=== PATIENT | male | born 1930 | race Caucasian/White ===

== ENCOUNTER → 2018-05-27 | Outpatient (CLI) | payer OTHER ==
[~2018-05-27] MED LIST: ALLOPURINOL100 MG PO; ASPIRIN81 MG; ATORVASTATIN CA20 MG PO; LABETALOL HCL200 MG PO; LISINOPRIL-HCT1 EAC1
--- NOTE | 2018-05-27 12:31 | Diagnostic Imaging Report ---
PROCEDURE: CT ABDOMEN AND PELVIS WITHOUT CONTRAST COMPARISON:None. INDICATIONS:HEMATURIA TECHNIQUE: Axial CT images through the abdomen and pelvis were obtained without IV contrast utilizing a renal stone protocol. Coronal and sagittal reformations were created. DLP: 358.96 mGY-cm FINDINGS: Lung bases: Mild bibasilar hyperinflation with several scattered air cysts in each lower lobe. There is mild bronchial wall thickening. Moderate size hiatal hernia is present. Liver: Normal attenuation. No mass Spleen: Normal size. No mass. Biliary: Gallbladder and biliary tree are normal. Pancreas: Mild fatty atrophy without mass or ductal dilatation. Punctate calcification is in the pancreas head. Adrenal Glands: Mild thickening of the adrenal glands. No mass Kidneys: Right kidney: High attenuating lesion in the upper pole measures 9 mm. Low attenuating lesion in the lower pole measures 3.1 x 2.8 cm. No intrarenal calculi or hydronephrosis. Left kidney: No renal calculus or cortical mass. No hydronephrosis. Vasculature: The aorta is normal in diameter and diffusely calcified. They're calcifications are upper visceral arteries. GI: The stomach is normal. Small bowel and large bowel are normal in diameter with normal wall thickness. There are diverticula in the large bowel object in the sigmoid colon with mural thickening of the sigmoid colon suggestive of previous bouts of diverticulitis. The appendix is normal. Peritoneum/Retroperitoneum: No mass or free fluid. Bladder: Soft tissue mass in the posterior wall measures 4.6 cm in maximum thickness and involves both the right and left bladder mejia. There are 2 masses in the anterior bladder dome, the larger measuring 1.4 cm. Ureters: Mildly distended but not dilated. No periureteric inflammation. Reproductive organs: The prostate gland measures 4.3 x 5.0 cm. The seminal vesicles are normal in morphology. Musculoskeletal: Mild endplate degenerative changes of the lower lumbar spine most severe at L2-3 and L5-S1. No compression deformities. No lytic or blastic lesions. There are trace degenerative changes of the hips. CONCLUSION: 1. Large bladder mass consistent with carcinoma until proven otherwise. Recommend correlation with cystoscopy. No obstructive uropathy. 2. Subcentimeter high attenuating lesion in the upper pole of the right kidney may represent a proteinaceous/hemorrhagic cyst. Cystic nature can be confirmed with renal ultrasound. Cyst in the lower pole of the right kidney as described above. 3. Moderate-sized hiatal hernia. 4. Diverticulosis coli. No bowel obstruction or inflammation. Dictated by: Sandie Espinoza M.D. on 05/27/2018 at 12:35 Electronically approved by: Sandie Espinoza M.D. on 05/27/2018 at 12:35
--- NOTE | 2018-05-27 13:27 | Diagnostic Imaging Report ---
PROCEDURE:US RETROPERITONEAL ( KIDNEY ). COMPARISON:CT Abdomen/Pelvis 05/27/18. INDICATIONS:Gross Hematuria FINDINGS: Right kidney: Measures up to 10.3 cm in length and 1.7 cm in cortical thickness. No evidence of hydronephrosis. There is a simple appearing 2.9 cm middle/inferior pole cyst. An 8 mm echogenic focus in the right mid pole renal pelvis without doppler flow and no evidence of stone on same day CT, may represent focal fat. Left kidney: Measures up to 10.3 cm in length and 1.6 cm in cortical thickness. No evidence of hydronephrosis, stone, or solid mass lesion. Bladder: Heterogeneous solid exophytic mass in the bladder is partially visualized on ultrasound and noted on same day CT. There is associated Doppler vascular flow. Prostate: Enlarged prostate measuring up to 4.9 cm. CONCLUSION: Exophytic bladder mass, partially visualized on ultrasound and noted on same day CT, concerning for malignancy. Recommend cystoscopy for additional evaluation. High attenuation subcentimeter lesion noted in the right upper pole CT not visualized on ultrasound. Simple 2.9 cm right inferior pole renal cyst. Dictated by: AIRAM WILSON M.D. on 05/27/2018 at 13:32 Electronically approved by: AIRAM WILSON M.D. on 05/27/2018 at 13:32
--- NOTE | 2018-05-29 23:00 | History and Physical ---
CHIEF COMPLAINT: Status post TURP secondary to gross hematuria. Status post cystoscopy. HISTORY: This is an 88-year-old male with a long history of hematuria, treated as infection and subsequently recurrent hematuria for quite some time, came in now with status post cystoscopy. Patient has a Lang catheter in place. He does have blood in the urine. Otherwise, the patient is stable. No chest pain, no shortness of breath. PAST MEDICAL HISTORY: Recurrent gross hematuria. PAST SURGICAL HISTORY: SOCIAL HISTORY: Patient does not smoke or use alcohol. No recreational drugs. ALLERGIES: TO NO KNOWN ALLERGIES. HOME MEDICATIONS: Allopurinol, aspirin, Lipitor, labetalol, lisinopril, hydrochlorothiazide. PHYSICAL EXAMINATION VITAL SIGNS: Temperature is 98. Blood pressure 128/59. Pulse rate is 72. Respirations 18. GENERAL: The patient is not in acute distress. He is status post TURP and cystoscopy. HEENT: Normocephalic, atraumatic. Anicteric. NECK: Supple grossly. PULMONARY: Diminished breath sounds. CARDIOVASCULAR: Regular rate/rhythm. ABDOMEN: Soft, status post TURP, generalized discomfort. No rebound or guarding. Lang catheter in place. EXTREMITIES: No cyanosis or edema. NEUROLOGIC: No gross focal deficit. LABORATORY: WBC is 11.7, hemoglobin 7.7, hematocrit 23.9, platelets 174,000. Chemistry, sodium is 136, potassium 4.3, chloride 103, bicarb 25, BUN 37, creatinine 2.2, glucose is 118. IMPRESSIONS 1. Status post transurethral resection of prostate and cystoscopy. 2. Finding of urinary bladder multiple lesions. 3. Gross hematuria. PLAN: Continue with postoperative care. Continue with irrigation of the urinary bladder to prevent clotting and obstruction. Will monitor the patient closely. Check pathology. Job#: [id number] CQ
== END ==
LOC: US 10:54
PROVIDERS: ATTEND Urology
DX: R31.0 Gross hematuria (principal); N40.1 Benign prostatic hyperplasia with lower urinary tract symptoms
CPT/HCPCS: 74176; 76770

== ENCOUNTER → 2018-08-06 | Day surgery (SDC) | payer MEDICARE, OTHER ==
[2018-08-04 12:12] LABS: BASOPHILS % 0.4 % (0.0-1.0); EOSINOPHILS # (AUTO) 0.1 (0.0-0.4); HEMATOCRIT 30.2 % (38.2-49.6); HEMOGLOBIN 9.4 g/dL (14.0-18.0); MEAN CORPUSCULAR HEMOGLOBIN 28.2 pg (28-32); MEAN CORPUSCULAR HGB CONC 31.1 g/dL (31-35); MEAN CORPUSCULAR VOLUME 90.7 fL (81-99); MONOCYTES # (AUTO) 0.7 (0.2-0.8); NEUTROPHILS # (AUTO) 4.2 (2.1-6.9); NEUTROPHILS % 46.4 % (38.7-80.0); PLATELET COUNT 194 x10e3/uL (140-360); RED BLOOD COUNT 3.33 x10e6/uL (4.3-5.7); RED CELL DISTRIBUTION WIDTH 16.2 % (11.7-14.4)
[2018-08-04 12:29] LABS: ALBUMIN 3.7 g/dL (3.5-5.0); ALBUMIN/GLOBULIN RATIO 1.1 (0.8-2.0); ANION GAP 14.5 mmol/L (8-16); CALCIUM 9.3 mg/dL (8.4-10.2); CREATININE, SERUM 1.57 mg/dL (0.72-1.25); POTASSIUM 4.5 mmol/L (3.5-5.1)
--- NOTE | 2018-08-04 12:33 | Diagnostic Imaging Report ---
EXAM: ABDOMEN-1VIEW (KUB) DATE: 08/04/2018 11:56 AM INDICATION: Preop bladder cancer COMPARISON: None FINDINGS: Bilateral ureteral stents present. Bowel gas pattern is nonobstructive. Pelvic phleboliths noted. Degenerative changes in the spine. IMPRESSION: Bilateral ureteral stents. Signed by: Dr. Jose Parkinson MD on 08/04/2018 12:30 PM
[~2018-08-06] MED LIST changes: +ACETAMINOPHEN 1000 MG/100 ML 100 ML IV ONE; +BACTRIM DS TAB1 EACH PO; +CEFTRIAXONE SOD 1 GM VIAL ONE; +DEXAMETHASONE SOD PHOS INJ 4 MG/ML VIAL ONE; +FENTANYL CITRATE/PF 100MCG/2 ML INJ ONE; +GENTAMICIN 80MG/NS 100 ML 100 ML IV ONE; +IOPAMIDOL 610MG/1ML 300 MG/ML VIAL IV ONE; +LIDOCAINE HCL 2% LOCAL INJ 5 ML SDV VIAL INJ ONE; +MEPERIDINE HCL INJ 50 MG/ML INJ ONE; +ONDANSETRON HCL INJ 2 MG/ML VIAL ONE; +PROPOFOL IV EMULSION 10 MG/ML 20 ML VIAL ONE; +PYRIDIUM100 MG PO; +SEVOFLURANE INHAL SOLN 250 ML PEN BTL ONE; +TAMSULOSIN HCL0.4 MG PO; +TYLENOL WITH C1 EACH PO; +VALACYCLOVIR500 MG PO
[2018-08-06 14:30] VITALS: BP 142/70
--- NOTE | 2018-09-15 01:48 | Operative Report ---
DATE OF PROCEDURE: August 06, 2018 PREOPERATIVE DIAGNOSIS: Bladder cancer. POSTOPERATIVE DIAGNOSIS: Bladder cancer. PROCEDURE PERFORMED: Cystourethroscopy with transurethral resection of larger than 5 cm in diameter of residual bladder cancer. ANESTHESIA: General. COMPLICATIONS: None. CLINICAL SUMMARY: Piotr Castro is an 88-year-old man with bilateral indwelling ureteral stents and having had twice performed transurethral resection of the bladder tumors. This revealed no invasive disease and only superficial disease. The patient has residual disease and is brought for additional TURBT. He is aware of the risks of bleeding, infection, injury to adjacent structures and need for additional procedures and elected to proceed. OPERATIVE PROCEDURE IN DETAIL: Informed consent was verified. Piotr Castro was properly identified and taken to the operating room, placed on the cystoscopy table in supine position. Anesthesia was uneventfully begun. Patient was then carefully and gently repositioned in dorsal lithotomy position with all pressure points well padded. His genitalia were prepared and draped in usual sterile fashion. A 22.5-Bruneian cystoscope sheath with a visual obturator in place was atraumatically inserted in the patient's urethra. It was guided down the unremarkable distal urethra through the sphincteric region through the prostate bed, which was significant for BPH and into the patient's bladder where panendoscopy revealed stents emerging from both ureteral orifices. It also revealed significant amount of residual bladder cancer, most notably along the posterior bladder wall and the lateral mejia. The resectoscope was atraumatically inserted and the patient's tumor was resected. We basically worked for an hour and then we stopped. Prior to stopping, electrocautery was utilized to achieve hemostasis and all bladder tumor specimens were removed from the bladder. Panendoscopy revealed excellent hemostasis. No evidence of any residual bladder tumor. A Lang catheter was placed. It was irrigated to and fro to ensure it worked properly and the patient was uneventfully reversed from anesthesia and taken to the recovery room in stable condition. There were no complications during the procedure. The patient tolerated the procedure well. Plans will be to return the patient to the operating room the following month for an additional TURBT with possible stent change. Job#: [id number]
== END | disposition home or self-care (01) ==
LOC: OR 08:39
PROVIDERS: ATTEND Urology
DX: C67.8 Malignant neoplasm of overlapping sites of bladder (principal); Z96.0 Presence of urogenital implants; N40.0 Benign prostatic hyperplasia without lower urinary tract symptoms; I10 Essential (primary) hypertension; E78.5 Hyperlipidemia, unspecified; K21.9 Gastro-esophageal reflux disease without esophagitis; Z01.812 Encounter for preprocedural laboratory examination
CPT/HCPCS: 36415; 52240; 74018; 80053; 85025; 86850; 86900; 88307; J0696; J1100; J1580; J2001; J2175; J2405; 88305

== ENCOUNTER 2018-11-05 07:37 | Inpatient (IN) | payer MEDICARE ==
[2018-11-03 13:24] LABS: BASOPHILS % 0.4 % (0.0-1.0); EOSINOPHILS # (AUTO) 0.1 (0.0-0.4); EOSINOPHILS % 0.9 % (0.0-6.0); HEMATOCRIT 39.8 % (38.2-49.6); HEMOGLOBIN 12.9 g/dL (14.0-18.0); LYMPHOCYTES # (AUTO) 3.1 (1.0-3.2); LYMPHOCYTES % 28.1 % (18.0-39.1); MEAN CORPUSCULAR HEMOGLOBIN 29.7 pg (28-32); MEAN CORPUSCULAR HGB CONC 32.4 g/dL (31-35); MEAN CORPUSCULAR VOLUME 91.7 fL (81-99); MONOCYTES # (AUTO) 0.9 (0.2-0.8); MONOCYTES % 8.4 % (4.4-11.3); NEUTROPHILS # (AUTO) 6.7 (2.1-6.9); NEUTROPHILS % 61.7 % (38.7-80.0); PLATELET COUNT 295 x10e3/uL (140-360); RED BLOOD COUNT 4.34 x10e6/uL (4.3-5.7); RED CELL DISTRIBUTION WIDTH 21.8 % (11.7-14.4)
[2018-11-03 13:44] LABS: ALBUMIN 3.8 g/dL (3.5-5.0); ANION GAP 17.3 mmol/L (8-16); CALCIUM 9.8 mg/dL (8.4-10.2); POTASSIUM 5.3 mmol/L (3.5-5.1)
[~2018-11-05] VITALS: Ht 165.1 cm; Wt 65.3 kg
[~2018-11-05 07:37] MED LIST changes: -ACETAMINOPHEN 1000 MG/100 ML 100 ML IV ONE; -CEFTRIAXONE SOD 1 GM VIAL ONE; -DEXAMETHASONE SOD PHOS INJ 4 MG/ML VIAL ONE; -FENTANYL CITRATE/PF 100MCG/2 ML INJ ONE; -GENTAMICIN 80MG/NS 100 ML 100 ML IV ONE; -IOPAMIDOL 610MG/1ML 300 MG/ML VIAL IV ONE; -LIDOCAINE HCL 2% LOCAL INJ 5 ML SDV VIAL INJ ONE; -LISINOPRIL-HCT1 EAC1; +LISINOPRIL-HCT1 EAC1 PO; -MEPERIDINE HCL INJ 50 MG/ML INJ ONE; -ONDANSETRON HCL INJ 2 MG/ML VIAL ONE; -PROPOFOL IV EMULSION 10 MG/ML 20 ML VIAL ONE; -SEVOFLURANE INHAL SOLN 250 ML PEN BTL ONE
--- OUTSIDE RECORDS SUMMARY | 2018-11-05 07:44 | XMS REPORT | Clinical Summary ---
Author Author [employer] Organization [employer] Address Unknown Phone Unavailable Care Team Providers Care Table Filler Name Role Phone PCP Unavailable Allergies Not on File Medications Not on file Active Problems Not on file Encounters Care Team Description Date Type Specialty Juvencio Mccullough MD 09/02/2018 Lab Lab after 11/04/2017 Social History Date Tobacco Use Types Packs/Day Years Used Never Assessed Sex Assigned at Date Recorded Not on file Industry Job Start Date Occupation Not on file Not on file Not on file Travel End Travel History Travel Start No recent travel history available. Last Filed Vital Signs Not on file Plan of Treatment Health Maintenance Due Date Last Done Comments SHINGLES VACCINES (1 of 1980 2) PNEUMOCOCCAL Completed 01/02/2009 POLYSACCHARIDE VACCINE AGE 65 AND OVER PNEUMOCOCCAL-13 Completed 03/25/2018 INFLUENZA VACCINE Completed 07/07/2018, 07/02/2017 Procedures Comments Procedure Name Priority Date/Time Associated Diagnosis MARJORIE FRANK VIRUS (EBV) Routine 09/03/2018 BY PCR 12:30 PM SHOE DRESSER OPHTHALMOLOGY PATHOGEN Routine 09/03/2018 MULTIPLEX PANEL 12:30 PM SHOE DRESSER after 11/04/2017 Results * Ophthalmology pathogen multiplex panel (09/03/2018 12:30 PM SHOE DRESSER) Cytomegalovirus by PCR, Not-Detected Not-Detected [facility] DEPARTMENT OF eye PATHOLOGY AND GENOMIC MEDICINE Herpes simplex virus 1 by Not-Detected Not-Detected [facility] DEPARTMENT OF PCR, eye PATHOLOGY AND GENOMIC MEDICINE Herpes simplex virus 2 by Not-Detected Not-Detected [facility] DEPARTMENT OF PCR, eye PATHOLOGY AND GENOMIC MEDICINE Toxoplasma gondii by PCR, Not-Detected Not-Detected [facility] DEPARTMENT OF eye PATHOLOGY AND GENOMIC MEDICINE Varicella zoster virus by Detected (A) Not-Detected [facility] DEPARTMENT OF PCR, eye PATHOLOGY AND GENOMIC MEDICINE Ophthalmology pathogen See link below for PDF Lab [facility] DEPARTMENT OF multiplex panel ReportComment: Case Number: PATHOLOGY AND [id number] GENOMIC MEDICINE Narrative Performed At [facility] right eye [facility] DEPARTMENT OF PATHOLOGY AND GENOMIC MEDICINE Performing Organization Address City/State/Zipcode Phone Number [facility] DEPARTMENT OF [address] [place] [address] PATHOLOGY AND GENOMIC MEDICINE * Marjorie Frank Virus (EBV) by PCR (09/03/2018 12:30 PM SHOE DRESSER) Marjorie Frank virus, PCR Not-Detected Not-Detected copies/mL [facility] Marjorie Frank virus, PCR See link below for PDF Lab [facility] ReportComment: Case Number: [facility] [id number] Narrative Performed At aqueous right eye [facility] The specimen type Vitreous, Other has not been validated for this assay. [facility] Therefore, the sensitivity and specificity of this assay for this specimen type is unknown. A negative result does not completely rule out the presence of EBV. Correlation with other clinical information is recommended. Performing Organization Address City/State/Zipcode Phone Number [facility] DEPARTMENT OF [address] [place] [address] PATHOLOGY AND GENOMIC MEDICINE [address] [address] [facility] after 11/04/2017 Insurance Payer Benefit Subscriber ID Type Phone Address Plan / Group HUMANA MEDICARE HUMANA xxxxxxxxx PPO MEDICARE PPO/PFFS/E RS [facility] MEDICARE MEDICARE xxxxxxxxxxx Medicare [place], [place] PART A AND B Advance Directives Patient has advance care planning documents on file. For more information, brian freeman contact: [address] [address]
[2018-11-05] MEDS ORDERED: CEFTRIAXONE SOD 1 GM/NS 50 ML 50 ML IV ONE (07:54)
[2018-11-05] MEDS ORDERED: GENTAMICIN 80MG/NS 100 ML 100 ML IV ONE (07:54)
[2018-11-05 08:28] LABS: ANION GAP 16.8 mmol/L (8-16); CALCIUM 9.6 mg/dL (8.4-10.2); CREATININE, SERUM 2.41 mg/dL (0.72-1.25); POTASSIUM 4.8 mmol/L (3.5-5.1)
[2018-11-05] MEDS ORDERED: BELLADONNA/OPIUM 30 MG SUPP RC ONE (09:03)
[2018-11-05] MEDS ORDERED: IOPAMIDOL 610MG/1ML 300 MG/ML VIAL IV ONE (09:03)
[2018-11-05] MEDS ORDERED: FENTANYL CITRATE/PF 100MCG/2 ML INJ ONE ×2 (11:49→15:12)
[2018-11-05] MEDS ORDERED: DIPHENHYDRAMINE HCL 25 MG CAP PO PRN (12:15)
[2018-11-05] MEDS ORDERED: BELLADONNA/OPIUM 30 MG SUPP RC PRN (12:15)
[2018-11-05] MEDS ORDERED: ONDANSETRON HCL INJ 2MG/ML 2ML 2 MG/ML VIAL IV PRN (12:15)
--- OUTSIDE RECORDS SUMMARY | 2018-11-05 12:20 | XMS REPORT | Clinical Summary ---
Author Author [employer] [facility] [employer] Address Unknown Phone Unavailable Care Team Providers Care Advertising Sales Executive Name Role Phone PCP Unavailable Allergies Not [...] (EBV) Routine 09/03/2018 BY PCR 12:30 PM GROUP HOME COUNSELOR OPHTHALMOLOGY PATHOGEN Routine 09/03/2018 MULTIPLEX PANEL 12:30 PM GROUP HOME COUNSELOR after 11/04/2017 Results * Ophthalmology pathogen multiplex panel (09/03/2018 12:30 PM GROUP HOME COUNSELOR) Cytomegalovirus by PCR, Not-Detected Not-Detected [facility] DEPARTMENT OF eye PATHOLOGY AND GENOMIC MEDICINE Herpes simplex virus 1 by Not-Detected Not-Detected [facility] DEPARTMENT OF PCR, eye PATHOLOGY AND GENOMIC MEDICINE Herpes simplex virus 2 by Not-Detected Not-Detected [facility] DEPARTMENT OF PCR, eye PATHOLOGY AND GENOMIC MEDICINE Toxoplasma gondii by PCR, Not-Detected Not-Detected [facility] DEPARTMENT OF eye PATHOLOGY AND GENOMIC MEDICINE Varicella zoster virus by Detected (A) Not-Detected [facility] DEPARTMENT OF PCR, eye PATHOLOGY AND GENOMIC MEDICINE Ophthalmology pathogen See link below for PDF Lab [facility] DEPARTMENT OF multiplex panel ReportComment: Case Number: PATHOLOGY AND [id number] GENOMIC MEDICINE Narrative Performed At [facility] right eye [facility] DEPARTMENT OF PATHOLOGY AND GENOMIC MEDICINE Performing Organization Address City/State/Zipcode Phone Number [facility] DEPARTMENT OF [address] [place] [address] PATHOLOGY AND GENOMIC MEDICINE * Marjorie Frank Virus (EBV) by PCR (09/03/2018 12:30 PM GROUP HOME COUNSELOR) Marjorie Frank virus, PCR Not-Detected Not-Detected copies/mL [facility] Marjorie Frank virus, PCR See link below for PDF Lab [facility] ReportComment: Case Number: [facility] [id number] Narrative Performed At aqueous right eye [facility] The specimen type Vitreous, Other has not been validated for this assay. [facility] Therefore, the sensitivity and specificity of this assay for this specimen type is unknown. A negative result does not completely rule out the presence of EBV. Correlation with other clinical information is recommended. Performing Organization Address City/State/Zipcode Phone Number [facility] DEPARTMENT OF [address] [place] [phone] PATHOLOGY AND GENOMIC MEDICINE [address] [address] [facility] after 11/04/2017 Insurance Payer Benefit Subscriber ID Type Phone Address Plan / Group HUMANA MEDICARE HUMANA xxxxxxxxx PPO MEDICARE PPO/PFFS/E RS [facility] MEDICARE MEDICARE xxxxxxxxxxx Medicare [place], [place] PART A AND B Advance Directives Patient has advance care planning documents on file. For more information, brian freeman contact: [address] [phone]
[2018-11-05 12:30] VITALS: BP 150/67
--- NOTE | 2018-11-05 12:30 | NUR ---
PT RECEIVED FROM PACU TO ROOM 104, AA/O X3, NO C/O AT PRESENT. ADM ASSESSMENT COMPLETE, VSS. CONTINUOUS BLADDER IRRIG IN PLACE, URINE STRAW COLOR, NO BLEEDING. ORIENTED TO ROOM AND CALL SYSTEM.
[2018-11-05 13:00] VITALS: BP 150/67
[2018-11-05] MEDS ORDERED: LIDOCAINE HCL 2% LOCAL INJ 5 ML SDV VIAL INJ ONE (13:23)
[2018-11-05] MEDS ORDERED: DESFLURANE 240 ML BTL INH ONE (13:23)
[2018-11-05] MEDS ORDERED: PROPOFOL IV EMULSION 10 MG/ML 20 ML VIAL ONE (13:23)
[2018-11-05] MEDS ORDERED: FUROSEMIDE INJ 10 MG/ML 4 ML VIAL ONE (13:23)
[2018-11-05] MEDS ORDERED: DEXAMETHASONE SOD PHOS INJ 4 MG/ML VIAL ONE (13:23)
[2018-11-05] MEDS ORDERED: ONDANSETRON HCL INJ 2MG/ML 2ML 2 MG/ML VIAL ONE (13:23)
[2018-11-05] MEDS: SODIUM CHLORIDE 0.9% 1000ML 1,000 ML IV SCH (14:00)
[2018-11-05] MEDS: PHENAZOPYRIDINE HCL 100 MG TAB PO SCH ×2 (14:00→18:07)
[2018-11-05] MEDS: PIPERACILLIN/TAZO 2.25 GM 50 ML IV SCH ×2 (14:00→21:44)
[2018-11-05] MEDS ORDERED: MIDAZOLAM HCL 2 MG/2 ML VIAL ONE (15:12)
[2018-11-05 16:24] VITALS: BP 128/61
[2018-11-05] MEDS: DOCUSATE SODIUM 100 MG CAP PO SCH (18:06)
--- NOTE | 2018-11-05 19:05 | NUR ---
REPORT TAKEN FROM AM RN.LYEING QUIETLY IN THE BED.PT IS ON CONTD.BLADDER IRRIGATION.PINK COLORED URINE DRAINING.
[2018-11-05 20:00] VITALS: BP 111/56
[2018-11-05 21:00] VITALS: BP 120/56
--- NOTE | 2018-11-05 21:00 | NUR ---
ASSESSMENT DONE.NO RESP.DISTRESS.NO PAIN VOICED.LOUIS CARE GIVEN.IV IS IN RFA.BED LOCKED AND IN LOWEST POSITION.PHONE AND CALL LIGHT WITHIN REACH.INSTRUCTED TO CALL FOR ASSISTANCE NEEDED.
[2018-11-06] VITALS (8 sets, daily range): BP systolic 131–160; BP diastolic 60–72
--- NOTE | 2018-11-06 00:30 | NUR ---
PT REFUSED TO PUT JEWEL AND SCD.PT STATED THAT "JOANNA COMFORTABLE RIGHT NOW .NO NEED SCD AND STOCKINGS."
[2018-11-06] MEDS: SODIUM CHLORIDE 0.9% 1000ML 1,000 ML IV SCH ×2 (01:40→16:11)
[2018-11-06] MEDS: ACETAMINOPHEN/CODEINE 300MG - 30MG TAB PO PRN ×3 (03:27→21:11)
[2018-11-06] MEDS: PIPERACILLIN/TAZO 2.25 GM 50 ML IV SCH ×3 (05:45→21:48)
[2018-11-06 05:59] LABS: BASOPHILS % 0.3 % (0.0-1.0); EOSINOPHILS # (AUTO) 0.1 (0.0-0.4); EOSINOPHILS % 0.8 % (0.0-6.0); HEMATOCRIT 31.3 % (38.2-49.6); HEMOGLOBIN 10.3 g/dL (14.0-18.0); LYMPHOCYTES # (AUTO) 2.7 (1.0-3.2); MEAN CORPUSCULAR HEMOGLOBIN 30.3 pg (28-32); MEAN CORPUSCULAR HGB CONC 32.9 g/dL (31-35); MEAN CORPUSCULAR VOLUME 92.1 fL (81-99); MONOCYTES # (AUTO) 0.7 (0.2-0.8); MONOCYTES % 6.6 % (4.4-11.3); NEUTROPHILS # (AUTO) 7.3 (2.1-6.9); PLATELET COUNT 212 x10e3/uL (140-360); RED CELL DISTRIBUTION WIDTH 21.6 % (11.7-14.4)
[2018-11-06 06:11] LABS: ANION GAP 11.9 mmol/L (8-16); CALCIUM 9.1 mg/dL (8.4-10.2); CREATININE, SERUM 2.06 mg/dL (0.72-1.25); POTASSIUM 4.9 mmol/L (3.5-5.1)
--- NOTE | 2018-11-06 07:00 | NUR ---
Report given to the oncoming rn.walking rounds done.stable condition.
[2018-11-06] MEDS: DOCUSATE SODIUM 100 MG CAP PO SCH ×2 (09:00→17:40)
[2018-11-06] MEDS: PHENAZOPYRIDINE HCL 100 MG TAB PO SCH ×3 (09:00→17:40)
--- NOTE | 2018-11-06 09:25 | NUR ---
Rounds by attending and orders in place for labs, CBI continuous and Lang with pink urine, will monitor.
--- NOTE | 2018-11-06 11:45 | NUR ---
Call to Dr. Velasquez and left message regarding elevated BP and questioning if could resume home meds, waiting for call back
--- NOTE | 2018-11-06 15:04 | NUR ---
Nutrition Screen Note RD Recommendation for Physician: Continue diet as ordered Plan of Care: RD following, monitoring for adequacy and tolerance Nutrition reason for involvement: Nutrition Risk Trigger- MST Primary Diagnose(s): Bladder Cancer Ht:65 in Wt:149lbs BMI:24.8 kg/m2 IBW:136lbs RD Assessment:(11/06/2018) Initial encounter with patient. Pt is eating well and denies N,V,D, nor has any difficulty chewing or swallowing Current Diet: Regular diet Malnutrition Evaluation (11/06/2018) The patient does not meet criteria for a specified degree of malnutrition at this time. Will re-evaluate at follow-up as appropriate. Diet Education Needs Assessment: Diet education not indicated. Diet Adequacy: Meeting calorie needs, Meeting protein needs, Meeting fluid needs Tolerance: Tolerating PO Nutrition Care Level: anton Black RD, LD, [facility]
--- NOTE | 2018-11-06 19:10 | NUR ---
REPORT TAKEN FROM AM RN.WALKING ROUNDS DONE.NO PAIN VOICED.CBI .PINK COLORED URINE DRAINING.
--- NOTE | 2018-11-06 22:18 | NUR ---
LOUIS CARE GIVEN.ASSESSMENT DONE.NO RESP.DISTRESS.AMBULATES. PHONE AND CALL LIGHT WITHIN REACH.INSTRUCTED TO CALL FOR ASSISTANCE NEEDED .FREQUENT ROUNDING.
[2018-11-07] VITALS: BP 119/58
[2018-11-07] MEDS: SODIUM CHLORIDE 0.9% 1000ML 1,000 ML IV SCH (04:28)
[2018-11-07] MEDS: PIPERACILLIN/TAZO 2.25 GM 50 ML IV SCH ×3 (05:46→21:16)
[2018-11-07] MEDS: ACETAMINOPHEN/CODEINE 300MG - 30MG TAB PO PRN ×2 (05:48→17:27)
[2018-11-07 06:21] LABS: BASOPHILS % 0.3 % (0.0-1.0); EOSINOPHILS # (AUTO) 0.1 (0.0-0.4); EOSINOPHILS % 1.5 % (0.0-6.0); HEMATOCRIT 33.8 % (38.2-49.6); HEMOGLOBIN 10.9 g/dL (14.0-18.0); LYMPHOCYTES # (AUTO) 2.7 (1.0-3.2); LYMPHOCYTES % 29.1 % (18.0-39.1); MEAN CORPUSCULAR HEMOGLOBIN 29.9 pg (28-32); MEAN CORPUSCULAR HGB CONC 32.2 g/dL (31-35); MEAN CORPUSCULAR VOLUME 92.9 fL (81-99); MONOCYTES # (AUTO) 0.8 (0.2-0.8); MONOCYTES % 8.1 % (4.4-11.3); NEUTROPHILS # (AUTO) 5.6 (2.1-6.9); NEUTROPHILS % 60.7 % (38.7-80.0); PLATELET COUNT 213 x10e3/uL (140-360); RED BLOOD COUNT 3.64 x10e6/uL (4.3-5.7); RED CELL DISTRIBUTION WIDTH 21.7 % (11.7-14.4)
--- NOTE | 2018-11-07 06:50 | NUR ---
REPORT GIVEN TO THE ONCOMING RN.WALKING ROUNDS DONE.STABLE CONDITION.
[2018-11-07 06:52] LABS: ANION GAP 12.1 mmol/L (8-16); CALCIUM 9.4 mg/dL (8.4-10.2); CREATININE, SERUM 1.57 mg/dL (0.72-1.25); POTASSIUM 5.1 mmol/L (3.5-5.1)
[2018-11-07 08:12] VITALS: BP 122/57
[2018-11-07 09:00] VITALS: BP 122/57
[2018-11-07] MEDS ORDERED: LABETALOL HCL 200 MG TAB PO SCH (09:00)
[2018-11-07] MEDS: PHENAZOPYRIDINE HCL 100 MG TAB PO SCH ×3 (09:00→17:26)
[2018-11-07] MEDS: DOCUSATE SODIUM 100 MG CAP PO SCH ×2 (09:00→17:26)
[2018-11-07] MEDS: SODIUM BICARBONATE 650 MG TAB PO SCH ×3 (09:00→17:26)
--- NOTE | 2018-11-07 09:00 | NUR ---
PT RECEIVED SITTING UP IN BED, AA/O X3, NO C/O AT PRESENT. ASSESSMENT COMPLETE, VSS. CONTINUOUS BLADDER IRRIG IN PLACE, URINE PINK, NO BLEEDING. DISCUSSED PLAN FOR THE DAY
[2018-11-07] MEDS: ALLOPURINOL 100 MG TAB PO SCH (10:30)
[2018-11-07] MEDS: TAMSULOSIN HCL 0.4 MG CAP PO SCH (10:30)
[2018-11-07] MEDS: VALACYCLOVIR HCL 500 MG TAB PO SCH (10:30)
[2018-11-07] MEDS: LABETALOL HCL 100 MG TAB PO SCH ×2 (10:30→17:00)
[2018-11-07 11:56] VITALS: BP 125/61
[2018-11-07 16:11] VITALS: BP 126/60
--- NOTE | 2018-11-07 19:30 | NUR ---
ASSESSMENT DONE.NO PAIN VOICED.NO RESP.DISTRESS.LOUIS IS IN PLACE.BED LOCKED AND IN LOWEST POSITION.PHONE AND CALL LIGHT WITHIN REACH.INSTRUCTED TO CALL FOR ASSISTANCE NEEDED.
[2018-11-07 20:00] VITALS: BP 133/58
[2018-11-07] MEDS ORDERED: ATORVASTATIN 20 MG TAB PO SCH (21:00)
--- NOTE | 2018-11-07 22:00 | NUR ---
Pt refused 2 hourly rounding.
[2018-11-08 04:00] VITALS: BP 150/72
--- NOTE | 2018-11-08 04:00 | NUR ---
ASSISTED THE PT TO USE TOILETTE.HAS SMALL BOWEL MOVEMENT.
[2018-11-08] MEDS: ACETAMINOPHEN/CODEINE 300MG - 30MG TAB PO PRN (05:04)
[2018-11-08] MEDS: PIPERACILLIN/TAZO 2.25 GM 50 ML IV SCH (05:50)
[2018-11-08 05:57] LABS: BASOPHILS % 0.4 % (0.0-1.0); EOSINOPHILS # (AUTO) 0.2 (0.0-0.4); EOSINOPHILS % 1.8 % (0.0-6.0); HEMATOCRIT 32.6 % (38.2-49.6); HEMOGLOBIN 10.5 g/dL (14.0-18.0); LYMPHOCYTES # (AUTO) 2.3 (1.0-3.2); LYMPHOCYTES % 23.4 % (18.0-39.1); MEAN CORPUSCULAR HEMOGLOBIN 29.5 pg (28-32); MEAN CORPUSCULAR HGB CONC 32.2 g/dL (31-35); MEAN CORPUSCULAR VOLUME 91.6 fL (81-99); MONOCYTES # (AUTO) 0.8 (0.2-0.8); MONOCYTES % 8.5 % (4.4-11.3); NEUTROPHILS # (AUTO) 6.4 (2.1-6.9); NEUTROPHILS % 65.5 % (38.7-80.0); PLATELET COUNT 205 x10e3/uL (140-360); RED BLOOD COUNT 3.56 x10e6/uL (4.3-5.7); RED CELL DISTRIBUTION WIDTH 21.5 % (11.7-14.4)
[2018-11-08 06:22] LABS: ANION GAP 12.4 mmol/L (8-16); CALCIUM 9.1 mg/dL (8.4-10.2); CREATININE, SERUM 1.44 mg/dL (0.72-1.25); POTASSIUM 4.4 mmol/L (3.5-5.1)
[2018-11-08 08:20] VITALS: BP 166/78
[2018-11-08 08:29] VITALS: BP 166/78
[2018-11-08] MEDS: DOCUSATE SODIUM 100 MG CAP PO SCH (08:29)
[2018-11-08] MEDS: PHENAZOPYRIDINE HCL 100 MG TAB PO SCH (08:29)
[2018-11-08] MEDS: VALACYCLOVIR HCL 500 MG TAB PO SCH (08:29)
[2018-11-08] MEDS: SODIUM BICARBONATE 650 MG TAB PO SCH (08:29)
[2018-11-08] MEDS: TAMSULOSIN HCL 0.4 MG CAP PO SCH (08:29)
[2018-11-08] MEDS: LABETALOL HCL 100 MG TAB PO SCH (08:29)
[2018-11-08] MEDS: ALLOPURINOL 100 MG TAB PO SCH (08:29)
--- NOTE | 2018-11-08 08:29 | NUR ---
assessment complete, no distress noted, denies pain at this time, petersen to bsd with dark oleary red urine noted md aware, r fa 20g no ss of infiltration noted, no other co voiced call light in reach will continue to monitor
[2018-11-08] MEDS ORDERED: TYLENOL WITH C1 EACH PO (10:05)
[2018-11-08] MEDS ORDERED: CEFUROXIME250 MG PO (10:07)
--- NOTE | 2018-11-08 10:20 | NUR ---
IMM GIVEN WITH EXPLANATION. PATIENT SIGNED COPY PLACED IN CHART. COPY OF SIGNED DOCUMENT GIVEN TO PATIENT AND PLACED IN CARE TRANSITION FOLDER. CM CONTACT INFORMATION GIVEN TO PATIENT.
--- NOTE | 2018-11-08 10:20 | NUR ---
CM SPOKE TO PATIENT REGARDING HOME HEALTH RESUMPTION ORDER. PATIENT STATES HE WOULD LIKE TO CONTINUE SERVICES WITH [facility]. PATIENT SIGNED CHOICE LETTER. CHOICE LETTER PLACED IN CHART. CLINICAL SENT TO [facility] [phone]. JANETTE SPOKE TO YURI AT [facility]. SHE VERIFIED THAT THE CLINICAL WAS RECEIVED AND SERVICES WOULD START TOMORROW. PATIENT DISCHARGING HOME WITH HOME HEALTH SERVICES: [facility]: (P) [phone] (F) [phone] PATIENT AWARE TO CALL IF SERVICES ARE NOT RESUMED WITHIN 24-48 HOURS. PATIENT STATES HE HAS HIS NURSE THAO'S NUMBER AND WILL GIVE HER CALL TODAY THAT HE IS DISCHARGED. Addendum: 11/08/18 at 1307 by Radha Chen CM [facility] (P) [phone] (K) [phone]
--- NOTE | 2018-12-20 09:47 | Operative Report ---
DATE OF PROCEDURE: 11/05/2018 SURGEON: Nawaf Hussein MD PREOPERATIVE DIAGNOSES: 1. Superficial bladder cancer, very large, much larger than 5 cm in diameter. 2. Bilateral indwelling ureteral stents. 3. Bilateral hydronephrosis. POSTOPERATIVE DIAGNOSES: 1. Superficial bladder cancer, very large, much larger than 5 cm in diameter. 2. Bilateral indwelling ureteral stents. 3. Bilateral hydronephrosis. OPERATIONS PERFORMED: 1. Cystourethroscopy with complicated removal of bilateral indwelling ureteral stents (surgery performed for the diagnosis of stents). 2. Cystourethroscopy with placement of bilateral indwelling ureteral stents (surgery performed to relieve the bilateral hydronephrosis). 3. Interpretation of retrograde ureteropyelography. 4. Supervision of fluoroscopy, no radiologist present. 5. Cystourethroscopy with transurethral resection and vaporization of larger than 5 cm surface diameter bladder cancer. ANESTHESIA: General. COMPLICATIONS: None. CLINICAL SUMMARY: Piotr Castro is an 88-year-old man, who presented with severe gross hematuria. He was evaluated and found to have severe amount of bladder cancer covering a large portion of his bladder. He has undergone a number of transurethral resection of the prostate procedures, he has bilateral indwelling ureteral stents. The patient was brought in a staged manner to the operating room to perform the above procedure. He is aware of the risks of bleeding, infection, injury to adjacent structures, and need for additional procedures, and he elected to proceed. We planned on resecting for an hour and then stopping, and then whatever bladder cancer remains, we will plan to eradicate at a later time. PROCEDURE IN DETAIL: Informed consent was verified. Piotr Castro was properly identified, taken to the operating room, and placed on the cystoscopy table in supine position. Anesthesia was uneventfully begun. The patient was then carefully and gently repositioned in the dorsal lithotomy position with all pressure points well padded. His genitalia were prepared and draped in the usual sterile fashion. A 22.5-Arabic cystoscope sheath with the visual obturator in place, was atraumatically inserted into the patient's urethra. It was guided unremarkably into the distal urethra through the normal sphincteric region and through the prostate bed that was significant for BPH, and into the patient's bladder. Panendoscopy of the bladder revealed severe bladder cancer, definitely larger than 5 cm in diameter. This was present around the trigone and cephalad. The previous cancer that was present in the region of the bladder neck was no longer present following the prior resections. Most of bladder cancer that was between the interureteric ridge and the bladder neck, was also no longer present and has not recurred. Both stents were identified. A guidewire was then placed into the right ureter and guided through the level of the patient's kidney. The stent was then grasped, completely removed and discarded. An open-ended catheter was then placed into the right collecting system and it was opacified with contrast. With cystoscopic and fluoroscopic guidance, the right-sided indwelling ureteral stent was then placed, coiled the patient's kidney as well as the patient's bladder. The retaining suture was removed. An identical procedure and maneuvers were performed on the left-hand side to replace the left-sided stent. Interpretation of Retrograde Ureteropyelography: Contrast was instilled in a retrograde fashion bilaterally. There was bilateral hydronephrosis present. There were no suspicious mucosal lesions nor filling defect of the upper tracts. There was chronic-appearing dilation of both ureters as well as the upper collecting systems. The new stents were in good position, coiled the patient's kidneys as well as the patient's bladder. The resectoscope was then inserted atraumatically and we utilized the resection loop and we proceeded with resecting for exactly one hour by the clock. We resected as much tumor as we were able to resect. We also vaporized and fulgurated additional tumor burden. Additional tumor burden remains and will need to be addressed at a future surgery. Excellent hemostasis was obtained. The resectoscope was withdrawn following evacuation of all tumor debris that was loose. We then placed the Lang catheter in place and placed the Belladonna and Opium suppository, and the patient was uneventfully reversed from anesthesia and taken to recovery room in stable condition. There were no complications during the procedure. The patient tolerated the procedure well. Plans will be to return the patient to the operating room for another TURBT in the next several weeks. Nawaf Hussein MD [place]/MODMariel /[id number]
== END 2018-11-08 11:23 | disposition home health service (06) | DRG 657 ==
LOC: OR 07:37 → PACU V 12:06 → MED/SURG 12:26
PROVIDERS: ADMIT Internal Medicine; ATTEND Internal Medicine
PROC: 0T5B8ZZ Destruction of Bladder, Via Natural or Artificial Opening Endoscopic (ICD-10-PCS; 2018-11-05)
PROC: BT141ZZ Fluoroscopy of Kidneys, Ureters and Bladder using Low Osmolar Contrast (ICD-10-PCS; 2018-11-05)
PROC: 0TP98DZ Removal of Intraluminal Device from Ureter, Via Natural or Artificial Opening Endoscopic (ICD-10-PCS; principal; 2018-11-05 09:30)
PROC: 0T788DZ Dilation of Bilateral Ureters with Intraluminal Device, Via Natural or Artificial Opening Endoscopic (ICD-10-PCS; 2018-11-05 09:30)
DX: C67.9 Malignant neoplasm of bladder, unspecified (principal); N13.30 Unspecified hydronephrosis; N17.9 Acute kidney failure, unspecified; N39.0 Urinary tract infection, site not specified; E87.1 Hypo-osmolality and hyponatremia; I10 Essential (primary) hypertension; Z96.0 Presence of urogenital implants; E78.5 Hyperlipidemia, unspecified; D64.9 Anemia, unspecified; N40.0 Benign prostatic hyperplasia without lower urinary tract symptoms; T46.4X5A Adverse effect of angiotensin-converting-enzyme inhibitors, initial encounter
CPT/HCPCS: 36415; 74420; 80048; 80053; 83735; 85025; 88307; 93005; C2617; J0696; J1100; J1580; J1940; J2001; J2250; J2405; J2543; J7030

== ENCOUNTER 2018-12-17 16:06 | Inpatient (IN) | payer MEDICARE ==
[~2018-12-17] VITALS: Ht 165.1 cm; Wt 63.1 kg
[~2018-12-17 16:06] MED LIST changes: +CEFUROXIME250 MG PO
--- OUTSIDE RECORDS SUMMARY | 2018-12-17 16:49 | XMS REPORT | Clinical Summary ---
Author Author [employer] Organization [employer] Address Unknown Phone Unavailable Care Team Providers Care Data Librarian Name Role Phone PCP Unavailable Allergies Not on File Medications Not on file Active Problems Not on file Encounters Care Team Description Date Type Specialty Juvencio Mccullough MD 09/02/2018 Lab Lab after 12/16/2017 Social History Date Tobacco Use Types Packs/Day Years Used Never Assessed Sex Assigned at Date Recorded Not on file Industry Job Start Date Occupation Not on file Not on file Not on file Travel End Travel History Travel Start No recent travel history available. Last Filed Vital Signs Not on file Plan of Treatment Health Maintenance Due Date Last Done Comments SHINGLES VACCINES (#1) 1980 PNEUMOCOCCAL Completed 01/02/2009 POLYSACCHARIDE VACCINE AGE 65 AND OVER 65+ PNEUMOCOCCAL VACCINE Completed 03/25/2018, 01/02/2009 INFLUENZA VACCINE Completed 07/07/2018, 07/02/2017 Procedures Comments Procedure Name Priority Date/Time Associated Diagnosis MARJORIE FRANK VIRUS (EBV) Routine 09/03/2018 BY PCR 12:30 PM FIELD AIDE OPHTHALMOLOGY PATHOGEN Routine 09/03/2018 MULTIPLEX PANEL 12:30 PM FIELD AIDE after 12/16/2017 Results * Ophthalmology pathogen multiplex panel (09/03/2018 12:30 PM FIELD AIDE) Cytomegalovirus by PCR, Not-Detected Not-Detected [facility] DEPARTMENT OF eye PATHOLOGY AND GENOMIC MEDICINE Herpes simplex virus 1 by Not-Detected Not-Detected [facility] DEPARTMENT OF PCR, eye PATHOLOGY AND GENOMIC MEDICINE Herpes simplex virus 2 by Not-Detected Not-Detected [facility] DEPARTMENT OF PCR, eye PATHOLOGY AND GENOMIC MEDICINE Toxoplasma gondii by PCR, Not-Detected Not-Detected [facility] DEPARTMENT OF eye PATHOLOGY AND GENOMIC MEDICINE Varicella zoster virus by Detected (A) Not-Detected [facility] DEPARTMENT OF PCR, eye PATHOLOGY AND GENOMIC MEDICINE Ophthalmology pathogen See link below for PDF Lab [facility] DEPARTMENT OF multiplex panel ReportComment: Case Number: PATHOLOGY AND [id number] GENOMIC MEDICINE Narrative Performed At [facility] right eye [facility] DEPARTMENT OF PATHOLOGY AND GENOMIC MEDICINE Performing Organization Address City/State/Zipcode Phone Number [facility] DEPARTMENT OF [address] [place] [phone] PATHOLOGY AND GENOMIC MEDICINE * Marjorie Frank Virus (EBV) by PCR (09/03/2018 12:30 PM FIELD AIDE) Marjorie Frank virus, PCR Not-Detected Not-Detected copies/mL [facility] Marjorie Frank virus, PCR See link below for PDF Lab [facility] ReportComment: Case Number: [facility] [id number] Narrative Performed At aqueous right eye [facility] The specimen type Vitreous, Other has not been validated for this assay. [facility] Therefore, the sensitivity and specificity of this assay for this specimen type is unknown. A negative result does not completely rule out the presence of EBV. Correlation with other clinical information is recommended. Performing Organization Address City/State/[facility] Phone Number [facility] DEPARTMENT OF [address] [place] [address] PATHOLOGY AND GENOMIC MEDICINE [id number] [place] [address] after 12/16/2017 Insurance Payer Benefit Subscriber ID Type Phone Address Plan / Group HUMANA MEDICARE HUMANA xxxxxxxxx PPO MEDICARE PPO/PFFS/E RS [facility] MEDICARE MEDICARE xxxxxxxxxxx Medicare [place], [place] PART A AND B Advance Directives Patient has advance care planning documents on file. For more information, brian freeman contact: [address] [address]
--- OUTSIDE RECORDS SUMMARY | 2018-12-17 16:49 | XMS REPORT | Encounter Summary ---
Author Organization Unknown Address [address] [place] [address] Phone [phone] Care Team Providers Care Biometrics Instructor Name Role Phone Dr. Jimbo Roman 3 [phone] Jimbo Roman MD 3 [phone] Nawaf Hussein MD 115 [phone] Luis Smith 118 [phone] Reason for Visit Quality BMI DEPRESSION FALL; hyperlipidemia; AWV Annual Wellness Visit Male (VFP); hypertension; Quality 65+ Instructions 1. Adult health examination 2. Body mass index 25-29 - overweight learning about healthy weight 3. Advance directive discussed with patient advance care planning: care instructions 4. Depression screening 5. At risk for falls preventing falls: care instructions 6. Benign hypertensive renal disease CMP, serum or plasma CBC w/ auto diff TSH, serum or plasma labetalol 100 mg tablet 7. Chronic kidney disease stage 3 lisinopril 20 mg-hydrochlorothiazide 25 mg tablet 8. Hyperlipidemia atorvastatin 20 mg tablet lipid panel, serum 9. Gout allopurinol 100 mg tablet uric acid, serum or plasma 10. Impaired fasting glycaemia HbA1c (hemoglobin A1c), blood Discussion Note D/w pt since he told me about bp going low after [facility] visit is over - & i had already sent in [facility] labarelol 200mg bid . he neefds to get to pharmacy & make sure he not picker and packer the 200mg but take only the 100mg po bid , Pt agreed . f/u in 3 mth s Got him to sign a releaseof record to obtain infor as to what is going on in his bladder. Plan of Care Patient Instructions It was good to see you in the office today for your Medicare Annual Wellness Visit. You have been provided some information on healthy nutrition, including a diet rich in fruits and vegetables, minimizing simple carbohydrates, salt, and saturated fats. I want to encourage regular cardiovascular exercise such as walking at least 30 minutes daily, 5 times per week. Please remember to schedule any preventive health measures that we talked about today. You have also been provided education on fall prevention and community- based lifestyle interventions to help reduce health risks and promote healthy living in your Annual Wellness folder. Screening Recommendations 1. Vaccines Pneumococcal: discussed today and information sent with patient in their Annual Wellness health folder Influenza: discussed today and information sent with patient in their Annual Wellness health folder Shingles: discussed today and information sent with patient in their Annual Wellness health folder Tetanus: discussed today and information sent with patient in their Annual Wellness health folder 2. Prostate Screening: discussed today and information sent with patient in their Annual Wellness health folder 3. Colorectal cancer Screening Colonoscopy: discussed today and information sent with patient in their Annual Wellness health folder Fecal Occult Blood: discussed today and information sent with patient in their Annual Wellness health folder 4. Bone Mass Measurement: discussed today 5. Eye Exam Screening: discussed today 6. Cholesterol Screening: discussed today 7. Diabetes Screening: discussed today Reminders Provider Appointments None recorded. Lab CMP, Serum or Plasma 12/14/2018 [facility] Lipid Panel, Serum 12/14/2018 [facility] Uric Acid, Serum or Plasma 12/14/2018 [facility] HbA1C (Hemoglobin a1C), Blood 12/14/2018 [facility] CBC W/ Auto Diff 12/14/2018 [facility] TSH, Serum or Plasma 12/14/2018 [facility] Referral None recorded. Procedures None recorded. Surgeries None recorded. Imaging None recorded. Medications Name Start Date allopurinol 100 mg tablet Take 2 tablets every day by oral route. aspirin 81 mg tablet,delayed release atorvastatin 20 mg tablet Take 1 tablet every day by oral route. cyclopentolate 2 % eye drops Durezol 0.05 % eye drops labetalol 100 mg tablet TAKE 1 TABLETS BY MOUTH TWICE DAILY labetalol 200 mg tablet Take 1 tablet twice a day by oral route. lisinopril 20 mg-hydrochlorothiazide 25 mg tablet Take 1 tablet every day by oral route. phenazopyridine 200 mg tablet tamsulosin 0.4 mg capsule Take 1 capsule every day by oral route for 30 days. valacyclovir 500 mg tablet Take 1 tablet twice a day by oral route. Medications Administered None recorded. Vitals Height Weight BMI Blood Pressure 5 ft 4 in 146 lbs 25.1 kg/m2 150/58 mm[Hg] Lab Results None recorded. 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 Procedures Date Name Performed by 10/26/2017 Cancer Surgery Information not available Vaccine List Vaccine Type influenza, high dose seasonal 07/07/20180.5 mL influenza, unspecified formulation 07/02/2017 pneumococcal conjugate PCV 13 03/25/20180.5 mL 0.5 mL pneumococcal polysaccharide PPV23 01/02/2009 Td (adult), adsorbed 03/25/20180.5 mL Social History Smoking Status Never Smoker Past Encounters 12/14/2018 Adult Health Examination; Body Mass Index 25-29 - Overweight; Advance Directive Discussed with Patient; Depression Screening; At Risk for Falls; Benign Hypertensive Renal Disease; Chronic Kidney Disease Stage 3; Hyperlipidemia; Gout; Impaired Fasting Glycaemia Jimbo Roman MD: [address] [facility], [address], [place] [address], Ph. History of Present Illness Hypertension Reported By: Patient Notes: No chest pain , no shortness of breath, no palpitations ,no dizziness , no diaphoresis , no weakness or numbness in arms or legs , no visual loss . Mini Cog Reported By: Patient Functional Ability: Personal/Social/ Draw a clock and write in the numbers in the correct place, and set the time to 10 minutes after 11 o'clock was completed correctly? Yes, 3 word recall: Your nurse or doctor will ask you to remember 3 words. In 5 minutes, they will ask you to repeat them. Patient recalled 3 words Hyperlipidemia Reported By: Patient Notes: No chest pain , no shortness of breath, no palpitations ,no dizziness , no diaphoresis , no weakness or numbness in arms or legs , no visual loss . no muscle aches , no muscle weakness Note:Here for AWV , also needs med refills . No chest pain , no shortness of breath, no palpitations ,no dizziness , no diaphoresis , no weakness or numbness in arms or legs , no visual loss . f/u with urology for león last 6 mths Review of Systems:ROS as noted in the HPI Review of Systems Comprehensive General Adult ROS Reported By: Patient Physical Exam General Adult Exam (male), General Adult Exam (Female) Reported By: Patient Constitutional: General Appearance: well-developed; BMI - 25.1 ( 8 lb wt loss in 3 mths). Level of Distress: NAD. Ambulation: ambulating normally Psychiatric: Insight: good judgement. Mental Status: active and alert, normal mood, normal affect. Orientation: to time, to place, to person Head: Head: normocephalic, atraumatic Eyes: Lids and Conjunctivae: non-injected, no discharge, no pallor. Pupils: PERRLA. Corneas: grossly intact. EOM: EOMI. Lens: clear. Sclerae: non-icteric ENMT: Ears: no lesions on external ear, EACs clear, TMs clear. Hearing: no hearing loss. Nose: no lesions on external nose, nares patent, no septal deviation, no sinus tenderness, no nasal discharge, nasal passages clear. Lips, Teeth, and Gums: no mouth or lip ulcers, no bleeding gums, normal dentition. Oropharynx: moist mucous membranes, no erythema, no exudates, tonsils not enlarged Neck: Neck: supple, trachea midline, no masses, FROM. Lymph Nodes: no cervical LAD, no supraclavicular LAD, no axillary LAD. Thyroid: no enlargement, non- tender, no nodules Lungs: Respiratory effort: no dyspnea. Auscultation: breath sounds normal, good air movement, CTA except as noted, no wheezing, no rales/crackles, no rhonchi Cardiovascular: Heart Auscultation: RRR, normal S1, normal S2, no murmurs, no rubs, no gallops Abdomen: Bowel Sounds: normal. Inspection and Palpation: soft, non-distended, no tenderness, no guarding, no rebound tenderness, no masses, no CVA tenderness. Liver: non-tender, no hepatomegaly Musculoskeletal:: Motor Strength and Tone: normal tone, normal motor strength. Joints, Bones, and Muscles: normal movement of all extremities, no contractures, no malalignment, no tenderness, no bony abnormalities. Extremities: no cyanosis, no edema, no varicosities Neurologic: Gait and Station: normal gait, normal station. Cranial Nerves: grossly intact. Sensation: grossly intact Skin: Inspection and palpation: no lesions, good turgor, no jaundice, no rash, no abnormal nevi. Nails: normal Back: Thoracolumbar Appearance: normal curvature Notes: Alert, oriented x 3 , Cranial nerves 2-12 intact , Strength 5/5 in all 4 extremities , Gait - Normal , Speech - normal, Visual la - Intact , Sensations - intact in all 4 extremities, DTR's - 2 + in all 4 extremities , No tremors, cerebellar signs intact , straight line walking test & finger nose test - normal, Rhomberg- Negative
[2018-12-17 17:11] LABS: BASOPHILS % 0.4 % (0.0-1.0); EOSINOPHILS # (AUTO) 0.2 (0.0-0.4); EOSINOPHILS % 2.9 % (0.0-6.0); HEMATOCRIT 24.5 % (38.2-49.6); HEMOGLOBIN 7.9 g/dL (14.0-18.0); LYMPHOCYTES # (AUTO) 1.9 (1.0-3.2); LYMPHOCYTES % 23.7 % (18.0-39.1); MEAN CORPUSCULAR HGB CONC 32.2 g/dL (31-35); MEAN CORPUSCULAR VOLUME 96.1 fL (81-99); MONOCYTES # (AUTO) 0.6 (0.2-0.8); MONOCYTES % 7.1 % (4.4-11.3); NEUTROPHILS # (AUTO) 5.1 (2.1-6.9); NEUTROPHILS % 65.5 % (38.7-80.0); PLATELET COUNT 183 x10e3/uL (140-360); RED BLOOD COUNT 2.55 x10e6/uL (4.3-5.7); RED CELL DISTRIBUTION WIDTH 18.3 % (11.7-14.4)
[2018-12-17 17:20] LABS: INR 0.9
[2018-12-17 17:21] LABS: PARTIAL THROMBOPLASTIN TIME 27.5 seconds (23.8-35.5)
[2018-12-17 17:27] LABS: BILIRUBIN,URINE NEGATIVE (NEGATIVE); CLARITY,URINE TURBID (CLEAR); COLOR,URINE RED (YELLOW); KETONES,URINE NEGATIVE (NEGATIVE); LEUKOCYTE ESTERASE ,URINE TRACE (NEGATIVE); NITRITE,URINE NEGATIVE (NEGATIVE); PROTEIN,URINE DIPSTICK 2+ (NEGATIVE); URINE UROBILINOGEN 0.2 mg/dL (0.2 - 1)
[2018-12-17 17:28] LABS: RBC,URINE >50 /HPF (0-5); WBC,URINE (MAN) 0-5 /HPF (0-5)
[2018-12-17 17:30] LABS: ALBUMIN 3.3 g/dL (3.5-5.0); ANION GAP 12.9 mmol/L (8-16); CALCIUM 9.2 mg/dL (8.4-10.2); CREATININE, SERUM 1.4 mg/dL (0.72-1.25); MAGNESIUM 1.5 MG/DL (1.3-2.1); POTASSIUM 3.9 mmol/L (3.5-5.1)
--- NOTE | 2018-12-17 17:32 | Diagnostic Imaging Report ---
EXAMINATION: CHEST SINGLE (PORTABLE) INDICATION: ^ANEMIA COMPARISON: CT abdomen and pelvis 05/29/2018. Chest x-ray 05/27/2018. FINDINGS: AP view TUBES and LINES: None. LUNGS: Lungs are well inflated. There are bibasilar atelectasis. There is mild prominence of the central pulmonary vasculature, consistent with pulmonary venous congestion. PLEURA: No pleural effusion or pneumothorax. HEART AND MEDIASTINUM: The cardiomediastinal silhouette is unremarkable. There are atherosclerotic calcifications within the aorta. BONES AND SOFT TISSUES: No acute osseous lesion. Soft tissues are unremarkable. UPPER ABDOMEN: No free air under the diaphragm. Large sliding hiatal hernia. IMPRESSION: 1. Mild nonspecific central pulmonary venous congestion. 2. Large sliding hiatal hernia. Signed by: Dr. Aryan Hart M.D. on 12/17/2018 5:28 PM
[2018-12-17 17:37] LABS: CREATINE KINASE MB 4.4 ng/mL (0-5.0)
[2018-12-17] MEDS ORDERED: SODIUM CHLORIDE 0.9% 250ML 250 ML IV ONE (18:00)
[2018-12-17] MEDS ORDERED: MORPHINE SULFATE 2 MG/ML SYR 1ML IV PRN (18:15)
[2018-12-17] MEDS ORDERED: ONDANSETRON HCL INJ 2MG/ML 2ML 2 MG/ML VIAL IV PRN (18:15)
--- NOTE | 2018-12-17 18:15 | Diagnostic Imaging Report ---
EXAM: Abdomen 1 Views INDICATION: ^BILATERAL URETERAL STENTS COMPARISON: Abdomen 08/04/2018 FINDINGS: Bilateral double-J ureteral stents are in place. No evidence of encrustation or ureteral stones. Mild amount of stool in the colon. No dilated loops of small bowel. No renal calculi. No abnormal soft tissue masses. Moderate degenerative changes in the lumbar spine and pelvis. IMPRESSION: Stable bilateral double-J ureteral stents. Signed by: Dr. Aryan Hart M.D. on 12/17/2018 6:12 PM
--- OUTSIDE RECORDS SUMMARY | 2018-12-17 18:19 | XMS REPORT | Clinical Summary ---
Author Author [facility]ell[facility] Organization [facility] Address Unknown Phone Unavailable Care Team Providers Care Range Aide Name Role Phone PCP Unavailable Allergies Not [...] (EBV) Routine 09/03/2018 BY PCR 12:30 PM [facility] OPHTHALMOLOGY PATHOGEN Routine 09/03/2018 MULTIPLEX PANEL 12:30 PM [facility] after 12/16/2017 Results * Ophthalmology pathogen multiplex panel (09/03/2018 12:30 PM [facility]) Cytomegalovirus by PCR, Not-Detected Not-Detected [facility] DEPART[facility] OF eye PATHOLOGY AND GENOMIC MEDICINE Herpes simplex virus 1 by Not-Detected Not-Detected [facility] DE[facility] OF PCR, eye PATHOLOGY AND GENOMIC MEDICINE Herpes simplex virus 2 by Not-Detected Not-Detected [facility] DEPART[facility] OF PCR, eye PATHOLOGY AND GENOMIC MEDICINE Toxoplasma gondii by PCR, Not-Detected Not-Detected [facility] DEPARTMENT OF eye PATHOLOGY AND GENOMIC MEDICINE Varicella zoster virus by Detected (A) Not-Detected [facility] DEPARTMENT OF PCR, eye PATHOLOGY AND GENOMIC MEDICINE Ophthalmology pathogen See link below for PDF Lab [facility] DEPARTMENT OF multiplex panel ReportComment: Case Number: PATHOLOGY AND [id number] GENOMIC MEDICINE Narrative Performed At [facility] right eye [facility] DEPARTMENT OF PATHOLOGY AND GENOMIC MEDICINE Performing Organization Address City/State/Zipcode Phone Number [facility] DEPARTMENT OF [address] [place] [id number] PATHOLOGY AND GENOMIC MEDICINE * Marjorie Frank Virus (EBV) by PCR (09/03/2018 12:30 PM [facility]) Marjorie Frank virus, PCR Not-Detected Not-Detected copies/mL [facility] Marjorie Frank virus, PCR See link below for PDF Lab [facility] ReportComment: Case Number: [facility] [id number] Narrative Performed At aqueous right eye [facility] The specimen type Vitreous, Other has not been validated for this assay. [facility] Therefore, the sensitivity and specificity of this assay for this specimen type is unknown. A negative result does not completely rule out the presence of EBV. Correlation with other clinical information is recommended. Performing Organization Address City/State/[facility] Phone Number [facility] DEPARTMENT OF [address] [place] [phone] PATHOLOGY AND GENOMIC MEDICINE [id number] [place] [address] after 12/16/2017 Insurance Payer Benefit Subscriber ID Type Phone Address Plan / Group HU[employer]NA MEDICARE HUMANA xxxxxxxxx PPO MEDICARE PPO/PFFS/E RS [facility] MEDICARE MEDICARE xxxxxxxxxxx Medicare [place], [place] PART A AND B Advance Directives Patient has advance care planning documents on file. For more information, brian freeman contact: [address] [address]
--- NOTE | 2018-12-17 18:28 | NUR ---
CONSENT FOR BLOOD TANSFUSION SIGNED AND PLACED INTO CHART. CONSENT FOR PROCEDURE FILLED OUT, PATIENT HAD QUESTIONS SO CONSENT LEFT UNSIGNED IN CHART. ADVISED PATIENT THAT AFTER HE HAS A CHANCE TO ASK HIS QUESTION TO DR. LYONS THE CONSENT WOULD BE SIGNED.
[2018-12-17] MEDS ORDERED: MORPHINE SULFATE INJ 4 MG/ML INJ 1ML IV PRN (18:30)
[2018-12-17] MEDS ORDERED: DUREZOL5 ML OD (19:34)
[2018-12-17] MEDS ORDERED: LABETALOL HCL100 MG PO (19:34)
[2018-12-17] MEDS: CEFTRIAXONE SOD 1 GM/NS 50 ML 50 ML IV SCH (19:50)
[2018-12-17 20:17] VITALS: BP 169/76
--- NOTE | 2018-12-17 21:00 | NUR ---
RECEIVED PATIENT FROM ER VIA STRETCHER. AAOX3 AND OBEYS COMMANDS. NO S/S OF RESP DISTRESS. DENIES PAIN AT THIS TIME . NO N/V/D. OREIENTED TO ROOM. CALL LIGHT WITHIN REACH AND BED LOCKED IN LOWEST POSITION. REFUSED BED ALARM.
[2018-12-17 21:02] VITALS: BP 169/76
--- NOTE | 2018-12-17 21:45 | NUR ---
STARTED 1ST UNIT OF PRBC. JOHANN. PATIENT LYING IN BED COMFORTABLY WATCHING TV.
--- NOTE | 2018-12-17 22:00 | NUR ---
CONSENT FORM OBTAIN FOR SURGERY ON THURSDAY
[2018-12-18] VITALS (8 sets, daily range): BP systolic 132–168; BP diastolic 63–70
--- NOTE | 2018-12-18 01:45 | NUR ---
COMPLETED 1ST UNIT PRBC. JOHANN. PATIENT TOLERATED WELL.
[2018-12-18] MEDS: FUROSEMIDE INJ 10 MG/ML 2 ML VIAL IV PRN ×2 (01:47→06:32)
--- NOTE | 2018-12-18 03:15 | NUR ---
STARTED 2ND UNIT OF PRBC. JOHANN. PATIENT LYING IN BED COMFORTABLY WITH EYES CLOSED.
[2018-12-18] MEDS ORDERED: SODIUM CHLORIDE 0.9% 250ML 250 ML ONE ×2 (03:20→16:29)
--- NOTE | 2018-12-18 06:15 | NUR ---
COMPLETED 2ND UNIT PRBC. JOHANN. PATIENT TOLERATED WELL.
--- NOTE | 2018-12-18 07:00 | NUR ---
RCD PT AT BED PT IS ALERT AND ORIENTED ASSESSMENT DONE PT RESTING ON BED NO SIGNS OF ANY DISTRESS NOTED PT NPO FOR PROCEDURE IV PATENT BED LOW AND LOCKED CALL LIGHT IN REACH
--- NOTE | 2018-12-18 08:00 | NUR ---
ORDER VERIFIED PT GOING FOR SURGERY ONLY ON THURSDAY EXPLAINED TO THE PT HE UNDERSTOOD AND CHANGED NPO STATUS
[2018-12-18 09:25] LABS: BASOPHILS % 0.5 % (0.0-1.0); EOSINOPHILS # (AUTO) 0.2 (0.0-0.4); EOSINOPHILS % 2.3 % (0.0-6.0); HEMATOCRIT 31.5 % (38.2-49.6); HEMOGLOBIN 10.3 g/dL (14.0-18.0); LYMPHOCYTES # (AUTO) 1.9 (1.0-3.2); LYMPHOCYTES % 25.4 % (18.0-39.1); MEAN CORPUSCULAR HEMOGLOBIN 29.9 pg (28-32); MEAN CORPUSCULAR HGB CONC 32.7 g/dL (31-35); MEAN CORPUSCULAR VOLUME 91.3 fL (81-99); MONOCYTES # (AUTO) 0.5 (0.2-0.8); MONOCYTES % 7.3 % (4.4-11.3); NEUTROPHILS # (AUTO) 4.7 (2.1-6.9); NEUTROPHILS % 64.2 % (38.7-80.0); PLATELET COUNT 180 x10e3/uL (140-360); RED BLOOD COUNT 3.45 x10e6/uL (4.3-5.7); RED CELL DISTRIBUTION WIDTH 19.3 % (11.7-14.4)
[2018-12-18 09:48] LABS: ALBUMIN 3.1 g/dL (3.5-5.0); ANION GAP 11.8 mmol/L (8-16); CALCIUM 9.3 mg/dL (8.4-10.2); CREATININE, SERUM 1.3 mg/dL (0.72-1.25); POTASSIUM 3.8 mmol/L (3.5-5.1)
--- NOTE | 2018-12-18 12:38 | NUR ---
SOCIAL WORK INITIAL ASSESSMENT [employer] Supervisor to bedside to discuss plan of care with patient/family. CM/SW role and care transitions discussed. Anticipated discharge plan discussed along with duration of care. CM/SW discussed patients right to make decisions in care. CM/SW work hours given. Patient lives: IN HOUSE BY SELF Admit/Transfer: VIA PHYSICIAN REFERRAL POA/Emergency contact: FRIEND MONO GOLD OR JOSEHP ALDRIDGE Current/Previous Home Health: [facility] 23 TIMES A WEEK PCP/Follow-up Care: JOSELIN Current/Previous DME: NONE Other Services: NONE Employment Status: SEMIRETIRED Areas of Concerns: NONE Referral Needs: NONE Education Needs: NONE IMM/MORENO given and signed (if applicable): IMM Goal for discharge: RETURN HOME CM/SW left business card at the bedside with contact information. Name and number was also written on the patients whiteboard. Patient verbalized understanding of discussion. CM will follow-up with ongoing discharge and transition of care needs.
--- NOTE | 2018-12-18 13:25 | NUR ---
Nutrition Screen Note RD Recommendation for Physician: Continue diet as ordered Plan of Care: RD following, monitoring for adequacy and tolerance Nutrition reason for involvement: Nutrition Risk Trigger - MST Primary Diagnose(s):Bladder cancer Ht:65 in Wt:144lbs BMI:24 kg/m2 IBW:136lbs RD Assessment:(12/18/2018) Initial encounter with patient. Pt denies any nausea, vomiting or diarrhea, nor has any difficulty chewing or swallowing. Pt is eating well and can feed himself. Current Diet: Cardiac diet Malnutrition Evaluation (12/18/2018) The patient does not meet criteria for a specified degree of malnutrition at this time. Will re-evaluate at follow-up as appropriate. Diet Adequacy: Meeting calorie needs, Meeting protein needs, Meeting fluid needs Tolerance: Tolerating PO Nutrition Care Level:Sarath Black RD, LD, [facility]
[2018-12-18] MEDS ORDERED: HYDROCODONE/APAP 7.5MG-325MG 1 EA TAB PO PRN (14:00)
[2018-12-18] MEDS: FAMOTIDINE 20 MG TAB PO SCH (16:30)
[2018-12-18] MEDS: SENNOSIDES 8.6 MG TAB PO SCH (16:55)
[2018-12-18] MEDS: CEFTRIAXONE SOD 1 GM/NS 50 ML 50 ML IV SCH (17:52)
--- NOTE | 2018-12-18 18:43 | NUR ---
PT RESTING ON BED BED SIDE REPORT GIVEN TO ONCOMING NURSE
--- NOTE | 2018-12-18 19:00 | NUR ---
PATIENT SITTING UP IN BED. NO S/S OF RESP DISTRESS. DENIES PAIN AT THIS TIME. CALL LIGHT WITHIN REACH AND INSTRUCTED TO CALL FOR ASSISTANCE. PATIENT VERBALIZED UNDERSTANDING.
[2018-12-19] VITALS (7 sets, daily range): BP systolic 123–145; BP diastolic 61–63
--- NOTE | 2018-12-19 07:10 | NUR ---
RCD PT AT BED PT IS ALERT AND ORIENTED RESTING ON BED IV PATENT BED LOW AND LOCKED CALL LIGHT IN REACH
[2018-12-19] MEDS: FAMOTIDINE 20 MG TAB PO SCH ×2 (07:30→16:30)
[2018-12-19] MEDS: SENNOSIDES 8.6 MG TAB PO SCH ×2 (09:00→16:54)
[2018-12-19] MEDS: MAGNESIUM HYDROXIDE 30 ML UDC PO PRN (16:54)
--- NOTE | 2018-12-19 17:43 | NUR ---
PT GOING FOR SURGERY ON TOMORROW NPO AFTER MIDNIGHT
[2018-12-19] MEDS: CEFTRIAXONE SOD 1 GM/NS 50 ML 50 ML IV SCH (18:00)
--- NOTE | 2018-12-19 18:41 | NUR ---
PT RESTING ON BED BED SIDE REPORT GIVEN TO ONCOMING NURSE
--- NOTE | 2018-12-19 19:00 | NUR ---
PATIENT IN BED WATCHING TV. NO S/S OF RESP DISTRESS. DENIES PAIN AT THIS TIME. CALL LIGHT WITHIN REACH AND INSTRUCTED TO CALL FOR ASSISTANCE. PATIENT VERBALIZED UNDERSTANDING.
[2018-12-20 00:08] VITALS: BP 138/58
[2018-12-20] MEDS ORDERED: BELLADONNA/OPIUM 30 MG SUPP RC ONE (07:17)
[2018-12-20] MEDS ORDERED: IOPAMIDOL 610MG/1ML 300 MG/ML VIAL IV ONE (07:17)
--- NOTE | 2018-12-20 07:21 | NUR ---
The pt. is out of the room to OR via stretcher an is in stable condition.
[2018-12-20] MEDS: FAMOTIDINE 20 MG TAB PO SCH ×2 (07:30→17:34)
[2018-12-20] MEDS: SENNOSIDES 8.6 MG TAB PO SCH ×2 (09:00→17:34)
[2018-12-20] MEDS ORDERED: PHENAZOPYRIDINE HCL 100 MG TAB PO SCH (09:00)
[2018-12-20] MEDS ORDERED: FENTANYL CITRATE/PF 100MCG/2 ML INJ ONE ×2 (09:23→18:35)
[2018-12-20] MEDS ORDERED: SODIUM CHLORIDE 0.9% 1000ML 1,000 ML ONE (09:35)
--- NOTE | 2018-12-20 10:15 | NUR ---
The pt. returned to the room from surgery s/p Turbt with continuous irrigation intact and urine is currently pink. The pt is awake alert and oriented time s 4.
--- NOTE | 2018-12-20 10:27 | NUR ---
IMM letter delivered and explained to pt. Signed copy placed in chart. Copy to pt.
[2018-12-20 10:32] VITALS: BP 165/71
[2018-12-20 12:00] VITALS: BP 137/64
[2018-12-20] MEDS ORDERED: PHENAZOPYRIDINE HCL 100 MG TAB PO PRN (12:45)
[2018-12-20 16:00] VITALS: BP 126/60
[2018-12-20] MEDS: CEFTRIAXONE SOD 1 GM/NS 50 ML 50 ML IV SCH (17:34)
--- NOTE | 2018-12-20 17:55 | NUR ---
The continuous irrigation is running with pink return. No issues or concerns verbalized.
[2018-12-20] MEDS ORDERED: ONDANSETRON HCL INJ 2MG/ML 2ML 2 MG/ML VIAL ONE (19:11)
[2018-12-20] MEDS ORDERED: LIDOCAINE HCL 2% LOCAL INJ 5 ML SDV VIAL INJ ONE (19:11)
[2018-12-20] MEDS ORDERED: PROPOFOL IV EMULSION 10 MG/ML 20 ML VIAL ONE (19:11)
[2018-12-20] MEDS ORDERED: FUROSEMIDE INJ 10 MG/ML 4 ML VIAL ONE (19:11)
[2018-12-20] MEDS ORDERED: DEXAMETHASONE SOD PHOS INJ 4 MG/ML VIAL ONE (19:11)
[2018-12-20] MEDS ORDERED: SEVOFLURANE INHAL SOLN 250 ML PEN BTL ONE (19:11)
--- NOTE | 2018-12-20 19:15 | NUR ---
PATIENT RECEIVED. PATIENT IS RESTING IN BED, AAOX3. RESP EVEN AND UNLABORED. NO ACUTE DISTRESS NOTED. LOUIS IN PLACE WITH CONTINUE BLADDER IRRIGATION. PINKISH URINE NOTED. PATIENT DENIES OF ANY PAIN OR DISCOMFORT AT THIS TIME. CALL LIGHT WITHIN REACH. INSTRUCT TO CALL FOR ASSISTANCE. BED LOW/LOCKED. CONTINUE TO MONITOR CLOSELY
[2018-12-20 21:02] VITALS: BP 153/65
[2018-12-20] MEDS: MAGNESIUM HYDROXIDE 30 ML UDC PO PRN (22:29)
[2018-12-21] VITALS (7 sets, daily range): BP systolic 131–176; BP diastolic 65–76
[2018-12-21 05:22] LABS: BASOPHILS % 0.3 % (0.0-1.0); EOSINOPHILS # (AUTO) 0.2 (0.0-0.4); EOSINOPHILS % 1.4 % (0.0-6.0); HEMATOCRIT 33.1 % (38.2-49.6); HEMOGLOBIN 10.7 g/dL (14.0-18.0); LYMPHOCYTES # (AUTO) 2.7 (1.0-3.2); LYMPHOCYTES % 20.2 % (18.0-39.1); MEAN CORPUSCULAR HEMOGLOBIN 30.1 pg (28-32); MEAN CORPUSCULAR HGB CONC 32.3 g/dL (31-35); MONOCYTES % 7.3 % (4.4-11.3); NEUTROPHILS # (AUTO) 9.2 (2.1-6.9); NEUTROPHILS % 70.3 % (38.7-80.0); PLATELET COUNT 195 x10e3/uL (140-360); RED BLOOD COUNT 3.56 x10e6/uL (4.3-5.7); RED CELL DISTRIBUTION WIDTH 17.8 % (11.7-14.4)
[2018-12-21 05:46] LABS: ANION GAP 9.9 mmol/L (8-16); CALCIUM 8.8 mg/dL (8.4-10.2); CREATININE, SERUM 1.53 mg/dL (0.72-1.25); POTASSIUM 3.9 mmol/L (3.5-5.1)
--- NOTE | 2018-12-21 07:10 | NUR ---
pt alert resp even, pt resting comfortably.
[2018-12-21] MEDS: FAMOTIDINE 20 MG TAB PO SCH ×2 (07:30→17:03)
[2018-12-21] MEDS: SENNOSIDES 8.6 MG TAB PO SCH ×2 (09:00→17:03)
[2018-12-21] MEDS: MAGNESIUM HYDROXIDE 30 ML UDC PO PRN (14:20)
--- NOTE | 2018-12-21 15:54 | NUR ---
Received order for home health. CM spoke to pt at bedside. He stated that he is currently on service with [facility] and is happy with their service. He would like to resume service with them. Choice letter signed for [facility] and placed in chart. Copy to pt. JANETTE called and spoke with Fatemeh at [facility]. Informed her that anticipated discharge is tomorrow. Resumption order and clinicals faxed to [phone] / P [phone].
[2018-12-21] MEDS ORDERED: BISACODYL 5 MG TAB EC PO PRN (16:15)
[2018-12-21] MEDS: CEFTRIAXONE SOD 1 GM/NS 50 ML 50 ML IV SCH (17:03)
--- NOTE | 2018-12-21 19:15 | NUR ---
PATIENT RECEIVED. PATIENT IS RESTING IN BED, AAOX3. RESP EVEN AND UNLABORED. NO ACUTE DISTRESS NOTED. LOUIS IN PLACE, PINKISH URINE NOTED. PATIENT DENIES OF ANY PAIN OR DISCOMFORT AT THIS TIME. CALL LIGHT WITHIN REACH. INSTRUCT TO CALL FOR ASSISTANCE. BED LOW/LOCKED. CONTINUE TO MONITOR CLOSELY
--- NOTE | 2018-12-21 19:21 | NUR ---
report given to oncoming nurse.
--- NOTE | 2018-12-21 20:30 | NUR ---
IRRIGATE LOUIS PER MD ORDER. PATIENT DENIES OF ANY BURNING AT THIS TIME. CONTINUE TO MONITOR CLOSELY
[2018-12-22] VITALS: BP 120/56
[2018-12-22 04:00] VITALS: BP 138/65
[2018-12-22 06:59] LABS: BASOPHILS % 0.4 % (0.0-1.0); EOSINOPHILS # (AUTO) 0.4 (0.0-0.4); EOSINOPHILS % 4.5 % (0.0-6.0); HEMATOCRIT 35.6 % (38.2-49.6); HEMOGLOBIN 10.9 g/dL (14.0-18.0); LYMPHOCYTES # (AUTO) 2.2 (1.0-3.2); LYMPHOCYTES % 23.8 % (18.0-39.1); MEAN CORPUSCULAR HEMOGLOBIN 30.5 pg (28-32); MEAN CORPUSCULAR HGB CONC 30.6 g/dL (31-35); MEAN CORPUSCULAR VOLUME 99.7 fL (81-99); MONOCYTES # (AUTO) 0.8 (0.2-0.8); MONOCYTES % 8.8 % (4.4-11.3); NEUTROPHILS # (AUTO) 5.7 (2.1-6.9); NEUTROPHILS % 62.3 % (38.7-80.0); PLATELET COUNT 187 x10e3/uL (140-360); RED BLOOD COUNT 3.57 x10e6/uL (4.3-5.7); RED CELL DISTRIBUTION WIDTH 17.6 % (11.7-14.4)
--- NOTE | 2018-12-22 07:00 | NUR ---
RCD PT BED PT IS ALERT AND ORIENTED PT RESTING ON BED NO SIGNS OF ANY DISTRESS NOTED FAMILY AT BED SIDE BED LOW AND LOCKED CALL LIGHT IN REACH
[2018-12-22 07:20] LABS: ANION GAP 13.1 mmol/L (8-16); CALCIUM 9.1 mg/dL (8.4-10.2); CREATININE, SERUM 1.29 mg/dL (0.72-1.25); POTASSIUM 4.1 mmol/L (3.5-5.1)
[2018-12-22] MEDS: FAMOTIDINE 20 MG TAB PO SCH (07:30)
[2018-12-22 07:53] VITALS: BP 116/56
[2018-12-22 08:00] VITALS: BP 116/56
[2018-12-22] MEDS: SENNOSIDES 8.6 MG TAB PO SCH (09:00)
--- NOTE | 2018-12-22 09:02 | NUR ---
IMM letter delivered and explained to pt. He verbalized understanding, pt is ready to discharge home. Signed copy placed in chart. Copy to pt.
[2018-12-22 11:47] VITALS: BP 130/61
--- NOTE | 2018-12-22 13:47 | NUR ---
Spoke with Robby at [facility]. Informed him that pt is discharging today. He is putting pt down to be seen tomorrow.
[2018-12-22] MEDS ORDERED: CEFUROXIME250 MG PO (13:54)
[2018-12-22] MEDS ORDERED: TYLENOL WITH C1 EACH PO (13:54)
--- NOTE | 2018-12-22 14:30 | NUR ---
LEG BAG APPLIED AND TEACH HIM HOW TO DO THE LEG BAG HE SAID HE UNDERSTOOD THAT AND ALSO INSTRUCTED THE PT ANY PAIN FEVER OR BLEEDING CALL THE DOCTOR IMMEDIATELY
--- NOTE | 2018-12-22 14:48 | NUR ---
PT WENT HOME IN SAFE CONDITION WITH HIS FRIEND
--- NOTE | 2018-12-24 04:51 | Discharge Summary ---
COMMUNITY EDUCATION COORDINATOR: Nawaf Hussein MD FINAL DIAGNOSES: 1. Urinary bladder cancer, needing surgical intervention. 2. Recurrent urinary tract infection associated with hematuria. 3. Chronic kidney disease, stage 2. SUMMARY: The patient is an 88-year-old male with longstanding urinary bladder transitional cell carcinoma. He also had bilateral ureteral stent placement. He had debulking surgical intervention previously, but because of his schedule and traveling, the patient did not follow up with Dr. Nawaf Hussein as planned. He came in at this time with increasing hematuria, urinary tract infection, and growing of the urinary bladder tumor. The patient underwent surgical intervention, removal of the urinary bladder tumor through cystoscopy. Lang catheter in place. The patient is stable. He does have hematuria, but improving with the urinary bladder irrigation. The patient is stable. He will be discharged home with Lang catheter. Continue with the Lang care and follow up with Dr. Nawaf Hussein for further intervention. Medication was given to the patient prior to discharge. The patient is stable, discharged home. Followup with Dr. Nawaf Hussein per his instruction. Advised the patient to follow up with the schedule and continue with the surgical intervention on his urinary bladder cancer. MD ABHIJEET Best/ALPHONSE /[id number]
--- NOTE | 2018-12-27 10:47 | Operative Report ---
DATE OF PROCEDURE: 12/20/2018 SURGEON: Nawaf Hussein MD PREOPERATIVE DIAGNOSIS: Extensive superficial bladder cancer. POSTOPERATIVE DIAGNOSIS: Extensive superficial bladder cancer. OPERATION PERFORMED: Cystourethroscopy with transurethral resection of bladder tumor well over 5 cm in diameter. ANESTHESIA: General. COMPLICATIONS: None. CLINICAL SUMMARY: Piotr Castro is an 88-year-old man with extensive superficial bladder cancer. He has undergone multiple procedures and is brought for yet another procedure. He is aware of the risks of bleeding, infection, injury to adjacent structures, and need for additional procedures and elected to proceed. OPERATIVE PROCEDURE IN DETAIL: Informed consent was verified. Piotr Castro was properly identified, taken to the operating room, and placed on the cystoscopy table in supine position. Anesthesia was uneventfully begun. The patient was then carefully and gently repositioned in dorsal lithotomy position with all pressure points well padded. His genitalia were prepared and draped in the usual sterile fashion. The resectoscope sheath with a visual obturator in place was atraumatically inserted into the patient's urethra. It was guided down the relatively unremarkable urethra, passed normal sphincteric region through the prostate bed, which was significant for bilobar prostatic hypertrophy with visual obstruction. We entered the patient's bladder and panendoscopy revealed extensive bladder cancer throughout the bladder. The bladder cancer has recurred along the trigone, but it did appear superficial. There was also bladder cancer on both lateral mejia, also along the posterior bladder wall bladder cancer was identified. We utilized the monopolar loop to do better coagulation. We proceeded with resecting bladder tumor at the level of the trigone. We resected to completely eliminate all tumors in the vicinity of the trigone and vicinity of both ureteral stents. We resected and coagulated for exactly 1 hour and then we discontinued the procedure to avoid the risk of hyponatremia. Hemostasis was excellent. Bladder tumor specimens were evacuated. The resectoscope was withdrawn, a Lang catheter was placed, and the patient was uneventfully reversed from anesthesia and taken to recovery room in stable condition. There were no complications to the procedure. He tolerated the procedure well. We will proceed with routine postoperative care and plan on returning the patient back to the operating room in approximately 1 month to perform the next TURBT procedure. At that point in time, an extra long resectoscope may be needed. Nawaf MD CHELO Hussein /[id number]
== END 2018-12-22 14:48 | disposition home or self-care (01) | DRG 669 ==
LOC: ER 16:06 → ERHOLD 18:13 → MED/SURG2 19:29
PROVIDERS: ADMIT Internal Medicine; ATTEND Internal Medicine
PROC: 30233N1 Transfusion of Nonautologous Red Blood Cells into Peripheral Vein, Percutaneous Approach (ICD-10-PCS; 2018-12-17)
PROC: 0TBB8ZZ Excision of Bladder, Via Natural or Artificial Opening Endoscopic (ICD-10-PCS; principal; 2018-12-20 07:00)
DX: C67.9 Malignant neoplasm of bladder, unspecified (principal); N39.0 Urinary tract infection, site not specified; N13.30 Unspecified hydronephrosis; E87.1 Hypo-osmolality and hyponatremia; N18.2 Chronic kidney disease, stage 2 (mild); R31.9 Hematuria, unspecified; D64.9 Anemia, unspecified
CPT/HCPCS: 36415; 71045; 74018; 80048; 80053; 81001; 82550; 82553; 83735; 83880; 84484; 85025; 85610; 85730; 86850; 86900; 86920; 87086; 88305; 93005; 99284; J0696; J1100; J1940; J2001; J2405; J7030; J7050; P9016

== ENCOUNTER 2018-12-27 19:33 | Emergency (ER) | payer MEDICARE ==
[~2018-12-27] VITALS: Ht 165.1 cm; Wt 63.0 kg
[~2018-12-27 19:33] MED LIST changes: +DUREZOL5 ML OD; +LABETALOL HCL100 MG PO
--- OUTSIDE RECORDS SUMMARY | 2018-12-27 19:37 | XMS REPORT | Clinical Summary ---
Author Author [facility] Organization [facility] [place] [facility] Address Unknown Phone Unavailable Care Team Providers Care Milieu Technician Name Role Phone PCP Unavailable Allergies Not on File Medications Not on file Active Problems Not on file Encounters Care Team Description Date Type Specialty Juvenico Mccullough MD 09/02/2018 Lab Lab after 12/26/2017 Social History Date Tobacco Use Types Packs/Day [...] (EBV) Routine 09/03/2018 BY PCR 12:30 PM SERVICE STATION MANAGER OPHTHALMOLOGY PATHOGEN Routine 09/03/2018 MULTIPLEX PANEL 12:30 PM SERVICE STATION MANAGER after 12/26/2017 Results * Ophthalmology pathogen multiplex panel (09/03/2018 12:30 PM SERVICE STATION MANAGER) Cytomegalovirus by PCR, Not-Detected Not-Detected [facility] DEPARTMENT OF eye PATHOLOGY AND GENOMIC MEDICINE Herpes simplex virus 1 by Not-Detected Not-Detected [facility] DEPARTMENT OF PCR, eye PATHOLOGY AND GENOMIC MEDICINE Herpes simplex virus 2 by Not-Detected Not-Detected [facility] DEPARTMENT OF PCR, eye PATHOLOGY AND GENOMIC MEDICINE Toxoplasma gondii by PCR, Not-Detected Not-Detected [facility] DEPARTMENT OF eye PATHOLOGY AND GENOMIC MEDICINE Varicella zoster virus by Detected (A) Not-Detected [facility] DEPARTMENT OF PCR, eye PATHOLOGY AND GENOMIC MEDICINE Ophthalmology pathogen See link below for PDF Lab [facility] DEPARTMENT OF multiplex panel ReportComment: Case Number: PATHOLOGY AND [id number] GENOMIC MEDICINE Narrative Performed At [facility] right eye [facility] DEPARTMENT OF PATHOLOGY AND GENOMIC MEDICINE Performing Organization Address City/State/Zipcode Phone Number [facility] DEPARTMENT OF [address] [place] [phone] PATHOLOGY AND GENOMIC MEDICINE * Marjorie Frank Virus (EBV) by PCR (09/03/2018 12:30 PM SERVICE STATION MANAGER) Marjorie Frank virus, PCR Not-Detected Not-Detected copies/mL [facility] Marjorie Frank virus, PCR See link below for PDF Lab [facility] ReportComment: Case Number: [facility] [id number] Narrative Performed At aqueous right eye [facility] The specimen type Vitreous, Other has not been validated for this assay. [facility] Therefore, the sensitivity and specificity of this assay for this specimen type is unknown. A negative result does not completely rule out the presence of EBV. Correlation with other clinical information is recommended. Performing Organization Address City/State/[facility] Phone Number [facility] DEPARTMENT OF [address] [place] [phone] PATHOLOGY AND GENOMIC MEDICINE [id number] [place] [address] after 12/26/2017 Insurance Payer Benefit Subscriber ID Type Phone Address Plan / Group HUMANA MEDICARE HUMANA xxxxxxxxx PPO MEDICARE PPO/PFFS/E RS [facility] MEDICARE MEDICARE xxxxxxxxxxx Medicare [place], [place] PART A AND B Advance Directives Patient has advance care planning documents on file. For more information, brian freeman contact: [address] [address]
--- NOTE | 2018-12-27 20:31 | NUR ---
SMALL LEAK NOTED AT 10 CC MAX BALLOON PORT SIDE, APPROX 19 CC SALINE REMOVED; ER MD NOTIFIED; REFILLED WITH 10 CC ONLY
== END 2018-12-27 21:44 | disposition home or self-care (01) ==
LOC: ER 19:33
DX: T83.091A Other mechanical complication of indwelling urethral catheter, initial encounter (principal); I10 Essential (primary) hypertension; I50.9 Heart failure, unspecified; K21.9 Gastro-esophageal reflux disease without esophagitis; E78.00 Pure hypercholesterolemia, unspecified; Z85.51 Personal history of malignant neoplasm of bladder
CPT/HCPCS: 99282

== ENCOUNTER 2019-01-27 06:39 | Inpatient (IN) | payer MEDICARE ==
[~2019-01-27] VITALS: Ht 165.1 cm; Wt 59.4 kg
--- NOTE | 2019-01-27 08:45 | NUR ---
This 88 y/o male adm for Dr. Hussein with hematuria and UTI form another ER. He arrives with 18g iv saline loc intact and functional to the left forearm. The pt. also arrives with a petersen cath draining cloudy pinkish schaffer urine. The adm process was completed and Dr. Velasquez is here form evaluation and medical management. The pt's skin is intact and no wounds noted. S CD and t ed hose are intact.
--- OUTSIDE RECORDS SUMMARY | 2019-01-27 08:48 | XMS REPORT | Clinical Summary ---
Author Author DORE[facility] Organization [facility] [place] [facility] Address Unknown Phone Unavailable Care Team Providers Care Patient Accounts Clerk Name Role Phone Jimbo Roman MD PCP Allergies No Known Allergies Medications Not on file Active Problems Not on file Encounters Care Team Description Date Type Specialty Robert Montanez MD Urinary tract infection without hematuria, site unspecified (Primary Dx); RON (acute kidney injury) (HCC); Malignant neoplasm of urinary bladder, unspecified site (HCC) 01/27/2019 Emergency Emergency Medicine 01/27/2019 Travel after 01/26/2018 Social History Date Tobacco Use Types Packs/Day Years Used Never Assessed Sex Assigned at Date Recorded Not on file Industry Job Start Date Occupation Not on file Not on file Not on file Travel End Travel History Travel Start No recent travel history available. Last Filed Vital Signs Time Taken Vital Sign Reading 01/27/2019 7:30 AM CDT Blood Pressure 162/83 01/27/2019 7:53 AM CDT Pulse 94 01/27/2019 7:53 AM CDT Temperature 37.7 C (99.9 F) 01/27/2019 7:53 AM CDT Respiratory Rate 18 01/27/2019 7:30 AM CDT Oxygen Saturation 95% - Inhaled Oxygen - Concentration 01/27/2019 1:52 AM CDT Weight 67.1 kg (148 lb) 01/27/2019 1:52 AM CDT Height 165.1 cm (5' 5") 01/27/2019 1:52 AM CDT Body Mass Index 24.63 Plan of Treatment Not on file Procedures Comments Procedure Name Priority Date/Time Associated Diagnosis URINALYSIS W/ REFLEX STAT 01/27/2019 URINE CULTURE 5:09 AM CDT CBC W/PLT COUNT & AUTO STAT 01/27/2019 DIFFERENTIAL 3:33 AM CDT CBC W/PLT COUNT & AUTO STAT 01/27/2019 DIFFERENTIAL 3:33 AM CDT BASIC METABOLIC PANEL (7) STAT 01/27/2019 3:33 AM CDT after 01/26/2018 Results * Urinalysis w/Microscopic + Reflex to Culture (01/27/2019 5:09 AM CDT) Color, UA Yellow [facility] Clarity, UA Cloudy [facility] Specific [place], UA 1.012 1.001 - 1.035 [facility] pH, UA 6.0 5.0 - 8.0 [facility] Protein, UA 100 mg/dL (A) Negative [facility] Glucose, UA Negative Negative [facility] Ketones, UA Negative Negative [facility] Bilirubin, UA Negative Negative [facility] Blood, UA Moderate (A) Negative [facility] Nitrite, UA Negative Negative [facility] Leukocytes, UA Large (A) Negative [facility] Urobilinogen, UA 0.2 0.2 - 1.0 mg/dL [facility] RBC, UA 187 /HPF [facility] WBC, UA 1,233Comment: Wbc clumps seen /HPF [facility] Bacteria, UA Many [facility] Amorphous Crystals Moderate [facility] Specimen Source [facility] Specimen Urine - Urine, Lang Performing Organization Address City/State/Zipcode Phone Number [facility] [address] [place] [address] MEDICAL CENTER * CBC with platelet count + automated diff (01/27/2019 3:33 AM CDT) WBC 25.9 (H) 3.5 - 10.5 K/L [facility] RBC 2.98 (L) 4.63 - 6.08 M/L [facility] Hemoglobin 8.4 (L) 13.7 - 17.5 GM/DL [facility] Hematocrit 26.7 (L) 40.1 - 51.0 % [facility] MCV 89.6 79.0 - 92.2 fL [facility] MCH 28.2 25.7 - 32.2 pg [facility] MCHC 31.5 (L) 32.3 - 36.5 GM/DL [facility] RDW 15.7 (H) 11.6 - 14.4 % [facility] Platelets 337 150 - 450 K/CU MM [facility] MPV 11.0 9.4 - 12.4 fL [facility] nRBC 0 0 - 0 /100 WBC [facility] % Neutros 85 % [facility] % Lymphs 6 % [facility] % Monos 6 % [facility] % Eos 0 % [facility] % Baso 0 % [facility] # Neutros 22.09 (H) 1.78 - 5.38 K/L [facility] # Lymphs 1.58 1.32 - 3.57 K/L [facility] # Monos 1.56 (H) 0.30 - 0.82 K/L [facility] # Eos 0.00 (L) 0.04 - 0.54 K/L [facility] # Baso 0.06 0.01 - 0.08 K/L [facility] Immature 2 (H) 0 - 1 % [facility] Granulocytes-Relative [facility] Specimen Blood Performing Organization Address City/State/Zipcode Phone Number [facility] [address] [place] [address] [phone] * Basic metabolic panel (Na, K+, Cl, CO2, Glu, Ca, BUN, Cr) (01/27/2019 3:33 AM CDT) Sodium 138 136 - 145 meq/L [facility] Potassium 4.3Comment: Specimen slightly 3.5 - 5.1 meq/L [facility] hemolyzed [facility] Chloride 105 98 - 107 meq/L [facility] CO2 22 22 - 29 meq/L [facility] BUN 60 (H) 7 - 21 mg/dL [facility] Creatinine 2.93 (H)Comment: Specimen 0.57 - 1.25 mg/dL [facility] slightly hemolyzed [facility] Glucose 139 (H) 70 - 105 mg/dL [facility] Calcium 9.6 8.4 - 10.2 mg/dL [facility] EGFR Comment: INSUFFICIENT CLINICAL mL/min/1.73 sq m [facility] DATA TO CALCULATE ESTIMATED [facility] GFR. Specimen Blood Performing Organization Address City/[facility]/Zipcode Phone Number [facility] [address] [place] [phone] after 01/26/2018 Insurance Payer Benefit Subscriber ID Type Phone Address Plan / Group HUMANA - MEDICARE MGD HUMANA xxxxxxxxx [facility] MEDICARE Contracted ADV
--- OUTSIDE RECORDS SUMMARY | 2019-01-27 08:48 | XMS REPORT | Clinical Summary ---
Author Author [facility] Organization [facility] Address Unknown Phone Unavailable Care Team Providers Care Lead Mobile Developer Name Role Phone PCP Unavailable Allergies Not on File Medications Not on file Active Problems Not on file Encounters Care Team Description Date Type Specialty Juvencio Mccullough MD 09/02/2018 Lab Lab after 01/26/2018 Social History Date Tobacco Use [...] Last Done Comments SHINGLES VACCINES (#1) 1980 INFLUENZA VACCINE 05/26/2019 07/07/2018, 07/02/2017 PNEUMOCOCCAL Completed 01/02/2009 POLYSACCHARIDE VACCINE AGE 65 AND OVER 65+ PNEUMOCOCCAL VACCINE Completed 03/25/2018, 01/02/2009 Procedures Comments Procedure Name Priority Date/Time Associated Diagnosis MARJORIE FRANK VIRUS (EBV) Routine 09/03/2018 BY PCR 12:30 PM UNDERWATER HUNTER OPHTHALMOLOGY PATHOGEN Routine 09/03/2018 MULTIPLEX PANEL 12:30 PM UNDERWATER [facility]UNTER after 01/26/2018 Results * Ophthalmology pathogen multiplex panel (09/03/2018 12:30 PM UNDERWATER HUNTER) Cytomegalovirus by PCR, Not-Detected Not-Detected [facility] DEPARTMENT OF eye PATHOLOGY AND GENOMIC MEDICINE Herpes simplex virus 1 by Not-Detected Not-Detected [facility] DEPARTMENT OF PCR, eye PATHOLOGY AND GENOMIC MEDICINE Herpes simplex virus 2 by Not-Detected Not-Detected [facility] DEPARTMENT OF PCR, eye PATHOLOGY AND GENOMIC MEDICINE Toxoplasma gondii by PCR, Not-Detected Not-Detected [facility] DEPARTMENT OF eye PATHOLOGY AND GENOMIC MEDICINE Varicella zoster virus by Detected (A) Not-Detected [facility] DEPARTMENT OF PCR, eye PATHOLOGY AND GENOMIC MEDICINE Ophthalmology pathogen See link below for PDF Lab [facility] DEPARTMENT OF multiplex panel ReportComment: Case Number: PATHOLOGY AND [id number] GENOMIC MEDICINE Narrative Performed At [facility] right eye [facility] DEPARTMENT OF PATHOLOGY AND GENOMIC MEDICINE Performing Organization Address City/State/Zipcode Phone Number [facility] DEPARTMENT OF [address] [place] [address] PATHOLOGY AND GENOMIC MEDICINE * Marjorie Frank Virus (EBV) by PCR (09/03/2018 12:30 PM UNDERWATER HUNTER) Marjorie Frank virus, PCR Not-Detected Not-Detected copies/mL [facility] Marjorie Frank virus, PCR See link below for PDF Lab [facility] ReportComment: Case Number: [facility] [id number] Narrative Performed At aqueous right eye [facility] The specimen type Vitreous, Other has not been validated for this assay. [facility] Therefore, the sensitivity and specificity of this assay for this specimen type is unknown. A negative result does not completely rule out the presence of EBV. Correlation with other clinical information is recommended. Performing Organization Address City/[facility]/Zipcode Phone Number [facility] DEPARTMENT OF [address] [place] [address] PATHOLOGY AND GENOMIC MEDICINE [phone] [place] [address] after 01/26/2018 Insurance Payer Benefit Subscriber ID Type Phone Address Plan / Group HUMANA MEDICARE HUMANA xxxxxxxxx PPO MEDICARE PPO/PFFS/E RS [facility] MEDICARE MEDICARE xxxxxxxxxxx Medicare [place], [place] PART A AND B Advance Directives Patient has advance care planning documents on file. For more information, brian freeman contact: [address] [address]
[2019-01-27] MEDS ORDERED: DIPHENHYDRAMINE HCL 25 MG CAP PO PRN (09:00)
[2019-01-27] MEDS ORDERED: DIPHENHYDRAMINE HCL INJ 50 MG/ML VIAL IM PRN (09:00)
[2019-01-27] MEDS ORDERED: ONDANSETRON HCL INJ 2MG/ML 2ML 2 MG/ML VIAL IV PRN (09:00)
[2019-01-27 09:31] LABS: BASOPHILS % 0.1 % (0.0-1.0); EOSINOPHILS # (AUTO) 0.1 (0.0-0.4); EOSINOPHILS % 0.3 % (0.0-6.0); HEMATOCRIT 24.8 % (38.2-49.6); LYMPHOCYTES # (AUTO) 1.2 (1.0-3.2); LYMPHOCYTES % 4.8 % (18.0-39.1); MEAN CORPUSCULAR HEMOGLOBIN 28.2 pg (28-32); MEAN CORPUSCULAR HGB CONC 32.3 g/dL (31-35); MEAN CORPUSCULAR VOLUME 87.3 fL (81-99); MONOCYTES # (AUTO) 1.1 (0.2-0.8); MONOCYTES % 4.5 % (4.4-11.3); NEUTROPHILS # (AUTO) 22.1 (2.1-6.9); NEUTROPHILS % 88.9 % (38.7-80.0); PLATELET COUNT 322 x10e3/uL (140-360); RED BLOOD COUNT 2.84 x10e6/uL (4.3-5.7); RED CELL DISTRIBUTION WIDTH 15.5 % (11.7-14.4)
[2019-01-27 09:41] VITALS: BP 115/56
[2019-01-27 09:45] LABS: ALBUMIN 2.1 g/dL (3.5-5.0); ALBUMIN/GLOBULIN RATIO 0.4 (0.8-2.0); ANION GAP 14.3 mmol/L (8-16); CALCIUM 8.8 mg/dL (8.4-10.2); CREATININE, SERUM 2.59 mg/dL (0.72-1.25); POTASSIUM 4.3 mmol/L (3.5-5.1)
[2019-01-27] MEDS: DOCUSATE SODIUM 100 MG CAP PO SCH ×2 (10:30→16:48)
[2019-01-27] MEDS: D5.45%NS/KCL 20MEQ 1,000 ML IV SCH ×2 (10:30→18:36)
[2019-01-27] MEDS: PIPERACILLIN/TAZO 2.25 GM 50 ML IV SCH ×2 (10:31→18:39)
--- NOTE | 2019-01-27 11:02 | Diagnostic Imaging Report ---
EXAMINATION: CT of the abdomen and pelvis without contrast. TECHNIQUE: Spiral CT images of the abdomen and pelvis were performed from the lung bases to the lesser trochanters. No intravenous contrast was given due to low GFR. Coronal and sagittal reformatted images were obtained. COMPARISON: CT abdomen and pelvis without contrast 05/29/2018 CLINICAL HISTORY:Acute on chronic UTI, bladder cancer DISCUSSION: ABSENCE OF INTRAVENOUS CONTRAST DECREASES SENSITIVITY FOR DETECTION OF FOCAL LESIONS AND VASCULAR PATHOLOGY. ABDOMEN/PELVIS: LOWER THORAX: Visualized bases are grossly clear. Stable scattered cysts. Stable moderate to large hiatal hernia containing the greater portion of the stomach fundus. HEPATOBILIARY: No focal hepatic lesions. No intra or extrahepatic biliary ductal dilation. GALLBLADDER: No radio-opaque stones or sludge. No wall thickening. SPLEEN: Spleen is in the upper limit of normal, measuring 12.4 cm. PANCREAS: No focal masses or ductal dilatation. ADRENALS: No adrenal nodules. KIDNEYS/URETERS: Bilateral internal ureteral stents in place, with upper pigtail at the renal pelves and lower pigtails in the posterior bladder. No hydronephrosis or evidence of obstruction. No renal or ureteral calculi. Stable 3.1 x 3.1 cm fluid density simple cyst in the right inferior pole (series 3, image 78). PELVIC ORGANS/BLADDER: Irregular circumferential thickening of the bladder wall. Lang catheter in place. PERITONEUM/RETROPERITONEUM: No free air or fluid. LYMPH NODES: No intra-abdominal,retroperitoneal, pelvic or inguinal lymphadenopathy. VESSELS: Atherosclerotic calcification of the abdominal aorta, iliac vessels and aortic branches. GI TRACT: No bowel dilation or evidence of obstruction. Distal descending and sigmoid colon diverticulosis, without diverticulitis. Appendix is identified and normal in caliber. BONES AND SOFT TISSUES: No aggressive lytic lesions. Multilevel degenerative disc changes in the lower thoracic and lumbosacral spine with mild grade 1 anterolisthesis of L4 on L5 and mild rightward curvature. Degenerative changes are also noted in bilateral sacroiliac joints. Facet hypertrophy L4-L5 and L3-L4.. IMPRESSION: 1. Irregular circumferential thickening of the bladder wall, likely representing the known bladder neoplasm. 2. Bilateral internal ureteral stents in place. No hydronephrosis or obstruction. No renal or ureteral calculi. 3. Stable 3.1 cm simple cyst in the right inferior pole. 4. Distal descending and sigmoid diverticulosis, without diverticulitis. 5. Stable moderate to large hiatal hernia Signed by: Dr. Murray Hernandez M.D. on 01/27/2019 10:58 AM
[2019-01-27 13:10] VITALS: BP 122/65
--- NOTE | 2019-01-27 14:29 | NUR ---
Nutrition Screen Note RD Recommendation for Physician: -Continue regular diet as ordered Plan of Care: RD following, monitoring for tolerance and adequacy Nutrition reason for involvement: Nutrition Risk Trigger MST Primary Diagnose(s): hx of bladder cancer, UTI/ acute on chronic kidney injury PMH: bladder cancer Ht: 65in Wt: 158lb BMI: 26.3kg/m2 IBW: 136lb RD Assessment: (01/27) Chart reviewed. Labs and meds reviewed. 88yo M, who was admitted for bladder infection. Visited pt in the room. Pt reported fair appetite prior and during hospital stay. Pt liked the foods in the hospital. Discussed different menu options with pt. Pt denied any nausea or vomiting. No chewing or swallowing difficulty noted. No recent weight loss noted with reported UBW of 146lbs. Will continue to monitor and follow. Current Diet: regular diet Malnutrition Evaluation (01/27) The patient does not meet criteria for a specified degree of malnutrition at this time. Will re-evaluate at follow-up as appropriate. Diet Education Needs Assessment: Diet education not indicated. Nutrition Care Level: low Signed: Debora Trent, MS, RD, LD
[2019-01-27] MEDS: VALACYCLOVIR HCL 500 MG TAB PO SCH (16:49)
[2019-01-27] MEDS: LABETALOL HCL 100 MG TAB PO SCH (16:49)
[2019-01-27 17:14] VITALS: BP 110/53
[2019-01-27 20:00] VITALS: BP 127/58
[2019-01-27] MEDS ORDERED: ACETAMINOPHEN 1000 MG/100 ML IV PRN (20:00)
--- NOTE | 2019-01-27 20:03 | NUR ---
PATIENT C/O BACK PAIN. SPOKE WITH DR. ONEILL. NEW ORDERS RECEIVED.
[2019-01-27] MEDS: HYDROMORPHONE 2MG/ML 2 MG/ML ML IV PRN (20:13)
[2019-01-27 21:45] VITALS: BP 127/58
[2019-01-28] VITALS (7 sets, daily range): BP systolic 114–142; BP diastolic 49–59
[2019-01-28] MEDS: D5.45%NS/KCL 20MEQ 1,000 ML IV SCH (00:51)
[2019-01-28] MEDS: HYDROMORPHONE 2MG/ML 2 MG/ML ML IV PRN (01:42)
[2019-01-28] MEDS: PIPERACILLIN/TAZO 2.25 GM 50 ML IV SCH (01:49)
--- NOTE | 2019-01-28 04:20 | NUR ---
HIBICLENS BATH DONE.
[2019-01-28 06:41] LABS: BASOPHILS % 0.1 % (0.0-1.0); EOSINOPHILS % 0.2 % (0.0-6.0); HEMATOCRIT 24.2 % (38.2-49.6); HEMOGLOBIN 7.7 g/dL (14.0-18.0); LYMPHOCYTES # (AUTO) 1.4 (1.0-3.2); LYMPHOCYTES % 5.7 % (18.0-39.1); MEAN CORPUSCULAR HEMOGLOBIN 28.2 pg (28-32); MEAN CORPUSCULAR HGB CONC 31.8 g/dL (31-35); MEAN CORPUSCULAR VOLUME 88.6 fL (81-99); MONOCYTES # (AUTO) 1.2 (0.2-0.8); MONOCYTES % 5.1 % (4.4-11.3); NEUTROPHILS # (AUTO) 21.1 (2.1-6.9); NEUTROPHILS % 87.7 % (38.7-80.0); PLATELET COUNT 301 x10e3/uL (140-360); RED BLOOD COUNT 2.73 x10e6/uL (4.3-5.7); RED CELL DISTRIBUTION WIDTH 15.8 % (11.7-14.4)
[2019-01-28 07:07] LABS: ANION GAP 12.2 mmol/L (8-16); CALCIUM 8.5 mg/dL (8.4-10.2); CREATININE, SERUM 2.41 mg/dL (0.72-1.25); POTASSIUM 4.2 mmol/L (3.5-5.1)
--- NOTE | 2019-01-28 08:54 | NUR ---
Patient alert and responsive, in bed and Lang in place draining blood tinged urine, denies any pains, seen by urology this morning and to resume regular diet, VSS and will monitor.
[2019-01-28] MEDS ORDERED: DIFLUPREDNATE OD SCH (09:00)
[2019-01-28] MEDS: DIFLUPREDNATE OD SCH (09:00)
[2019-01-28] MEDS ORDERED: ACETAMINOPHEN 1000 MG/100 ML IV PRN (09:30)
[2019-01-28] MEDS ORDERED: MEROPENEM 500MG 500 MG in SODIUM CHLORIDE 0.9% 50ML 50 ML IV SCH ×2 (09:30→14:45)
[2019-01-28] MEDS: TAMSULOSIN HCL 0.4 MG CAP PO SCH (09:48)
[2019-01-28] MEDS: VALACYCLOVIR HCL 500 MG TAB PO SCH (09:48)
[2019-01-28] MEDS: LABETALOL HCL 100 MG TAB PO SCH ×2 (09:48→18:41)
[2019-01-28] MEDS: DOCUSATE SODIUM 100 MG CAP PO SCH ×2 (09:48→18:40)
[2019-01-28] MEDS: ALLOPURINOL 100 MG TAB PO SCH (09:48)
[2019-01-28] MEDS: KCL 20MEQ/.9 SOD CHL 1,000 ML IV SCH ×2 (09:52→20:14)
[2019-01-28] MEDS ORDERED: MEROPENEM 500MG/ NS 50ML 50 ML IV SCH ×2 (10:00→15:00)
[2019-01-28] MEDS: HYDROCODONE/APAP 5MG-325MG TAB PO PRN ×2 (10:32→20:13)
[2019-01-28 16:02] LABS: BASOPHILS % 0.2 % (0.0-1.0); EOSINOPHILS # (AUTO) 0.1 (0.0-0.4); EOSINOPHILS % 0.5 % (0.0-6.0); HEMATOCRIT 23.2 % (38.2-49.6); HEMOGLOBIN 7.3 g/dL (14.0-18.0); LYMPHOCYTES # (AUTO) 1.5 (1.0-3.2); LYMPHOCYTES % 7.6 % (18.0-39.1); MEAN CORPUSCULAR HEMOGLOBIN 28.4 pg (28-32); MEAN CORPUSCULAR HGB CONC 31.5 g/dL (31-35); MEAN CORPUSCULAR VOLUME 90.3 fL (81-99); MONOCYTES # (AUTO) 1.2 (0.2-0.8); NEUTROPHILS # (AUTO) 16.7 (2.1-6.9); NEUTROPHILS % 84.5 % (38.7-80.0); PLATELET COUNT 297 x10e3/uL (140-360); RED BLOOD COUNT 2.57 x10e6/uL (4.3-5.7); RED CELL DISTRIBUTION WIDTH 15.8 % (11.7-14.4)
--- NOTE | 2019-01-28 20:53 | History and Physical ---
REASON FOR CONSULTATION: Leukocytosis. HISTORY OF PRESENT ILLNESS: This patient is an 88-year-old white male, who comes in with pain in his legs. He has history of bladder cancer, had multiple procedures on his bladder. He does have a Lang catheter, but he comes in with a feeling of pain in his legs, not feeling well, fevers. When he first came here, his white count was 24.09, his hemoglobin 7.7, and platelets of 302. The patient was admitted, I was asked to see him. The patient is currently lying in bed comfortably. He has no fever, no chills, but he is just not feeling well. REVIEW OF SYSTEMS: GENERAL: He is just not feeling well, but no specific fever or chills. HEENT: There are no headaches, visual changes, or hearing changes. GI: There is no nausea, vomiting, or diarrhea. CARDIAC: There is no arrhythmia. NEURO: No seizure activity. SKIN: There is no rash. JOINTS: There is no erythema or edema. : He does have a Lang catheter. LABORATORY DATA: Sodium 135, potassium 4.2, and creatinine of 2.41. His white count 24.9 and hemoglobin 7.7. MEDICATION LIST: He is on meropenem, hydrocodone, valacyclovir, and allopurinol. PHYSICAL EXAMINATION: GENERAL: He is currently alert, oriented, does not seem to be in acute distress. VITAL SIGNS: Currently afebrile. HEENT: Not icteric. Normocephalic. NECK: Supple. No JVD. No lymphadenopathy. No thyromegaly. CHEST: Clear bilaterally. HEART: S1, S2. No S3, S4, or murmur. ABDOMEN: Soft. Bowel sounds present. No tenderness. EXTREMITIES: No edema. IMPRESSION: 1. Leukocytosis. The patient has history of bladder cancer, multiple procedures, multiple hospitalization, was recently in the hospital. Urine culture has been ordered. I would recommend to obtain blood cultures, recheck CBC and Chem panel. 2. Chronic kidney disease. 3. History of bladder cancer. From Infectious Disease point of view, I will recommend to obtain blood cultures. Recheck CBC. Recheck Chem panel. Recheck amylase and lipase. His main complaint was pain in both feet, which is resolved, but I am concerned about this leukocytosis, it could be reflective of UTI. The patient had bladder cancer and multiple procedures. We will put him on meropenem 500 daily. Discontinue Valtrex. We will discontinue meropenem at a higher dose. Recheck CBC. Recheck chemistry panel. We will follow with you. MD LINDA Medrano/ALPHONSE /[id number]
[2019-01-28] MEDS: MEROPENEM 500MG/ NS 50ML 50 ML IV SCH (23:40)
[2019-01-29] VITALS (11 sets, daily range): BP systolic 113–188; BP diastolic 56–73
[2019-01-29] MEDS: KCL 20MEQ/.9 SOD CHL 1,000 ML IV SCH ×2 (04:47→06:30)
[2019-01-29] MEDS: HYDROCODONE/APAP 5MG-325MG TAB PO PRN ×2 (06:33→20:25)
[2019-01-29 06:36] LABS: BASOPHILS % 0.2 % (0.0-1.0); EOSINOPHILS # (AUTO) 0.2 (0.0-0.4); HEMATOCRIT 25.4 % (38.2-49.6); HEMOGLOBIN 7.9 g/dL (14.0-18.0); LYMPHOCYTES # (AUTO) 1.9 (1.0-3.2); LYMPHOCYTES % 11.3 % (18.0-39.1); MEAN CORPUSCULAR HGB CONC 31.1 g/dL (31-35); MEAN CORPUSCULAR VOLUME 90.1 fL (81-99); MONOCYTES % 6.1 % (4.4-11.3); NEUTROPHILS # (AUTO) 13.3 (2.1-6.9); NEUTROPHILS % 80.7 % (38.7-80.0); PLATELET COUNT 285 x10e3/uL (140-360); RED BLOOD COUNT 2.82 x10e6/uL (4.3-5.7); RED CELL DISTRIBUTION WIDTH 15.7 % (11.7-14.4)
--- NOTE | 2019-01-29 06:45 | NUR ---
handoff report received. patient aware of change and in no distress. call york within reach and bed in lowest position.
[2019-01-29 06:46] LABS: ANION GAP 10.4 mmol/L (8-16); CALCIUM 8.5 mg/dL (8.4-10.2); CREATININE, SERUM 2.02 mg/dL (0.72-1.25); POTASSIUM 4.4 mmol/L (3.5-5.1)
[2019-01-29] MEDS: DIFLUPREDNATE OD SCH (09:00)
[2019-01-29] MEDS: LABETALOL HCL 100 MG TAB PO SCH ×2 (09:18→17:35)
[2019-01-29] MEDS: TAMSULOSIN HCL 0.4 MG CAP PO SCH (09:18)
[2019-01-29] MEDS: DOCUSATE SODIUM 100 MG CAP PO SCH ×2 (09:18→17:35)
[2019-01-29] MEDS: ALLOPURINOL 100 MG TAB PO SCH (09:18)
[2019-01-29] MEDS: MEROPENEM 500MG/ NS 50ML 50 ML IV SCH ×2 (09:18→21:00)
[2019-01-29] MEDS ORDERED: SODIUM CHLORIDE 0.9% 250ML 250 ML IV ONE (16:15)
--- NOTE | 2019-01-29 18:55 | NUR ---
rounded with operation shift supervisor nurse, patient aware of change. call oyrk within reach and bed in lowest position
[2019-01-29] MEDS ORDERED: SODIUM CHLORIDE 0.9% 250ML 250 ML ONE (23:13)
--- NOTE | 2019-01-29 23:25 | NUR ---
ORDER FOR BLOOD TRANSFUSION AND CONSENT FORM VERIFIED.BED SIDE VERIFICATION DONE WITH Gabriel VANN RN.FIRST UNIT OF BLOOD STARTED.STAYED WITH THE PT FOR FIRST 15 MINUTES.NO S/S OF ADVERSE REACTION NOTED/REPORTED.WILL CONTINUE TO MONITOR CLOSELY.
[2019-01-30] VITALS (18 sets, daily range): BP systolic 130–174; BP diastolic 60–76
[2019-01-30] MEDS: KCL 20MEQ/.9 SOD CHL 1,000 ML IV SCH (01:30)
[2019-01-30] MEDS: HYDROCODONE/APAP 5MG-325MG TAB PO PRN ×2 (04:15→14:13)
--- NOTE | 2019-01-30 07:17 | NUR ---
REPORT GIVEN TO ONCOMING NURSE.WALKING ROUNDS MADE.PT RESTING IN BED WITH NO S/S OF DISTRESS.
--- NOTE | 2019-01-30 07:19 | NUR ---
Received patient in report this morning. Patient is resting in bed. No S&S post blood transfusion. No S&S of distress noted.
[2019-01-30] MEDS: DOCUSATE SODIUM 100 MG CAP PO SCH ×2 (08:24→18:06)
[2019-01-30] MEDS: LABETALOL HCL 100 MG TAB PO SCH (08:24)
[2019-01-30] MEDS: TAMSULOSIN HCL 0.4 MG CAP PO SCH (08:24)
[2019-01-30] MEDS ORDERED: MAGNESIUM HYDROXIDE 30 ML UDC PO PRN (09:00)
[2019-01-30] MEDS ORDERED: NIFEDIPINE CR 30 MG TAB PO NR (09:00)
[2019-01-30] MEDS: DIFLUPREDNATE OD SCH (09:00)
[2019-01-30] MEDS ORDERED: ONDANSETRON HCL INJ 2MG/ML 2ML 2 MG/ML VIAL IV PRN (09:15)
[2019-01-30] MEDS ORDERED: HYDRALAZINE HCL 25 MG TAB PO PRN (09:15)
[2019-01-30 09:25] LABS: BASOPHILS # (AUTO) 0.1 (0.0-0.1); BASOPHILS % 0.4 % (0.0-1.0); EOSINOPHILS # (AUTO) 0.3 (0.0-0.4); EOSINOPHILS % 2.1 % (0.0-6.0); HEMATOCRIT 34.8 % (38.2-49.6); HEMOGLOBIN 11.2 g/dL (14.0-18.0); LYMPHOCYTES % 14.4 % (18.0-39.1); MEAN CORPUSCULAR HEMOGLOBIN 28.9 pg (28-32); MEAN CORPUSCULAR HGB CONC 32.2 g/dL (31-35); MEAN CORPUSCULAR VOLUME 89.7 fL (81-99); MONOCYTES # (AUTO) 0.6 (0.2-0.8); MONOCYTES % 4.3 % (4.4-11.3); NEUTROPHILS # (AUTO) 10.7 (2.1-6.9); NEUTROPHILS % 78.1 % (38.7-80.0); PLATELET COUNT 355 x10e3/uL (140-360); RED BLOOD COUNT 3.88 x10e6/uL (4.3-5.7); RED CELL DISTRIBUTION WIDTH 15.4 % (11.7-14.4)
--- NOTE | 2019-01-30 09:30 | NUR ---
Patient is resting in bed, A&Ox3. Lung sounds clear. Bowel sounds active. Skin intact. R FA 18g IV in place, asymptomatic, intact, and patent. Patient has SCDs and JEWEL hose. No swelling noted. Patient reports pain in back 4/10 and pain in left shoulder when moving, does not request pain meds. Lang in place, draining cloudy yellow urine. No S&S of distress noted. Patient walked down hallway multiple times. Steady gait noted.
[2019-01-30] MEDS: ALLOPURINOL 100 MG TAB PO SCH (09:31)
[2019-01-30 09:42] LABS: ANION GAP 11.1 mmol/L (8-16); CREATININE, SERUM 1.67 mg/dL (0.72-1.25); POTASSIUM 4.1 mmol/L (3.5-5.1)
[2019-01-30] MEDS: MEROPENEM 500MG/ NS 50ML 50 ML IV SCH ×2 (11:52→22:00)
--- NOTE | 2019-01-30 11:53 | NUR ---
L FA 20g IV noted to be leaking with saline flush. Discontinued and removed. Catheter tip intact. Pressure dressing applied. R FA 20g IV inserted. Asymptomatic, intact, patent.
--- NOTE | 2019-01-30 15:15 | NUR ---
Visit made by the Spiritual Care Department Pastoral Visitor, Lucas Darden. PV provided pastoral presence, prayer, hospitality, communion, and supportive listening. Pastoral Visitor informed pt/family of the scope of Adult Literacy Instructor Services and availability. TRU WARD Film Cutter Spiritual Care Department O: [phone] Pager: [phone] ([phone] number calling from)
[2019-01-31] VITALS (7 sets, daily range): BP systolic 119–145; BP diastolic 63–88
--- NOTE | 2019-01-31 06:14 | Consultation ---
DATE OF CONSULTATION: REASON FOR CONSULTATION: Fever and leukocytosis. Thank you so much for asking me to see this patient. HISTORY OF PRESENT ILLNESS: This patient is an 88-year-old white male, who was diagnosed with bladder cancer. The patient is followed by Dr. Hussein. The patient had TURP back in May for hematuria, had a cystoscopy and was found to have bladder cancer. The patient has been seeing Dr. Hussein for cystoscopy and treatment. The patient has history of resection of prostate with cystoscopy, multiple lesions in the bladder which turned out to be malignant. The patient has been admitted for multiple cystoscopy procedures, the last one was on December 20, 2018. He is coming this time with fever, chills, pain in his ankles. He does have Lang catheter. He was also noted to have leukocytosis. The patient is currently lying in bed comfortably. Generally he said he is just not feeling well. He is having pain in the legs and have Lang catheter and feeling feverishness, so the patient is being admitted. When he first came, had a temperature of 100.7, he had a heart rate of 101 and blood pressure of 116/58 with O2 sats of 95%. His cultures have been pending. REVIEW OF SYSTEMS: HEENT: DICTATION ENDS HERE MD LINDA Medrano/ALPHONSE /[id number]
--- NOTE | 2019-01-31 07:15 | NUR ---
Report received. Patient being taken for procedure. AAOX3 to time, person, place. Respirations even and unlabored.
--- NOTE | 2019-01-31 07:20 | NUR ---
REPORT GIVEN TO ONCOMING NURSE.WALKING ROUNDS MADE.PT RESTING IN BED WITH NO S/S OF DISTRESS.
[2019-01-31] MEDS ORDERED: BELLADONNA/OPIUM 60 MG SUPP PR ONE (07:33)
[2019-01-31] MEDS ORDERED: IOPAMIDOL 300MG/ML 50ML INFUS..BTL IV ONE (07:34)
[2019-01-31] MEDS: DIFLUPREDNATE OD SCH (09:00)
--- NOTE | 2019-01-31 09:20 | NUR ---
Received patient from procedure. AAOX3 to time, person, place. Respirations even and unlabored. 24F petersen draining pink tinged urine. Instructed patient to use call light for assistance. Voiced understanding.
[2019-01-31] MEDS: DOCUSATE SODIUM 100 MG CAP PO SCH ×2 (10:18→17:00)
[2019-01-31] MEDS: ALLOPURINOL 100 MG TAB PO SCH (10:18)
[2019-01-31] MEDS: MEROPENEM 500MG/ NS 50ML 50 ML IV SCH ×2 (10:18→22:28)
[2019-01-31] MEDS: NIFEDIPINE CR 30 MG TAB PO SCH (10:18)
[2019-01-31] MEDS: TAMSULOSIN HCL 0.4 MG CAP PO SCH (10:18)
[2019-01-31] MEDS: HYDROCODONE/APAP 5MG-325MG TAB PO PRN (10:19)
[2019-01-31 12:15] LABS: BASOPHILS % 0.3 % (0.0-1.0); EOSINOPHILS % 0.4 % (0.0-6.0); HEMATOCRIT 35.3 % (38.2-49.6); HEMOGLOBIN 11.4 g/dL (14.0-18.0); LYMPHOCYTES # (AUTO) 0.8 (1.0-3.2); LYMPHOCYTES % 10.2 % (18.0-39.1); MEAN CORPUSCULAR HEMOGLOBIN 28.8 pg (28-32); MEAN CORPUSCULAR HGB CONC 32.3 g/dL (31-35); MEAN CORPUSCULAR VOLUME 89.1 fL (81-99); MONOCYTES # (AUTO) 0.2 (0.2-0.8); MONOCYTES % 2.1 % (4.4-11.3); NEUTROPHILS # (AUTO) 6.6 (2.1-6.9); NEUTROPHILS % 86.6 % (38.7-80.0); PLATELET COUNT 330 x10e3/uL (140-360); RED BLOOD COUNT 3.96 x10e6/uL (4.3-5.7); RED CELL DISTRIBUTION WIDTH 15.5 % (11.7-14.4)
[2019-01-31 12:38] LABS: CALCIUM 8.9 mg/dL (8.4-10.2); CREATININE, SERUM 1.47 mg/dL (0.72-1.25)
[2019-01-31 12:56] LABS: POTASSIUM 4.5 mmol/L (3.5-5.1)
[2019-01-31 13:06] LABS: ANION GAP 10.5 mmol/L (8-16)
[2019-01-31] MEDS ORDERED: LIDOCAINE HCL 2% LOCAL INJ 5 ML SDV VIAL INJ ONE (17:54)
[2019-01-31] MEDS ORDERED: ONDANSETRON HCL INJ 2MG/ML 2ML 2 MG/ML VIAL ONE (17:54)
[2019-01-31] MEDS ORDERED: SEVOFLURANE INHAL SOLN 250 ML PEN BTL ONE (17:54)
[2019-01-31] MEDS ORDERED: PROPOFOL IV EMULSION 10 MG/ML 20 ML VIAL ONE (17:54)
[2019-01-31] MEDS ORDERED: DEXAMETHASONE SOD PHOS INJ 4 MG/ML VIAL ONE (17:54)
[2019-01-31] MEDS ORDERED: FENTANYL CITRATE/PF 100MCG/2 ML INJ ONE (18:58)
--- NOTE | 2019-01-31 21:15 | NUR ---
URINE COLOR REMAINS CLEAR YELLOW WITHOUT BLEEDING, NO ACUTE DISTRESS OBSERVED AND PATIENT DENIES PAIN. CALL LIGHT WITHIN EASY REACH, HE'S INSTRUCTED TO CALL FOR ASSISTANCE NEEDED.
[2019-02-01] VITALS (7 sets, daily range): BP systolic 125–150; BP diastolic 58–68
--- NOTE | 2019-02-01 03:34 | NUR ---
WALKING ROUNDS MADE, PATIENT URINE REMAINS CLEAR YELLOW. HE DENIES PAIN, HE WAS ENCOURAGED TO REPOSITION IN BED FOR PRESSURE ULCER PREVENTION. CALL LIGHT WITHIN EASY REACH, INSTRUCTED TO CALL FOR ASSISTANCE NEEDED.
[2019-02-01 06:20] LABS: BASOPHILS % 0.3 % (0.0-1.0); EOSINOPHILS # (AUTO) 0.2 (0.0-0.4); EOSINOPHILS % 1.4 % (0.0-6.0); HEMATOCRIT 33.7 % (38.2-49.6); HEMOGLOBIN 10.8 g/dL (14.0-18.0); LYMPHOCYTES # (AUTO) 2.5 (1.0-3.2); LYMPHOCYTES % 22.7 % (18.0-39.1); MEAN CORPUSCULAR HEMOGLOBIN 28.5 pg (28-32); MEAN CORPUSCULAR VOLUME 88.9 fL (81-99); MONOCYTES # (AUTO) 0.7 (0.2-0.8); MONOCYTES % 6.4 % (4.4-11.3); NEUTROPHILS # (AUTO) 7.5 (2.1-6.9); NEUTROPHILS % 68.6 % (38.7-80.0); PLATELET COUNT 360 x10e3/uL (140-360); RED BLOOD COUNT 3.79 x10e6/uL (4.3-5.7); RED CELL DISTRIBUTION WIDTH 15.5 % (11.7-14.4)
[2019-02-01] MEDS ORDERED: ONDANSETRON HCL 4 MG ORAL DISINTEGRATING TAB PO PRN (06:45)
[2019-02-01 06:50] LABS: ANION GAP 8.4 mmol/L (8-16); CALCIUM 9.1 mg/dL (8.4-10.2); CREATININE, SERUM 1.38 mg/dL (0.72-1.25); POTASSIUM 4.4 mmol/L (3.5-5.1)
[2019-02-01] MEDS: DOCUSATE SODIUM 100 MG CAP PO SCH ×2 (08:50→16:55)
[2019-02-01] MEDS: ALLOPURINOL 100 MG TAB PO SCH (08:50)
[2019-02-01] MEDS: TAMSULOSIN HCL 0.4 MG CAP PO SCH (08:50)
[2019-02-01] MEDS: HYDROCODONE/APAP 5MG-325MG TAB PO PRN ×2 (08:50→16:55)
[2019-02-01] MEDS: NIFEDIPINE CR 30 MG TAB PO SCH (08:50)
[2019-02-01] MEDS: DIFLUPREDNATE OD SCH (09:00)
[2019-02-01] MEDS: MEROPENEM 500MG/ NS 50ML 50 ML IV SCH ×2 (09:11→22:42)
[2019-02-01] MEDS ORDERED: AMOXICILLIN250 MG PO (11:12)
--- NOTE | 2019-02-01 14:01 | NUR ---
CASE MANAGEMENT ASSESSMENT Intelligence Engineer to bedside to discuss plan of care with patient/family. CM/SW role and care transitions discussed. Anticipated discharge plan discussed along with duration of care. CM/SW discussed patients right to make decisions in care. CM/SW work hours given. Patient lives: alone Admit/Transfer: thru ED Hospital/ER visits since last admit: 1 POA/Emergency contact: Friend Silvino Graves [phone] Current/Previous Home Health: currently with [facility] and would like to resume services with them on discharge. Choice letter signed and placed in chart. Copy to pt. PCP/Follow-up Care: pt states he will follow up with Dr. Hussein on discharge. CM advised pt to follow up within 5-7 days. He acknowledged Current/Previous DME: has a walker that he uses occasionally Medications (referring to index hospitalization or the first time you were in the hospital) a. Were changes made in your medications when you were in the hospital on [date of index hospitalization]? n/a b. Did you understand the changes? n/a c. Were you able to obtain your new medications right away? n/a d. Were you able to take your medications like the doctor wanted you to? n/a e. Did the hospital give you an accurate, easy to understand list of medications when you left? n/a Scale of 1-10 how comfortable does patient feel with disease management in outpatient settin Other Services: none Employment Status: retired Areas of Concerns: UTI, bladder cancer Referral Needs: home health Education Needs: UTI, medical management IMM/MORENO given and signed (if applicable): none at this time Goal for discharge: home with home health CM/SW left business card at the bedside with contact information. Name and number was also written on the patients whiteboard. Patient verbalized understanding of discussion. CM will follow-up with ongoing discharge and transition of care needs.
--- NOTE | 2019-02-01 16:48 | NUR ---
aware patient not discharging until tomorrow
--- NOTE | 2019-02-01 18:11 | NUR ---
Resumption order and clinicals were faxed to [facility]
--- NOTE | 2019-02-01 19:25 | NUR ---
Report given to oncoming nurse of patient's status. No s/s of acute distress noted.
--- NOTE | 2019-02-01 20:05 | NUR ---
ASSISTED PATIENT WITH ADLS, NO ACUTE DISTRESS OBSERVED AND HE DENIES PAIN. URINE NOTED CLEAR YELLOW WITHOUT CLOTS. CALL LIGHT WITHIN EASY REACH, PATIENT INSTRUCTED TO CALL FOR ASSISTANCE NEEDED.
--- NOTE | 2019-02-01 23:17 | NUR ---
PATIENT IS ASLEEP, HE'S EASY TO AROUSE. NO RESPIRATORY DISTRESS OBSERVED, HE DENIES PAIN. CALL LIGHT WITHIN EASY REACH, INSTRUCTED TO CALL FOR ASSISTANCE NEEDED.
[2019-02-02] VITALS: BP 170/76
--- NOTE | 2019-02-02 03:20 | NUR ---
PATIENT IS ASLEEP, HE'S EASY TO AROUSE. NO RESPIRATORY DISTRESS OBSERVED, HE DENIES PAIN. URINE COLOR CLEAR YELLOW WITHOUT BLEEDING OR CLOTS. CALL LIGHT WITHIN EASY REACH, INSTRUCTED TO CALL FOR ASSISTANCE NEEDED.
[2019-02-02 04:00] VITALS: BP 146/67
[2019-02-02 07:50] VITALS: BP 121/58
[2019-02-02 08:40] VITALS: BP 141/68
[2019-02-02] MEDS: TAMSULOSIN HCL 0.4 MG CAP PO SCH (08:43)
[2019-02-02] MEDS: DIFLUPREDNATE OD SCH (08:43)
[2019-02-02] MEDS: NIFEDIPINE CR 30 MG TAB PO SCH (08:43)
[2019-02-02] MEDS: DOCUSATE SODIUM 100 MG CAP PO SCH (08:43)
[2019-02-02] MEDS: ALLOPURINOL 100 MG TAB PO SCH (08:43)
--- NOTE | 2019-02-02 08:49 | NUR ---
Spoke with Fatemeh at [facility]. She verified that they received resumption order and will see pt on discharge. CM informed her that pt will be discharging today.
--- NOTE | 2019-02-02 09:20 | NUR ---
dc instructions and prescriptions given. pt verbalized understanding, iv dc pressure dressing applied and taped. irrigation dc from petersen port, button port placed. pt has received teaching of petersen leg bag pt is now waiting for ride to home at this time
--- NOTE | 2019-02-02 10:30 | NUR ---
PT OFF UNIT AT THIS TIME TO HOME VIA WHEEL CHAIR
--- NOTE | 2019-02-03 03:53 | Discharge Summary ---
VP OF MARKETING: Dr. Nawaf Hussein. FINAL DIAGNOSES: 1. Sepsis without shock. 2. Complicated urinary tract infection associated with indwelling Lang catheter. 3. Bacteremia. 4. Fever secondary to above. 5. Baseline urinary bladder with cancer, stage IV with metastasis. SUMMARY: The patient is an 88-year-old male with large urinary bladder mass. The patient also has urinary bladder cancer that traveling up to the bilateral urethra. The patient had stent placement for hydronephrosis. The patient is stable. When he presented to the hospital at [facility] for his confusion and dehydration associated with urinary tract infection. He had a Lang catheter placement. His outpatient urine show VRE sensitive to ampicillin. While the patient is here, the patient is getting treatment. He was on multiple medications and antibiotics per Dr. Gaytan. The patient did well. He underwent urological procedures with Dr. Hussein. Please review the operative note. The patient is stable. Lang catheter in place. He is rehydrated. Sepsis resolved. The patient will go home to resume his home medication. He will continue with ampicillin orally at home. Prescriptions given by Dr. Gaytan. The patient is stable and discharged home. Follow up as an outpatient with Dr. Hussein for further management. The patient is stable, discharged home on February 01, 2019. MD ABHIJEET Best/MAURIL /[id number]
--- NOTE | 2019-02-23 06:58 | Operative Report ---
DATE OF PROCEDURE: 01/31/2019 SURGEON: Nawaf Hussein MD PREOPERATIVE DIAGNOSIS: Bladder cancer. POSTOPERATIVE DIAGNOSIS: Bladder cancer. OPERATION PERFORMED: Cystourethroscopy with transurethral resection of large (larger than 5 cm) patch of posterior wall bladder cancer. ANESTHESIA: General. COMPLICATIONS: None. CLINICAL SUMMARY: Piotr Castro is a complicated 88-year-old man with a large surface area of bladder cancer. The patient has undergone numerous TURBT. He has residual cancer remaining. The challenging part about this patient is the fact that he is a rather older gentleman in excellent health, but all of his pathology has been and noninvasive. The patient desires to avoid a radical cystectomy if possible. He is aware of the risks of bleeding, infection, injury to adjacent structures, need for further procedures and elected to proceed. OPERATIVE PROCEDURE IN DETAIL: Informed consent was verified. Piotr Castro was properly identified, taken to the operating room, placed on the cystoscopy table in supine position. Anesthesia was uneventfully begun. The patient was then carefully gently repositioned in the dorsal lithotomy position. All pressure points were well padded. His genitalia were prepared and draped in usual sterile fashion. The resectoscope was atraumatically inserted in the patient's urethra under direct vision with visual obturator. We went into the patient's prostate bed and the bladder, we noted a bladder cancer. The cancer that was previously involving the trigone was not involving the trigone any longer and was not encroaching upon the stents as our last resection. There was a significant amount of posterior wall bladder cancer and this was resected with the bipolar loop electrode utilizing the extra long resectoscope. We worked for exactly 1 hour and this included time for obtaining hemostasis. We did not want to resect longer than an hour in order to minimize the risks of hyponatremia in this fragile elderly man. The hemostasis was excellent. The resectoscope was withdrawn. Following evacuation of all chips, a Lang catheter was placed and the patient was uneventfully reversed from anesthesia and taken to the recovery room in stable condition. There were no complications to the procedure. The patient tolerated the procedure well. Estimated blood loss was minimal. Explicit postop instructions were left on the chart. We will continue to monitor the patient as an inpatient and following his discharge, we will plan on returning the patient to the operating room for another TUR bladder tumor. MD AUGUSTO Mena/ALPHONSE /[id number]
== END 2019-02-02 10:27 | disposition home health service (06) | DRG 668 ==
LOC: MED/SURG 08:45
PROVIDERS: ADMIT Internal Medicine; ATTEND Internal Medicine
PROC: 30233N1 Transfusion of Nonautologous Red Blood Cells into Peripheral Vein, Percutaneous Approach (ICD-10-PCS; 2019-01-29)
PROC: 0TBB8ZZ Excision of Bladder, Via Natural or Artificial Opening Endoscopic (ICD-10-PCS; principal; 2019-01-31 07:43)
DX: T83.511A Infection and inflammatory reaction due to indwelling urethral catheter, initial encounter (principal); A41.9 Sepsis, unspecified organism; R65.20 Severe sepsis without septic shock; N17.9 Acute kidney failure, unspecified; C79.19 Secondary malignant neoplasm of other urinary organs; E87.1 Hypo-osmolality and hyponatremia; C67.4 Malignant neoplasm of posterior wall of bladder; Z96.0 Presence of urogenital implants; I12.9 Hypertensive chronic kidney disease with stage 1 through stage 4 chronic kidney disease, or unspecified chronic kidney disease; N18.9 Chronic kidney disease, unspecified; D64.9 Anemia, unspecified; R31.9 Hematuria, unspecified; R53.81 Other malaise; B95.2 Enterococcus as the cause of diseases classified elsewhere; N39.41 Urge incontinence
CPT/HCPCS: 36415; 51700; 74176; 80048; 80053; 83735; 85025; 86850; 86900; 86920; 87040; 87086; 87186; 88305; 93005; 96367; J1100; J2001; J2185; J2405; J2543; J7050; P9016

== ENCOUNTER 2019-04-08 08:04 | Inpatient (IN) | payer MEDICARE ==
[2019-04-07 11:48] LABS: BASOPHILS % 0.4 % (0.0-1.0); EOSINOPHILS # (AUTO) 0.2 (0.0-0.4); EOSINOPHILS % 2.5 % (0.0-6.0); HEMATOCRIT 25.7 % (38.2-49.6); LYMPHOCYTES % 29.9 % (18.0-39.1); MEAN CORPUSCULAR HEMOGLOBIN 27.3 pg (28-32); MEAN CORPUSCULAR HGB CONC 31.1 g/dL (31-35); MEAN CORPUSCULAR VOLUME 87.7 fL (81-99); MONOCYTES # (AUTO) 0.5 (0.2-0.8); NEUTROPHILS % 58.9 % (38.7-80.0); PLATELET COUNT 218 x10e3/uL (140-360); RED BLOOD COUNT 2.93 x10e6/uL (4.3-5.7); RED CELL DISTRIBUTION WIDTH 20.4 % (11.7-14.4)
[2019-04-07 12:04] LABS: ALBUMIN 2.6 g/dL (3.5-5.0); ALBUMIN/GLOBULIN RATIO 0.6 (0.8-2.0); ANION GAP 9.5 mmol/L (8-16); CALCIUM 8.7 mg/dL (8.4-10.2); CREATININE, SERUM 2.01 mg/dL (0.72-1.25); POTASSIUM 4.5 mmol/L (3.5-5.1)
[~2019-04-08] VITALS: Ht 167.6 cm; Wt 58.5 kg
[~2019-04-08 08:04] MED LIST changes: +AMOXICILLIN250 MG PO; +ASPIR 8181 MG PO; +CEPHALEXIN500 MG PO
--- OUTSIDE RECORDS SUMMARY | 2019-04-08 08:08 | XMS REPORT | Clinical Summary ---
Author Author [facility] Organization [facility] Address Unknown Phone Unavailable Care Team Providers Care Supervisor Photostat Name Role Phone PCP Unavailable Allergies Not on File Medications Not on file Active Problems Not on file Encounters Care Team Description Date Type Specialty Juvencio Mccullough MD 09/02/2018 Lab Lab after 04/07/2018 Social History Date Tobacco Use Types Packs/Day [...] (#1) 1980 INFLUENZA VACCINE 05/26/2019 07/07/2018, 07/02/2017 65+ PNEUMOCOCCAL VACCINE Completed 03/25/2018, 01/02/2009 Procedures Comments Procedure Name Priority Date/Time Associated Diagnosis MARJORIE FRANK VIRUS (EBV) Routine 09/03/2018 BY PCR 12:30 PM PAINTINGS CONSERVATOR OPHTHALMOLOGY PATHOGEN Routine 09/03/2018 MULTIPLEX PANEL 12:30 PM PAINTINGS CONSERVATOR after 04/07/2018 Results * Ophthalmology pathogen multiplex panel (09/03/2018 12:30 PM PAINTINGS CONSERVATOR) Cytomegalovirus Not-Detected Not-Detected [facility] by PCR, eye OF PATHOLOGY AND GENOMIC MEDICINE Herpes simplex Not-Detected Not-Detected [facility] virus 1 by PCR, OF PATHOLOGY eye AND GENOMIC MEDICINE Herpes simplex Not-Detected Not-Detected [facility] virus 2 by PCR, OF PATHOLOGY eye AND GENOMIC MEDICINE Toxoplasma Not-Detected Not-Detected [facility] gondii by PCR, OF PATHOLOGY eye AND GENOMIC MEDICINE Varicella Detected (A) Not-Detected [facility] zoster virus by OF PATHOLOGY PCR, eye AND GENOMIC MEDICINE Ophthalmology See link below for PDF Lab [facility] pathogen ReportComment: Case Number: OF PATHOLOGY multiplex panel [id number] AND GENOMIC MEDICINE Specimen Narrative Performed At [facility] right eye [facility] OF PATHOLOGY AND GENOMIC MEDICINE Performing Organization Address City/State/Zipcode Phone Number [facility] [address] [place] [address] PATHOLOGY AND GENOMIC MEDICINE * Marjorie Frank Virus (EBV) by PCR (09/03/2018 12:30 PM PAINTINGS CONSERVATOR) Marjorie Frank Not-Detected Not-Detected [place] virus, PCR copies/mL [facility] Marjorie Frank See link below for PDF Lab [place] virus, PCR ReportComment: Case Number: [facility] [id number] [facility] Specimen Narrative Performed At aqueous right eye [facility] The specimen type Vitreous, Other has not been validated for this assay. HOSPITAL Therefore, the sensitivity and specificity of this assay for this specimen type is unknown. A negative result does not completely rule out the presence of EBV. Correlation with other clinical information is recommended. Performing Organization Address [facility]/State/Zipcode Phone Number [facility] [address] [place] [id number] PATHOLOGY AND GENOMIC MEDICINE [address] [address] [facility] after 04/07/2018 Insurance Type Payer Benefit Subscriber ID Effective Phone Address Plan / Dates Group PPO HUMANA MEDICARE HUMANA xxxxxxxxx 2017-P MEDICARE resent PPO/PFFS/E RS MCR Medicare MEDICARE MEDICARE xxxxxxxxxxx 2018- TIMI, PART A AND Present [place] Advance Directives Patient has advance care planning documents on file. For more information, brian freeman contact: Timi Vera[address] [address]
--- OUTSIDE RECORDS SUMMARY | 2019-04-08 08:08 | XMS REPORT | Clinical Summary ---
Author Author DOREEN Register My InfoNorth Canyon Medical CenterLengow [facility] Organization [facility] Address Unknown Phone Unavailable Care Team Providers Care Re Dye Hand Name Role Phone Jimbo Roman MD PCP Allergies No Known Allergies Medications Not on file Active Problems Not on file Encounters Care Team Description Date Type Specialty Robert Montanez MD Urinary tract infection without hematuria, site unspecified (Primary Dx); RON (acute kidney injury) (HCC); Malignant neoplasm of urinary bladder, unspecified site (HCC) 01/27/2019 Emergency Emergency Medicine 01/27/2019 Travel after 04/07/2018 Social History Date Tobacco Use [...] STAT 01/27/2019 URINE CULTURE 5:09 AM CDT BLOOD CULTURE Routine 01/27/2019 IDENTIFICATION PANEL 5:09 AM CDT URINE CULTURE STAT 01/27/2019 5:09 AM CDT BLOOD CULTURE STAT 01/27/2019 5:09 AM CDT BLOOD CULTURE STAT 01/27/2019 5:09 AM CDT CBC W/PLT COUNT & AUTO STAT 01/27/2019 DIFFERENTIAL 3:33 AM CDT CBC W/PLT COUNT & AUTO STAT 01/27/2019 DIFFERENTIAL 3:33 AM CDT BASIC METABOLIC PANEL (7) STAT 01/27/2019 3:33 AM CDT after 04/07/2018 Results * Blood Culture Panel(BioFire) (01/27/2019 5:09 AM CDT) [place] MONOCYTOGENES Not detected Not detected [facility] STAPHYLOCOCCUS Not detected Not detected [facility] STAPHYLOCOCCUS AUREUS Not detected Not detected [facility] Streptococcus Not detected Not detected [facility] STREPTOCOCCUS AGALACTIAE Not detected Not detected [facility] ([facility]) [facility] STREPTOCOCCUS PNEUMONIAE Not detected Not detected [facility] Streptococcus pyogenes Not detected Not detected [facility] ([facility]) [facility] ACINETOBACTER BAUMANNII Not detected Not detected [facility] HAEMOPHILUS INFLUENZAE Not detected Not detected [facility] NEISSERIA MENINGITIDIS Not detected Not detected [facility] ENTEROBACTERIACEAE Not detected Not detected [facility] ENTEROBACTER CLOACOE Not detected Not detected [facility] KLEBSIELLA OXYTOCA Not detected Not detected [facility] KLEBSIELLA PNEUMONIAE Not detected Not detected [facility] PROTEUS Not detected Not detected [facility] SERRATIA MARCESCENS Not detected Not detected [facility] WILLIAN ALBICANS Not detected Not detected [facility] WILLIAN GLABRATA Not detected Not detected [facility] WILLIAN KRUSEI Not detected Not detected [facility] WILLIAN PARAPSILOSIS Not detected Not detected [facility] WILLIAN TROPICALIS Not detected Not detected [facility] ESCHERICHIA COLI Not detected Not detected [facility] METHICILLIN-RESISTANCE Not detected [facility] VANCOMYCIN-RESISTANCE Not detected Not detected [facility] CARBAPENEM-RESISTANCE Not detected Not detected [facility] ENTEROCOCCUS Detected (A) Not detected [facility] Comment: [facility] First line therapy: Vancomycin or Ampicillin (Ampicillin only if confirmed susceptible) (Alicia/vanB not detected) Reference Range: Not Detected PSEUDOMONAS AERUGINOSA Not detected Not detected [facility] Specimen Blood Narrative Performed At Other bacteria and resistance markers not targeted by this PCR panel cannot be [facility] excluded; therefore clinical correlation and follow up of serology, culture [facility] results, and other molecular studies is required. The results are not intended to be used as the sole means for clinical diagnosis or patient management decisions. This sample was tested at the [facility] Molecular Diagnostics Laboratory using the [employer] FilmArray Blood Culture ID Panel. It is FDA cleared and has been verified and approved by the [facility] Molecular Diagnostics Laboratory for clinical use. This laboratory is CLIA-certified and [employer] (CAP)-accredited to perform high complexity testing. Performing Organization Address City/State/Zipcode Phone Number [facility] [address] [place] [address] [facility] * Urinalysis w/Microscopic + Reflex to Culture (01/27/2019 5:09 AM CDT) Color, UA Yellow [facility] Clarity, UA Cloudy [facility] Specific [place], UA 1.012 1.001 - 1.035 [facility] pH, UA 6.0 5.0 - 8.0 [facility] Protein, UA 100 mg/dL (A) Negative [facility] Glucose, UA Negative Negative [facility] Ketones, UA Negative Negative [facility] Bilirubin, UA Negative Negative [facility] Blood, UA Moderate (A) Negative [facility] Nitrite, UA Negative Negative [facility] Leukocytes, UA Large (A) Negative [facility] Urobilinogen, UA 0.2 0.2 - 1.0 mg/dL [facility] RBC, UA 187 /HPF [facility] WBC, UA 1,233Comment: Wbc clumps seen /HPF [facility] Bacteria, UA Many [facility] Amorphous Crystals Moderate [facility] Specimen Source [facility] Specimen Urine Performing Organization Address City/[facility] Phone Number [address] [address] [phone] [place] [address] * Blood Culture - Routine (Left Venipuncture) (01/27/2019 5:09 AM CDT) Only the most recent of 2 results within the time period is included. Result From Anaerobic Bottle Only [facility] Same organism has been [facility] isolated from cultures(s) of the same body site and collection date. Repeat identification and susceptibility testing performed only after consultation with the clinical microbiology laboratory. (A) Comment: Refer to previous culture of Enterococcus faecalis Gram Stain Result From anaerobic bottle only: [facility] gram positive cocci in chains [facility] Specimen Blood Performing Organization Address City/[facility] Phone Number [facility] [address] [place] [address] [facility] * Urine culture (01/27/2019 5:09 AM CDT) Result >100,000 col/mL Enterococcus [facility] species (A) [facility] Specimen Urine Antibiotic Method Susceptibility Organism Ampicillin <=2: Susceptible Enterococcus species Linezolid 1: Susceptible Enterococcus species Nitrofurantoin <=16: Susceptible Enterococcus species Tetracycline <=1: Susceptible Enterococcus species Vancomycin 1: Susceptible Enterococcus species Performing Organization Address City/State/Zipcode Phone Number [facility] [address] [place] [address] [facility] * CBC with platelet count + automated diff (01/27/2019 3:33 AM CDT) WBC 25.9 (H) 3.5 - 10.5 K/L [facility] RBC 2.98 (L) 4.63 - 6.08 M/L [facility] Hemoglobin 8.4 (L) 13.7 - 17.5 GM/DL [facility] Hematocrit 26.7 (L) 40.1 - 51.0 % [facility] MCV 89.6 79.0 - 92.2 fL [facility] MCH 28.2 25.7 - 32.2 pg [facility] MCHC 31.5 (L) 32.3 - 36.5 GM/DL [facility] RDW 15.7 (H) 11.6 - 14.4 % [facility] Platelets 337 150 - 450 K/CU MM [facility] MPV 11.0 9.4 - 12.4 fL [facility] nRBC 0 0 - 0 /100 WBC [facility] % Neutros 85 % [facility] % Lymphs 6 % [facility] % Monos 6 % [facility] % Eos 0 % [facility] % Baso 0 % [facility] # Neutros 22.09 (H) 1.78 - 5.38 K/L [facility] # Lymphs 1.58 1.32 - 3.57 K/L [facility] # Monos 1.56 (H) 0.30 - 0.82 K/L [facility] # Eos 0.00 (L) 0.04 - 0.54 K/L [facility] # Baso 0.06 0.01 - 0.08 K/L [facility] Immature 2 (H) 0 - 1 % [facility] Granulocytes-Relative [facility] Specimen Blood Performing Organization Address City/State/Zipcode Phone Number [facility] [address] [place] [address] [facility] * Basic metabolic panel (Na, K+, Cl, CO2, Glu, Ca, BUN, Cr) (01/27/2019 3:33 AM CDT) Sodium 138 136 - 145 meq/L [facility] Potassium 4.3Comment: Specimen slightly 3.5 - 5.1 meq/L [facility] hemolyzed [facility] Chloride 105 98 - 107 meq/L [facility] CO2 22 22 - 29 meq/L [facility] BUN 60 (H) 7 - 21 mg/dL [facility] Creatinine 2.93 (H)Comment: Specimen 0.57 - 1.25 mg/dL [facility] slightly hemolyzed [facility] Glucose 139 (H) 70 - 105 mg/dL [facility] Calcium 9.6 8.4 - 10.2 mg/dL [facility] EGFR Comment: INSUFFICIENT CLINICAL mL/min/1.73 sq m [facility] DATA TO CALCULATE ESTIMATED [facility] GFR. Specimen Blood Performing Organization Address City/[facility]/Zipcode Phone Number [facility] [address] [place] [address] [facility] after 04/07/2018 Insurance Payer Benefit Subscriber ID Type Phone Address Plan / Group HUMANA - MEDICARE MGD HUMANA xxxxxxxxx [facility] MEDICARE Contracted ADV
[2019-04-08] MEDS ORDERED: GENTAMICIN 80MG/NS 100 ML 100 ML IV ONE (09:00)
[2019-04-08] MEDS ORDERED: AMPICILLIN SOD 2 GM/NS 100ML 100 ML IV ONE (09:00)
[2019-04-08] MEDS ORDERED: B&O 60MG R/S 60 MG SUPP PR ONE (10:38)
[2019-04-08] MEDS ORDERED: IOPAMIDOL 610MG/1ML 300 MG/ML VIAL IV ONE (10:38)
[2019-04-08] MEDS ORDERED: FENTANYL CITRATE/PF 100MCG/2 ML INJ ONE (14:16)
[2019-04-08] MEDS ORDERED: DIPHENHYDRAMINE HCL 25 MG CAP PO PRN (15:00)
[2019-04-08] MEDS ORDERED: ONDANSETRON HCL INJ 2MG/ML 2ML 2 MG/ML VIAL IV PRN (15:00)
[2019-04-08] MEDS ORDERED: BELLADONNA/OPIUM 30 MG SUPP RC PRN (15:00)
[2019-04-08] MEDS ORDERED: DIPHENHYDRAMINE HCL INJ 50 MG/ML VIAL IM PRN (15:00)
[2019-04-08] MEDS ORDERED: ACETAMINOPHEN/CODEINE 300MG - 30MG TAB PO PRN (15:00)
--- OUTSIDE RECORDS SUMMARY | 2019-04-08 15:21 | XMS REPORT | Clinical Summary ---
Author Author [employer] Organization [facility] Address Unknown Phone Unavailable Care Team Providers Care Director Of Curriculum And Instruction Name Role Phone PCP Unavailable Allergies Not [...] (EBV) Routine 09/03/2018 BY PCR 12:30 PM RN PEDIATRIC OPHTHALMOLOGY PATHOGEN Routine 09/03/2018 MULTIPLEX PANEL 12:30 PM RN PEDIATRIC after 04/07/2018 Results * Ophthalmology pathogen multiplex panel (09/03/2018 12:30 PM RN PEDIATRIC) Cytomegalovirus Not-Detected Not-Detected [facility] DEPARTMENT by PCR, eye OF PATHOLOGY AND GENOMIC MEDICINE Herpes simplex Not-Detected Not-Detected [facility] DEPARTMENT virus 1 by PCR, OF PATHOLOGY eye AND GENOMIC MEDICINE Herpes simplex Not-Detected Not-Detected [facility] DEPARTMENT virus 2 by PCR, OF PATHOLOGY eye AND GENOMIC MEDICINE Toxoplasma Not-Detected Not-Detected [facility] DEPARTMENT gondii by PCR, OF PATHOLOGY eye AND GENOMIC MEDICINE Varicella Detected (A) Not-Detected [facility] DEPARTMENT zoster virus by OF PATHOLOGY PCR, eye AND GENOMIC MEDICINE Ophthalmology See link below for PDF Lab [facility] DEPARTMENT pathogen ReportComment: Case Number: OF PATHOLOGY multiplex panel [id number] AND GENOMIC MEDICINE Specimen Narrative Performed At [facility] right eye [facility] DEPARTMENT OF PATHOLOGY AND GENOMIC MEDICINE Performing Organization Address City/State/Zipcode Phone Number [facility] DEPARTMENT OF [address] [place] [address] PATHOLOGY AND GENOMIC MEDICINE * Marjorie Frank Virus (EBV) by PCR (09/03/2018 12:30 PM RN PEDIATRIC) Marjorie Frank Not-Detected Not-Detected [place] virus, PCR copies/mL [facility] Marjorie Frank See link below for PDF Lab [place] virus, PCR ReportComment: Case Number: [facility] [id number] [facility] Specimen Narrative Performed At aqueous right eye [facility] The specimen type Vitreous, Other has not been validated for this assay. HOSPITAL Therefore, the sensitivity and specificity of this assay for this specimen type is unknown. A negative result does not completely rule out the presence of EBV. Correlation with other clinical information is recommended. Performing Organization Address [facility]/State/Zipcode Phone Number [facility] DEPARTMENT OF [address] [place] [id number] PATHOLOGY AND GENOMIC MEDICINE [address] [address] [facility] after 04/07/2018 Insurance Type Payer Benefit Subscriber ID Effective Phone Address Plan / Dates Group PPO HUMANA MEDICARE HUMANA xxxxxxxxx 2017-P MEDICARE resent PPO/PFFS/E RS MCR Medicare MEDICARE MEDICARE xxxxxxxxxxx 2018- TIMI, PART A AND Present [place] Advance Directives Patient has advance care planning documents on file. For more information, brian freeman contact: Timi Vera[address] [address]
--- OUTSIDE RECORDS SUMMARY | 2019-04-08 15:21 | XMS REPORT | Clinical Summary ---
Author Author DOREEN Wi[facility]usSt. 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 ([facility] STREPTOCOCCUS PNEUMONIAE Not detected Not detected [facility] Streptococcus pyogenes Not detected Not detected [facility] (Group A) [facility] ACINETOBACTER BAUMANNII Not detected Not detected [facility] HAEMOPHILUS INFLUENZAE Not detected Not detected [facility] NEISSERIA MENINGITIDIS Not detected Not detected [facility] ENTEROBACTERIACEAE Not detected Not detected [facility] ENTEROBACTER CLOACOE Not detected Not detected [facility] KLEBSIELLA OXYTOCA Not detected Not detected [facility] KLEBSIELLA PNEUMONIAE Not detected Not detected [facility] PROTEUS Not detected Not detected [facility] SERRATIA MARCESCENS Not detected Not detected [facility] WILLIAN ALBICANS Not detected Not detected [facility] WILLIAN GLABRATA Not detected Not detected [facility] WILLIAN KRUSEI Not detected Not detected [facility] WILLIAN PARAPSILOSIS Not detected Not detected [facility] WILLIAN TROPICALIS Not detected Not detected [facility] ESCHERICHIA COLI Not detected Not detected [facility] METHICILLIN-RESISTANCE Not detected [facility] VANCOMYCIN-RESISTANCE Not detected Not detected [facility] CARBAPENEM-RESISTANCE Not detected Not detected [facility] ENTEROCOCCUS Detected (A) Not detected [facility] Comment: [facility] First line therapy: Vancomycin or Ampicillin (Ampicillin only if confirmed susceptible) (Alicia/vanB not detected) Reference Range: Not Detected PSEUDOMONAS AERUGINOSA Not detected Not detected [facility] Specimen Blood Narrative Performed At Other bacteria and resistance markers not targeted by this PCR panel cannot be [facility] excluded; therefore clinical correlation and follow up of serology, culture [facility] results, and other molecular studies is required. The results are not intended to be used as the sole means for clinical diagnosis or patient management decisions. This sample was tested at the [facility] Molecular Diagnostics Laboratory using the [employer] Film[employer] Blood Culture ID Panel. It is FDA cleared and has been verified and approved by the [facility] Molecular Diagnostics Laboratory for clinical use. This laboratory is CLIA-certified and [employer] (CAP)-accredited to perform high complexity testing. Performing Organization Address City/State/Zipcode Phone Number [facility] [address] [place] [address] [facility] * Urinalysis w/Microscopic + Reflex to Culture (01/27/2019 5:09 AM CDT) Color, UA Yellow [facility] Clarity, UA Cloudy [facility] Specific [place], UA 1.012 1.001 - 1.035 [facility] pH, UA 6.0 5.0 - 8.0 [facility] Protein, UA 100 mg/dL (A) Negative [facility] Glucose, UA Negative Negative [facility] Ketones, UA Negative Negative [facility] Bilirubin, UA Negative Negative [facility] Blood, UA Moderate (A) Negative [facility] Nitrite, UA Negative Negative [facility] Leukocytes, UA Large (A) Negative [facility] Urobilinogen, UA 0.2 0.2 - 1.0 mg/dL [facility] RBC, UA 187 /HPF [facility] WBC, UA 1,233Comment: Wbc clumps seen /HPF [facility] Bacteria, UA Many [facility] Amorphous Crystals Moderate [facility] Specimen Source [facility] Specimen Urine Performing Organization Address City/[facility] Cent[facility] Phone Number [address] [address] [phone] [place] [address] * Blood Culture - Routine (Left Venipuncture) (01/27/2019 5:09 AM CDT) Only the most recent of 2 results within the time period is included. Result From Anaerobic Bottle Only [facility] Same organism has been [facility] isolated from cultures(s) of the same body site and collection date. Repeat identification and susceptibility testing performed only after consultation with the clinical microbiology laboratory. (A) Comment: Refer to previous culture of Enterococcus faecalis Gram Stain Result From anaerobic bottle only: [facility] gram positive cocci in chains [facility] Specimen Blood Performing Organization Address City/[facility] Phone Number [facility] [address] [place] [address] [facility] * Urine culture (01/27/2019 5:09 AM CDT) Result >100,000 col/mL Enterococcus [facility] species (A) [facility] Specimen Urine Antibiotic Method Susceptibility Organism Ampicillin <=2: Susceptible Enterococcus species Linezolid 1: Susceptible Enterococcus species Nitrofurantoin <=16: Susceptible Enterococcus species Tetracycline <=1: Susceptible Enterococcus species Vancomycin 1: Susceptible Enterococcus species Performing Organization Address City/State/Zipcode Phone Number [facility] [address] [place] [address] MEDICAL CENTER * CBC with platelet count + automated diff (01/27/2019 3:33 AM CDT) WBC 25.9 (H) 3.5 - 10.5 K/L [facility] RBC 2.98 (L) 4.63 - 6.08 M/L [facility] Hemoglobin 8.4 (L) 13.7 - 17.5 GM/DL [facility] Hematocrit 26.7 (L) 40.1 - 51.0 % [facility] MCV 89.6 79.0 - 92.2 fL [facility] MCH 28.2 25.7 - 32.2 pg [facility] MCHC 31.5 (L) 32.3 - 36.5 GM/DL [facility] RDW 15.7 (H) 11.6 - 14.4 % [facility] Platelets 337 150 - 450 K/CU MM [facility] MPV 11.0 9.4 - 12.4 fL [facility] nRBC 0 0 - 0 /100 WBC [facility] % Neutros 85 % [facility] % Lymphs 6 % [facility] % Monos 6 % [facility] % Eos 0 % [facility] % Baso 0 % [facility] # Neutros 22.09 (H) 1.78 - 5.38 K/L [facility] # Lymphs 1.58 1.32 - 3.57 K/L [facility] # Monos 1.56 (H) 0.30 - 0.82 K/L [facility] # Eos 0.00 (L) 0.04 - 0.54 K/L [facility] # Baso 0.06 0.01 - 0.08 K/L [facility] Immature 2 (H) 0 - 1 % [facility] Granulocytes-Relative [facility] Specimen Blood Performing Organization Address City/State/Zipcode Phone Number [facility] [address] [place] [address] [facility] * Basic metabolic panel (Na, K+, Cl, CO2, Glu, Ca, BUN, Cr) (01/27/2019 3:33 AM CDT) Sodium 138 136 - 145 meq/L [facility] Potassium 4.3Comment: Specimen slightly 3.5 - 5.1 meq/L [facility] hemolyzed [facility] Chloride 105 98 - 107 meq/L [facility] CO2 22 22 - 29 meq/L [facility] BUN 60 (H) 7 - 21 mg/dL [facility] Creatinine 2.93 (H)Comment: Specimen 0.57 - 1.25 mg/dL [facility] slightly hemolyzed [facility] Glucose 139 (H) 70 - 105 mg/dL [facility] Calcium 9.6 8.4 - 10.2 mg/dL [facility] EGFR Comment: INSUFFICIENT CLINICAL mL/min/1.[address] [facility] DATA TO CALCULATE ESTIMATED [facility] GFR. Specimen Blood Performing Organization Address City/[facility]/Zipcode Phone Number [facility] [address] [place] [address] [facility] after 04/07/2018 Insurance Payer Benefit Subscriber ID Type Phone Address Plan / Group HU[employer]NA - MEDICARE MGD HU[employer]NA xxxxxxxxx [facility] MEDICARE Contracted ADV
--- NOTE | 2019-04-08 15:23 | NUR ---
report received from PACU, patient to arrive to unit via stretcher, alert and oriented.
[2019-04-08 15:40] VITALS: BP 146/61
--- NOTE | 2019-04-08 15:40 | NUR ---
patient arrived to unit alert and oriented. patient resting in bed, call [place] within reach and bed in lowest position
[2019-04-08 15:42] LABS: BASOPHILS % 0.3 % (0.0-1.0); EOSINOPHILS % 0.6 % (0.0-6.0); HEMATOCRIT 34.8 % (38.2-49.6); HEMOGLOBIN 10.7 g/dL (14.0-18.0); LYMPHOCYTES # (AUTO) 1.3 (1.0-3.2); LYMPHOCYTES % 20.5 % (18.0-39.1); MEAN CORPUSCULAR HEMOGLOBIN 26.9 pg (28-32); MEAN CORPUSCULAR HGB CONC 30.7 g/dL (31-35); MEAN CORPUSCULAR VOLUME 87.4 fL (81-99); MONOCYTES # (AUTO) 0.2 (0.2-0.8); MONOCYTES % 2.7 % (4.4-11.3); NEUTROPHILS # (AUTO) 4.7 (2.1-6.9); NEUTROPHILS % 75.3 % (38.7-80.0); PLATELET COUNT 185 x10e3/uL (140-360); RED BLOOD COUNT 3.98 x10e6/uL (4.3-5.7); RED CELL DISTRIBUTION WIDTH 18.8 % (11.7-14.4)
[2019-04-08 15:55] VITALS: BP 146/61
[2019-04-08 16:03] LABS: ANION GAP 12.6 mmol/L (8-16); CALCIUM 9.3 mg/dL (8.4-10.2); CREATININE, SERUM 1.88 mg/dL (0.72-1.25); POTASSIUM 4.6 mmol/L (3.5-5.1)
[2019-04-08 16:34] VITALS: BP 146/61
[2019-04-08] MEDS ORDERED: PROPOFOL IV EMULSION 10 MG/ML 20 ML VIAL ONE (16:43)
[2019-04-08] MEDS ORDERED: ONDANSETRON HCL INJ 2MG/ML 2ML 2 MG/ML VIAL ONE (16:43)
[2019-04-08] MEDS ORDERED: SEVOFLURANE INHAL SOLN 250 ML PEN BTL ONE (16:43)
[2019-04-08] MEDS ORDERED: DEXAMETHASONE SOD PHOS INJ 4 MG/ML VIAL ONE (16:43)
[2019-04-08] MEDS ORDERED: ACETAMINOPHEN 1000 MG/100 ML IV ONE (16:43)
[2019-04-08] MEDS ORDERED: LIDOCAINE HCL 2% LOCAL INJ 5 ML SDV VIAL INJ ONE (16:43)
[2019-04-08] MEDS: AMPICILLIN SOD 1 GM/NS 50ML 50 ML IV SCH (17:00)
[2019-04-08] MEDS: PHENAZOPYRIDINE HCL 100 MG TAB PO SCH (17:30)
[2019-04-08] MEDS: DOCUSATE SODIUM 100 MG CAP PO SCH (17:30)
--- NOTE | 2019-04-08 18:52 | NUR ---
rounded with retail shift leader nurse, patient aware of change and in no distress. call [place] within reach and bed in lowest position.
[2019-04-08 19:00] VITALS: BP 146/61
[2019-04-08 19:32] VITALS: BP 146/75
[2019-04-08] MEDS: SODIUM CHLORIDE 0.9% 1000ML 1,000 ML IV SCH (20:46)
[2019-04-09] VITALS (8 sets, daily range): BP systolic 127–154; BP diastolic 57–69
[2019-04-09] MEDS: AMPICILLIN SOD 1 GM/NS 50ML 50 ML IV SCH ×3 (00:09→17:30)
[2019-04-09 06:06] LABS: BASOPHILS % 0.4 % (0.0-1.0); EOSINOPHILS % 0.3 % (0.0-6.0); HEMATOCRIT 32.1 % (38.2-49.6); HEMOGLOBIN 9.7 g/dL (14.0-18.0); LYMPHOCYTES # (AUTO) 1.8 (1.0-3.2); LYMPHOCYTES % 25.2 % (18.0-39.1); MEAN CORPUSCULAR HEMOGLOBIN 26.9 pg (28-32); MEAN CORPUSCULAR HGB CONC 30.2 g/dL (31-35); MEAN CORPUSCULAR VOLUME 89.2 fL (81-99); MONOCYTES # (AUTO) 0.6 (0.2-0.8); NEUTROPHILS # (AUTO) 4.7 (2.1-6.9); NEUTROPHILS % 65.8 % (38.7-80.0); PLATELET COUNT 179 x10e3/uL (140-360)
[2019-04-09 06:20] LABS: CALCIUM 8.6 mg/dL (8.4-10.2); CREATININE, SERUM 1.99 mg/dL (0.72-1.25)
[2019-04-09] MEDS: PHENAZOPYRIDINE HCL 100 MG TAB PO SCH ×3 (09:30→17:30)
[2019-04-09] MEDS: DOCUSATE SODIUM 100 MG CAP PO SCH ×2 (09:30→17:30)
[2019-04-09] MEDS: SODIUM CHLORIDE 0.9% 1000ML 1,000 ML IV SCH (10:56)
[2019-04-09] MEDS ORDERED: B&O 60MG R/S 60 MG SUPP PR PRN (18:30)
--- NOTE | 2019-04-09 18:38 | Consultation ---
DATE OF CONSULTATION: 04/09/2019 REASON FOR CONSULTATION: CKD stage 3. HISTORY OF PRESENT ILLNESS: The patient is a very pleasant 89-year-old male with past medical history of hypertension, bladder cancer, history of bilateral hydronephrosis status post bilateral ureteral stents, and gout, who was admitted after bilateral ureteral stents were being exchanged. The patient had cystoscopy and currently on bladder irrigation. Dr. Hussein follows the patient. In January 2019, creatinine was 1.38 and on admission creatinine was 2.01 and this morning it is 1.99. Nephrology was consulted for chronic kidney disease. The patient denies having any complaint. He has not been eating or drinking well for last 3 to 4 weeks. Currently, on normal saline at 100 mL an hour. PAST MEDICAL HISTORY: As above. PAST SURGICAL HISTORY: Multiple TURBTs, bilateral ureteral stent placement. FAMILY HISTORY: No history of any kidney disease. FAMILY HISTORY: No history of tobacco, alcohol, or intravenous drug use, very active. MEDICATIONS: Currently, the patient is on, 1. Ampicillin. 2. Pyridium. 3. Normal saline. 4. Tylenol p.r.n. REVIEW OF SYSTEMS: GENERAL: No fatigue, no fever, no chills. HEENT: No headache or blurry vision. NECK: No dysphagia. CARDIOVASCULAR: No chest pain. No PND. No orthopnea. RESPIRATORY: No shortness of breath. No cough. No hemoptysis. GI: No nausea, vomiting, diarrhea, or constipation. No hematemesis. No melena. GENITOURINARY: Currently he has a Lang catheter with hematuria. MUSCULOSKELETAL: No ankle swelling. NEUROLOGIC: No numbness, weakness, or tingling. SKIN: No new rash. PHYSICAL EXAMINATION: VITAL SIGNS: Blood pressure 137/65, pulse of 51, respirations 18, and 99% on room air. GENERAL: Awake, alert, and oriented x3, very pleasant, not in apparent distress. HEENT: PERRLA. Extraocular movements intact. NECK: No JVD. No mass. Supple. HEART: S1 and S2. Regular rate and rhythm. No murmur, gallop, or rub. LUNGS: Clear to auscultation bilaterally. No added sounds. ABDOMEN: Soft. Nontender. Nondistended. Bowel sounds positive. No organomegaly. EXTREMITIES: No cyanosis, clubbing, or edema. GENITOURINARY: Positive Lang. Positive hematuria, on irrigation. NEUROLOGIC: No focal deficits. Awake and alert. Cranial nerves intact. LABORATORY DATA: Sodium 138, potassium 5, chloride 106, CO2 of 24, BUN 36, creatinine 1.99, and glucose 102. White count 7.15, hemoglobin 9.7, and platelet count 179. ASSESSMENT AND PLAN: 1. Chronic kidney disease stage 3. Serum creatinine is pretty much stable. Continue with IV fluids. Repeat the labs in the morning. Avoid all nephrotoxic medications. 2. Bladder cancer, status post multiple surgeries and bilateral ureteral stent placement with recent change. Dr. Hussein is following, continue with bladder irrigation per him. 3. Hypertension, controlled. I want to thank, Dr. Velasquez, for the consult. I will follow the patient with you. MD LAMAR Villa/ALPHONSE /[id number] MTDD
--- NOTE | 2019-04-09 19:16 | NUR ---
walking rounds completed with evening or night nurse supervisor nurse, patient aware of change and in no distress. call york within reach and bed in lowest position.
--- NOTE | 2019-04-09 19:18 | NUR ---
PT'S IV TO RIGHT HAND NOTED LEAKING,IV CATH NOTED OUT,TIP INTACT.PRESSURE DRESSING APPLIED TO IV SITE.PT HAS ANOTHER IV TO RIGHT WRIST AREA 20G,FLUSHED IV,INTACT AND PATENT.PT ON CONTINUOUS BLADDER IRRIGATION,PT'S LOUIS CATH NOTED LEAKING,AM NURSE NOTIFIED DR ORTIZ.INSTRUCTED PT TO CALL FOR ASSISTANCE NEEDED,PT VERBALIZED UNDERSTANDING.CALL LIGHT WITHIN EASY REACH.WILL CONTINUE TO MONITOR.
--- NOTE | 2019-04-09 19:20 | NUR ---
DR ORTIZ IN UNIT ROUNDING ON PT AT THIS TIME,NOTIFIED ABOUT THE LOUIS LEAKING,DR ORTIZ INSTRUCTED TO MANUALLY IRRIGATE THE CATHETER.
--- NOTE | 2019-04-09 19:35 | NUR ---
MANUALLY IRRIGATED THE CATHETER,SEVERAL SMALL CLOTS REMOVED.PT STATES OF PRESSURE RELIEF.WILL CONTINUE TO MONITOR.CALL LIGHT WITHIN EASY REACH.
[2019-04-10] VITALS (9 sets, daily range): BP systolic 139–182; BP diastolic 65–82
[2019-04-10] MEDS: AMPICILLIN SOD 1 GM/NS 50ML 50 ML IV SCH ×3 (00:39→17:05)
[2019-04-10] MEDS: SODIUM CHLORIDE 0.9% 1000ML 1,000 ML IV SCH ×2 (05:56→06:56)
--- NOTE | 2019-04-10 07:14 | NUR ---
REPORT GIVEN TO ONCOMING NURSE,WALKING ROUNDS DONE.PT RESTING IN BED WITH NO S/S OF DISTRESS.
[2019-04-10] MEDS: PHENAZOPYRIDINE HCL 100 MG TAB PO SCH ×3 (09:00→17:05)
[2019-04-10] MEDS: DOCUSATE SODIUM 100 MG CAP PO SCH ×2 (09:00→17:05)
[2019-04-10 09:02] LABS: BASOPHILS % 0.5 % (0.0-1.0); EOSINOPHILS # (AUTO) 0.2 (0.0-0.4); EOSINOPHILS % 3.8 % (0.0-6.0); HEMATOCRIT 33.7 % (38.2-49.6); HEMOGLOBIN 10.1 g/dL (14.0-18.0); LYMPHOCYTES % 36.5 % (18.0-39.1); MEAN CORPUSCULAR HEMOGLOBIN 26.2 pg (28-32); MEAN CORPUSCULAR VOLUME 87.5 fL (81-99); MONOCYTES # (AUTO) 0.4 (0.2-0.8); MONOCYTES % 6.7 % (4.4-11.3); NEUTROPHILS # (AUTO) 2.9 (2.1-6.9); NEUTROPHILS % 52.1 % (38.7-80.0); PLATELET COUNT 180 x10e3/uL (140-360); RED BLOOD COUNT 3.85 x10e6/uL (4.3-5.7)
[2019-04-10 09:24] LABS: ANION GAP 12.8 mmol/L (8-16); CALCIUM 8.6 mg/dL (8.4-10.2); CREATININE, SERUM 1.77 mg/dL (0.72-1.25); POTASSIUM 3.8 mmol/L (3.5-5.1)
--- NOTE | 2019-04-10 18:50 | NUR ---
rounded with film processing shift supervisor nurse, patient aware of change and in no distress. call york within reach and bed in lowest position.
[2019-04-10] MEDS ORDERED: AMLODIPINE BESYLATE 10 MG TAB PO ONE (20:30)
--- NOTE | 2019-04-10 21:15 | NUR ---
Bp noted 182/77.notified to .ordered norvasc 10mg one time order.carried out the order.petersen care given.draining yellow colored urine.keep monitor the pt.
--- NOTE | 2019-04-10 22:07 | NUR ---
Assessment done.no resp.distress.no pain voiced .iv right hand is patent.bed locked and in lowest position.phone and call light within reach.instructed to to call for assistance as needed.
[2019-04-11] MEDS: AMPICILLIN SOD 1 GM/NS 50ML 50 ML IV SCH ×2 (01:16→08:26)
[2019-04-11 05:47] LABS: BASOPHILS % 0.4 % (0.0-1.0); EOSINOPHILS # (AUTO) 0.4 (0.0-0.4); EOSINOPHILS % 4.1 % (0.0-6.0); HEMATOCRIT 44.6 % (38.2-49.6); HEMOGLOBIN 15.3 g/dL (14.0-18.0); LYMPHOCYTES # (AUTO) 1.8 (1.0-3.2); LYMPHOCYTES % 19.5 % (18.0-39.1); MEAN CORPUSCULAR HEMOGLOBIN 30.7 pg (28-32); MEAN CORPUSCULAR HGB CONC 34.3 g/dL (31-35); MEAN CORPUSCULAR VOLUME 89.6 fL (81-99); MONOCYTES # (AUTO) 0.8 (0.2-0.8); MONOCYTES % 8.9 % (4.4-11.3); NEUTROPHILS % 66.8 % (38.7-80.0); PLATELET COUNT 194 x10e3/uL (140-360); RED BLOOD COUNT 4.98 x10e6/uL (4.3-5.7)
[2019-04-11 06:02] LABS: ANION GAP 11.9 mmol/L (8-16); BLOOD UREA NITROGEN 8 mg/dL (7-26); BUN/CREATININE RATIO 8 (6-25); CARBON DIOXIDE 25 mmol/L (22-29); CHLORIDE 107 mmol/L (98-107); CREATININE, SERUM 1.01 mg/dL (0.72-1.25); EST GLOMERULAR FILTRATION RATE > 60 ML/MIN (60-); GLUCOSE 94 mg/dL (74-118); POTASSIUM 3.9 mmol/L (3.5-5.1); SODIUM 140 mmol/L (136-145)
[2019-04-11] MEDS ORDERED: LABETALOL HCL 100 MG TAB PO SCH (06:30)
--- NOTE | 2019-04-11 06:36 | NUR ---
Hb 15.3.Put H&H order.Bp is noted 180/82.notified to .received order to continue home medication Labetalol 100mg bid.morning dose given.
[2019-04-11 06:43] LABS: HEMATOCRIT 36.8 % (38.2-49.6); HEMOGLOBIN 11.3 g/dL (14.0-18.0)
--- NOTE | 2019-04-11 07:00 | NUR ---
Bed side shift report given to the oncoming RN.stable condition.
--- NOTE | 2019-04-11 07:00 | NUR ---
received am report from rn. pt is awake lying in bed, no s/s of distress. bladder irrigation is running, output is clear and yellow.
[2019-04-11 08:00] VITALS: BP 168/79
[2019-04-11 08:25] VITALS: BP 159/96
[2019-04-11] MEDS: DOCUSATE SODIUM 100 MG CAP PO SCH (08:26)
[2019-04-11] MEDS: PHENAZOPYRIDINE HCL 100 MG TAB PO SCH (08:26)
[2019-04-11] MEDS ORDERED: AMLODIPINE BESYLATE 5 MG TAB PO PRN (08:30)
[2019-04-11] MEDS ORDERED: TAMSULOSIN HCL 0.4 MG CAP PO SCH (09:00)
[2019-04-11] MEDS ORDERED: ALLOPURINOL 100 MG TAB PO SCH (09:00)
--- NOTE | 2019-04-11 10:49 | NUR ---
IMM EXPLAINED TO PT, SIGNED BY PT AND PLACED ON CHART COPY TO PT IN CARE TRANSITIONS FOLDER
--- NOTE | 2019-04-11 15:16 | Discharge Summary ---
PRIMARY CARE PHYSICIAN: . CONSULTANTS: 1. Dr. Nawaf Hussein. 2. Dr. Dalton Nam. FINAL DIAGNOSES: 1. Metastatic stage IV urinary bladder cancer status post cystoscopy with debulking and also with bilateral ureteral stent exchange. 2. Status post acute kidney injury secondary to obstruction, infection resolved. 3. Status post 2 units of packed red blood cells secondary to chronic anemia. SUMMARY: The patient is an 89 years old male, very active gentleman with stage IV urinary bladder cancer with metastasis. The patient has recurrent debulking and also stent exchange, now status post cystoscopy to change the bilateral ureteral stents, he also had TURP and large BT procedures. The patient also had 2 units of blood transfusion. He is stable. Blood pressure stabilized, but increased when the patient is more anxious. The patient is otherwise stable. Hemoglobin and hematocrit are 13.3 and 36.8, BUN and creatinine are 8 and 1.0, the patient has improvement from his admission. The patient is otherwise stable. The patient is comfortable. He will go home today, resume home medication. He will go home with a catheter. The patient will care for his Lang catheter, he has very well knowledge and has done this previously. The patient is stable. Resume home medication. Discharge home today. The patient will take Tylenol No. 3 for pain and penicillin VK to complete a course of his antibiotics. The patient will get a 21 day of penicillin VK 500 mg twice a day. The patient is stable, discharged home today. MD ABHIJEET Best/ALPHONSE /[id number]
[2019-04-11] MEDS ORDERED: ATORVASTATIN 20 MG TAB PO SCH (21:00)
--- NOTE | 2019-05-06 03:45 | Operative Report ---
DATE OF PROCEDURE: 04/08/2019 SURGEON: Nawaf Hussein MD PREOPERATIVE DIAGNOSES: 1. Lesser amount of superficial bladder cancer. 2. Bilateral hydronephrosis. 3. Bilateral indwelling ureteral stents. POSTOPERATIVE DIAGNOSES: 1. Lesser amount of superficial bladder cancer. 2. Bilateral hydronephrosis. 3. Bilateral indwelling ureteral stents. OPERATION PERFORMED: 1. Cystourethroscopy with removal of bilateral indwelling ureteral stents (separate procedure performed for diagnosis of stent). 2. Cystourethroscopy with placement of bilateral indwelling ureteral stents (separate procedure performed to relieve the bilateral hydronephrosis). 3. Radiological services for supervision and interpretation of ureteroscopy. 4. Interpretation of retrograde ureteropyelography. 5. Cystourethroscopy with transurethral resection of very large bladder tumor with diameter resected over 5 cm (separate procedure performed for this massive amount of superficial bladder). ANESTHESIA: General. COMPLICATIONS: None. CLINICAL SUMMARY: Piotr Castro is a very complicated 89-year-old man with persistent high-volume high-surface area of bladder cancer that was proven to be superficial. No prior pathology reports. He is brought for the above procedures. He is aware of the risks of infection, injury to adjacent structures, need for additional procedures, and elected to proceed. OPERATIVE PROCEDURE IN DETAIL: Informed consent was verified. Piotr Castro was properly identified, taken to the operating room, placed on the cystoscopy table in supine position. Anesthesia was uneventfully begun. The patient was then carefully and gently repositioned in the dorsal lithotomy position with all pressure points well padded. His genitalia were prepared and draped in usual sterile fashion. Thus, a cystoscope sheath with the visual obturator in place was atraumatically inserted into the patient's urethra. It was guided down catheter was then placed into the ureter. Contrast was injected. The wire was replaced under cystoscopic guidance bilateral. Interpretation of retrograde ureteropyelography: Contrast was instilled in retrograde fashion bilaterally. There was bilateral hydroureteronephrosis. Bilateral ureteral tortuosity was present. The stents were in good position, coiled the patient's kidney as well as the patient's bladder at the end of the case. The resectoscope was atraumatically placed without utilizing the obturator. We performed transurethral resection of bladder. The bladder cancer did not refer at the level of the trigone itself. We performed resection cephalad to the trigone along the posterior bladder wall. An area of approximately 7 to 8 cm x 4 cm was resected. Bovie cautery was utilized to achieve hemostasis. Time of resection was exactly 1 hour by the clock. This was done to avoid hyponatremia, also in order to avoid volume overloading this fragile elderly man. All the resected tissue was evacuated. The resectoscope was withdrawn and Lang catheter was placed. It was irrigated to and fro to ensure it worked properly. Nawaf MD AUGUSTO Hussein/ALPHONSE /[id number]
[2019-06-14] MEDS ORDERED: ALEVE220 MG PO (12:09)
[2019-06-14] MEDS ORDERED: DULCOLAX STOOL100 MG PO (12:09)
[2019-06-14] MEDS ORDERED: VALACYCLOVIR500 MG PO (12:09)
[2019-06-14] MEDS ORDERED: AMLODIPINE BESY10 MG PO (12:09)
== END 2019-04-11 11:33 | disposition home health service (06) | DRG 657 ==
LOC: OR 08:04 → PACU V 14:59 → MED/SURG 15:42
PROVIDERS: ADMIT Internal Medicine; ATTEND Internal Medicine
PROC: 30233N1 Transfusion of Nonautologous Red Blood Cells into Peripheral Vein, Percutaneous Approach (ICD-10-PCS; 2019-04-08)
PROC: 0T788DZ Dilation of Bilateral Ureters with Intraluminal Device, Via Natural or Artificial Opening Endoscopic (ICD-10-PCS; 2019-04-08)
PROC: 0TP98DZ Removal of Intraluminal Device from Ureter, Via Natural or Artificial Opening Endoscopic (ICD-10-PCS; 2019-04-08)
PROC: 0TBB8ZZ Excision of Bladder, Via Natural or Artificial Opening Endoscopic (ICD-10-PCS; principal; 2019-04-08 10:26)
DX: C67.9 Malignant neoplasm of bladder, unspecified (principal); N17.9 Acute kidney failure, unspecified; N13.30 Unspecified hydronephrosis; C79.9 Secondary malignant neoplasm of unspecified site; I12.9 Hypertensive chronic kidney disease with stage 1 through stage 4 chronic kidney disease, or unspecified chronic kidney disease; N18.3 Chronic kidney disease, stage 3 (moderate); M10.9 Gout, unspecified; D64.9 Anemia, unspecified; Z96.0 Presence of urogenital implants
CPT/HCPCS: 36415; 74420; 80048; 80053; 83735; 85014; 85018; 85025; 86850; 86900; 86920; 88304; 88305; C1758; C2617; J0290; J1100; J1580; J2001; J2405; J3010; J7030; P9016

== ENCOUNTER 2019-04-20 07:04 | Inpatient (IN) | payer MEDICARE ==
[~2019-04-20] VITALS: Ht 165.1 cm; Wt 72.3 kg
--- OUTSIDE RECORDS SUMMARY | 2019-04-20 08:27 | XMS REPORT | Clinical Summary ---
Author Author DORE[facility]Lost [facility] CenterReadzSwed[facility] Organization [facility] Address Unknown Phone Unavailable Care Team Providers Care Geophysical Drafter Name Role Phone Jimbo Roman MD PCP Allergies No Known Allergies Medications Not on file Active Problems Not on file Encounters Care Team Description Date Type Specialty Robert Montanez MD Urinary tract infection without hematuria, site unspecified (Primary Dx); Generalized weakness 04/20/2019 Emergency Emergency Medicine 04/20/2019 Travel Robert Montanez MD Urinary tract infection without hematuria, site unspecified (Primary Dx); RON (acute kidney injury) (HCC); Malignant neoplasm of urinary bladder, unspecified site (HCC) 01/27/2019 Emergency Emergency Medicine 01/27/2019 Travel after 04/19/2018 Social History Date Tobacco Use Types Packs/Day Years Used Never Smoker Smokeless Tobacco: Never Used Alcohol Use Drinks/Week oz/Week Comments No Alcohol Habits Answer Date Recorded How often do you have a drink containing alcohol? Never 04/20/2019 How many drinks containing alcohol do you have on Not asked a typical day when you are drinking? How often do you have six or more drinks on one Not asked occasion? Sex Assigned at Date Recorded Not on file Industry Job Start Date Occupation Not on file Not on file Not on file Travel End Travel History Travel Start No recent travel history available. Last Filed Vital Signs Time Taken Vital Sign Reading 04/20/2019 7:00 AM CDT Blood Pressure 145/67 04/20/2019 7:00 AM CDT Pulse 110 04/20/2019 6:43 AM CDT Temperature 38.7 C (101.6 F) 04/20/2019 7:00 AM CDT Respiratory Rate 18 04/20/2019 7:00 AM CDT Oxygen Saturation 97% - Inhaled Oxygen - Concentration 04/20/2019 1:50 AM CDT Weight 58.5 kg (129 lb) 04/20/2019 1:50 AM CDT Height 165.1 cm (5' 5") 04/20/2019 1:50 AM CDT Body Mass Index 21.47 Plan of Treatment Not on file Procedures Comments Procedure Name Priority Date/Time Associated Diagnosis POCT-LACTIC ACID, VENOUS Routine 04/20/2019 6:58 AM CDT URINALYSIS W/ REFLEX STAT 04/20/2019 URINE CULTURE 3:13 AM CDT CBC W/PLT COUNT & AUTO STAT 04/20/2019 DIFFERENTIAL 2:30 AM CDT CBC W/PLT COUNT & AUTO STAT 04/20/2019 DIFFERENTIAL 2:30 AM CDT BASIC METABOLIC PANEL (7) STAT 04/20/2019 2:30 AM CDT URINALYSIS W/ REFLEX STAT 01/27/2019 URINE CULTURE [...] (7) STAT 01/27/2019 3:33 AM CDT after 04/19/2018 Results * POC-Lactic Acid, Venous (04/20/2019 6:58 AM CDT) POC-Lactic Acid, Venous 1.8 (H)Comment: TESTED AT 0.9 - 1.7 mmol/L [facility] [address] [facility] [id number] Specimen Blood Performing Organization Address City/[facility]/Zipcode Phone Number [facility] [address] [place] [address] [phone] [address] * Urinalysis w/Microscopic + Reflex to Culture (04/20/2019 3:13 AM CDT) Only the most recent of 2 results within the time period is included. Color, UA [place] [facility] Clarity, UA Cloudy [facility] Specific [place], UA 1.012 1.001 - 1.035 [facility] pH, UA 6.5 5.0 - 8.0 [facility] Protein, UA 100 mg/dL (A) Negative [facility] Glucose, UA Negative Negative [facility] Ketones, UA Negative Negative [facility] Bilirubin, UA Negative Negative [facility] Blood, UA Large (A) Negative [facility] Nitrite, UA Negative Negative [facility] Leukocytes, UA Large (A) Negative [facility] Urobilinogen, UA 0.2 0.2 - 1.0 mg/dL [facility] RBC, UA 2,012 /HPF [facility] WBC, UA 937 /HPF [facility] Bacteria, UA Many [facility] Specimen Source [facility] Specimen Urine Performing Organization Address City/[facility]/Zipcode Phone Number [facility] [address] [place] [address] [facility] * CBC with platelet count + automated diff (04/20/2019 2:30 AM CDT) Only the most recent of 2 results within the time period is included. WBC 31.7 (H) 3.5 - 10.5 K/L [facility] RBC 3.86 (L) 4.63 - 6.08 M/L [facility] Hemoglobin 10.6 (L) 13.7 - 17.5 GM/DL [facility] Hematocrit 33.0 (L) 40.1 - 51.0 % [facility] MCV 85.5 79.0 - 92.2 fL [facility] MCH 27.5 25.7 - 32.2 pg [facility] MCHC 32.1 (L) 32.3 - 36.5 GM/DL [facility] RDW 18.5 (H) 11.6 - 14.4 % [facility] Platelets 184 150 - 450 K/CU MM [facility] MPV 11.0 9.4 - 12.4 fL [facility] nRBC 0 0 - 0 /100 WBC [facility] % Neutros 87 % [facility] % Lymphs 5 % [facility] % Monos 6 % [facility] % Eos 0 % [facility] % Baso 0 % [facility] # Neutros 27.43 (H) 1.78 - 5.38 K/L [facility] # Lymphs 1.65 1.32 - 3.57 K/L [facility] # Monos 1.85 (H) 0.30 - 0.82 K/L [facility] # Eos 0.01 (L) 0.04 - 0.54 K/L [facility] # Baso 0.06 0.01 - 0.08 K/L [facility] Immature 2 (H) 0 - 1 % [facility] Granulocytes-Relative [facility] Specimen Blood Performing Organization Address City/State/Zipcode Phone Number [facility] [address] [place] [address] [facility] * Basic metabolic panel (Na, K+, Cl, CO2, Glu, Ca, BUN, Cr) (04/20/2019 2:30 AM CDT) Only the most recent of 2 results within the time period is included. Sodium 139 136 - 145 meq/L [facility] Potassium 4.4 3.5 - 5.1 meq/L [facility] Chloride 107 98 - 107 meq/L [facility] CO2 23 22 - 29 meq/L [facility] BUN 41 (H) 7 - 21 mg/dL [facility] Creatinine 2.36 (H) 0.57 - 1.25 mg/dL [facility] Glucose 107 (H) 70 - 105 mg/dL [facility] Calcium 9.3 8.4 - 10.2 mg/dL [facility] EGFR 26Comment: ESTIMATED GFR IS mL/min/1.73 sq m [facility] NOT ACCURATE CREATININE [facility] CLEARANCE IN PREDICTING GLOMERULAR FILTRATION RATE. ESTIMATED GFR IS NOT APPLICABLE FOR DIALYSIS PATIENTS. Specimen Blood Performing Organization Address City/[facility]/Zipcode Phone Number [facility] [address] [place] [address] [facility] * Blood Culture Panel(BioFire) (01/27/2019 5:09 AM CDT) LISTERIA MONOCYTOGENES Not detected Not detected [facility] STAPHYLOCOCCUS Not detected Not detected [facility] STAPHYLOCOCCUS AUREUS Not detected Not detected [facility] Streptococcus Not detected Not detected [facility] STREPTOCOCCUS AGALACTIAE Not detected Not detected [facility] (GROUP B) [facility] STREPTOCOCCUS PNEUMONIAE Not detected Not detected [facility] Streptococcus pyogenes Not detected Not detected [facility] (Group A) [facility] ACINETOBACTER BAUMANNII Not detected Not detected [facility] HAEMOPHILUS INFLUENZAE Not detected Not detected [facility] NEISSERIA MENINGITIDIS Not detected Not detected [facility] ENTEROBACTERIACEAE Not detected Not detected [facility] ENTEROBACTER CLOACOE Not detected Not detected [facility] KLEBSIELLA OXYTOCA Not detected Not detected [facility] KLEBSIELLA PNEUMONIAE Not detected Not detected [facility] PROTEUS Not detected Not detected [facility] SERRATIA MARCESCENS Not detected Not detected [facility] WILLIAN ALBICANS Not detected Not detected [facility] WILLIAN GLABRATA Not detected Not detected [facility] WILLIAN KRUSEI Not detected Not detected [facility] WILLIAN PARAPSILOSIS Not detected Not detected [facility] WILLIAN TROPICALIS Not detected Not detected [facility] ESCHERICHIA COLI Not detected Not detected [facility] METHICILLIN-RESISTANCE Not detected [facility] VANCOMYCIN-RESISTANCE Not detected Not detected [facility] CARBAPENEM-RESISTANCE Not detected Not detected [facility] ENTEROCOCCUS Detected (A) Not detected [facility] Comment: [facility] First line therapy: Vancomycin or Ampicillin (Ampicillin only if confirmed susceptible) (Alicia/vanB not detected) Reference Range: Not Detected PSEUDOMONAS AERUGINOSA Not detected Not detected [facility] Specimen Blood Narrative Performed At Other bacteria and resistance markers not targeted by this PCR panel cannot be [facility] excluded; therefore clinical correlation and follow up of serology, culture [facility] results, and other molecular studies is required. The results are not intended to be used as the sole means for clinical diagnosis or patient management decisions. This sample was tested at the [facility] Molecular Diagnostics Laboratory using the [employer] Blood Culture ID Panel. It is FDA cleared and has been verified and approved by the [facility] Molecular Diagnostics Laboratory for clinical use. This laboratory is CLIA-certified and [employer] (CAP)-accredited to perform high complexity testing. Performing Organization Address City/[facility] Centercode Phone Number [facility] [address] [place], [place] [phone] [facility] * Blood Culture - Routine (Left Venipuncture) (01/27/2019 5:09 AM CDT) Only the most recent of 2 results within the time period is included. Result From Anaerobic Bottle Only [facility] Same organism has been [facility] isolated from cultures(s) of the same body site and collection date. Repeat identification and susceptibility testing performed only after consultation with the clinical microbiology laboratory. (A) Comment: Refer to previous culture of Enterococcus faecalis Gram Stain Result From anaerobic bottle only: [facility] gram positive cocci in chains [facility] Specimen Blood Performing Organization Address [facility] Centercoar Phone Number [facility] [address] [place], [place] [phone] [facility] * Urine culture (01/27/2019 5:09 AM CDT) Result >100,000 col/mL Enterococcus [facility] species (A) [facility] Specimen Urine Antibiotic Method Susceptibility Organism Ampicillin <=2: Susceptible Enterococcus species Linezolid 1: Susceptible Enterococcus species Nitrofurantoin <=16: Susceptible Enterococcus species Tetracycline <=1: Susceptible Enterococcus species Vancomycin 1: Susceptible Enterococcus species Performing Organization Address [facility] Center[facility] Phone Number [place] [phone] [place], [place] [phone] [facility] after 04/19/2018 Insurance Payer Benefit Subscriber ID Type Phone Address Plan / Group HUMANA - MEDICARE MGD HUMANA xxxxxxxxx [facility] MEDICARE Contracted ADV
--- OUTSIDE RECORDS SUMMARY | 2019-04-20 08:27 | XMS REPORT | Clinical Summary ---
Author Author [facility] Organization [facility] Address Unknown Phone Unavailable Care Team Providers Care Retail Shift Supervisor Name Role Phone PCP Unavailable Allergies Not on File Medications Not on file Active Problems Not on file Encounters Care Team Description Date Type Specialty Juvencio Mccullough MD 09/02/2018 Lab Lab after 04/19/2018 Social History Date Tobacco Use [...] (EBV) Routine 09/03/2018 BY PCR 12:30 PM [employer] OPHTHALMOLOGY PATHOGEN Routine 09/03/2018 MULTIPLEX PANEL 12:30 PM [employer] after 04/19/2018 Results * Ophthalmology pathogen multiplex panel (09/03/2018 12:30 PM TURBINE [employer]CH[employer]IC) Cytomegalovirus Not-Detected Not-Detected [facility] DEPART[facility] by PCR, eye OF PATHOLOGY AND GENOMIC MEDICINE Herpes simplex Not-Detected Not-Detected [facility] virus 1 by PCR, OF PATHOLOGY eye AND GENOMIC MEDICINE Herpes simplex Not-Detected Not-Detected [facility] virus 2 by PCR, OF PATHOLOGY eye AND GENOMIC MEDICINE Toxoplasma Not-Detected Not-Detected [facility] gondii by PCR, OF PATHOLOGY eye AND GENOMIC MEDICINE Varicella Detected (A) Not-Detected [facility] zoster virus by OF PATHOLOGY PCR, eye AND GENOMIC MEDICINE Ophthalmology See link below for PDF Lab [facility] DE[facility] pathogen ReportComment: Case Number: OF PATHOLOGY multiplex panel [id number] AND GENOMIC MEDICINE Specimen Narrative Performed At [facility] right eye [facility] DEPART[facility] OF PATHOLOGY AND GENOMIC MEDICINE Performing Organization Address City/State/Zipcode Phone Number [facility] DEPARTMENT OF [address] [place] [address] PATHOLOGY AND GENOMIC MEDICINE * Marjorie Frank Virus (EBV) by PCR (09/03/2018 12:30 PM TURB[employer]CH[employer]) Marjorie Frank Not-Detected Not-Detected [place] virus, PCR copies/mL [facility] Marjorie Frank See link below for PDF Lab [place] virus, PCR ReportComment: Case Number: [facility] [id number] [facility] Specimen Narrative Performed At aqueous right eye [facility] The specimen type Vitreous, Other has not been validated for this assay. HOSPITAL Therefore, the sensitivity and specificity of this assay for this specimen type is unknown. A negative result does not completely rule out the presence of EBV. Correlation with other clinical information is recommended. Performing Organization Address City/State/Zipcode Phone Number [facility] DEPARTMENT OF [address] [place] [id number] PATHOLOGY AND GENOMIC MEDICINE [address] [address] [facility] after 04/19/2018 Insurance Type Payer Benefit Subscriber ID Effective Phone Address Plan / Dates Group PPO HUMANA MEDICARE HUMANA xxxxxxxxx 2017-P MEDICARE resent PPO/PFFS/E RS MCR Medicare MEDICARE MEDICARE xxxxxxxxxxx 2018- JOSE ALBERTO, PART A AND Present [place] Advance Directives Patient has advance care planning documents on file. For more information, brian freeman contact: [facility] [address]
--- OUTSIDE RECORDS SUMMARY | 2019-04-20 08:27 | XMS REPORT ---
[facility] Address Unknown Phone Unavailable Care Team Providers Care Menu Planner Name Role Phone JOY URIBE Unavailable Unavailable HAMPEL, RAFFY Unavailable Unavailable SWEET, A LAIRD Unavailable Unavailable ONEILL, BETH Unavailable Unavailable Problems This patient has no known problems. Allergies, Adverse Reactions, Alerts This patient has no known allergies or adverse reactions. Medications This patient has no known medications. Encounters Start Date/Time End Date/Time Encounter Type Admission Type Attending [facility] Facility Care Department Encounter ID 2018-09-12 03:55:00 Inpatient E [facility] [id number] 2019-03-17 05:15:00 2019-03-17 01:50:00 Inpatient E [facility] 7501 Results Test Description Test Time Test Comments Text Results Atomic Results Result Comments POCT-LACTIC ACID, VENOUS 2019-04-20 07:04:00 POC-LACTIC ACID, VENOUS (BEAKER) (test hwob=2765) 1.8 mmol/L 0.9-1.7 TESTED AT [facility] [address] [place] [address] URINALYSIS W/ REFLEX URINE [id number] 03:36:00* Test Item Value Reference Range Comments COLOR (BEAKER) (test rqcp=868) [place] CLARITY (BEAKER) (test yjdp=999) Cloudy SPECIFIC GRAVITY UA (BEAKER) (test mswz=033) 1.012 1.001-1.035 PH UA (BEAKER) (test hnlk=071) 6.5 5.0-8.0 PROTEIN UA (BEAKER) (test nvon=062) 100 mg/dL Negative GLUCOSE UA (BEAKER) (test kjzu=620) Negative Negative KETONES UA (BEAKER) (test dwmm=276) Negative Negative BILIRUBIN UA (BEAKER) (test vkpu=504) Negative Negative BLOOD UA (BEAKER) (test hwhq=963) Large Negative NITRITE UA (BEAKER) (test iftr=398) Negative Negative LEUKOCYTE ESTERASE UA (BEAKER) (test uhcu=575) Large Negative UROBILINOGEN UA (BEAKER) (test vyjc=086) 0.2 mg/dL 0.2-1.0 RBC UA (BEAKER) (test sopm=964) 2012 /HPF WBC UA (BEAKER) (test xpcf=569) 937 /HPF BACTERIA (BEAKER) (test yguw=120) Many SOURCE(BEAKER) (test hsyr=5413) BASIC METABOLIC [id number] 02:54:00* Test Item Value Reference Range Comments SODIUM (BEAKER) (test ptlb=075) 139 meq/L 136-145 POTASSIUM (BEAKER) (test kxap=486) 4.4 meq/L 3.5-5.1 CHLORIDE (BEAKER) (test osdj=103) 107 meq/L 98-107 CO2 (BEAKER) (test npkk=797) 23 meq/L 22-29 BLOOD UREA NITROGEN (BEAKER) (test mhvt=751) 41 mg/dL 7-21 CREATININE (BEAKER) (test tqcc=924) 2.36 mg/dL 0.57-1.25 GLUCOSE RANDOM (BEAKER) (test xuvt=536) 107 mg/dL 70-105 CALCIUM (BEAKER) (test seyv=331) 9.3 mg/dL 8.4-10.2 EGFR (BEAKER) (test mfzp=9187) 26 mL/min/1.73 sq m ESTIMATED GFR IS NOT ACCURATE CREATININE CLEARANCE IN PREDICTING GLOMERULAR FILTRATION RATE. ESTIMATED GFR IS NOT APPLICABLE FOR DIALYSIS PATIENTS. CBC W/PLT COUNT & AUTO [id number] 02:42:00* Test Item Value Reference Range Comments WHITE BLOOD CELL COUNT (BEAKER) (test uofo=224) 31.7 K/ L 3.5-10.5 RED BLOOD CELL COUNT (BEAKER) (test tjhj=017) 3.86 M/ L 4.63-6.08 HEMOGLOBIN (BEAKER) (test bddh=367) 10.6 GM/DL 13.7-17.5 HEMATOCRIT (BEAKER) (test cniu=069) 33.0 % 40.1-51.0 MEAN CORPUSCULAR VOLUME (BEAKER) (test iphi=799) 85.5 fL 79.0-92.2 MEAN CORPUSCULAR HEMOGLOBIN (BEAKER) (test jifs=361) 27.5 pg 25.7-32.2 MEAN CORPUSCULAR HEMOGLOBIN CONC (BEAKER) (test piiq=823) 32.1 GM/DL 32.3-36.5 RED CELL DISTRIBUTION WIDTH (BEAKER) (test rhha=282) 18.5 % 11.6-14.4 PLATELET COUNT (BEAKER) (test ivtj=135) 184 K/CU MM 150-450 MEAN PLATELET VOLUME (BEAKER) (test aohr=552) 11.0 fL 9.4-12.4 NUCLEATED RED BLOOD CELLS (BEAKER) (test qhkl=752) 0 /100 WBC 0-0 NEUTROPHILS RELATIVE PERCENT (BEAKER) (test urjg=714) 87 % LYMPHOCYTES RELATIVE PERCENT (BEAKER) (test iwtw=512) 5 % MONOCYTES RELATIVE PERCENT (BEAKER) (test gqla=400) 6 % EOSINOPHILS RELATIVE PERCENT (BEAKER) (test vpwt=340) 0 % BASOPHILS RELATIVE PERCENT (BEAKER) (test hlhb=923) 0 % NEUTROPHILS ABSOLUTE COUNT (BEAKER) (test tbyi=845) 27.43 K/ L 1.78-5.38 LYMPHOCYTES ABSOLUTE COUNT (BEAKER) (test zxbm=256) 1.65 K/ L 1.32-3.57 MONOCYTES ABSOLUTE COUNT (BEAKER) (test kxoh=495) 1.85 K/ L 0.30-0.82 EOSINOPHILS ABSOLUTE COUNT (BEAKER) (test wxgl=908) 0.01 K/ L 0.04-0.54 BASOPHILS ABSOLUTE COUNT (BEAKER) (test tohs=375) 0.06 K/ L 0.01-0.08 IMMATURE GRANULOCYTES-RELATIVE PERCENT (BEAKER) (test pxzh=0980) 2 % 0-1 BLOOD [id number] 15:19:00* Test Item Value Reference Range Comments CULTURE (BEAKER) (test abnc=3340) From Anaerobic Bottle Only Same organism has been isolated from cultures(s) of the same body site and collection date. Repeat identification and susceptibility testing performed only after consultati on with the clinical microbiology laboratory.Refer to previous culture ofEnterococcus faecalis GRAM STAIN RESULT (BEAKER) (test ywdu=2086) From anaerobic bottle only: gram positive cocci in chains BLOOD [id number] 10:04:00* Test Item Value Reference Range Comments CULTURE (BEAKER) (test etss=7145) ENTEROCOCCUS FAECALIS From Aerobic And Anaerobic Bottles Enterococcus faecalis Ampicillin (test code=26) Linezolid (test code=40) Vancomycin (test code=13) Daptomycin (test code=59) Susceptible 0-4 , No Interpretations Established <0 or >4 Penicillin G (test code=3) Susceptible 0-8 , Resistant <0 or >8 GRAM STAIN RESULT (BEAKER) (test bvnf=2917) From aerobic and anaerobic bottles: gram positive cocci in chains BLOOD CULTURE IDENTIFICATION [id number] 10:04:00* Test Item Value Reference Range Comments LISTERIA MONOCYTOGENES (test wmug=8174927) Not detected Not detected STAPHYLOCOCCUS (test zpss=9815538) Not detected Not detected STAPHYLOCOCCUS AUREUS (test ffnn=1239170) Not detected Not detected STREPTOCOCCUS (test tnuv=8673204) Not detected Not detected STREPTOCOCCUS AGALACTIAE (GROUP B) (test conu=9928685) Not detected Not detected STREPTOCOCCUS PNEUMONIAE (test pgtp=8083008) Not detected Not detected STREPTOCOCCUS PYOGENES (GROUP A) (test mpwa=6566373) Not detected Not detected ACINETOBACTER BAUMANNII (test sqyd=7906909) Not detected Not detected HAEMOPHILUS INFLUENZAE (test bgcx=5246517) Not detected Not detected NEISSERIA MENINGITIDIS (test sttb=9685316) Not detected Not detected ENTEROBACTERIACEAE (test cfrn=6902817) Not detected Not detected ENTEROBACTER CLOACOE COMPLEX (test zhyq=1702554) Not detected Not detected KLEBSIELLA OXYTOCA (test jqeo=5680967) Not detected Not detected KLEBSIELLA PNEUMONIAE (test wcpm=5229) Not detected Not detected PROTEUS (test wntl=4276518) Not detected Not detected SERRATIA MARCESCENS (test nccx=5122231) Not detected Not detected WILLIAN ALBICANS (test ftsj=9897118) Not detected Not detected WILLIAN GLABRATA (test kxeq=8663809) Not detected Not detected WILLIAN KRUSEI (test dawg=3591351) Not detected Not detected WILLIAN PARAPSILOSIS (test rjok=0094174) Not detected Not detected WILLIAN TROPICALIS (test pcij=4812473) Not detected Not detected ESCHERICHIA COLI (test nidv=7265334) Not detected Not detected METHICILLIN-RESISTANCE GENE (test fiso=6231826) Not detected VANCOMYCIN-RESISTANCE GENE (test onjv=9928404) Not detected Not detected CARBAPENEM-RESISTANCE GENE (test sbho=2363567) Not detected Not detected ENTEROCOCCUS-BEAKER (test xqsf=4558552) Detected Not detected First line therapy: Vancomycin or Ampicillin (Ampicillin only if confirmed susceptible) (Alicia/vanB not detected) Reference Range: Not Detected PSEUDOMONAS AERUGINOSA-JULIANN (test llpi=7935581) Not detected Not detected Other bacteria and resistance markers not targeted by this PCR panel cannot be e xcluded; therefore clinical correlation and follow up of serology, culture resul ts, and other molecular studies is required. The results are not intended to be used as the sole means for clinical diagnosis or patient management decisions. T his sample was tested at the [facility] Molecular Diagnostics Laboratory using the [employer] Blood Culture ID Panel. It is FDA cleared and has been verified and approved by the [facility] Molecular [facility]ostics [facility] for clinical use. Thi s laboratory is CLIA-certified and [employer] ([employer])-accred ited to perform high complexity testing.CT ABDOMEN/PELVIS [id number] 10:49:00 [place] [address] Patient Name: DEMETRIO STALLWORTH MR #: [id number] : [birth year] Age/Sex: 88/M Req #: [id number] Adm Physician: RAFFY ORTIZ MD Ordered by: RAFFY ORTIZ MD Report #: [id number] Location: MED/SURG Room/Bed: [facility] Procedure: [id number] CT/CT ABDOMEN/PELVIS WO Exam Date: 01/27/19 Exam Time: 09 50 REPORT STATUS: Signed EXAMINA TION: CT of the abdomen and pelvis without contrast. TECHNIQUE: Spiral CT images of the abdomen and pelvis were performed from the lung bases to the les ser trochanters. No intravenous contrast was given due to low GFR. Coronal a nd sagittal reformatted images were obtained. COMPARISON: CT abdomen and pe lvis without contrast 05/29/2018 CLINICAL HISTORY:Acute on chronic UTI, bladd er cancer DISCUSSION: ABSENCE OF INTRAVENOUS CONTRAST DECREASES SENSIT IVITY FOR DETECTION OF FOCAL LESIONS AND VASCULAR PATHOLOGY. ABDOMEN/PELV IS: LOWER THORAX: Visualized bases are grossly clear. Stable scattered cyst s. Stable moderate to large hiatal hernia containing the greater portion of th e stomach fundus. HEPATOBILIARY: No focal hepatic lesions. No intra or extrahepatic biliary ductal dilation. GALLBLADDER: No radio-opaque stones or sludge. No wall thickening. SPLEEN: Spleen is in the upper limit of no rmal, measuring 12.4 cm. PANCREAS: No focal masses or ductal dilatation. ADRENALS: No adrenal nodules. KIDNEYS/URETERS: Bilateral internal ureter al stents in place, with upper pigtail at the renal pelves and lower pigtails in the posterior bladder. No hydronephrosis or evidence of obstruction. No r enal or ureteral calculi. Stable 3.1 x 3.1 cm fluid density simple cyst in the right inferior pole (series 3, image 78). PELVIC ORGANS/BLADDER: Irregul ar circumferential thickening of the bladder wall. Lang catheter in place. PERITONEUM/RETROPERITONEUM: No free air or fluid. LYMPH NODES: No intra- abdominal,retroperitoneal, pelvic or inguinal lymphadenopathy. VESSELS: A therosclerotic calcification of the abdominal aorta, iliac vessels and aortic branches. GI TRACT: No bowel dilation or evidence of obstruction. Distal de scending and sigmoid colon diverticulosis, without diverticulitis. Appendix is identified and normal in caliber. BONES AND SOFT TISSUES: No aggressive lytic lesions. Multilevel degenerative disc changes in the lower thoracic and lumbosacral spine with mild grade 1 anterolisthesis of L4 on L5 and mild right cruz curvature. Degenerative changes are also noted in bilateral sacroiliac vasyl ints. Facet hypertrophy L4-L5 and L3-L4.. IMPRESSION: 1. Irregular cir cumferential thickening of the bladder wall, likely representing the known taye dder neoplasm. 2. Bilateral internal ureteral stents in place. No hydroneph rosis or obstruction. No renal or ureteral calculi. 3. Stable 3.1 cm simp le cyst in the right inferior pole. 4. Distal descending and sigmoid divert iculosis, without diverticulitis. 5. Stable moderate to large hiatal hernia Signed by: Dr. Murray Ashraf M.D. on 01/27/2019 10:58 AM Dictated By: MURRAY ASHRAF MD 57 Transcribed By: SHERYL on 01/27/191057 COPY TO: RAFFY ORTIZ MD URINALYSIS W/ REFLEX URINE [id number] 05:25:00* Test Item Value Reference Range Comments COLOR (BEAKER) (test zfxt=690) Yellow CLARITY (BEAKER) (test fxzz=507) Cloudy SPECIFIC GRAVITY UA (BEAKER) (test sjfu=437) 1.012 1.001-1.035 PH UA (BEAKER) (test ilyr=236) 6.0 5.0-8.0 PROTEIN UA (BEAKER) (test msxp=187) 100 mg/dL Negative GLUCOSE UA (BEAKER) (test wwfx=914) Negative Negative KETONES UA (BEAKER) (test gjsk=436) Negative Negative BILIRUBIN UA (BEAKER) (test vbwn=952) Negative Negative BLOOD UA (BEAKER) (test pgls=813) Moderate Negative NITRITE UA (BEAKER) (test mfxu=657) Negative Negative LEUKOCYTE ESTERASE UA (BEAKER) (test urde=717) Large Negative UROBILINOGEN UA (BEAKER) (test mnvo=946) 0.2 mg/dL 0.2-1.0 RBC UA (BEAKER) (test dyqa=443) 187 /HPF WBC UA (BEAKER) (test pzvc=641) 1233 /HPF Wbc clumps seen BACTERIA (BEAKER) (test fkhi=617) Many AMORPHOUS CRYSTALS (BEAKER) (test usqw=1146) Moderate SOURCE(BEAKER) (test gjrd=4578) BASIC METABOLIC [id number] 04:23:00* Test Item Value Reference Range Comments SODIUM (BEAKER) (test ekep=493) 138 meq/L 136-145 POTASSIUM (BEAKER) (test abzi=667) 4.3 meq/L 3.5-5.1 Specimen slightly hemolyzed CHLORIDE (BEAKER) (test kijs=960) 105 meq/L 98-107 CO2 (BEAKER) (test iekh=499) 22 meq/L 22-29 BLOOD UREA NITROGEN (BEAKER) (test cifb=744) 60 mg/dL 7-21 CREATININE (BEAKER) (test qpye=584) 2.93 mg/dL 0.57-1.25 Specimen slightly hemolyzed GLUCOSE RANDOM (BEAKER) (test twpq=974) 139 mg/dL 70-105 CALCIUM (BEAKER) (test ysse=532) 9.6 mg/dL 8.4-10.2 EGFR (BEAKER) (test timd=7206) mL/min/1.73 sq m INSUFFICIENT CLINICAL DATA TO CALCULATE ESTIMATED GFR. CBC W/PLT COUNT & AUTO [id number] 04:00:00* Test Item Value Reference Range Comments WHITE BLOOD CELL COUNT (BEAKER) (test ovmr=072) 25.9 K/ L 3.5-10.5 RED BLOOD CELL COUNT (BEAKER) (test cikz=269) 2.98 M/ L 4.63-6.08 HEMOGLOBIN (BEAKER) (test zqfi=423) 8.4 GM/DL 13.7-17.5 HEMATOCRIT (BEAKER) (test pcgg=439) 26.7 % 40.1-51.0 MEAN CORPUSCULAR VOLUME (BEAKER) (test jbmk=043) 89.6 fL 79.0-92.2 MEAN CORPUSCULAR HEMOGLOBIN (BEAKER) (test iwdm=691) 28.2 pg 25.7-32.2 MEAN CORPUSCULAR HEMOGLOBIN CONC (BEAKER) (test cjvt=931) 31.5 GM/DL 32.3-36.5 RED CELL DISTRIBUTION WIDTH (BEAKER) (test gzkb=088) 15.7 % 11.6-14.4 PLATELET COUNT (BEAKER) (test gzsi=497) 337 K/CU MM 150-450 MEAN PLATELET VOLUME (BEAKER) (test foju=140) 11.0 fL 9.4-12.4 NUCLEATED RED BLOOD CELLS (BEAKER) (test vpwo=754) 0 /100 WBC 0-0 NEUTROPHILS RELATIVE PERCENT (BEAKER) (test jaxk=934) 85 % LYMPHOCYTES RELATIVE PERCENT (BEAKER) (test epoc=504) 6 % MONOCYTES RELATIVE PERCENT (BEAKER) (test azpn=404) 6 % EOSINOPHILS RELATIVE PERCENT (BEAKER) (test qdqx=759) 0 % BASOPHILS RELATIVE PERCENT (BEAKER) (test rkln=025) 0 % NEUTROPHILS ABSOLUTE COUNT (BEAKER) (test fwki=657) 22.09 K/ L 1.78-5.38 LYMPHOCYTES ABSOLUTE COUNT (BEAKER) (test vsvz=403) 1.58 K/ L 1.32-3.57 MONOCYTES ABSOLUTE COUNT (BEAKER) (test oqrz=319) 1.56 K/ L 0.30-0.82 EOSINOPHILS ABSOLUTE COUNT (BEAKER) (test yfoj=247) 0.00 K/ L 0.04-0.54 BASOPHILS ABSOLUTE COUNT (BEAKER) (test oezq=849) 0.06 K/ L 0.01-0.08 IMMATURE GRANULOCYTES-RELATIVE PERCENT (BEAKER) (test fdrt=5780) 2 % 0-1 ABDOMEN-1VIEW (KUB)2018-12-17 17:58:00 [facility] [address] [place] [address] Patient Name: DEMETRIO STALLWORTH MR #: [id number] : 1930 Age/Sex: 88/M Req #: [id number] Adm Physician: Ordered by: BOBBI DAVILA MD Report #: [id number] Location: ER Room/Bed: Procedure: [id number] DX /ABDOMEN-1VIEW (KUB) Exam Date: 12/17/18 Exam Time: 1735 REPORT STATUS: Signed EXAM: Abdomen 1 Views INDICATION: BILATERAL URETERAL STENTS COMPARISON: Abd omen 08/04/2018 FINDINGS: Bilateral double-J ureteral stents are in place . No evidence of encrustation or ureteral stones. Mild amount of stool in the colon. No dilated loops of small bowel. No renal calculi. No ab normal soft tissue masses. Moderate degenerative changes in the lumbar spin e and pelvis. IMPRESSION: Stable bilateral double-J ureteral stents. Signed by: Dr. Aryan Parks M.D. on 12/17/2018 6:12 PM Dictated By: ARYAN PARKS MD 1812 Transcribed By: SHERYL on 12/17/181811 COPY TO: BOBBI DAVILA MD CHEST SINGLE (PORTABLE)2018-12-17 17:27:00 [place] [address] Patient Name: DEMETRIO STALLWORTH MR #: [id number] : 1930 Age/Sex: 88/M Req #: [id number] Adm Physician: Ordered by: BOBBI DAVILA MD Report #: [id number] Location: ER Room/Bed: Procedure: [id number] DX /CHEST SINGLE (PORTABLE) Exam Date: 12/17/18 Exam Ti me: 1700 REPORT STATUS: Signed E XAMINATION: CHEST SINGLE (PORTABLE) INDICATION: ANEMIA COMP ARISON: CT abdomen and pelvis 05/29/2018. Chest x-ray 05/27/2018. FINDING S: AP view TUBES and LINES: None. LUNGS: Lungs are well inflated . There are bibasilar atelectasis. There is mild prominence of the central pu lmonary vasculature, consistent with pulmonary venous congestion. PLEURA: No pleural effusion or pneumothorax. HEART AND MEDIASTINUM: The cardiome diastinal silhouette is unremarkable. There are atherosclerotic calcifications within the aorta. BONES AND SOFT TISSUES: No acute osseous lesion. Soft tissues are unremarkable. UPPER ABDOMEN: No free air under the diaphragm. Large sliding hiatal hernia. IMPRESSION: 1. Mild nonspecific central p ulmonary venous congestion. 2. Large sliding hiatal hernia. Signed by: Parker Parks M.D. on 12/17/2018 5:28 PM Dictated By: ARYAN PARKS MD Electronic ally Signed By: ARYAN PARKS MD on 12/17/181727 Transcribed By: SHERYL on 12/17/18 1728 COPY TO: BOBBI DAVILA MD ABDOMEN-1VIEW (KUB)2018-08-04 12:29:00 [place] [address] Patient Name: DEMETRIO STALLWORTH MR #: [id number] : 1930 Age/Sex: 88/M Req #: [id number] Adm Physician: Ordered by: RAFFY ORTIZ MD Report #: [id number] Location: OR Room/Bed: Procedure: [id number] DX/ABDOMEN-1VIEW (KUB) Exam Alexis e: 08/04/18 Exam Time: 1215 REPORT STATUS: Sign ed EXAM: ABDOMEN-1VIEW (KUB) DATE: 08/04/2018 11:56 AM INDICATION: Preop bladder cancer COMPARISON: None FINDINGS: Bilateral ure teral stents present. Bowel gas pattern is nonobstructive. Pelvic phleboliths noted. Degenerative changes in the spine. IMPRESSION: Bilateral ureteral stents. Signed by: Dr. Nakita Parkinson MD on 08/04/2018 12:30 PM Dict ated By: NAKITA PARKINSON MD 1230 COPY TO: RAFFY ORTIZ SPECIAL PROCEDURE IN CATH [id number] 14:38:00 [place] [address] Patient Name: DEMETRIO STALLWORTH MR #: [id number] : 1930 Age/Sex: 88/M Req #: [id number] [facility] Physician: BETH ONEILL MD Ordered by: RAFFY ORTIZ MD Report #: [id number] Location: MED/SURG Room/Bed: [facility] Procedure: [id number] IR/SPECIAL PROCEDURE IN FLEET DRIVER Exam Date: Exam Time: REPORT STATUS: Signed Date and Time: 06/01/2018 Procedure: Right antegrade nephrostogram and percutaneous nephrostomy removal 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 Blood pressure was monitored at 5 torrey te intervals. Additional Medications: None Fluoroscopy time: 0.5 minut es Dose-area Product: 146.1 cGycm2. Contrast used: 20 cc Isovue-300 E stimated blood loss: None Specimens: Nephrostomy catheter, discarded Implant s: None DISCUSSION: The patient was placed in the prone position on th e angiographic table. The right flank and existing percutaneous nephrostomy we re prepped and draped in standard sterile fashion. The retention suture o f the catheter was cut. Injection of dilute contrast material showed no eviden ce of hydronephrosis and brisk passage of contrast through the ureteral stent and into the urinary bladder. The catheter was then flushed with sterile salin e. The catheter was cut and removed. A final fluoroscopic image was obtaine d. FINDINGS: Appropriately positioned right internal ureteral stent w ithout evidence of hydronephrosis. IMPRESSION: Successful right ante grade nephrostogram followed by nephrostomy tube removal under fluoroscopic gu idance. Signed by: Dr. Alisia Delcid M.D. 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 Blood pressure was monitored at 5 minute intervals. Additional Medications: None Fluoroscopy time: 0.5 minutes Dose-area P roduct: 146.1 cGycm2. Contrast used: 20 cc Isovue-300 Estimated blood l oss: None Specimens: Nephrostomy catheter, discarded Implants: None DISCUSSION: The patient was placed in the prone position on the angiographic t able. The right flank and existing percutaneous nephrostomy were prepped and d raped in standard sterile fashion. The retention suture of the catheter w as cut. Injection of dilute contrast material showed no evidence of hydronephr osis and brisk passage of contrast through the ureteral stent and into the uri nary bladder. The catheter was then flushed with sterile saline. The cath eter was cut and removed. A final fluoroscopic image was obtained. FINDI NGS: Appropriately positioned right internal ureteral stent without evidence of hydronephrosis. IMPRESSION: Successful right antegrade nephrostog rachell followed by nephrostomy tube removal under fluoroscopic guidance. Signed by: Dr. Alisia Delcid M.D. on 06/02/2018 2:40 PM Dictated By: ALISIA DELCID MD 1320 Trans cribed By: SHERYL on 06/14/18 1320 COPY TO: ALISIA DELCID MD US GUIDANCE FOR [id number] 14:36:00 [place] [address] Patient Name: DEMETRIO STALLWORTH MR #: [id number] : 1930 Age/Sex: 88/M Req #: [id number] Adm Physician: RAFFY ORTIZ MD Ordered by: RAFFY ORTIZ MD Report #: [id number] Location: MED/SURG Room/Bed: [facility] Procedure: US/US HANNAH BUSTILLOS FOR PROCEDURE Exam Date: Exam Time: REP ORT STATUS: Signed PROCEDURE: ULTRASOUND GUIDANCE FOR PROCEDURE - RIGHT PER CUTANEOUS NEPHROSTOMY/ URETERAL STENT PLACEMENT COMPARISON: None. INDICATIONS: NEPH TUBE PLACEMENT IN FLEET DRIVER FINDINGS/CONCLUSION: P lease refer to the procedural dictation for the right internal ureteral stent placement and safety percutaneous nephrostomy placement with fluoroscopic and ultrasound guidance for further details. Dictated by: AIRAM WILSON M.D. on 05/31/2018 at 14:36 Electronically approved by: AIRAM WILSON M.D. on 05/31/2018 at 14:36 Dictated By: AIRAM WILSON MD Electronically Si gned By: AIRAM WILSON MD on 05/31/181435 Transcribed By: ROSRAIO on 05/31/18 1436 COPY TO: RAFFY ORTIZ MD SPECIAL PROCEDURE IN CATH [id number] 14:20:00 [place] [address] Patient Name: DEMETRIO STALLWORTH MR #: [id number] : 1930 Age/Sex: 88/M Req #: [id number] [facility] Physician: BETH ONEILL MD Ordered by: RAFFY ORTIZ MD Report #: [id number] Location: MED/SURG Room/Bed: [facility] Procedure: [id number] IR/SPECIAL PROCEDURE IN FLEET DRIVER Exam Date: Exam Time: REPORT STATUS: Signed Procedure: Right internal ureteral stent placement and percutaneous nephrostomy placement with ultrasound and fluoroscopic guidance 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 Airam Wilson Pre-operative diagnosis: Right hydron ephrosis, Post-operative diagnosis: Right hydronephrosis status post right ur eteral stent placement and safety PCN placement Conscious Sedation: Pleas e see nursing administration records for details of Fentanyl and Versed consci ous sedation administered. The patient's heart rate and pulse oximetry were c ontinuously monitored by the interventional radiology nurse. Blood pressure w as monitored at 5 minute intervals. Additional Medications: Lidocaine 1% for local anesthesia; IV Levofloxacin Fluoroscopy time: 5.6 minutes Dose-ar ea Product: 1267.8 cGycm2. Estimated blood loss: Minimal Specimens: None. Implants: 8 Fr Adkins Deng nephrostomy catheter; 8.5 Fr x 24 cm Amplatz i nternal ureteral stent TECHNIQUE/FINDINGS: Informed consent for the proce keshav was obtained from the patient and documented in the medical record after discussion of risks and benefits. The patient was placed in the prone posit ion on the angiographic table. The right flank was prepped and draped in the s tandard sterile fashion. Preliminary sonographic evaluation confirmed a dimas itable percutaneous approach to the moderately dilated right renal collecting system. 1% lidocaine was infiltrated into the skin and subcutaneous tissues fo r local anesthesia. Then with fluoroscopic guidance, an 18-gauge, 15 cm Chi ba needle was used to access a dilated posterior lower pole calyx. A small tanisha unt of dilute contrast material was injected through the needle after return o f dark cloudy urine, documenting appropriate position within the collecting sy stem. An .035 inch Amplatz wire was placed to secure access. The tract was ser ially dilated. Subsequently a 7 Fr x 25 cm vascular sheath was placed to secur e access. An additional shorter .035 inch Amplatz wire was placed into the sylwia al pelvic as a safety wire. Contrast injection through the sheath demonstrated moderate hydroureteronephrosis with some tortuosity and narrowing of the dist al ureter. Subsequently, a Kumpe catheter was advanced over the longer .03 5'' Amplatz wire. The Ampaltz wire was exchanged for an .035'' straight glidew megan which was then advanced along with the Kumpe catheter into the distal uret er and subsequently the bladder. The glidewire was exchanged for an Ampl asuncion wire. Subsequently, the sheath was removed. Over the longer Amplatz wire, we advanced a 8.5 Fr x 24 cm Amplatz ureteral stent with the proximal and dist al markers positioned appropriately, the inner catheter was removed and subseq uently the wire was removed. The distal pigtail formed in the bladder. The pro ximal pigtail did not form however the proximal aspect of the catheter was manas ropriately positioned in the renal pelvis/lower calyx. The string attach ed to the ureteral catheter was removed. Subsequently, over the safety Amplatz wire, we advanced an 8 Fr DM nephrostomy catheter. The pigtail was formed. Co ntrast injection with fluoroscopy confirmed positioning. The catheter was flushed with sterile saline and connected to gravity drainage. The catheter wa s secured to the skin with monofilament nylon suture and a sterile dressing wa s applied. The patient tolerated the procedure well without immediate complica tion. IMPRESSION: Primary right internal ureteral stent placement via ant egrade percutaneous approach and fluoroscopic and ultrasound guidance. Safety right percutaneous nephrostomy tube placement. PLAN: Will plan to flus h the safety PCN and clamp trial overnight. If doing well, IR may remove the s afety PCN tomorrow. Further stent exchanges/plan per Urology team. S igned by: Dr. Airam Wilson MD on 05/31/2018 3:24 PM Dictated By: AIRAM WILSON MD 131 Transcribed By: BERNARDO BURNS on 06/14/181318 COPY TO: RAFFY ORTIZ MD IR CONSULT 2018-05-31 14:20:00 [place] [address] Patient Name: DEMETRIO STALLWORTH MR #: [id number] : 1930 Age/Sex: 88/M Req #: [id number] Adm Physician: BETH ONEILL MD Ordered by: RAFFY ORTIZ MD Report #: [id number] Location: MED/SURG Room/Bed: [facility] Procedure: DX/IR CONS ULT Exam Date: Exam Time: REPORT STATUS: Sig jaimie Procedure: Right internal ureteral stent placement and percutaneous nephr ostomy placement with ultrasound and fluoroscopic guidance Primary operat or: Dr. Airam Wilson Pre-operative diagnosis: Right hydronephrosis, Post-o perative diagnosis: Right hydronephrosis status post right ureteral stent plac ement and safety PCN placement Conscious Sedation: Please see inpatient nursing aide istration records for details of Fentanyl and Versed conscious sedation admini stered. The patient's heart rate and pulse oximetry were continuously monitor ed by the interventional radiology nurse. Blood pressure was monitored at 5 m inute intervals. Additional Medications: Lidocaine 1% for local anesthesi a; IV Levofloxacin Fluoroscopy time: 5.6 minutes Dose-area Product: 1267.8 cGycm2. Estimated blood loss: Minimal Specimens: None. Implants: 8 Fr Da wson Deng nephrostomy catheter; 8.5 Fr x 24 cm Amplatz internal ureteral st ent TECHNIQUE/FINDINGS: Informed consent for the procedure was obtained f rom the patient and documented in the medical record after discussion of risks and benefits. The patient was placed in the prone position on the angiogra [facility] table. The right flank was prepped and draped in the standard sterile fas hion. Preliminary sonographic evaluation confirmed a suitable percutaneous approach to the moderately dilated right renal collecting system. 1% lidocaine was infiltrated into the skin and subcutaneous tissues for local anesthesia. Then with fluoroscopic guidance, an 18-gauge, 15 cm Chiba needle was used to access a dilated posterior lower pole calyx. A small amount of dilute contrast material was injected through the needle after return of dark cloudy urine, documenting appropriate position within the collecting system. An .035 inch Amplatz wire was placed to secure access. The tract was serially dilated. Dimas bsequently a 7 Fr x 25 cm vascular sheath was placed to secure access. An sumi tional shorter .035 inch Amplatz wire was placed into the renal pelvic as a sa fety wire. Contrast injection through the sheath demonstrated moderate hydrour eteronephrosis with some tortuosity and narrowing of the distal ureter. Dimas bsequently, a Kumpe catheter was advanced over the longer .035'' Amplatz wire. The Ampaltz wire was exchanged for an .035'' straight glidewire which was then advanced along with the Kumpe catheter into the distal ureter and subsequently the bladder. The glidewire was exchanged for an Amplatz wire. Subsequen tly, the sheath was removed. Over the longer Amplatz wire, we advanced a 8.5 F r x 24 cm Amplatz ureteral stent with the proximal and distal markers position ed appropriately, the inner catheter was removed and subsequently the wire was removed. The distal pigtail formed in the bladder. The proximal pigtail did n ot form however the proximal aspect of the catheter was appropriately position ed in the renal pelvis/lower calyx. The string attached to the ureteral catheter was removed. Subsequently, over the safety Amplatz wire, we advanced an 8 Fr DM nephrostomy catheter. The pigtail was formed. Contrast injection wi th fluoroscopy confirmed positioning. The catheter was flushed with steril e saline and connected to gravity drainage. The catheter was secured to the sk in with monofilament nylon suture and a sterile dressing was applied. The rubens ent tolerated the procedure well without immediate complication. IMPRESSI ON: Primary right internal ureteral stent placement via antegrade percutaneous approach and fluoroscopic and ultrasound guidance. Safety right percutaneous nephrostomy tube placement. PLAN: Will plan to flush the safety PCN and clamp trial overnight. If doing well, IR may remove the safety PCN tomorrow. Further stent exchanges/plan per Urology team. Signed by: Dr. Airam Wilson MD on 05/31/2018 3:24 PM Dictated By: AIRAM WILSON MD 1319 Transcribed By: SHERYL on 06/14/18 1 319 COPY TO: RAFFY ORTIZ MD CT ABDOMEN/PELVIS [id number] 14:11:00 [place] [address] Patient Name: DEMETRIO STALLWORTH MR #: [id number] : 1930 Age/Sex: 88/M Req #: [id number] Adm Physician: RAFFY ORTIZ MD Ordered by: RAFFY ORTIZ MD Report #: [id number] Location: MED/SURG Room/Bed: [facility] Procedure: CT/CT ABDO MEN/PELVIS WO Exam Date: 05/29/18 Exam Time: 1300 REPORT STATUS: Signed CT Abdomen and Pelvis without contrast INDICAT ION: Hematuria, stone, extensive bladder cancer TECHNIQUE: Thin collimatio n axial images obtained from the diaphragm to the level of the pubic symphysis without nonionic intravenous contrast. RADIATION DOSE: Total DLP: 327.69 mGy*cm Estimated effective dose: (DLP x 0.015 x size factor) mSv CTDIvol has been reviewed. It is below the limits set by the Radiation P rotocol Committee (RPC). COMPARISON: Retrograde urogram 05/28/2018, CT abdome n/pelvis 05/27/2018. ABDOMEN FINDINGS: Lung Bases: Mild bibasilar atele ctasis.. Moderate sized hiatal hernia is stable. Liver: Normal in attenua tion without mass. Gallbladder: Present and appears normal. No ductal dila tation. Pancreas: Normal attenuation without mass. Spleen: Normal size without mass. Adrenal Glands: No evidence for mass. Kidneys: Right: New right hydronephrosis and hydroureter. There is diffuse perinephric infla mmation. No intrarenal calculus. A lower pole cyst is stable. An upper pole dimas bcentimeter high attenuating lesion is stable. No intrarenal calculi. Lef t: No renal calculus. No cortical mass or hydronephrosis Lymph Nodes: Mil dly prominent periportal lymph node is stable. A subcentimeter aortocaval lymp h node is stable.. Aorta: Normal in diameter. Diffuse calcifications are p resent PELVIS FINDINGS: Bowel: Stomach: Collapsed and grossly nor mal.. Small Bowel: Normal in caliber with normal wall thickness. Large Bowel : Diverticulosis coli. No dilatation or associated mural thickening. Appendix: Normal. Bladder: Collapsed around a Lang catheter. The bladder mejia are diffusely thickened, particularly posterior. A discrete mass is not visible. Perivesicular inflammation has developed. The prostate gland is mildly enlarg ed. Ureters: The right ureter is distended throughout its course. No eviden ce of intraluminal calculus. The left ureter is collapsed. No intraluminal humera ling defects. Small amount of pelvic ascites. No loculated fluid collecti on. Bones: Grade 1 anterolisthesis of L4 on L5 is stable. No focal osseous lesions.. IMPRESSION: 1. New right hydroureteronephrosis. This may be secondary to tumor or blood clot obstructing the UVJ or the presence of the Lang catheter. 2. Persistent mural thickening of the bladder consistent with tumor. 3. Diverticulosis coli. No evidence for bowel obstruction or in flammation. Normal appendix. Moderate sized hiatal hernia. 4. Stable madeline l cortical lesions as described above. Signed by: Dr. Donna Jhaveri MD on 05/29/2018 2:19 PM Dictated By: DONNA JHAVERI MD Electronically Si gned By: DONNA JHAVERI MD on 05/29/181418 Transcribed By: SHERYL on 05/29 COPY TO: RAFFY ORTIZ MD CHEST 2 [id number] 15:01:00 [place] [address] Patient Name: DEMETRIO STALLWORTH MR #: [id number] : 0 1930 Age/Sex: 88/M Req #: [id number] Adm Physician: Ordered by: JENN BRAVO MD Report #: [id number] Location: OR Room/Bed: Procedure: [id number] DX/CHEST 2 VIEWS Exam Date: 12/13 Exam Time: 1440 REPORT STATUS: Signed PROCEDURE: X-RAY CHEST, TWO VIEWS COMPARISON: [facility], CT, CT ABDOMEN/PELVIS , 05/27/2018, 11:56. INDICATIONS: PRE OPERATIVE CHEST X-RAY FOR CYSTOSCOPY FINDINGS: LUNGS: No consolidations or edema. No m ass. Vascular markings are normal. PLEURA: No effusions or pneumothorax . HEART T MEDIASTINUM: Moderate sized hiatal hernia. The heart is no rmal in size with calcifications of the aortic arch. BONES T SOFT T ISSUES: Mild degenerative changes of the spine. No focal osseous lesions. CONCLUSION: No acute thoracic abnormality. Dictated b y: Donna Jhaveri M.D. on 05/27/2018 at 15:01 Electronically approved b y: Donna Jhaveri M.D. on 05/27/2018 at 15:01 Dictated By: Parker JHAVERI MD 1501 Transcribed By: ROSARIO on 05/27/18 1501 COPY TO: JENN BRAVO MD US RENAL RETROPERITONEAL [id number] 13:33:00 [place] [address] Patient Name: DEMETRIO STALLWORTH MR #: [id number] : 1930 Age/Sex: 88/M Req #: [id number] Adm Physician: Ordered by: RAFFY ORTIZ MD Report #: [id number] Location: Room/Bed: Procedure: [id number] US/US RENAL RETROPERITONEAL COMP Exam Date: Exam Time: REPORT STATUS: Signed PROCEDURE: US RETROPERITONEAL ( KIDNEY ). COMPARISON: CT Abdomen/Pel vis 05/27/18. INDICATIONS: Gross Hematuria FINDINGS: Right kidn ey: Measures up to 10.3 cm in length and 1.7 cm in cortical thickness. No e vidence of hydronephrosis. There is a simple appearing 2.9 cm middle/inferior pole cyst. An 8 mm echogenic focus in the right mid pole renal pelvis without doppler flow and no evidence of stone on same day CT, may represent focal f at. Left kidney: Measures up to 10.3 cm in length and 1.6 cm in cortical thickness. No evidence of hydronephrosis, stone, or solid mass lesion. Bladder: Heterogeneous solid exophytic mass in the bladder is partially visualized on ultrasound and noted on same day CT. There is associated Dopple r vascular flow. Prostate: Enlarged prostate measuring up to 4.9 cm. CONCLUSION: Exophytic bladder mass, partially visualized on ultras ound and noted on same day CT, concerning for malignancy. Recommend cystoscop y for additional evaluation. High attenuation subcentimeter lesion not ed in the right upper pole CT not visualized on ultrasound. Simple 2.9 cm ri ght inferior pole renal cyst. Dictated by: AIRAM WILSON M.D. on 05/27/20 at 13:32 Electronically approved by: AIRAM WILSON M.D. on 05/27/2018 at 13:32 Dictated By: AIRAM WILSON MD 1333 Transcribed By: ROSARIO on 05/27/18 1333 COPY TO : RAFFY ORTIZ MD CT ABDOMEN/PELVIS [id number] 12:35:00 [place] [address] Patient Name: DEMETRIO STALLWORTH MR #: [id number] : 1930 Age/Sex: 88/M Req #: [id number] Adm Physician: Ordered by: RAFFY ORTIZ MD Report #: [id number] Location: Room/Bed: Procedure: CT/CT ABDOMEN/PELVIS WO Exam Date : 05/27/18 Exam Time: 1140 REPORT STATUS: Cailin d PROCEDURE: CT ABDOMEN AND PELVIS WITHOUT CONTRAST COMPARISON: None. I NDICATIONS: HEMATURIA TECHNIQUE: Axial CT images through the abdomen and pel vis were obtained without IV contrast utilizing a renal stone protocol. Coron al and sagittal reformations were created. DLP: 358.96 mGY-cm FIN DINGS: Lung bases: Mild bibasilar hyperinflation with several scattered air cysts in each lower lobe. There is mild bronchial wall thickening. Moderate size hiatal hernia is present. Liver: Normal attenuation. No mass Spleen: No rmal size. No mass. Biliary: Gallbladder and biliary tree are normal. Pancre as: Mild fatty atrophy without mass or ductal dilatation. Punctate calcificat ion is in the pancreas head. Adrenal Glands: Mild thickening of the adrenal gl ands. No mass Kidneys: Right kidney: High attenuating lesion in the upper pole measures 9 mm. Low attenuating lesion in the lower pole measures 3.1 x 2.8 cm. No intrarenal calculi or hydronephrosis. Left kidney: No renal calcu miles or cortical mass. No hydronephrosis. Vasculature: The aorta is normal in diameter and diffusely calcified. They're calcifications are upper viscera l arteries. GI: The stomach is normal. Small bowel and large bowel are nor mal in diameter with normal wall thickness. There are diverticula in the larg e bowel object in the sigmoid colon with mural thickening of the sigmoid c olon suggestive of previous bouts of diverticulitis. The appendix is normal. Peritoneum/Retroperitoneum: No mass or free fluid. Bladder: Soft tis mike mass in the posterior wall measures 4.6 cm in maximum thickness and invol ves both the right and left bladder mejia. There are 2 masses in the anterior bladder dome, the larger measuring 1.4 cm. Ureters: Mildly distended b ut not dilated. No periureteric inflammation. Reproductive organs: The prostate gland measures 4.3 x 5.0 cm. The seminal vesicles are normal in morp hology. Musculoskeletal: Mild endplate degenerative changes of the lower l umbar spine most severe at L2-3 and L5-S1. No compression deformities. No lytic or blastic lesions. There are trace degenerative changes of the hips. CONCLUSION: 1. Large bladder mass consistent with carcinoma until proven otherwise. Recommend correlation with cystoscopy. No obstructive ur opathy. 2. Subcentimeter high attenuating lesion in the upper pole of the right kidney may represent a proteinaceous/hemorrhagic cyst. Cystic nature can be confirmed with renal ultrasound. Cyst in the lower pole of the right kidney as described above. 3. Moderate-sized hiatal hernia. 4. Dive rticulosis coli. No bowel obstruction or inflammation. Dictated by: Guillermina Jhaveri M.D. on 05/27/2018 at 12:35 Electronically approved by: Guillermina Jhaveri M.D. on 05/27/2018 at 12:35 Dictated By: DONNA JHAVERI MD 1233 Tr anscribed By: ROSARIO on 05/27/18 1239 COPY TO: RAFFY ORTIZ MD
--- NOTE | 2019-04-20 08:45 | NUR ---
REC'D PATIENT A TRANSFER FROM [facility]. PATIENT IS AAOX3, ON ROOM AIR, NO S/S OF DISTRESS, GENERALIZED WEAKNESS TO BILATERAL LOWER EXTREMITIES. RIGHT FA 18 GAUGE GAUGE IS CLEAN AND INTACT. PROVIDED URINAL AT THE BEDSIDE. BED IN LOWEST POSITION, SIDE RAILS UP X2, AND CALL CLAIRE WITHIN REACH. CONSULTED DR. RAFFY ORTIZ.
[2019-04-20 08:56] VITALS: BP 119/57
[2019-04-20 09:13] VITALS: BP 119/57
--- NOTE | 2019-04-20 10:19 | NUR ---
PAGED DR. ONEILL ABOUT PATIENT'S ARRIVAL FROM [facility]. LEFT A MESSAGE REGARDING PATIENT NOT HAVING ANY LABS OR DIET ORDER. HOME MEDS HAVE BEEN RECONCILED AND REVIEWED.
--- NOTE | 2019-04-20 10:23 | NUR ---
DR. ONEILL CALLED BACK WITH ORDERS. ORDERS CARRIED OUT.
[2019-04-20 10:52] LABS: BASOPHILS # (AUTO) 0.1 (0.0-0.1); BASOPHILS % 0.2 % (0.0-1.0); HEMATOCRIT 27.3 % (38.2-49.6); LYMPHOCYTES # (AUTO) 1.7 (1.0-3.2); LYMPHOCYTES % 5.9 % (18.0-39.1); MEAN CORPUSCULAR HEMOGLOBIN 27.9 pg (28-32); MEAN CORPUSCULAR VOLUME 84.5 fL (81-99); MONOCYTES # (AUTO) 1.7 (0.2-0.8); NEUTROPHILS # (AUTO) 24.7 (2.1-6.9); NEUTROPHILS % 85.4 % (38.7-80.0); PLATELET COUNT 139 x10e3/uL (140-360); RED BLOOD COUNT 3.23 x10e6/uL (4.3-5.7); RED CELL DISTRIBUTION WIDTH 18.6 % (11.7-14.4)
[2019-04-20 11:11] LABS: CALCIUM 8.6 mg/dL (8.4-10.2); CREATININE, SERUM 2.24 mg/dL (0.72-1.25)
[2019-04-20 11:20] VITALS: BP 120/58
--- NOTE | 2019-04-20 11:40 | NUR ---
PHYSICAL THERAPY WORKING WITH PATIENT.
[2019-04-20 11:48] LABS: LYMPHOCYTES % (MANUAL) 8 % (19-48); METAMYELOCYTES % (MANUAL) 1 % (0-0); MONOCYTES % (MANUAL) 6 % (3.4-9.0); MYELOCYTES % (MANUAL) 1 % (0-0); NEUTROPHILS % (MANUAL) 84 % (40-74); PLATELET ESTIMATE SLIGHTLY DECREASED; RBC MORPHOLOGY COMMENT NORMAL
[2019-04-20 11:50] LABS: PLATELET MORPHOLOGY COMMENT NORMAL
--- NOTE | 2019-04-20 11:50 | NUR ---
PER PHYSICAL THERAPY, PATIENT WALKED MORE THAN 500 FT AND HE CAN BE D/C FROM PHYSICAL THERAPY.
--- NOTE | 2019-04-20 13:00 | NUR ---
PATIENT HAS BEEN TAKEN DOWN FOR DIAGNOSTIC EXAMS.
--- NOTE | 2019-04-20 14:09 | Diagnostic Imaging Report ---
EXAMINATION: PA and lateral views of the chest. COMPARISON: 12/17/2018 CLINICAL HISTORY: Fever, leukocytosis DISCUSSION: The lungs are well-inflated and without focal airspace consolidation, pleural effusion, or pneumothorax. Cardiomediastinal contour is notable for a large sliding hiatal hernia. Normal heart size without overt pulmonary edema. Atherosclerotic calcification of the thoracic aorta. Symmetric nodular opacities project over the lower lobes compatible with nipple shadows. No acute osseous abnormality. IMPRESSION: No acute cardiopulmonary abnormalities. Signed by: Dr. Morgan Delcid M.D. on 04/20/2019 2:06 PM
--- NOTE | 2019-04-20 14:12 | Diagnostic Imaging Report ---
Exam: Abdominal film Clinical History: Check stent position Comparison: Images from retrograde urogram 04/08/2019, CT abdomen and pelvis 01/27/2019 DISCUSSION: Bilateral ureteral stents are noted. The proximal locking loops project over the renal pelves. The distal locking loops project over the urinary bladder. Stent position bilaterally is grossly unchanged when comparing to intraoperative fluoroscopic images 04/08/2019. No calculi are identified projecting along side the stents. Bowel gas pattern is nonobstructive. Regional skeletal structures are intact with multilevel degenerative disc changes and associated dextroscoliotic curvature of the lumbar spine. IMPRESSION: Bilateral internal ureteral stents, unchanged in position compared to intraoperative fluoroscopic images 04/08/2019. Signed by: Dr. Morgan Delcid M.D. on 04/20/2019 2:09 PM
[2019-04-20 16:06] VITALS: BP 132/60
[2019-04-20] MEDS ORDERED: MEROPENEM 500MG 500 MG in SODIUM CHLORIDE 0.9% 50ML 50 ML IV SCH (16:15)
[2019-04-20] MEDS ORDERED: SODIUM CHLORIDE 0.9% 250ML 250 ML ONE (16:31)
[2019-04-20] MEDS: MEROPENEM 500MG/ NS 50ML BAG IV SCH (16:46)
[2019-04-20] MEDS: LABETALOL HCL 100 MG TAB PO SCH (17:00)
--- NOTE | 2019-04-20 18:25 | NUR ---
PATIENT IS LAYING DOWN IN BED WITH NO S/S OF DISTRESS. NON-SKID SOCKS ON. BED IN LOWEST POSITION, SIDE RAILS UPX2, AND BED IN LOWEST POSITION.
[2019-04-20 20:00] VITALS: BP 149/66
[2019-04-20 21:30] VITALS: BP 149/66
[2019-04-20] MEDS: ATORVASTATIN 20 MG TAB PO SCH (21:30)
--- NOTE | 2019-04-20 21:30 | NUR ---
PATIENT IS AOX4, NO SIGNS OF RESPIRATORY DISTRESS NOTED. PATIENT BED IN LOWEST POSITION AND LOCKED, SIDE RAILS ARE UP, CALL LIGHT WITHIN EASY REACH, WILL CONTINUE TO MONITOR.
[2019-04-20] MEDS ORDERED: MAGNESIUM HYDROXIDE 30 ML UDC PO PRN (23:15)
--- NOTE | 2019-04-20 23:19 | Consultation ---
DATE OF CONSULTATION: 04/20/2019 REASON FOR CONSULTATION: UTI. HISTORY OF PRESENT ILLNESS: This patient, who is here recently with UTI. The patient is a very pleasant 89-year-old gentleman, who has history of recurrent UTI, bladder cancer, multiple procedures, chronic kidney disease. He was here recently and apparently, he was treated with ampicillin for UTI with Enterococcus. He is coming back with fever and chills, not feeling well. His white count was 28.88. He has hemoglobin of 9. The patient came to the emergency room where he was evaluated. Dr. Hussein saw the patient yesterday for Infectious Disease opinion. The patient is currently alert, oriented, lying in bed comfortably. LABORATORY DATA: White count 26760, hemoglobin 9, hematocrit 27. Sodium 137, potassium 4, creatinine 2.24. MEDICATIONS: He is currently on Lipitor. REVIEW OF SYSTEMS: HEENT: Negative. PULMONARY: Negative. CARDIAC: Negative. : He said he is having some urgency and frequency, but he is currently doing better. GI: Negative. SKIN: There is no Warm and dry. No rash. JOINTS: There is no erythema or edema. PAST MEDICAL HISTORY: As above. PAST SURGICAL HISTORY: As above. ALLERGIES: NKA. SOCIAL HISTORY: No smoking, drug abuse, or alcohol abuse recently. PHYSICAL EXAMINATION: GENERAL: He is currently alert, oriented. Does not seem to be in acute distress. VITAL SIGNS: Stable, currently afebrile. HEENT: Normocephalic. He does not appear icteric. NECK: Supple. CHEST: Clear bilateral. HEART: S1, S2. No S3, S4, or murmur. ABDOMEN: Soft. Bowel sounds present. No tenderness. EXTREMITIES: No edema. SKIN: There is no rash. IMPRESSION: Urinary tract infection in a patient with bladder cancer, multiple admissions. We will get urine cultures and blood cultures. Will get meropenem disease. We will adjust the dose. We will follow with you. Further recommendations to follow. MD LINDA Medrano/ALPHONSE /[id number]
--- NOTE | 2019-04-20 23:30 | NUR ---
PATIENT VOICED THAT HE HAS NOT HAD A BOWEL MOVEMENT IN THREE DAYS AND WOULD WISH TO HAVE SOMETHING ORDERED TO RELIEVE HIS CONSTIPATION. CALLED TO VOICE THE PATIENTS CONCERNS AND HE ORDERED MILK OF MAGNESIUM FOR THE PATIENT. MEDICATION WAS GIVEN, WILL CONTINUE TO MONITOR.
[2019-04-21] VITALS (8 sets, daily range): BP systolic 129–159; BP diastolic 59–67
[2019-04-21] MEDS: MEROPENEM 500MG/ NS 50ML BAG IV SCH ×2 (04:17→16:59)
--- NOTE | 2019-04-21 07:30 | NUR ---
The pt. is in bed asleep and no evidence of distress noted at bedside rounds.
[2019-04-21 07:35] LABS: BASOPHILS % 0.2 % (0.0-1.0); EOSINOPHILS # (AUTO) 0.1 (0.0-0.4); EOSINOPHILS % 0.5 % (0.0-6.0); HEMOGLOBIN 8.8 g/dL (14.0-18.0); LYMPHOCYTES # (AUTO) 1.6 (1.0-3.2); MEAN CORPUSCULAR HEMOGLOBIN 27.2 pg (28-32); MEAN CORPUSCULAR HGB CONC 31.4 g/dL (31-35); MEAN CORPUSCULAR VOLUME 86.7 fL (81-99); MONOCYTES # (AUTO) 1.1 (0.2-0.8); MONOCYTES % 5.9 % (4.4-11.3); NEUTROPHILS # (AUTO) 16.2 (2.1-6.9); NEUTROPHILS % 84.4 % (38.7-80.0); PLATELET COUNT 145 x10e3/uL (140-360); RED BLOOD COUNT 3.23 x10e6/uL (4.3-5.7); RED CELL DISTRIBUTION WIDTH 18.6 % (11.7-14.4)
[2019-04-21 07:52] LABS: CALCIUM 8.7 mg/dL (8.4-10.2); CREATININE, SERUM 2.3 mg/dL (0.72-1.25)
[2019-04-21] MEDS: LABETALOL HCL 100 MG TAB PO SCH ×2 (08:41→17:01)
[2019-04-21] MEDS: ALLOPURINOL 100 MG TAB PO SCH (08:41)
[2019-04-21] MEDS: TAMSULOSIN HCL 0.4 MG CAP PO SCH (08:41)
--- NOTE | 2019-04-21 12:12 | NUR ---
I spoke with a lab telesales representative to get cultures reported.
--- NOTE | 2019-04-21 19:15 | NUR ---
Beside report walking rounds complete. Pt resting in bed and in no apparent distress. Pt room air and no tele. All safety measures ensured, bed alarm on, and pt call [place].
[2019-04-21] MEDS: ATORVASTATIN 20 MG TAB PO SCH (21:54)
[2019-04-22] VITALS (8 sets, daily range): BP systolic 141–155; BP diastolic 65–70
[2019-04-22] MEDS: MEROPENEM 500MG/ NS 50ML BAG IV SCH ×2 (04:16→15:59)
[2019-04-22 06:00] LABS: BASOPHILS % 0.3 % (0.0-1.0); EOSINOPHILS # (AUTO) 0.3 (0.0-0.4); EOSINOPHILS % 2.6 % (0.0-6.0); HEMATOCRIT 27.9 % (38.2-49.6); HEMOGLOBIN 8.9 g/dL (14.0-18.0); LYMPHOCYTES % 17.2 % (18.0-39.1); MEAN CORPUSCULAR HEMOGLOBIN 27.1 pg (28-32); MEAN CORPUSCULAR HGB CONC 31.9 g/dL (31-35); MEAN CORPUSCULAR VOLUME 85.1 fL (81-99); MONOCYTES # (AUTO) 0.8 (0.2-0.8); MONOCYTES % 6.8 % (4.4-11.3); NEUTROPHILS # (AUTO) 8.6 (2.1-6.9); NEUTROPHILS % 72.6 % (38.7-80.0); PLATELET COUNT 156 x10e3/uL (140-360); RED BLOOD COUNT 3.28 x10e6/uL (4.3-5.7); RED CELL DISTRIBUTION WIDTH 18.4 % (11.7-14.4)
--- NOTE | 2019-04-22 06:05 | NUR ---
[place] location for pt labs called, no answer. Will attempt again.
--- NOTE | 2019-04-22 07:59 | NUR ---
Called for pt labs results. Spoke with Hansa who gave fax # [phone] to fax request for labs.
[2019-04-22] MEDS: TAMSULOSIN HCL 0.4 MG CAP PO SCH (08:30)
[2019-04-22] MEDS: ALLOPURINOL 100 MG TAB PO SCH (08:31)
[2019-04-22] MEDS: LABETALOL HCL 100 MG TAB PO SCH ×2 (08:31→15:59)
--- NOTE | 2019-04-22 11:24 | NUR ---
RECEIVED CALL FROM [facility] IN THE [facility] FROM THE PHARMACIST- PHARMACIST INFORMED RN THAT THE PATIENT HAS A POSITIVE URINE CULTURE OF KLEBSIELLA PNE. RN INFORMED Rubén NEVILLE AND DR. ONEILL- NO NEW ORDERS GIVEN.
--- NOTE | 2019-04-22 19:16 | NUR ---
PATIENT IS OUT OF THE ROOM AND IS IN THE [place]. BEDSIDE REPORT COMPLETED WITH ONCOMING NURSE.
[2019-04-22] MEDS: ATORVASTATIN 20 MG TAB PO SCH (21:29)
[2019-04-23] VITALS (9 sets, daily range): BP systolic 128–172; BP diastolic 60–78
[2019-04-23] MEDS: MEROPENEM 500MG/ NS 50ML BAG IV SCH ×2 (04:32→16:07)
[2019-04-23 05:49] LABS: BASOPHILS % 0.5 % (0.0-1.0); EOSINOPHILS # (AUTO) 0.3 (0.0-0.4); EOSINOPHILS % 3.9 % (0.0-6.0); HEMATOCRIT 29.1 % (38.2-49.6); HEMOGLOBIN 9.1 g/dL (14.0-18.0); LYMPHOCYTES # (AUTO) 2.1 (1.0-3.2); LYMPHOCYTES % 25.5 % (18.0-39.1); MEAN CORPUSCULAR HEMOGLOBIN 26.8 pg (28-32); MEAN CORPUSCULAR HGB CONC 31.3 g/dL (31-35); MEAN CORPUSCULAR VOLUME 85.8 fL (81-99); MONOCYTES # (AUTO) 0.6 (0.2-0.8); MONOCYTES % 7.3 % (4.4-11.3); NEUTROPHILS # (AUTO) 5.2 (2.1-6.9); NEUTROPHILS % 62.3 % (38.7-80.0); PLATELET COUNT 168 x10e3/uL (140-360); RED BLOOD COUNT 3.39 x10e6/uL (4.3-5.7); RED CELL DISTRIBUTION WIDTH 18.4 % (11.7-14.4)
[2019-04-23 06:01] LABS: CREATININE, SERUM 1.99 mg/dL (0.72-1.25)
--- NOTE | 2019-04-23 06:55 | NUR ---
PATIENT IS IN STABLE CONDITION WITH NO S/S RESPIRATORY DISTRESS- PATIENT DENIES PAIN. CALL LIGHT IS WITHIN REACH, PATIENT INSTRUCTED TO CALL FOR ASSISTANCE NEEDED.
[2019-04-23] MEDS: TAMSULOSIN HCL 0.4 MG CAP PO SCH (08:08)
[2019-04-23] MEDS: LABETALOL HCL 100 MG TAB PO SCH ×2 (08:08→16:07)
[2019-04-23] MEDS: ALLOPURINOL 100 MG TAB PO SCH (08:08)
--- NOTE | 2019-04-23 13:07 | NUR ---
PATIENT AMBULATING IN THE HALLWAY- IN STABLE CONDITION WITH NO S/S OF RESPIRATORY DISTRESS.
--- NOTE | 2019-04-23 13:52 | NUR ---
DR. ONEILL ON THE UNIT- SPOKE TO DR. ONEILL REGARDING DISCHARGE PLANNING AND PO ANTIBIOTIC IN CHART. DR. ONEILL STATED NO DISCHARGE FOR TODAY AND IV ANTIBIOTICS WILL BE NEEDED FOR THE PATIENT- NO NEW ORDERS RECEIVED. DR. ONEILL WILL SPEAK WITH DR. LEGGETT REGARDING IV ANTIBIOTIC PLAN.
--- NOTE | 2019-04-23 19:02 | NUR ---
PATIENT REMAINS ALERT AND IN STABLE CONDITION WITH NO S/S RESPIRATORY DISTRESS. NO PAIN VOICED. CALL LIGHT IS WITHIN REACH-PATIENT INSTRUCTED TO CALL FOR ASSISTANCE NEEDED. BEDSIDE REPORT COMPLETED WITH ONCOMING NURSE.
[2019-04-23] MEDS: ATORVASTATIN 20 MG TAB PO SCH (20:41)
[2019-04-24 00:10] VITALS: BP 193/77
[2019-04-24 04:52] VITALS: BP 146/69
[2019-04-24] MEDS: MEROPENEM 500MG/ NS 50ML BAG IV SCH (05:26)
--- NOTE | 2019-04-24 07:30 | NUR ---
PATIENT IS AWAKE, ALERT, AND IN STABLE CONDITION WITH NO S/S RESPIRATORY DISTRESS. PATIENT DENIES PAIN AT THIS TIME. CALL LIGHT IS WITHIN REACH, PATIENT INSTRUCTED TO CALL FOR ASSISTANCE NEEDED.
[2019-04-24 08:23] VITALS: BP 158/78
[2019-04-24] MEDS: ALLOPURINOL 100 MG TAB PO SCH (08:29)
[2019-04-24] MEDS: LABETALOL HCL 100 MG TAB PO SCH (08:29)
[2019-04-24] MEDS: TAMSULOSIN HCL 0.4 MG CAP PO SCH (08:29)
[2019-04-24 09:53] VITALS: BP 158/78
--- NOTE | 2019-04-24 11:00 | NUR ---
DR. VELASQUEZ INFORMED OF HGB 6.1 AND HCT 21.5 WELL POTASSIUM OF 3.3- AWAITING CALLBACK/ORDERS.
[2019-04-24] MEDS ORDERED: CIPRO500 MG PO (11:01)
--- NOTE | 2019-04-24 12:29 | NUR ---
PATIENT DISCHARGE HOME- PATIENT OFF THE UNIT AT 1130 PER WHEELCHAIR ACCOMPANIED BY STAFF MEMBER TO THE FRONT LOBBY. PATIENT IN STABLE CONDITION WITH NO S/S OF RESPIRATORY DISTRESS. NO PAIN VOICED. IV REMOVED WITH TIP INTACT. DISCHARGE TEACHING, INSTRUCTIONS, AND MEDICATIONS GIVEN TO THE PATIENT. ALL PERSONAL ITEMS TAKEN WITH THE PATIENT.
--- NOTE | 2019-04-25 07:16 | Discharge Summary ---
CONSULTANTS: 1. . 2. Dr. Nawaf Hussein. FINAL DIAGNOSES: 1. Sepsis on admission. There is no shock. 2. Klebsiella pneumoniae complicated urinary tract infection associated with urinary bladder cancer. SUMMARY: An 89-year-old male came to the hospital, but at first he was at [facility], transferred here to [facility] after a high-grade fever associated with leukocytosis. The patient did have a very high white cell count of 28,800. He had a left shift. He had a fever. Basically, the patient has urinary tract infection associated with sepsis without shock. The patient was treated. He was placed on meropenem. Culture from the [facility] with Klebsiella susceptible to multiple antibiotics including Cipro, Levaquin, and meropenem as well. The patient did receive multiple doses of meropenem. He does have chronic kidney disease. The patient will be going home with Cipro 250 mg twice a day for two weeks. Total of 14 days. The patient is otherwise stable. Discussed with the patient at length. In the urine culture here, there was no grow. Probably aseptic urine due to antibiotic treatment. The patient is stable, discharged home with the Cipro and otherwise he will continue his other home medication. The patient is stable, discharged home today. MD ABHIJEET Best/ALPHONSE /[id number]
[2019-06-14] MEDS ORDERED: ALEVE220 MG PO (12:09)
[2019-06-14] MEDS ORDERED: AMLODIPINE BESY10 MG PO (12:09)
[2019-06-14] MEDS ORDERED: VALACYCLOVIR500 MG PO (12:09)
[2019-06-14] MEDS ORDERED: DULCOLAX STOOL100 MG PO (12:09)
== END 2019-04-24 11:48 | disposition home or self-care (01) | DRG 872 ==
LOC: MED/SURG3 08:25
PROVIDERS: ADMIT Internal Medicine; ATTEND Internal Medicine
DX: A41.9 Sepsis, unspecified organism (principal); N13.6 Pyonephrosis; N17.9 Acute kidney failure, unspecified; B96.1 Klebsiella pneumoniae [K. pneumoniae] as the cause of diseases classified elsewhere; C67.9 Malignant neoplasm of bladder, unspecified; I12.9 Hypertensive chronic kidney disease with stage 1 through stage 4 chronic kidney disease, or unspecified chronic kidney disease; N18.9 Chronic kidney disease, unspecified; R55 Syncope and collapse; Z96.0 Presence of urogenital implants; R31.9 Hematuria, unspecified; D29.1 Benign neoplasm of prostate; D64.9 Anemia, unspecified; R53.81 Other malaise; E87.8 Other disorders of electrolyte and fluid balance, not elsewhere classified; E78.5 Hyperlipidemia, unspecified
CPT/HCPCS: 36415; 71046; 74018; 80048; 85025; 87086; J2185; J7050

== ENCOUNTER 2019-06-15 08:44 | Inpatient (IN) | payer MEDICARE ==
[2019-06-14 13:34] LABS: BASOPHILS % 0.4 % (0.0-1.0); EOSINOPHILS # (AUTO) 0.2 (0.0-0.4); EOSINOPHILS % 2.6 % (0.0-6.0); HEMATOCRIT 30.8 % (38.2-49.6); HEMOGLOBIN 9.7 g/dL (14.0-18.0); LYMPHOCYTES # (AUTO) 1.9 (1.0-3.2); LYMPHOCYTES % 27.2 % (18.0-39.1); MEAN CORPUSCULAR HEMOGLOBIN 28.9 pg (28-32); MEAN CORPUSCULAR HGB CONC 31.5 g/dL (31-35); MEAN CORPUSCULAR VOLUME 91.7 fL (81-99); MONOCYTES # (AUTO) 0.5 (0.2-0.8); MONOCYTES % 7.2 % (4.4-11.3); NEUTROPHILS # (AUTO) 4.3 (2.1-6.9); NEUTROPHILS % 62.3 % (38.7-80.0); PLATELET COUNT 173 x10e3/uL (140-360); RED BLOOD COUNT 3.36 x10e6/uL (4.3-5.7); RED CELL DISTRIBUTION WIDTH 17.8 % (11.7-14.4)
[2019-06-14 13:54] LABS: ALBUMIN 3.4 g/dL (3.5-5.0); ALBUMIN/GLOBULIN RATIO 0.9 (0.8-2.0); ANION GAP 14.1 mmol/L (8-16); CALCIUM 9.6 mg/dL (8.4-10.2); CREATININE, SERUM 2.74 mg/dL (0.72-1.25); POTASSIUM 5.1 mmol/L (3.5-5.1)
[~2019-06-15] VITALS: Ht 165.1 cm; Wt 57.7 kg
[~2019-06-15 08:44] MED LIST changes: +ALEVE220 MG PO; +AMLODIPINE BESY10 MG PO; +CIPRO500 MG PO; +DULCOLAX STOOL100 MG PO
--- OUTSIDE RECORDS SUMMARY | 2019-06-15 08:49 | XMS REPORT | Clinical Summary ---
Author Author [facility] Organization [facility] Address Unknown Phone Unavailable Care Team Providers Care Welding Foreman Name Role Phone PCP Unavailable Allergies Not on File Medications Not on file Active Problems Not on file Encounters Care Team Description Date Type Specialty Juvencio Mccullough MD 09/03/2018 Lab Lab after 06/14/2018 Social History Date Tobacco Use Types Packs/Day [...] (EBV) Routine 09/03/2018 BY PCR 12:30 PM REFUELER OPHTHALMOLOGY PATHOGEN Routine 09/03/2018 MULTIPLEX PANEL 12:30 PM REFUELER after 06/14/2018 Results * Ophthalmology pathogen multiplex panel (09/03/2018 12:30 PM REFUELER) Cytomegalovirus Not-Detected Not-Detected [facility] DEPARTMENT by PCR, eye OF PATHOLOGY AND GENOMIC MEDICINE Herpes simplex Not-Detected Not-Detected [facility] DE[facility] virus 1 by PCR, OF PATHOLOGY eye AND GENOMIC MEDICINE Herpes simplex Not-Detected Not-Detected [facility] DE[facility] virus 2 by PCR, OF PATHOLOGY eye AND GENOMIC MEDICINE Toxoplasma Not-Detected Not-Detected [facility] DE[facility] gondii by PCR, OF PATHOLOGY eye AND GENOMIC MEDICINE Varicella Detected (A) Not-Detected [facility] DEPART[facility] zoster virus by OF PATHOLOGY PCR, eye AND GENOMIC MEDICINE Ophthalmology See link below for PDF Lab [facility] DEPARTMENT pathogen ReportComment: Case Number: OF PATHOLOGY multiplex panel [id number] AND GENOMIC MEDICINE Specimen Narrative Performed At [facility] right eye [facility] DEPARTMENT OF PATHOLOGY AND GENOMIC MEDICINE Performing Organization Address City/State/Zipcode Phone Number [facility] DEPARTMENT OF [address] [place] [address] PATHOLOGY AND GENOMIC MEDICINE * Marjorie Frank Virus (EBV) by PCR (09/03/2018 12:30 PM REFUELER) Marjorie Frank Not-Detected Not-Detected [place] virus, PCR copies/mL [facility] Marjorie Frank See link below for PDF Lab [place] virus, PCR ReportComment: Case Number: [id number] Specimen Narrative Performed At aqueous right eye [facility] The specimen type Vitreous, Other has not been validated for this assay. [facility] Therefore, the sensitivity and specificity of this assay for this specimen type is unknown. A negative result does not completely rule out the presence of EBV. Correlation with other clinical information is recommended. Performing Organization Address [facility]/Zipcode Phone Number [facility] DEPARTMENT OF [address] [place] [address] PATHOLOGY AND GENOMIC MEDICINE [place] [address] [place] [address] [facility] after 06/14/2018 Insurance Type Payer Benefit Subscriber ID Effective Phone Address Plan / Dates Group PPO HUMANA MEDICARE HUMANA xxxxxxxxx 2017-P MEDICARE resent PPO/PFFS/E RS MCR Medicare MEDICARE MEDICARE xxxxxxxxxxx 2018- [place], PART A AND Present [place] B Advance Directives For more information, please contact: [phone] Patient Audiology Director Explanation Type Date Recorded Advance Directives, Living Will and Medical Power of Email Campaign Manager
--- OUTSIDE RECORDS SUMMARY | 2019-06-15 08:49 | XMS REPORT | Encounter Summary ---
Author Organization Unknown Address [address] [place] [address] Phone [phone] Care Team Providers Care Paintless Dent Repair Technician Name Role Phone Dr. Jimbo Roman 3 [phone] Jimbo Roman MD 3 [phone] Nawaf Hussein MD 115 [phone] Luis Smith 118 [phone] Reason for Visit hypertension; lab follow-up Instructions 1. Benign hypertensive renal disease amlodipine 10 mg tablet 2. Dental caries 3. Chronic kidney disease stage 4 4. Pre-surgery evaluation 5. Senile purpura Discussion Note Pt cleared for dental surgery as higher dose of bp will get it under better control . Copy of 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 Encouraged to get the Flu vaccine in Jun - Aug 09, 2019. f/u in 2 weeks [employer] Patient educational handouts: No information available. Plan of Care Reminders Provider Appointments Est Patient 05/31/2019 2:15PM Jimbo Roman MD Lab None recorded. Referral None recorded. Procedures None recorded. Surgeries None recorded. Imaging None recorded. Medications Name Start Date allopurinol 100 mg tablet Take 1 tablet every day by oral route for 90 days. amlodipine 10 mg tablet Take 1 tablet every day by oral route for 90 days. atorvastatin 20 mg tablet Take 1 tablet every day by oral route for 90 days. ciprofloxacin 250 mg tablet cyclopentolate 2 % eye drops Durezol 0.05 % eye drops labetalol 100 mg tablet TAKE 1 TABLETS BY MOUTH TWICE DAILY lisinopril 5 mg tablet Take 1 tablet every day by oral route for 90 days. tamsulosin 0.4 mg capsule Take 1 capsule every day by oral route for 90 days. valacyclovir 500 mg tablet Take 1 tablet every day by oral route for 90 days. Medications Administered None recorded. Vitals Height Weight BMI Blood Pressure 5 ft 4 in 124 lbs 21.3 kg/m2 (1) 144/70 mm[Hg] (2) 168/74 mm[Hg] Lab Results Date Name Specimen Result Interpretation Description Value Range Status Address 05/11/2019 Electrocardiogram Rate & Rhythm 81/min , rrr [facility] ([facility]) Hobby: [phone] [address], [place] Qrs [facility] ([facility]) [address]obby: [phone] [address], [place] Interval [facility] ([facility]) Hobby: [phone] [address], [place] QRS Duration [facility] ([facility]) [address]: [phone] [address], [place] QT Interval [facility] ([facility]) Hobby: [phone] [address], [place] 05/10/2019 CBC W/ Auto Diff Wbc 8.66 x10*3/L 4.23-9.07 x10*3/L Final [facility] Laboratory: [address] Low Rbc 3.57 10*12/L 4.63-6.08 10*12/L Final [facility] Laboratory: [address] Low Hemoglobin 9.90 g/dL 13.70-17.50 g/dL Final [facility] Laboratory: [address] [place] [address] Low Hematocrit 31.0 % 40.1-51.0 % Final [facility] Laboratory: [address] Mcv 86.8 fL 80.0-100.0 fL Final [facility] Laboratory: [address] Mch 27.7 pg 25.7-32.2 pg Final [facility] Laboratory: [address] Low Mchc 31.9 g/dL 32.3-36.5 g/dL Final [facility] Laboratory: [address] High RDW-SD 57.6 fL 35.1-43.9 fL Final [facility] Laboratory: [address] Platelet Count 237.0 k/uL 163.0-337.0 k/uL Final [facility] Laboratory: [address] High Mpv 11.9 fL 7.5-11.5 fL Final [facility] Laboratory: [address] [place] Neut% 54.2 % 34.0-67.9 % Final [facility] Laboratory: [address] [place] Lymph% 34.1 % 21.8-53.1 % Final [facility] Laboratory: [address] [place] Mon% 8.2 % 5.3-12.2 % Final [facility] Laboratory: [address] [place] Eos% 3.3 % 0.8-7.0 % Final [facility] Laboratory: [address] [place] Baso% 0.2 % 0.2-1.2 % Final [facility] Laboratory: [address] [place] Neut# 4.7 x10*3/L 1.8-5.4 x10*3/L Final [facility] Laboratory: [address] [place] Lymph# 3.0 x10*3/L 1.3-3.6 x10*3/L Final [facility] Laboratory: [address] [place] Mon# 0.7 x10*3/L 0.3-0.8 x10*3/L Final [facility] Laboratory: [address] [place] Eos# 0.29 x10*3/L 0.04-0.54 x10*3/L Final [facility] Laboratory: [address] [place] Baso# 0.02 x10*3/L 0.01-0.08 x10*3/L Final [facility] Laboratory: [address] [place] 05/10/2019 CMP, Serum or Plasma Alt 16 U/L 0-55 U/L Final [facility]: [address] [facility] Ast 17 U/L 5-34 U/L Final [facility] Laboratory: [address] [place] High Bun 61.9 mg/dL 8.4-25.0 mg/dL Final [facility] Laboratory: [address] [facility] Alk Phos 112 unit/L 40-150 unit/L Final [facility] Laboratory: [address] [place] Glucose 89 mg/dL 70-99 mg/dL Final [facility] Laboratory: [address] [facility] Albumin 3.5 g/dL 3.4-5.1 g/dL Final [facility] Laboratory: [address] [facility] High Creatinine 2.45 mg/dL 0.72-1.25 mg/dL Final [facility] Laboratory: [address] [place] ABNORMAL eGFR Non- 25 mL/min/1.73m2 Final [facility] Laboratory: [address] [facility] Total Bilirubin 0.3 mg/dL 0.2-1.2 mg/dL Final [facility] Laboratory: [address] [facility] ABNORMAL eGFR - 30 mL/min/1.73m2 Final [facility] Laboratory: [address] [facility] Sodium 139 mEq/L 135-145 mEq/L Final [facility] Laboratory: [address] [place] [address] Potassium 4.5 mEq/L 3.5-5.1 mEq/L Final [facility] Laboratory: [address] [place] [address] High Chloride 113 mmol/L 98-110 mmol/L Final [facility] Laboratory: [address] [facility] Total Protein 7.5 g/dL 6.1-8.2 g/dL Final [facility] Laboratory: [address] [facility] Calcium 9.0 mg/dL 9.0-10.2 mg/dL Final [facility] Laboratory: [address] [place] [address] Co2 20.8 mmol/L 20.0-32.0 mmol/L Final [facility] Laboratory: [address] Anion Gap 5 calc Final [facility] Laboratory: [address], [place] 05/10/2019 Uric Acid, Serum or Plasma Uric Acid 7.1 mg/dL 3.5-7.2 mg/dL Final [facility] Laboratory: [address] [facility] [facility] 05/10/2019 Lipid Panel, Serum Hdl 44 mg/dL Final [facility] Laboratory: [address] [place] [address] High Triglyceride 201 mg/dL 0-150 mg/dL Final [facility] Laboratory: [address] [place] VLDL (Calculated) 40 mg/dL Final [facility] Laboratory: [address] [address], [place] cholesterol/HDL Ratio 5.1 mg/dL Final [facility] Laboratory: [address] [address], [place] High non-HDL Cholesterol (Calculated) 180 mg/dL 0-160 mg/dL Final [facility] Laboratory: [address] [address], [place] High Cholesterol 224 mg/dL 0-200 mg/dL Final [facility] Laboratory: [address] [address], [place] High LDL (Calculated) 140 mg/dL 0-130 mg/dL Final [facility] Laboratory: [address] [address], [place] 05/10/2019 PTH (Parathyroid Hormone), Intact, Serum or Plasma High Parathyroid Hormone, Intact 86 pg/mL 14-64 pg/mL Final [facility] Laboratory: [address] [address], [place] 05/10/2019 Culture, Urine Culture, Urine, Routine see note Final [facility] Laboratory: [address] [address], [place] 05/10/2019 Urinalysis, Dipstick Color Color yellow [facility] ([facility]) Hobby: [phone], [place] Color Appearance clear [facility] (p) Hobby: [address], [place] Color Glucose negative [facility] ([facility]) Hobby: [address], [place] Color Bilirubin negative [facility] ([facility]) Hobby: [address], [place] Color Ketones negative [facility] (p) Hobby: [address] [place] Color Specific Anita 1.015 [facility] ([facility]) Hobby: [address], [place] Color Blood moderate [facility] ([facility]) Hobby: [address], [place] Color PH 6.0 [facility] ([facility]) Hobby: [address], [place] Color Protein 100 [facility] ([facility]) Hobby: [address], [place] Color Urobilinogen 0.2 [facility] ([facility]) Hobby: [address], [place] Color Nitrites negative [facility] ([facility]) [address]: [address], [place] Color Leukocytes [facility] Hobby: [phone] [facility] 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 ([facility] Hobby [phone] [facility] [address] [place] [address] ([address]) Vaccine List Vaccine Type influenza, high dose seasonal 07/07/20180.5 mL influenza, unspecified formulation 07/02/2017 pneumococcal conjugate PCV 13 03/25/20180.5 mL 0.5 mL pneumococcal polysaccharide PPV23 01/02/2009 Td (adult), adsorbed 03/25/20180.5 mL Social History Smoking Status Never Smoker Past Encounters 05/17/2019 Benign Hypertensive Renal Disease; Dental Caries; Chronic Kidney Disease Stage 4; Pre-surgery Evaluation; Senile Purpura Jimbo Roman MD: [id number], [facility] [[email or web address] [address] [address], Ph. 05/10/2019 Benign Hypertensive Renal Disease; Chronic Kidney Disease Stage 3; Hyperlipidemia; Gout; Abnormal Weight Loss; Malignant Tumor of Urinary Bladder; Pre-surgery Evaluation; Herpes Zoster Ophthalmicus; Lower Urinary Tract Symptoms Due to Benign Prostatic Hypertrophy; Mild Protein-calorie Malnutrition (Weight for Age 75-89% of Standard); Blood in Urine Jimbo Roman MD: [id number], [facility] [[email or web address]] [address], [place] [address], Ph. History of Present Illness Note:Here to f/u on htn - took lisinopril 5 mg & his bp dropped low so started taking at night & doing well - BP - 137/62 - 128/62. No chest pain , no shortness of breath, no palpitations ,no dizziness , no diaphoresis , no weakness or numbness in arms or legs , no visual loss .also to review labs Review of Systems:ROS as noted in the HPI Review of Systems None recorded. Physical Exam General Adult Exam (male), General Adult Exam (Female) Reported By: Patient Constitutional: General Appearance: well-developed; bmi - 21.3. Level of Distress: NAD. Ambulation: ambulating normally Psychiatric: Insight: good judgement; talkative. Mental Status: active and alert, normal mood, [...] turgor, no jaundice, no rash, no abnormal nevi; senile purpura on Rt forearm & Lt forearm & Lt elbow. Nails: normal Back: Thoracolumbar Appearance: normal curvature
--- OUTSIDE RECORDS SUMMARY | 2019-06-15 08:49 | XMS REPORT | Encounter Summary ---
Author Organization Unknown Address [address] [place] [address] Phone [phone] Care Team Providers Care Records Management Assistant Name Role Phone Dr. Jimbo Roman 3 [phone] Jimbo Roman MD 3 [phone] Nawaf Hussein MD 115 [phone] uLis Smith 118 [phone] Reason for Visit hypertension; lab follow-up Instructions 1. Benign hypertensive renal disease amlodipine 10 mg tablet 2. Dental caries 3. Chronic kidney disease stage 4 4. Pre-surgery evaluation 5. Senile purpura Discussion Note pt cleared for dental surgery as higher dose of bp will get it under better control . 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 Encouraged to get the Flu vaccine in Jun - Aug 09, 2019. f/u in 2 weeks Shock Treatment Management Patient educational handouts: No information available. Plan [...] Electrocardiogram Rate & Rhythm 81/min , rrr [facility] ([facility]) Hobby: [address] [facility] [address], [place] Qrs [facility] ([facility]) Hobby: [address] [facility] [address], [place] Interval [facility] ([facility]) Hobby: [address] [facility] [address], [place] QRS Duration [facility] ([facility]) Hobby: [address] [facility] [address], [place] QT Interval [facility] ([facility]) Hobby: [address] [address], [place] 05/10/2019 CBC W/ Auto Diff Wbc 8.66 x10*3/L 4.23-9.07 x10*3/L Final [facility] [address] [facility] Low Rbc 3.57 10*12/L 4.63-6.08 10*12/L Final [facility] Laboratory: [address] [place] [address] Low Hemoglobin 9.90 g/dL 13.70-17.50 g/dL Final [facility] [address] [facility] Low Hematocrit 31.0 % 40.1-51.0 % Final [facility] Laboratory: [address] [place] [address] Mcv 86.8 fL 80.0-100.0 fL Final [facility] [address] [facility] Mch 27.7 pg 25.7-32.2 pg Final [facility] Laboratory: [address] [facility] Low Mchc 31.9 g/dL 32.3-36.5 g/dL Final [facility] Laboratory[facility] [address] [facility] High RDW-SD 57.6 fL 35.1-43.9 fL Final [facility] Laboratory: [address] [facility] Platelet Count 237.0 k/uL 163.0-337.0 k/uL Final [facility] Laboratory[facility] [address] [facility] High Mpv 11.9 fL 7.5-11.5 fL Final [facility] Laboratory: [address] [place] Neut% 54.2 % 34.0-67.9 % Final [facility] Laboratory: [address] [place] Lymph% 34.1 % 21.8-53.1 % Final [facility] Laboratory: [address] [place] Mon% 8.2 % 5.3-12.2 % Final [facility] Laboratory: [address] [place] Eos% 3.3 % 0.8-7.0 % Final [facility] Laboratory: [address], [place] Baso% 0.2 % 0.2-1.2 % Final [facility] Laboratory: [address] [place] Neut# 4.7 x10*3/L 1.8-5.4 x10*3/L Final [facility] Laboratory: [address] [place] Lymph# 3.0 x10*3/L 1.3-3.6 x10*3/L Final [facility] Laboratory: [address] [place] Mon# 0.7 x10*3/L 0.3-0.8 x10*3/L Final [facility] Laboratory: [address] [place] Eos# 0.29 x10*3/L 0.04-0.54 x10*3/L Final [facility] Laboratory: [address] [place] Baso# 0.02 x10*3/L 0.01-0.08 x10*3/L Final [facility] Laboratory: [address] [place] 05/10/2019 CMP, Serum or Plasma Alt 16 U/L 0-55 U/L Final [facility] Laboratory[facility] [address] [facility] Ast 17 U/L 5-34 U/L Final [facility] Laboratory: [address] [place] High Bun 61.9 mg/dL 8.4-25.0 mg/dL Final [facility] Laboratory: [address] [place] Alk Phos 112 unit/L 40-150 unit/L Final [facility] Laboratory[facility] [address] [facility] Glucose 89 mg/dL 70-99 mg/dL Final [facility] Laboratory: [address] [place] Albumin 3.5 g/dL 3.4-5.1 g/dL Final [facility] Laboratory: [address] [place] High Creatinine 2.45 mg/dL 0.72-1.25 mg/dL Final [facility] Laboratory: [address] [place] ABNORMAL eGFR Non- 25 mL/min/1.73m2 Final [facility] Laboratory: [address] [place] Total Bilirubin 0.3 mg/dL 0.2-1.2 mg/dL Final [facility] Laboratory: [address] [place] ABNORMAL eGFR - 30 mL/min/1.73m2 Final [facility] Laboratory: [address] [place] Sodium 139 mEq/L 135-145 mEq/L Final [facility] [address] [facility] Potassium 4.5 mEq/L 3.5-5.1 mEq/L Final [facility] Laboratory: [address] [facility] High Chloride 113 mmol/L 98-110 mmol/L Final [facility] Laboratory: [address] [facility] Total Protein 7.5 g/dL 6.1-8.2 g/dL Final [facility] Laboratory: [address] [place] Calcium 9.0 mg/dL 9.0-10.2 mg/dL Final [facility] Laboratory[facility] [address] [facility] Co2 20.8 mmol/L 20.0-32.0 mmol/L Final [facility] Laboratory: [address] [place] Anion Gap 5 calc Final [facility] Laboratory: [address] [place] 05/10/2019 Uric Acid, Serum or Plasma Uric Acid 7.1 mg/dL 3.5-7.2 mg/dL Final [facility] Laboratory: [address] [place] 05/10/2019 Lipid Panel, Serum Hdl 44 mg/dL Final [facility] Laboratory: [address] [place] High Triglyceride 201 mg/dL 0-150 mg/dL Final [facility] Laboratory: [address] [place] [address] VLDL (Calculated) 40 mg/dL Final [facility] Laboratory: [address] [place] [address], [place] cholesterol/HDL Ratio 5.1 mg/dL Final [facility] Laboratory: [address] [place] [address], [place] High non-HDL Cholesterol (Calculated) 180 mg/dL 0-160 mg/dL Final [facility] Laboratory: [address] [place] [address], [place] High Cholesterol 224 mg/dL 0-200 mg/dL Final [facility] Laboratory: [address] [place] [address], [place] High LDL (Calculated) 140 mg/dL 0-130 mg/dL Final [facility] Laboratory: [address] [place] [address], [place] 05/10/2019 PTH (Parathyroid Hormone), Intact, Serum or Plasma High Parathyroid Hormone, Intact 86 pg/mL 14-64 pg/mL Final [facility] Laboratory: [address] [place] [address], [place] 05/10/2019 Culture, Urine Culture, Urine, Routine see note Final [facility] Laboratory: [address] [place] [address], [place] 05/10/2019 Urinalysis, Dipstick Color Color yellow [facility] ([facility]) Hobby: [address] [place] Color Appearance clear [facility] ([facility]) Hobby: [address] [place] Color Glucose negative [facility] ([facility]) Hobby: [address], [place] Color Bilirubin negative [facility] ([facility]) Hobby: [address], [place] Color Ketones negative [facility] ([facility]) Hobby: [address], [place] Color Specific King 1.015 [facility] ([facility]) Hobby: [address], [place] Color Blood moderate [facility] ([facility]) Hobby: [address], [place] Color PH 6.0 [facility] ([facility]) Hobby: [address], [place] Color Protein 100 [facility] ([facility]) Hobby: [address], [place] Color Urobilinogen 0.2 [facility] (p) Hobby: [address], [place] Color Nitrites negative [facility] (p) Hobby: [address], [place] Color Leukocytes small [facility] ([facility]) Hobby: [address], [place] Allergies Code Code System Name Reaction Severity [...] Transurethral Prostatectomy Information not available 05/10/2019 Electrocardiogram [facility] ([facility]) [facility] [address] [facility] [address] [place] [address] (Work Place) Vaccine List Vaccine Type influenza, high dose seasonal 07/07/20180.5 mL influenza, unspecified formulation 07/02/2017 pneumococcal conjugate PCV 13 03/25/20180.5 mL 0.5 mL pneumococcal polysaccharide PPV23 01/02/2009 Td (adult), adsorbed 03/25/20180.5 mL Social History Smoking Status Never Smoker Past Encounters 05/17/2019 Benign Hypertensive Renal Disease; Dental Caries; Chronic Kidney Disease Stage 4; Pre-surgery Evaluation; Senile Purpura Jimbo Roman MD: [address] [facility] [address], [place] [address], Ph. 05/10/2019 Benign Hypertensive Renal Disease; Chronic Kidney Disease Stage 3; Hyperlipidemia; Gout; Abnormal Weight Loss; Malignant Tumor of Urinary Bladder; Pre-surgery Evaluation; Herpes Zoster Ophthalmicus; Lower Urinary Tract Symptoms Due to Benign Prostatic Hypertrophy; Mild Protein-calorie Malnutrition (Weight for Age 75-89% of Standard); Blood in Urine Jimbo Roman MD: [address], [address], [place] [address], Ph. History of Present Illness Note:Here to [...]
--- OUTSIDE RECORDS SUMMARY | 2019-06-15 08:49 | XMS REPORT | Encounter Summary ---
Author Organization Unknown Address [address] [place] [address] Phone [phone] Care Team Providers Care Coin Machine Collector Name Role Phone Dr. Jimbo Roman 3 [phone] Jimbo Roman MD 3 [phone] Nawaf Hussein MD 115 [phone] Luis Smith 118 [phone] Reason for Visit other - see typed reason Instructions 1. Benign hypertensive renal disease CBC w/ auto diff CMP, serum or plasma urinalysis, dipstick electrocardiogram lisinopril 5 mg tablet labetalol 100 mg tablet 2. Chronic kidney disease stage 3 PTH (parathyroid hormone), intact, serum or plasma 3. Hyperlipidemia atorvastatin 20 mg tablet lipid panel, serum 4. Gout uric acid, serum or plasma allopurinol 100 mg tablet 5. Abnormal weight loss 6. Malignant tumor of urinary bladder 7. Pre-surgery evaluation 8. Herpes zoster ophthalmicus valacyclovir 500 mg tablet 9. Lower urinary tract symptoms due to benign prostatic hypertrophy tamsulosin 0.4 mg capsule 10. Mild protein-calorie malnutrition (weight for age 75-89% of standard) 11. Blood in urine culture, urine Discussion Note f/u in 6 days to f/u on htn & labs Patient educational handouts: No information available. Plan of Care Reminders Provider Appointments Est Patient on or around 05/16/2019 Jimbo Roman MD Est Patient 05/17/2019 11:00AM Jimbo Roman MD Lab CBC W/ Auto Diff 05/10/2019 [facility] Laboratory CMP, Serum or Plasma 05/10/2019 [facility] Urinalysis, Dipstick 05/10/2019 [facility] ([facility]) Hobby Uric Acid, Serum or Plasma 05/10/2019 [facility] Laboratory Lipid Panel, Serum 05/10/2019 [facility] PTH (Parathyroid Hormone), Intact, Serum or Plasma 05/10/2019 [facility] Culture, Urine 05/10/2019 [facility] Referral None recorded. Procedures None recorded. Surgeries None recorded. Imaging Electrocardiogram 05/10/2019 [facility] ([facility]) Hobby Medications Name Start Date allopurinol 100 mg tablet Take 1 tablet every day by oral route for 90 days. atorvastatin 20 mg tablet Take 1 tablet every day by oral route for 90 days. cyclopentolate 2 % eye drops Durezol 0.05 [...] BMI Blood Pressure 5 ft 4 in 126 lbs 21.6 kg/m2 150/72 mm[Hg] Lab Results Date Name Specimen Result Interpretation Description Value Range Status Address 05/10/2019 Urinalysis, Dipstick Color Color yellow [facility] ([facility]) Hobby: [address], [place] Color Appearance clear [facility] ([facility]) Hobby: [address], [place] Color Glucose negative [facility] ([facility]) Hobby: [address], [place] Color Bilirubin negative [facility] ([facility]) Hobby: [address], [place] Color Ketones negative [facility] ([facility]) Hobby: [address], [place] Color Specific [place] 1.015 [facility] ([facility]) Hobby: [address], [place] Color Blood moderate [facility] ([facility]) Hobby: [address] [place] Color PH 6.0 [facility] ([facility]) Hobby: [address], [place] Color Protein 100 [facility] ([facility]) Hobby: [address], [place] Color Urobilinogen 0.2 [facility] ([facility]) Hobby: [address], [place] Color Nitrites negative [facility] ([facility]) Hobby: [address] [place] Color Leukocytes small [facility] ([facility]) Hobby: [address] [facility] Allergies Code Code System Name Reaction Severity [...] Transurethral Prostatectomy Information not available 05/10/2019 Electrocardiogram [facility] ([facility]) Hobby [address] [facility] [address] [place] [address] (Work Place) Vaccine List Vaccine Type influenza, high dose seasonal 07/07/20180.5 mL influenza, unspecified formulation 07/02/2017 pneumococcal conjugate PCV 13 03/25/20180.5 mL 0.5 mL pneumococcal polysaccharide PPV23 01/02/2009 Td (adult), adsorbed 03/25/20180.5 mL Social History Smoking Status Never Smoker Past Encounters 05/10/2019 Benign Hypertensive Renal Disease; Chronic Kidney Disease Stage 3; Hyperlipidemia; Gout; Abnormal Weight Loss; Malignant Tumor of Urinary Bladder; Pre-surgery Evaluation; Herpes Zoster Ophthalmicus; Lower Urinary Tract Symptoms Due to Benign Prostatic Hypertrophy; Mild Protein-calorie Malnutrition (Weight for Age 75-89% of Standard); Blood in Urine Jimbo Roman MD: [address] [facility], [facility] [address], [place] [address], Ph. History of Present Illness Note:Here to get clearance for dental surgery. He has 3 cavities in Lt lower jaw & I broken took at the Lt lower jaw line. lisinopril stopped, labetalol 200mg - 1/2 tab po bid . No chest pain , no shortness of breath, no palpitations ,no dizziness , no diaphoresis , no weakness or numbness in arms or legs , no visual loss .no muscle aches , no muscle weakness Review of Systems:ROS as noted in the HPI Review of Systems None recorded. Physical Exam General Adult Exam (Female) Reported By: Patient Constitutional: General Appearance: well-developed; bmi - 21.6 ( 20 lb wt loss in 5 mths ). Level of Distress: NAD. Ambulation: ambulating normally Psychiatric: Insight: good judgement; A lot of talking. Mental Status: active and alert, normal mood, [...] external nose, nares patent, no septal deviation, nasal passages clear, no sinus tenderness, no nasal discharge. Lips, Teeth, and Gums: no mouth or [...] hepatomegaly Musculoskeletal:: Motor Strength and Tone: normal motor strength, normal tone. Joints, Bones, and Muscles: normal movement of all extremities, no bony abnormalities, no contractures, no malalignment, no tenderness. Extremities: no cyanosis, no edema, no varicosities Neurologic: Gait and Station: normal gait, normal station. Cranial Nerves: grossly intact. Sensation: grossly intact Skin: Inspection and palpation: no rash, no lesions, no abnormal nevi, good turgor, no jaundice; drained & shrunken sebaceous cyst in león back with an opening / not draining anything. Nails: normal Back: Thoracolumbar Appearance: normal curvature
--- OUTSIDE RECORDS SUMMARY | 2019-06-15 08:49 | XMS REPORT | Clinical Summary ---
Author Author DOREEN [facility] Organization [facility] Address Unknown Phone Unavailable Care Team Providers Care Airborne And Air Delivery Specialist Name Role Phone Jimbo Roman MD PCP [...] 01/27/2019 Emergency Emergency Medicine 01/27/2019 Travel after 06/14/2018 Social History Date Tobacco Use [...] ACID, VENOUS Routine 04/20/2019 6:58 AM CDT BLOOD CULTURE STAT 04/20/2019 4:55 AM CDT BLOOD CULTURE STAT 04/20/2019 4:51 AM CDT URINALYSIS W/ REFLEX STAT 04/20/2019 URINE CULTURE 3:13 AM CDT URINE CULTURE STAT 04/20/2019 3:13 AM CDT CBC W/PLT COUNT & [...] (7) STAT 01/27/2019 3:33 AM CDT after 06/14/2018 Results * POC-Lactic Acid, Venous (04/20/2019 6:58 AM CDT) POC-Lactic Acid, Venous 1.8 (H)Comment: TESTED AT 0.9 - 1.7 mmol/L [facility] [address] [place] [id number] Specimen Blood Performing Organization Address City/[facility] Phone Number [address] [address] [facility] * Blood Culture - Routine (Right Venipuncture) (04/20/2019 4:55 AM CDT) Only the most recent of 4 results within the time period is included. Result No growth in 5 days [facility] Specimen Blood Performing Organization Address [facility] Phone Number [address] [address] [facility] * Urinalysis w/Microscopic + Reflex to Culture (04/20/2019 3:13 AM CDT) Only the most recent of 2 results within the time period is included. Color, UA [place] [facility] Clarity, UA Cloudy [facility] Specific [place], UA 1.012 1.001 - 1.035 [facility] pH, UA 6.5 5.0 - 8.0 [facility] Protein, UA 100 mg/dL (A) Negative [facility] Glucose, UA Negative Negative [facility] Ketones, UA Negative Negative [facility] Bilirubin, UA Negative Negative [facility] Blood, UA Large (A) Negative [facility] Nitrite, UA Negative Negative [facility] Leukocytes, UA Large (A) Negative [facility] Urobilinogen, UA 0.2 0.2 - 1.0 mg/dL [facility] RBC, UA 2,012 /HPF [facility] WBC, UA 937 /HPF [facility] Bacteria, UA Many [facility] Specimen Source [facility] Specimen Urine Performing Organization Address City/[facility] Phone Number [facility] [address] [place] [address] [facility] * Urine culture (04/20/2019 3:13 AM CDT) Only the most recent of 2 results within the time period is included. Result >100,000 col/mL Klebsiella [facility] pneumoniae (A) [facility] Specimen Urine Antibiotic Method Susceptibility Organism Amikacin <=2: Susceptible Klebsiella pneumoniae Ampicillin + Sulbactam 4: Susceptible Klebsiella pneumoniae Aztreonam <=1: Susceptible Klebsiella pneumoniae Cefepime <=1: Susceptible Klebsiella pneumoniae Cefoxitin <=4: Susceptible Klebsiella pneumoniae Ceftazidime <=1: Susceptible Klebsiella pneumoniae Ceftriaxone <=1: Susceptible Klebsiella pneumoniae Ertapenem <=0.5: Susceptible Klebsiella pneumoniae Gentamicin <=1: Susceptible Klebsiella pneumoniae Levofloxacin <=0.12: Susceptible Klebsiella pneumoniae Meropenem <=0.25: Susceptible Klebsiella pneumoniae Nitrofurantoin 64: Intermediate Klebsiella pneumoniae Piperacillin + Tazobactam <=4: Susceptible Klebsiella pneumoniae Tetracycline >=16: Resistant Klebsiella pneumoniae Tobramycin <=1: Susceptible Klebsiella pneumoniae Trimethoprim + Sulfamethoxazole >=320: Resistant Klebsiella pneumoniae Performing Organization Address City/[facility] Phone Number [facility] [address] [place] [address] [facility] * CBC with platelet count + automated diff (04/20/2019 2:30 AM CDT) Only the most recent of 2 results within the time period is included. WBC 31.7 (H) 3.5 - 10.5 K/L [facility] RBC 3.86 (L) 4.63 - 6.08 M/L [facility] Hemoglobin 10.6 (L) 13.7 - 17.5 GM/DL [facility] Hematocrit 33.0 (L) 40.1 - 51.0 % [facility] MCV 85.5 79.0 - 92.2 fL [facility] MCH 27.5 25.7 - 32.2 pg [facility] MCHC 32.1 (L) 32.3 - 36.5 GM/DL [facility] RDW 18.5 (H) 11.6 - 14.4 % [facility] Platelets 184 150 - 450 K/CU MM [facility] MPV 11.0 9.4 - 12.4 fL [facility] nRBC 0 0 - 0 /100 WBC [facility] % Neutros 87 % [facility] % Lymphs 5 % [facility] % Monos 6 % [facility] % Eos 0 % [facility] % Baso 0 % [facility] # Neutros 27.43 (H) 1.78 - 5.38 K/L [facility] # Lymphs 1.65 1.32 - 3.57 K/L [facility] # Monos 1.85 (H) 0.30 - 0.82 K/L [facility] # Eos 0.01 (L) 0.04 - 0.54 K/L [facility] # Baso 0.06 0.01 - 0.08 K/L [facility] Immature 2 (H) 0 - 1 % [facility] Granulocytes-[facility] Specimen Blood Performing Organization Address City/State/Zipcode Phone Number [facility] [address] [place] [address] [facility] * Basic metabolic panel (Na, K+, Cl, CO2, Glu, Ca, BUN, Cr) (04/20/2019 2:30 AM CDT) Only the most recent of 2 results within the time period is included. Sodium 139 136 - 145 meq/L [facility] Potassium 4.4 3.5 - 5.1 meq/L [facility] Chloride 107 98 - 107 meq/L [facility] CO2 23 22 - 29 meq/L [facility] BUN 41 (H) 7 - 21 mg/dL [facility] Creatinine 2.36 (H) 0.57 - 1.25 mg/dL [facility] Glucose 107 (H) 70 - 105 mg/dL [facility] Calcium 9.3 8.4 - 10.2 mg/dL [facility] EGFR 26Comment: ESTIMATED GFR IS mL/min/1.[address] [facility] NOT ACCURATE CREATININE [facility] CLEARANCE IN PREDICTING GLOMERULAR FILTRATION RATE. ESTIMATED GFR IS NOT APPLICABLE FOR DIALYSIS PATIENTS. Specimen Blood Performing Organization Address City/State/Zipcode Phone Number [facility] [address] [place] [address] [facility] * Blood Culture Panel(BioFire) (01/27/2019 5:09 AM CDT) LISTERIA MONOCYTOGENES Not detected Not detected [facility] STAPHYLOCOCCUS Not detected Not detected [facility] STAPHYLOCOCCUS AUREUS Not detected Not detected [facility] Streptococcus Not detected Not detected [facility] STREPTOCOCCUS AGALACTIAE Not detected Not detected [facility] (GROUP B) [facility] STREPTOCOCCUS PNEUMONIAE Not detected Not detected [facility] Streptococcus pyogenes Not detected Not detected [facility] (Group A) [facility] ACINETOBACTER BAUMANNII Not detected Not detected [facility] HAEMOPHILUS INFLUENZAE Not detected Not detected [facility] NEISSERIA MENINGITIDIS Not detected Not detected [facility] ENTEROBACTERIACEAE Not detected Not detected [facility] ENTEROBACTER CLOACOE Not detected Not detected [facility] KLEBSIELLA OXYTOCA Not detected Not detected [facility] KLEBSIELLA PNEUMONIAE Not detected Not detected [facility] PROTEUS Not detected Not detected [facility] SERRATIA MARCESCENS Not detected Not detected [facility] WILLIAN ALBICANS Not detected Not detected [facility] WILLIAN GLABRATA Not detected Not detected [facility] WILLIAN KRUSEI Not detected Not detected [facility] WILLIAN PARAPSILOSIS Not detected Not detected [facility] WILLIAN TROPICALIS Not detected Not detected [facility] ESCHERICHIA COLI Not detected Not detected [facility] METHICILLIN-RESISTANCE Not detected [facility] VANCOMYCIN-RESISTANCE Not detected Not detected [facility] CARBAPENEM-RESISTANCE Not detected Not detected [facility] ENTEROCOCCUS Detected (A) Not detected [facility] Comment: [facility] First line therapy: Vancomycin or Ampicillin (Ampicillin only if confirmed susceptible) (Alicia/vanB not detected) Reference Range: Not Detected PSEUDOMONAS AERUGINOSA Not detected Not detected [facility] Specimen Blood Narrative Performed At Other bacteria and resistance markers not targeted by this PCR panel cannot be [facility] excluded; therefore clinical correlation and follow up of serology, culture [facility] results, and other molecular studies is required. The results are not intended to be used as the sole means for clinical diagnosis or patient management decisions. This sample was tested at the [facility] using the MygeniArray Blood Culture ID Panel. It is FDA cleared and has been verified and approved by the [facility] for clinical use. This laboratory is CLIA-certified and [employer] (CAP)-accredited to perform high complexity testing. Performing Organization Address City/State/Zipcode Phone Number DOREEN [facility] [address] [place] [address] [facility] after 06/14/2018 Insurance Payer Benefit Subscriber ID Type Phone Address Plan / Group [employer] - MEDICARE MGD HUMANA xxxxxxxxx [facility] MEDICARE Contracted ADV
--- OUTSIDE RECORDS SUMMARY | 2019-06-15 08:50 | XMS REPORT | Encounter Summary ---
Author Organization Unknown Address [address] [place] [address] Phone [phone] Care Team Providers Care Repairer Evaporator Name Role Phone Dr. Jimbo Roman 3 [phone] Jimbo Roman MD 3 [phone] Nawaf Hussein MD 115 [phone] Luis Smith 118 [phone] Reason for Visit hypertension Instructions 1. Benign hypertensive renal disease 2. Gout 3. Malignant tumor of urinary bladder 4. Hyperparathyroidism due to renal insufficiency 5. Chronic constipation Amitiza 24 mcg capsule 6. Chronic kidney disease stage 4 Discussion Note f/u in 2 weeks for bp check Encouraged to get the Flu vaccine in Jun - Aug 09, 2019. Patient educational handouts: No information available. Plan of Care Reminders Provider Appointments None recorded. Lab None recorded. Referral None recorded. Procedures None recorded. Surgeries None recorded. Imaging None recorded. Medications Name Start Date allopurinol 100 mg tablet Take 1 tablet every day by oral route for 90 days. Amitiza 24 mcg capsule Take 1 capsule twice a day by oral route for 90 days. amlodipine 10 mg tablet Take 1 tablet every day by oral route for 90 days. atorvastatin 20 mg tablet Take 1 tablet every day by oral route for 90 days. cyclopentolate 2 % eye drops Durezol 0.05 % eye drops labetalol 100 mg tablet TAKE 1 TABLETS BY MOUTH TWICE DAILY tamsulosin 0.4 mg capsule Take 1 capsule every day by oral route for 90 days. valacyclovir 500 mg tablet Take 1 tablet every day by oral route for 90 days. Medications Administered None recorded. Vitals Height Weight BMI Blood Pressure 5 ft 4 in 127 lbs 21.8 kg/m2 (1) 180/74 mm[Hg] (2) 150/78 mm[Hg] Lab Results Date Name Specimen Result Interpretation Description Value Range Status Address 05/11/2019 Electrocardiogram Rate & Rhythm 81/min , rrr [facility] ([facility]) Hobby: [phone] [facility] [address], [place] Qrs [facility] ([facility]) Hobby: [address], [place] Interval [facility] ([facility]) Hobby: [address] [facility] [address], [place] QRS Duration [facility] ([facility]) Hobby: [address] [facility] [address] [facility] [address] [place] QT Interval [facility] ([facility]) [facility] [address] [facility] [place] 05/10/2019 CBC W/ Auto Diff Wbc 8.66 x10*3/L 4.23-9.07 x10*3/L Final [facility] [address] [facility] Low Rbc 3.57 10*12/L 4.63-6.08 10*12/L Final [facility] [address] [facility] Low Hemoglobin 9.90 g/dL 13.70-17.50 g/dL Final [facility] [address] [facility] [facility] Low Hematocrit 31.0 % 40.1-51.0 % Final [facility] Laboratory: [address] [place] [address] Mcv 86.8 fL 80.0-100.0 fL Final [facility] Laboratory: [address] [place] [address] Mch 27.7 pg 25.7-32.2 pg Final [facility]: [address] [facility] [facility] Mchc 31.9 g/dL 32.3-36.5 g/dL Final [facility] [address] [facility] [facility] High RDW-SD 57.6 fL 35.1-43.9 fL Final [facility] Laboratory: [address] [facility], [place] Platelet Count 237.0 k/uL 163.0-337.0 k/uL Final [facility]: [address] [facility] [facility] Mpv 11.9 fL 7.5-11.5 fL Final [facility]: [address] [facility] [facility] Neut% 54.2 % 34.0-67.9 % Final [facility]: [address] [facility] [facility] Lymph% 34.1 % 21.8-53.1 % Final [facility]: [address] [facility] [facility] Mon% 8.2 % 5.3-12.2 % Final [facility] Laboratory: [address] [place] Eos% 3.3 % 0.8-7.0 % Final [facility] Laboratory: [address] [place] Baso% 0.2 % 0.2-1.2 % Final [facility] Laboratory: [address] [place] Neut# 4.7 x10*3/L 1.8-5.4 x10*3/L Final [facility] Laboratory: [address] [place] Lymph# 3.0 x10*3/L 1.3-3.6 x10*3/L Final [facility] Laboratory: [address] [place] Mon# 0.7 x10*3/L 0.3-0.8 x10*3/L Final [facility] Laboratory: [address] [place] Eos# 0.29 x10*3/L 0.04-0.54 x10*3/L Final [facility] Laboratory: [address] [place] Baso# 0.02 x10*3/L 0.01-0.08 x10*3/L Final [facility] [address] [facility] 05/10/2019 CMP, Serum or Plasma Alt 16 U/L 0-55 U/L Final [facility] Laboratory: [address] Ast 17 U/L 5-34 U/L Final [facility] [address] [facility] High Bun 61.9 mg/dL 8.4-25.0 mg/dL Final [facility] Laboratory: [address] [place] [address] Alk Phos 112 unit/L 40-150 unit/L Final [facility] [address] [facility] [facility] Glucose 89 mg/dL 70-99 mg/dL Final [facility]: [address] [facility] [facility] Albumin 3.5 g/dL 3.4-5.1 g/dL Final [facility]: [address] [facility] [facility] High Creatinine 2.45 mg/dL 0.72-1.25 mg/dL Final [facility] Laboratory: [address] [place] [address] ABNORMAL eGFR Non- 25 mL/min/1.73m2 Final [facility] Laboratory: [address] Total Bilirubin 0.3 mg/dL 0.2-1.2 mg/dL Final [facility] Laboratory: [address] ABNORMAL eGFR - 30 mL/min/1.73m2 Final [facility] Laboratory: [address] [place] [address], [place] Sodium 139 mEq/L 135-145 mEq/L Final [facility] Laboratory: [address] [place] [address], [place] Potassium 4.5 mEq/L 3.5-5.1 mEq/L Final [facility] Laboratory: [address] High Chloride 113 mmol/L 98-110 mmol/L Final [facility] Laboratory: [address] Total Protein 7.5 g/dL 6.1-8.2 g/dL Final [facility] Laboratory: [address] Calcium 9.0 mg/dL 9.0-10.2 mg/dL Final [facility] Laboratory: [address] Co2 20.8 mmol/L 20.0-32.0 mmol/L Final [facility] Laboratory: [address] Anion Gap 5 calc Final [facility] Laboratory: [address] [place] [address], [place] 05/10/2019 Uric Acid, Serum or Plasma Uric Acid 7.1 mg/dL 3.5-7.2 mg/dL Final [facility] Laboratory: [address] [place] [address], [place] 05/10/2019 Lipid Panel, Serum Hdl 44 mg/dL Final [facility] Laboratory: [address] High Triglyceride 201 mg/dL 0-150 mg/dL Final [facility] Laboratory: [address] VLDL (Calculated) 40 mg/dL Final [facility] Laboratory: [address] cholesterol/HDL Ratio 5.1 mg/dL Final [facility] Laboratory: [address] High non-HDL Cholesterol (Calculated) 180 mg/dL 0-160 mg/dL Final [facility] Laboratory: [address] High Cholesterol 224 mg/dL 0-200 mg/dL Final [facility] Laboratory: [address] High LDL (Calculated) 140 mg/dL 0-130 mg/dL Final [facility] Laboratory: [address] [place] [address], [place] 05/10/2019 PTH (Parathyroid Hormone), Intact, Serum or Plasma High Parathyroid Hormone, Intact 86 pg/mL 14-64 pg/mL Final [facility] Laboratory: [address] [place] [address], [place] 05/10/2019 Culture, Urine Culture, Urine, Routine see note Final [facility] Laboratory: [address] [place] [address], [place] 05/10/2019 Urinalysis, Dipstick Color Color yellow [facility] ([facility]) Hobby: [address], [place] Color Appearance clear [facility] ([facility]) Hobby: [address] [place] Color Glucose negative [facility] ([facility]) Hobby: [address] [place] Color Bilirubin negative [facility] ([facility]) Hobby: [address] [place] Color Ketones negative [facility] ([facility]) Hobby: [address] [place] Color Specific [place] 1.015 [facility] ([facility]) Hobby: [address] [place] Color Blood moderate [facility] ([facility]) Hobby: [address] [place] Color PH 6.0 [facility] ([facility]) Hobby: [address] [place] Color Protein 100 [facility] ([facility]) Hobby: [address] [place] Color Urobilinogen 0.2 [facility] ([facility]) Hobby: [address], [place] Color Nitrites negative [facility] ([facility]) Hobby: [address] [place] Color Leukocytes small [facility] ([facility]) Hobby: [address] [place] Allergies [...] Transurethral Prostatectomy Information not available 05/10/2019 Electrocardiogram [facility] ([facility]) [facility] [address] [place] [address] (Work [address]) Vaccine List Vaccine Type influenza, high dose seasonal 07/07/20180.5 mL influenza, unspecified formulation 07/02/2017 pneumococcal conjugate PCV 13 03/25/20180.5 mL 0.5 mL pneumococcal polysaccharide PPV23 01/02/2009 Td (adult), adsorbed 03/25/20180.5 mL Social History Tobacco Smoking Status Never Smoker Past Encounters 05/31/2019 Benign Hypertensive Renal Disease; Gout; Malignant Tumor of Urinary Bladder; Hyperparathyroidism Due to Renal Insufficiency; Chronic Constipation; Chronic Kidney Disease Stage 4 Jimbo Roman MD: [id number] [facility], [facility] [address], [place] [address], Ph. 05/17/2019 Benign Hypertensive Renal Disease; Dental Caries; Chronic Kidney Disease Stage 4; Pre-surgery Evaluation; Senile Purpura Jimbo Roman MD: [id number], [facility] [address], [place] [address], Ph. 05/10/2019 Benign Hypertensive Renal Disease; Chronic Kidney Disease Stage 3; Hyperlipidemia; Gout; Abnormal Weight Loss; Malignant Tumor of Urinary Bladder; Pre-surgery Evaluation; Herpes Zoster Ophthalmicus; Lower Urinary Tract Symptoms Due to Benign Prostatic Hypertrophy; Mild Protein-calorie Malnutrition (Weight for Age 75-89% of Standard); Blood in Urine Jimbo Roman MD: [address], [facility] [address], [place] [address], Ph. History of Present Illness Note:Here to f/u on HTN , No chest pain , no shortness of breath, no palpitations ,no dizziness , no diaphoresis , no weakness or numbness in arms or legs , no visual loss . no muscle aches , no muscle weakness, denies any fatigue, per pt he is going to hav a procedure by [facility] Urologist - ? unable to tell what or describe the procedure. Review of Systems:ROS as noted in the HPI Review of Systems None recorded. Physical Exam General Adult Exam (male), General Adult Exam (Female) Reported By: Patient Constitutional: General Appearance: well-nourished, well-developed; BMI - 21.8. Level of Distress: NAD. Ambulation: ambulating normally Psychiatric: Insight: good judgement. Mental Status: active and alert, normal mood, normal affect; talks a lot. Orientation: to time, to place, to person [...] membranes, no erythema, no exudates, tonsils not enlarged; severe dental caried in upper & lower jaws Neck: Neck: supple, trachea midline, no masses, [...]
[2019-06-15] MEDS ORDERED: GENTAMICIN 80MG/NS 100 ML 100 ML IV ONE (09:22)
[2019-06-15] MEDS ORDERED: SODIUM CHLORIDE 0.9% 1000ML 1,000 ML ONE (09:22)
[2019-06-15] MEDS ORDERED: AMPICILLIN SOD 1 GM/NS 50ML 50 ML IV ONE (09:45)
[2019-06-15 10:01] LABS: PROTHROMBIN TIME 13.7 seconds (11.9-14.5)
[2019-06-15 10:03] LABS: PARTIAL THROMBOPLASTIN TIME 27.4 seconds (23.8-35.5)
[2019-06-15] MEDS ORDERED: B&O 60MG R/S 60 MG SUPP PR ONE (11:32)
[2019-06-15] MEDS ORDERED: IOPAMIDOL 610MG/1ML 300 MG/ML VIAL IV ONE (11:32)
[2019-06-15] MEDS ORDERED: FLUCONAZOLE 200 MG/100 ML IV ONE (13:10)
[2019-06-15] MEDS: SODIUM CHLORIDE 0.9% 1000ML 1,000 ML IV SCH (13:26)
[2019-06-15] MEDS ORDERED: DIPHENHYDRAMINE HCL 25 MG CAP PO PRN (13:30)
[2019-06-15] MEDS ORDERED: ONDANSETRON HCL INJ 2MG/ML 2ML 2 MG/ML VIAL IV PRN (13:30)
--- OUTSIDE RECORDS SUMMARY | 2019-06-15 14:00 | XMS REPORT | Clinical Summary ---
Author Author DOREEN RF CodeSt. Luke'S Meridian Medical CenterLi Creative TechnologiesSt. Anne Hospital Organization [facility] Address Unknown Phone Unavailable Care Team Providers Care Senior Media Director Name Role Phone Jimbo Roman MD PCP [...] (H)Comment: TESTED AT 0.9 - 1.7 mmol/L [facility] [address] [place] [id number] Specimen Blood Performing Organization Address City/[facility] Phone Number [address] [address] [facility] * Blood Culture - Routine (Right Venipuncture) (04/20/2019 4:55 AM CDT) Only the most recent of 4 results within the time period is included. Result No growth in 5 days [facility] Specimen Blood Performing Organization Address [facility] Phone Number [address] [address] [facility] * Urinalysis w/Microscopic + Reflex to Culture (04/20/2019 3:13 AM CDT) Only the most recent of 2 results within the time period is included. Color, UA [place] [facility] Clarity, UA Cloudy [facility] Specific [place], UA 1.012 1.001 - 1.035 [facility] pH, UA 6.5 5.0 - 8.0 [facility] Protein, UA 100 mg/dL (A) Negative [facility] Glucose, UA Negative Negative [facility] Ketones, UA Negative Negative [facility] Bilirubin, UA Negative Negative [facility] Blood, UA Large (A) Negative [facility] Nitrite, UA Negative Negative [facility] Leukocytes, UA Large (A) Negative [facility] Urobilinogen, UA 0.2 0.2 - 1.0 mg/dL [facility] RBC, UA 2,012 /HPF [facility] WBC, UA 937 /HPF [facility] Bacteria, UA Many [facility] Specimen Source [facility] Specimen Urine Performing Organization Address City/[facility] Phone Number [facility] [address] [place] [address] [facility] * Urine culture (04/20/2019 3:13 AM CDT) Only the most recent of 2 results within the time period is included. Result >100,000 col/mL Klebsiella [facility] pneumoniae (A) [facility] Specimen Urine Antibiotic Method Susceptibility Organism Amikacin [...] >=320: Resistant Klebsiella pneumoniae Performing Organization Address City/[facility] Phone Number [facility] [address] [place] [address] [facility] * CBC with platelet count + automated diff (04/20/2019 2:30 AM CDT) Only the most recent of 2 results within the time period is included. WBC 31.7 (H) 3.5 - 10.5 K/L [facility] RBC 3.86 (L) 4.63 - 6.08 M/L [facility] Hemoglobin 10.6 (L) 13.7 - 17.5 GM/DL [facility] Hematocrit 33.0 (L) 40.1 - 51.0 % [facility] MCV 85.5 79.0 - 92.2 fL [facility] MCH 27.5 25.7 - 32.2 pg [facility] MCHC 32.1 (L) 32.3 - 36.5 GM/DL [facility] RDW 18.5 (H) 11.6 - 14.4 % [facility] Platelets 184 150 - 450 K/CU MM [facility] MPV 11.0 9.4 - 12.4 fL [facility] nRBC 0 0 - 0 /100 WBC [facility] % Neutros 87 % [facility] % Lymphs 5 % [facility] % Monos 6 % [facility] % Eos 0 % [facility] % Baso 0 % [facility] # Neutros 27.43 (H) 1.78 - 5.38 K/L [facility] # Lymphs 1.65 1.32 - 3.57 K/L [facility] # Monos 1.85 (H) 0.30 - 0.82 K/L [facility] # Eos 0.01 (L) 0.04 - 0.54 K/L [facility] # Baso 0.06 0.01 - 0.08 K/L [facility] Immature 2 (H) 0 - 1 % [facility] Granulocytes-[facility] Specimen Blood Performing Organization Address City/State/Zipcode Phone Number [facility] [address] [place] [address] [facility] * Basic metabolic panel (Na, K+, Cl, CO2, Glu, Ca, BUN, Cr) (04/20/2019 2:30 AM CDT) Only the most recent of 2 results within the time period is included. Sodium 139 136 - 145 meq/L [facility] Potassium 4.4 3.5 - 5.1 meq/L [facility] Chloride 107 98 - 107 meq/L [facility] CO2 23 22 - 29 meq/L [facility] BUN 41 (H) 7 - 21 mg/dL [facility] Creatinine 2.36 (H) 0.57 - 1.25 mg/dL [facility] Glucose 107 (H) 70 - 105 mg/dL [facility] Calcium 9.3 8.4 - 10.2 mg/dL [facility] EGFR 26Comment: ESTIMATED GFR IS mL/min/1.[address] [facility] NOT ACCURATE CREATININE [facility] CLEARANCE IN PREDICTING GLOMERULAR FILTRATION RATE. ESTIMATED GFR IS NOT APPLICABLE FOR DIALYSIS PATIENTS. Specimen Blood Performing Organization Address City/State/Zipcode Phone Number [facility] [address] [place] [address] [facility] * Blood Culture Panel(BioFire) (01/27/2019 5:09 AM CDT) LISTERIA MONOCYTOGENES Not detected Not detected [facility] STAPHYLOCOCCUS Not detected Not detected [facility] STAPHYLOCOCCUS AUREUS Not detected Not detected [facility] Streptococcus Not detected Not detected [facility] STREPTOCOCCUS AGALACTIAE Not detected Not detected [facility] (GROUP B) [facility] STREPTOCOCCUS PNEUMONIAE Not detected Not detected [facility] Streptococcus pyogenes Not detected Not detected [facility] (Group A) [facility] ACINETOBACTER BAUMANNII Not detected Not detected [facility] HAEMOPHILUS INFLUENZAE Not detected Not detected [facility] NEISSERIA MENINGITIDIS Not detected Not detected [facility] ENTEROBACTERIACEAE Not detected Not detected [facility] ENTEROBACTER CLOACOE Not detected Not detected [facility] KLEBSIELLA OXYTOCA Not detected Not detected [facility] KLEBSIELLA PNEUMONIAE Not detected Not detected [facility] PROTEUS Not detected Not detected [facility] SERRATIA MARCESCENS Not detected Not detected [facility] WILLIAN ALBICANS Not detected Not detected [facility] WILLIAN GLABRATA Not detected Not detected [facility] WILLIAN KRUSEI Not detected Not detected [facility] WILLIAN PARAPSILOSIS Not detected Not detected [facility] WILLIAN TROPICALIS Not detected Not detected [facility] ESCHERICHIA COLI Not detected Not detected [facility] METHICILLIN-RESISTANCE Not detected [facility] VANCOMYCIN-RESISTANCE Not detected Not detected [facility] CARBAPENEM-RESISTANCE Not detected Not detected [facility] ENTEROCOCCUS Detected (A) Not detected [facility] Comment: [facility] First line therapy: Vancomycin or Ampicillin (Ampicillin only if confirmed susceptible) (Alicia/vanB not detected) Reference Range: Not Detected PSEUDOMONAS AERUGINOSA Not detected Not detected [facility] Specimen Blood Narrative Performed At Other bacteria and resistance markers not targeted by this PCR panel cannot be [facility] excluded; therefore clinical correlation and follow up of serology, culture [facility] results, and other molecular studies is required. The results are not intended to be used as the sole means for clinical diagnosis or patient management decisions. This sample was tested at the [facility] using the SapeArray Blood Culture ID Panel. It is FDA cleared and has been verified and approved by the [facility] for clinical use. This laboratory is CLIA-certified and [employer] (CAP)-accredited to perform high complexity testing. Performing Organization Address City/State/Zipcode Phone Number [facility] [address] [place] [address] [facility] after 06/14/2018 Insurance Payer Benefit Subscriber ID Type Phone Address Plan / Group HU[employer] - MEDICARE MGD HUMANA xxxxxxxxx [facility] MEDICARE Contracted ADV
--- OUTSIDE RECORDS SUMMARY | 2019-06-15 14:00 | XMS REPORT | Clinical Summary ---
Author Author [facility] Organization [facility] Address Unknown Phone Unavailable Care Team Providers Care Chain Sales Consultant Name Role Phone PCP Unavailable Allergies Not [...] (EBV) Routine 09/03/2018 BY PCR 12:30 PM GRANTS AND CONTRACTS ASSISTANT OPHTHALMOLOGY PATHOGEN Routine 09/03/2018 MULTIPLEX PANEL 12:30 PM GRANTS AND CONTRACTS ASSISTANT after 06/14/2018 Results * Ophthalmology pathogen multiplex panel (09/03/2018 12:30 PM GRANTS AND CONTRACTS ASSISTANT) Cytomegalovirus Not-Detected Not-Detected [facility] DEPARTMENT by PCR, eye OF PATHOLOGY AND GENOMIC MEDICINE Herpes simplex Not-Detected Not-Detected [facility] DEPARTMENT virus 1 by PCR, OF PATHOLOGY eye AND GENOMIC MEDICINE Herpes simplex Not-Detected Not-Detected [facility] DEPARTMENT virus 2 by PCR, OF PATHOLOGY eye AND GENOMIC MEDICINE Toxoplasma Not-Detected Not-Detected [facility] DEPARTMENT gondii by PCR, OF PATHOLOGY eye AND GENOMIC MEDICINE Varicella Detected (A) Not-Detected [facility] DEPARTMENT zoster virus by OF PATHOLOGY PCR, eye AND GENOMIC MEDICINE Ophthalmology See link below for PDF Lab [facility] DEPARTMENT pathogen ReportComment: Case Number: OF PATHOLOGY multiplex panel [id number] AND GENOMIC MEDICINE Specimen Narrative Performed At [facility] right eye [facility] DEPARTMENT OF PATHOLOGY AND GENOMIC MEDICINE Performing Organization Address City/State/Zipcode Phone Number [facility] DEPARTMENT OF [address] [place] [address] PATHOLOGY AND GENOMIC MEDICINE * Marjorie Frank Virus (EBV) by PCR (09/03/2018 12:30 PM GRANTS AND CONTRACTS ASSISTANT) Marjorie Frank Not-Detected Not-Detected [place] virus, PCR copies/mL [facility] Marjorie Frank See link below for PDF Lab [place] virus, PCR ReportComment: Case Number: [facility] [id number] [facility] Specimen Narrative Performed At aqueous right eye [facility] [place], [place] The specimen type Vitreous, Other has not been validated for this assay. [facility] Therefore, the sensitivity and specificity of this assay for this specimen type is unknown. A negative result does not completely rule out the presence of EBV. Correlation with other clinical information is recommended. Performing Organization Address [facility]/Zipcode Phone Number [facility] DEPARTMENT OF [address] [place] [address] PATHOLOGY AND GENOMIC MEDICINE [facility] [place] [address] [place] [address] [facility] after 06/14/2018 Insurance Type Payer Benefit Subscriber ID Effective Phone Address Plan / Dates Group PPO HUMANA MEDICARE HUMANA xxxxxxxxx 2017-P MEDICARE resent PPO/PFFS/E RS MCR Medicare MEDICARE MEDICARE xxxxxxxxxxx 2018- [place], PART A AND Present [place] Advance Directives For more information, please contact: [phone] Patient Kitchen Utility Associate Explanation Type Date Recorded Advance Directives, Living Will and Medical Power of Preparation Department Supervisor
[2019-06-15 14:12] LABS: BASOPHILS % 0.6 % (0.0-1.0); EOSINOPHILS # (AUTO) 0.2 (0.0-0.4); EOSINOPHILS % 3.3 % (0.0-6.0); HEMATOCRIT 32.7 % (38.2-49.6); HEMOGLOBIN 10.3 g/dL (14.0-18.0); LYMPHOCYTES # (AUTO) 1.7 (1.0-3.2); MEAN CORPUSCULAR HEMOGLOBIN 29.2 pg (28-32); MEAN CORPUSCULAR HGB CONC 31.5 g/dL (31-35); MEAN CORPUSCULAR VOLUME 92.6 fL (81-99); MONOCYTES # (AUTO) 0.4 (0.2-0.8); MONOCYTES % 5.7 % (4.4-11.3); NEUTROPHILS % 63.2 % (38.7-80.0); PLATELET COUNT 153 x10e3/uL (140-360); RED BLOOD COUNT 3.53 x10e6/uL (4.3-5.7); RED CELL DISTRIBUTION WIDTH 17.7 % (11.7-14.4)
[2019-06-15 14:21] LABS: INR 0.96; PROTHROMBIN TIME 13.3 seconds (11.9-14.5)
[2019-06-15 14:22] LABS: PARTIAL THROMBOPLASTIN TIME 25.3 seconds (23.8-35.5)
[2019-06-15 14:26] LABS: ANION GAP 13.1 mmol/L (8-16); CALCIUM 9.2 mg/dL (8.4-10.2); CREATININE, SERUM 2.14 mg/dL (0.72-1.25); POTASSIUM 4.1 mmol/L (3.5-5.1)
--- NOTE | 2019-06-15 15:30 | NUR ---
PT TO THE FLOOR AT THIS TIME FROM PACU. VITALS WNL. PT DENIES NEEDS AT THIS TIME.
[2019-06-15 15:45] VITALS: BP 137/58
[2019-06-15] MEDS ORDERED: FLUCONAZOLE 200 MG/100 ML 100 ML IV ONE (16:00)
[2019-06-15 16:40] VITALS: BP 124/58
[2019-06-15] MEDS ORDERED: FUROSEMIDE INJ 10 MG/ML 4 ML VIAL ONE (18:13)
[2019-06-15] MEDS ORDERED: LIDOCAINE HCL 2% LOCAL INJ 5 ML SDV VIAL INJ ONE (18:13)
[2019-06-15] MEDS ORDERED: ONDANSETRON HCL INJ 2MG/ML 2ML 2 MG/ML VIAL ONE (18:13)
[2019-06-15] MEDS ORDERED: PROPOFOL IV EMULSION 10 MG/ML 20 ML VIAL ONE (18:13)
[2019-06-15] MEDS ORDERED: SEVOFLURANE INHAL SOLN 250 ML PEN BTL ONE (18:13)
[2019-06-15] MEDS ORDERED: DEXAMETHASONE SOD PHOS INJ 4 MG/ML VIAL ONE (18:13)
[2019-06-15] MEDS: DOCUSATE SODIUM 100 MG CAP PO SCH (18:30)
[2019-06-15] MEDS: AMPICILLIN SOD 1 GM/NS 50ML 50 ML IV SCH (18:30)
[2019-06-15] MEDS: PHENAZOPYRIDINE HCL 100 MG TAB PO SCH (18:31)
[2019-06-15] MEDS ORDERED: FENTANYL CITRATE/PF 100MCG/2 ML INJ ONE (18:35)
[2019-06-15 20:05] VITALS: BP 111/59
--- NOTE | 2019-06-15 20:05 | NUR ---
Received change of shift report from AM nurse. Walking rounds completed.
[2019-06-16] VITALS (8 sets, daily range): BP systolic 113–158; BP diastolic 59–69
--- NOTE | 2019-06-16 | NUR ---
Patient AAOx3. Receiving irragation. Vizcaino color fluid noted. Patient denies pain or discomfort at this time. IV dry, intact and patent. Continue monitor.
[2019-06-16] MEDS: AMPICILLIN SOD 1 GM/NS 50ML 50 ML IV SCH ×4 (01:13→22:00)
[2019-06-16] MEDS: SODIUM CHLORIDE 0.9% 1000ML 1,000 ML IV SCH (04:57)
[2019-06-16] MEDS ORDERED: CEFAZOLIN SOD 1 GM/NS 50ML 100 ML IV ONE (06:00)
--- NOTE | 2019-06-16 06:06 | NUR ---
Patient resting quitly at this time. Continue monitor
[2019-06-16 06:21] LABS: BASOPHILS % 0.2 % (0.0-1.0); EOSINOPHILS % 0.1 % (0.0-6.0); HEMATOCRIT 28.4 % (38.2-49.6); HEMOGLOBIN 9.2 g/dL (14.0-18.0); LYMPHOCYTES # (AUTO) 1.5 (1.0-3.2); LYMPHOCYTES % 14.5 % (18.0-39.1); MEAN CORPUSCULAR HEMOGLOBIN 29.5 pg (28-32); MEAN CORPUSCULAR HGB CONC 32.4 g/dL (31-35); MONOCYTES # (AUTO) 0.6 (0.2-0.8); NEUTROPHILS # (AUTO) 7.9 (2.1-6.9); NEUTROPHILS % 78.6 % (38.7-80.0); PLATELET COUNT 161 x10e3/uL (140-360); RED BLOOD COUNT 3.12 x10e6/uL (4.3-5.7); RED CELL DISTRIBUTION WIDTH 17.5 % (11.7-14.4)
[2019-06-16 06:38] LABS: ANION GAP 13.8 mmol/L (8-16); CALCIUM 8.6 mg/dL (8.4-10.2); CREATININE, SERUM 1.98 mg/dL (0.72-1.25); POTASSIUM 4.8 mmol/L (3.5-5.1)
[2019-06-16] MEDS: DOCUSATE SODIUM 100 MG CAP PO SCH ×2 (09:03→16:50)
[2019-06-16] MEDS: PHENAZOPYRIDINE HCL 100 MG TAB PO SCH ×3 (09:03→16:50)
[2019-06-16] MEDS: ACETAMINOPHEN/CODEINE 300MG - 30MG TAB PO PRN ×2 (13:58→17:44)
--- NOTE | 2019-06-16 16:13 | NUR ---
pt alert and ambulatory, no s/s of distress noted at this time, pt able to make needs known, call light in reach.
[2019-06-16] MEDS: FLUCONAZOLE 100 MG/NS 50 ML 50 ML IV SCH (17:50)
--- NOTE | 2019-06-16 19:00 | NUR ---
Received change of shift report from AM nurse. Walking rounds completed.
[2019-06-16] MEDS: B&O 60MG R/S 60 MG SUPP PR PRN (20:41)
--- NOTE | 2019-06-17 01:06 | NUR ---
Patient c/o pain to bladder. Flushed petersen, Increased fluids and pain meds given as ordered by MD.Patient AAOx3.Continue monitor.
--- NOTE | 2019-06-17 01:08 | NUR ---
Patient requested information on suppository for bladder cramping. Information given to patient.
--- NOTE | 2019-06-17 02:40 | NUR ---
Patient resting quitly with no c/o at this time. Continue monitor.
[2019-06-17 03:50] VITALS: BP 147/61
[2019-06-17] MEDS: AMPICILLIN SOD 1 GM/NS 50ML 50 ML IV SCH ×2 (05:17→14:00)
--- NOTE | 2019-06-17 05:51 | NUR ---
Patient resting quitly with no c/o at this time. Continue monitor.
[2019-06-17 06:38] LABS: BASOPHILS % 0.5 % (0.0-1.0); EOSINOPHILS # (AUTO) 0.3 (0.0-0.4); EOSINOPHILS % 3.9 % (0.0-6.0); HEMATOCRIT 26.6 % (38.2-49.6); HEMOGLOBIN 8.6 g/dL (14.0-18.0); LYMPHOCYTES # (AUTO) 2.9 (1.0-3.2); MEAN CORPUSCULAR HEMOGLOBIN 29.5 pg (28-32); MEAN CORPUSCULAR HGB CONC 32.3 g/dL (31-35); MEAN CORPUSCULAR VOLUME 91.1 fL (81-99); MONOCYTES # (AUTO) 0.7 (0.2-0.8); MONOCYTES % 8.4 % (4.4-11.3); NEUTROPHILS % 50.8 % (38.7-80.0); PLATELET COUNT 144 x10e3/uL (140-360); RED BLOOD COUNT 2.92 x10e6/uL (4.3-5.7); RED CELL DISTRIBUTION WIDTH 17.4 % (11.7-14.4)
[2019-06-17 06:55] LABS: ANION GAP 12.4 mmol/L (8-16); CALCIUM 8.8 mg/dL (8.4-10.2); CREATININE, SERUM 1.76 mg/dL (0.72-1.25); POTASSIUM 4.4 mmol/L (3.5-5.1)
--- NOTE | 2019-06-17 07:00 | NUR ---
BEDSIDE SHIFT REPORT FROM RICK CABRAL. PT DENIES NEEDS AT THIS TIME.
[2019-06-17 07:32] VITALS: BP 129/62
[2019-06-17 08:00] VITALS: BP 129/62
[2019-06-17] MEDS: PHENAZOPYRIDINE HCL 100 MG TAB PO SCH ×3 (08:53→17:20)
[2019-06-17] MEDS: DOCUSATE SODIUM 100 MG CAP PO SCH ×2 (08:53→17:20)
[2019-06-17] MEDS: B&O 60MG R/S 60 MG SUPP PR PRN (10:55)
[2019-06-17 11:24] VITALS: BP 134/63
--- NOTE | 2019-06-17 12:48 | NUR ---
EDUCATED ABOUT IMM, SIGNED, FILED IN CHART, WITH COPY LEFT WITH FAMILY AT BEDSIDE.
--- NOTE | 2019-06-17 13:30 | NUR ---
SPOKE WITH PT ABOUT HOME HEALTH, STATES ON SERVICE WITH [facility], SIGNED CHOICE FILED IN CHART AND FAXED ORDER AND CLINICALS [phone], PHONE [phone]
[2019-06-17] MEDS ORDERED: TYLENOL WITH C1 EACH PO (14:13)
[2019-06-17] MEDS ORDERED: PENCILLIN V PO250 MG PO (14:14)
[2019-06-17] MEDS ORDERED: ONDANSETRON HCL 4 MG ORAL DISINTEGRATING TAB PO PRN (15:00)
[2019-06-17 15:33] VITALS: BP 145/65
[2019-06-17] MEDS: FLUCONAZOLE 100 MG/NS 50 ML 50 ML IV SCH (16:00)
--- NOTE | 2019-06-17 16:12 | NUR ---
PT EDUCATED ON LOUIS CATH CARE WELL IRRIGATION. SUPPLIES FURNISHED TO THE PT AND PT AND SON SHOWED UNDERSTANDING OF CARE ON TEACH BACK.
--- NOTE | 2019-06-17 23:19 | Discharge Summary ---
FINAL DIAGNOSIS: Status post transurethral resection of bladder tumour for urinary bladder cancer. 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 The patient has debulking. The patient has below knee surgical intervention. The patient is status post TURBT and the patient is stable. He had a Lang catheter in place. The patient will discharge home, follow up per recommendation by Dr. Nawaf Hsusein. Prescriptions were given. The patient will resume his home medications. MD ABHIJEET Best/MODL /[id number]
--- NOTE | 2019-06-21 05:18 | Operative Report ---
DATE OF PROCEDURE: 06/15/2019 SURGEON: Nawaf Hussein MD PREOPERATIVE DIAGNOSIS: Large surface area of bladder cancer. POSTOPERATIVE DIAGNOSIS: Large surface area of bladder cancer. OPERATION PERFORMED: Cystourethroscopy with transurethral resection of large surface area of bladder cancer well over 5 cm in diameter. ANESTHESIA: General. COMPLICATIONS: None. CLINICAL SUMMARY: Piotr Castro is an elderly man, who presented with gross hematuria, was found to have bladder cancer throughout his bladder surface. He has been brought to the operating room on regular occasions to perform transurethral resection in hopes of obtaining resolution of all visible cancer. 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 The patient underwent transurethral resection two months ago. At that point in time, there was less cancer at the beginning of that procedure than at the prior procedure. The patient has had a very busy schedule and has been unable to schedule this transurethral resection any sooner than the date of surgery. He is aware of the risks of bleeding, infection, injury to adjacent structures, perforation, need for additional procedures, incomplete cancer control and he elected to proceed. OPERATIVE PROCEDURE IN DETAIL: Informed consent was verified. Piotr Castro was properly identified, taken to the operating room, placed on the cystoscopy table in supine position. Anesthesia was uneventfully begun. The patient was then carefully gently repositioned in dorsal lithotomy position with all pressure points well padded. His genitalia were prepared and draped in usual sterile fashion. The cystoscope sheath with the visual obturator in place was atraumatically inserted into the patient's urethra, it was guided down the relatively unremarkable urethra, passed through normal sphincteric region through the prostate bed, which was significant for BPH and into the patient's bladder. Panendoscopy of the urinary bladder revealed patulous ureteral orifices with stents emerging from each. These stents were not significantly encrusted and most likely are still functional. We obtained a urine culture and sent it for culture and sensitivity for documentation. Panendoscopy of the urinary bladder revealed recurrence of cancer in regions previously resected at the trigone and the caudal posterior wall. There was bladder cancer that was encroaching in the vicinity of the ureteral orifices, where we had previously eliminated this cancer, this demonstrates disease progression from the prior resection and this is occurring in only two months. The bladder cancer throughout the posterior wall, which has yet to be resected was still present and appeared to be more aggressive in appearance. The cystoscope was withdrawn. The long resectoscope sheath was inserted with the visual obturator in place under direct vision. We then utilized the monopolar loop to resect bladder cancer. First, we resected bladder cancer from the trigone and eliminated the cancer in the vicinity of the ureteral orifices. We then proceeded with resection of the bladder cancer from the caudal portion of the posterior wall. Cancer at the lateral mejia as well as the upper part of the posterior wall was not resected. Pinpoint electrocautery was utilized to achieve hemostasis. No perforation of the bladder was encounter. There is a generalized feel that this cancer has progressed and may have more grossly invasive appearance on today's resection as compared to prior resections. Therefore, after resecting well over 5 cm diameter worth of cancer and achieving perfect hemostasis, we felt that progressing with any further transurethral resection at this setting would risk perforation as well as hyponatremia. Therefore, the resectoscope was withdrawn. A Lang catheter was placed, 30 mL of water were placed in 30 mL balloon. The patient was placed on slow continuous bladder irrigation. Belladonna and opium suppository were placed revealing a smooth large prostate with no evidence of palpable bladder cancer and no evidence of bladder fixation. The patient was then uneventfully reversed from anesthesia and taken to recovery room in stable condition. There were no complications to the procedure. He tolerated the procedure well. Plans will be to proceed with routine postoperative care and eagerly await the patient's histopathological examination. Should the patient have TA disease again on his pathology, we will have a km discussion about performing transurethral resection at much smaller intervals, also we will be discussing with the patient the option of undergoing a radical cystectomy in order to achieve cancer control once and for all in hopes of avoiding cancer progression. Nawaf Hussein MD [place]/MODL /[id number] cc: Jimbo Roman
== END 2019-06-17 18:08 | disposition home or self-care (01) | DRG 669 ==
LOC: OR 08:44 → PACU V 13:29 → MED/SURG 15:25
PROVIDERS: ADMIT Internal Medicine; ATTEND Internal Medicine
PROC: 0TBB8ZZ Excision of Bladder, Via Natural or Artificial Opening Endoscopic (ICD-10-PCS; principal; 2019-06-15 10:30)
DX: C67.9 Malignant neoplasm of bladder, unspecified (principal); N39.0 Urinary tract infection, site not specified; N40.0 Benign prostatic hyperplasia without lower urinary tract symptoms; D64.9 Anemia, unspecified; I12.9 Hypertensive chronic kidney disease with stage 1 through stage 4 chronic kidney disease, or unspecified chronic kidney disease; N18.3 Chronic kidney disease, stage 3 (moderate)
CPT/HCPCS: 36415; 80048; 80053; 83735; 85025; 85610; 85730; 87086; 88307; 93005; J0290; J1100; J1450; J1580; J1940; J2001; J2405; J3010; J7030

== ENCOUNTER 2019-11-23 08:13 | Inpatient (IN) | payer MEDICARE ==
[2019-11-22 16:20] LABS: BASOPHILS % 0.3 % (0.0-1.0); EOSINOPHILS # (AUTO) 0.1 (0.0-0.4); EOSINOPHILS % 1.7 % (0.0-6.0); HEMATOCRIT 30.3 % (38.2-49.6); HEMOGLOBIN 9.8 g/dL (14.0-18.0); LYMPHOCYTES # (AUTO) 1.8 (1.0-3.2); LYMPHOCYTES % 26.4 % (18.0-39.1); MEAN CORPUSCULAR HEMOGLOBIN 28.4 pg (28-32); MEAN CORPUSCULAR HGB CONC 32.3 g/dL (31-35); MEAN CORPUSCULAR VOLUME 87.8 fL (81-99); MONOCYTES # (AUTO) 0.5 (0.2-0.8); MONOCYTES % 8.2 % (4.4-11.3); NEUTROPHILS # (AUTO) 4.2 (2.1-6.9); NEUTROPHILS % 63.1 % (38.7-80.0); PLATELET COUNT 202 x10e3/uL (140-360); RED BLOOD COUNT 3.45 x10e6/uL (4.3-5.7); RED CELL DISTRIBUTION WIDTH 16.1 % (11.7-14.4)
[2019-11-22 16:38] LABS: ALBUMIN 3.1 g/dL (3.5-5.0); ALBUMIN/GLOBULIN RATIO 0.8 (0.8-2.0); ANION GAP 15.2 mmol/L (8-16); CALCIUM 9.2 mg/dL (8.4-10.2); CREATININE, SERUM 2.73 mg/dL (0.72-1.25); POTASSIUM 4.2 mmol/L (3.5-5.1)
--- NOTE | 2019-11-22 16:50 | Diagnostic Imaging Report ---
EXAMINATION: CHEST 2 VIEWS, ABDOMEN-1VIEW (KUB) INDICATION: Pre-operative COMPARISON: Chest radiograph 04/20/2019, KUB 09/01/2019 FINDINGS: LINES/TUBES:None LUNGS:The lungs are well-inflated. No focal consolidation or pulmonary edema. PLEURA:No pleural effusion or pneumothorax. MEDIASTINUM:The cardiomediastinal silhouette appears normal in size and shape. Atherosclerotic calcifications of the thoracic aorta. BONES/SOFT TISSUES:No acute osseous injury. ABDOMEN:Right and left internal nephroureteral stents in place. No radiographically apparent renal calculi. Phlebolith in the left pelvis. No acute osseous injury. Degenerative changes of the visualized spine. Nonobstructive bowel gas pattern. No free air. IMPRESSION: No focal pneumonia or pulmonary edema. Indwelling right and left internal nephroureteral stents. Signed by: Abeba Read MD on 11/22/2019 4:47 PM
[~2019-11-23] VITALS: Ht 165.1 cm; Wt 57.6 kg
[~2019-11-23 08:13] MED LIST changes: +AMATIZA PO; +PENCILLIN V PO250 MG PO
[2019-11-23] MEDS ORDERED: PIPER-TAZ 3.375 GM 50 ML ONE (09:23)
[2019-11-23] MEDS ORDERED: B&O 60MG R/S 60 MG SUPP PR ONE (10:53)
[2019-11-23] MEDS ORDERED: IOPAMIDOL 300MG/ML 50ML INFUS..BTL IV ONE (10:53)
[2019-11-23] MEDS ORDERED: B&O 60MG R/S 60 MG SUPP PR PRN (11:00)
[2019-11-23] MEDS ORDERED: DIPHENHYDRAMINE HCL 25 MG CAP PO PRN (11:00)
[2019-11-23] MEDS ORDERED: ONDANSETRON HCL INJ 2MG/ML 2ML 2 MG/ML VIAL IV PRN (11:00)
[2019-11-23] MEDS ORDERED: FENTANYL CITRATE/PF 100MCG/2 ML INJ ONE ×2 (12:42→14:10)
[2019-11-23 13:49] LABS: BASOPHILS % 0.6 % (0.0-1.0); EOSINOPHILS # (AUTO) 0.1 (0.0-0.4); EOSINOPHILS % 2.5 % (0.0-6.0); HEMATOCRIT 29.4 % (38.2-49.6); LYMPHOCYTES # (AUTO) 1.6 (1.0-3.2); MEAN CORPUSCULAR HEMOGLOBIN 28.1 pg (28-32); MEAN CORPUSCULAR HGB CONC 30.6 g/dL (31-35); MEAN CORPUSCULAR VOLUME 91.9 fL (81-99); MONOCYTES # (AUTO) 0.3 (0.2-0.8); MONOCYTES % 5.5 % (4.4-11.3); NEUTROPHILS # (AUTO) 2.9 (2.1-6.9); NEUTROPHILS % 59.2 % (38.7-80.0); PLATELET COUNT 171 x10e3/uL (140-360)
[2019-11-23] MEDS ORDERED: PIPERACILLIN/TAZO 2.25 GM 50 ML IV SCH (14:00)
[2019-11-23 14:08] LABS: CALCIUM 8.7 mg/dL (8.4-10.2); CREATININE, SERUM 2.6 mg/dL (0.72-1.25)
[2019-11-23] MEDS ORDERED: MEPERIDINE HCL INJ 25 MG/ML VIAL ONE (14:38)
--- NOTE | 2019-11-23 15:40 | NUR ---
RECEIVED PATIENT FROM RECOVERY. PATIENT A/O X3, EVEN RESPIRATIONS ON RA. LUNG SOUNDS CLEAR TO AUSCULTATION. BOWEL SOUNDS PRESENT. LOUIS IN PLACE WITH CBI. URINE STRAW COLORED. RIGHT HAND 22 GAUGE IV WITH IVF @ 75 CC/HR. PAIN TO RIGHT HIP AT THIS TIME 05/04. ORIENTED PATIENT TO ROOM AND CALL LIGHT. BED LOW, WHEELS LOCKED, SIDE RAILS X2. CALL LIGHT IN REACH WILL CONTINUE TO MONITOR PATIENT.
[2019-11-23] MEDS: SOD CHL 0.45%/POT CHL 20MEQ 1,000 ML IV SCH (16:01)
[2019-11-23 16:22] VITALS: BP 136/71
[2019-11-23] MEDS: ACETAMINOPHEN/CODEINE 300MG - 30MG TAB PO PRN ×2 (16:23→20:27)
[2019-11-23 16:24] VITALS: BP 136/71
[2019-11-23 17:02] VITALS: BP 136/71
[2019-11-23] MEDS: PIPERACILLIN/TAZO 2.25 GM 50 ML IV SCH (17:20)
[2019-11-23] MEDS: DOCUSATE SODIUM 100 MG CAP PO SCH (17:20)
[2019-11-23] MEDS ORDERED: PROPOFOL IV EMULSION 10 MG/ML 20 ML VIAL ONE (18:36)
[2019-11-23] MEDS ORDERED: LIDOCAINE HCL 2% LOCAL INJ 5 ML SDV VIAL INJ ONE (18:36)
[2019-11-23] MEDS ORDERED: SEVOFLURANE INHAL SOLN 250 ML PEN BTL ONE (18:36)
--- NOTE | 2019-11-23 19:00 | NUR ---
RECEIVED PATIENT IN BEDSIDE SHIFT REPORT. PATIENT RESTING IN BED AT THIS TIME. NO PAIN REPORTED. NO S&S OF DISTRESS NOTED. CBI RUNNING, CLEAR PINK URINE NOTED WITH OCCASIONAL SMALL CLOTS/TISSUE PASSING, NOT OCCLUDING FLOW OF IRRIGATION. R HAND 22G IV ASYMPTOMATIC, INTACT, AND PATENT, RUNNING 1/[id number] @75ML/HR. BED LOCKED IN LOWEST POSITION, SIDE RAILS UPX2, CALL LIGHT IN REACH.
[2019-11-23 19:05] VITALS: BP 120/57
[2019-11-23] MEDS: ATORVASTATIN 20 MG TAB PO SCH (20:27)
[2019-11-23 20:50] VITALS: BP 120/57
[2019-11-23 23:44] VITALS: BP 122/62
[2019-11-24] VITALS (7 sets, daily range): BP systolic 118–130; BP diastolic 57–85
--- NOTE | 2019-11-24 00:35 | Consultation ---
DATE OF CONSULTATION: 11/23/2019 REASON FOR CONSULTATION: [id number] kidney disease stage 3. HISTORY OF PRESENT ILLNESS: The patient is a pleasant 89-year-old male with past medical history of metastatic advanced urinary bladder cancer, multiple ureteral stent for obstruction being followed by Dr. Nawaf Hussein, recurrent urinary tract infections, CKD stage 4, baseline creatinine around 2, GERD, hypertension, was admitted after debulking of the bladder tumor and bilateral ureteral stent exchange. The patient currently has a Lang catheter and on bladder irrigation. The patient's creatinine was found to be at 2.73 on admission, which is coming down to 2.6. The patient denies having any nausea, vomiting, or diarrhea. PAST MEDICAL HISTORY: As above. 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 SOCIAL HISTORY: No history of smoking, alcohol, or intravenous drug abuse. ALLERGIES: NO KNOWN DRUG ALLERGIES. MEDICATION: Zosyn 2.25 g IV q.8 hours, half NS at 75 mL an hour, and Zofran p.r.n. REVIEW OF SYSTEMS: GENERAL: No fatigue. No fever. No chills. HEENT: No headache or blurry vision. NECK: No dysphagia. CARDIOVASCULAR: No chest pain, PND, or orthopnea. RESPIRATORY: No shortness of breath. No dyspnea on exertion. No cough. No hemoptysis. GI: No nausea, vomiting, diarrhea, constipation, hematemesis, or melena. MUSCULOSKELETAL: No ankle swelling. NEUROLOGIC: No numbness or tingling. SKIN: No new rash. PHYSICAL EXAMINATION: VITAL SIGNS: Blood pressure 136/71, pulse of 102, respiration is 20, temperature 96.5, and 96% on room air. GENERAL: Awake, alert, oriented x3. Not in apparent distress. HEENT: PERRLA. Extraocular muscles intact. NECK: No elevated JVD. HEART: S1 and S2. Regular rate and rhythm. LUNGS: Clear to auscultate bilaterally ABDOMEN: Soft, nontender, nondistended. Bowel sounds positive. EXTREMITIES: No cyanosis, clubbing, or edema. NEURO: No focal deficits. SKIN: No new rash. LABORATORY DATA: Sodium 141, potassium 4, chloride 108, CO2 of 24, BUN 39, creatinine 2.6, glucose 99. White count 4.87, hemoglobin 9.0, and platelet count 171. Chest x-ray on admission, no focal pneumonia or pulmonary edema. ASSESSMENT AND PLAN: 1. Acute kidney injury on chronic kidney disease stage 4. Baseline creatinine around 2. Currently, creatinine is improving with IV fluids. Likely secondary to bilateral obstruction. Status post cystoscopy. Continue to monitor. Avoid nephrotoxic medication. Repeat the labs in the morning. 2. Bladder cancer status post bilateral ureteral stents, status post cystoscopy with bilateral ureteral stent exchange and cancer removal. Continue with bladder irrigation, Dr. Hussein is following. 3. Hypertension, controlled. 4. Anemia. Monitor hemoglobin closely. PRBC if hemoglobin is less than 7. Thank you, Dr. Hussein, for the consult. We will follow the patient with you. MD LAMAR Villa/MAURIL /[id number]
[2019-11-24] MEDS: PIPERACILLIN/TAZO 2.25 GM 50 ML IV SCH ×3 (02:40→17:23)
[2019-11-24 06:07] LABS: BASOPHILS # (AUTO) 0.1 (0.0-0.1); BASOPHILS % 0.4 % (0.0-1.0); EOSINOPHILS # (AUTO) 0.3 (0.0-0.4); EOSINOPHILS % 2.7 % (0.0-6.0); HEMATOCRIT 28.1 % (38.2-49.6); HEMOGLOBIN 8.8 g/dL (14.0-18.0); LYMPHOCYTES # (AUTO) 2.2 (1.0-3.2); LYMPHOCYTES % 17.5 % (18.0-39.1); MEAN CORPUSCULAR HEMOGLOBIN 28.1 pg (28-32); MEAN CORPUSCULAR HGB CONC 31.3 g/dL (31-35); MEAN CORPUSCULAR VOLUME 89.8 fL (81-99); MONOCYTES # (AUTO) 0.7 (0.2-0.8); MONOCYTES % 5.3 % (4.4-11.3); NEUTROPHILS # (AUTO) 9.1 (2.1-6.9); NEUTROPHILS % 73.5 % (38.7-80.0); PLATELET COUNT 219 x10e3/uL (140-360); RED BLOOD COUNT 3.13 x10e6/uL (4.3-5.7); RED CELL DISTRIBUTION WIDTH 16.1 % (11.7-14.4)
[2019-11-24 06:24] LABS: ANION GAP 15.4 mmol/L (8-16); CALCIUM 8.7 mg/dL (8.4-10.2); CREATININE, SERUM 2.57 mg/dL (0.72-1.25); POTASSIUM 4.4 mmol/L (3.5-5.1)
[2019-11-24] MEDS: SOD CHL 0.45%/POT CHL 20MEQ 1,000 ML IV SCH ×2 (06:34→17:24)
--- NOTE | 2019-11-24 07:00 | NUR ---
RECEIVED PATIENT AWAKE RESTING IN BED NO S/S OF DISTRESS. BED LOW, WHEELS LOCKED, SIDE RAILS X2. CALL LIGHT IN REACH WILL CONTINUE TO MONITOR PATIENT.
[2019-11-24] MEDS ORDERED: ONDANSETRON HCL 4 MG ORAL DISINTEGRATING TAB PO PRN (08:15)
[2019-11-24] MEDS ORDERED: AMATIZA PO SCH (09:00)
[2019-11-24] MEDS: LABETALOL HCL 100 MG TAB PO SCH ×2 (09:00→17:25)
[2019-11-24] MEDS: DOCUSATE SODIUM 100 MG CAP PO SCH ×2 (09:14→17:24)
[2019-11-24] MEDS: TAMSULOSIN HCL 0.4 MG CAP PO SCH (09:14)
[2019-11-24] MEDS: ALLOPURINOL 100 MG TAB PO SCH (09:14)
--- NOTE | 2019-11-24 09:19 | NUR ---
DR. ORTIZ MAKING ROUNDS ON PATIENT. VERBAL ORDER TO STOP IRRIGATION AND CONTINUE TO MONITOR.
--- NOTE | 2019-11-24 09:58 | NUR ---
PATIENT AMBULATING IN HALLWAY, STEADY GAIT, NO S/S OF DISTRESS. PATIENT BACK TO BED, CALL LIGHT IN REACH. WILL CONTINUE TO MONITOR PATIENT.
[2019-11-24] MEDS: FLUCONAZOLE 100 MG TAB PO SCH (10:54)
--- NOTE | 2019-11-24 14:30 | NUR ---
Spoke to Mr Ilan about HH. He wants to keep with [facility]. Clinicals sent to [phone]. . IMM signed as well. Est DC date is 11/25
--- NOTE | 2019-11-24 16:02 | NUR ---
Call from Jodie with [facility]. She states he is good to go. Informed her of planned DC date of 11/25.
[2019-11-24] MEDS: ATORVASTATIN 20 MG TAB PO SCH (19:39)
[2019-11-25] VITALS (8 sets, daily range): BP systolic 122–136; BP diastolic 57–63
[2019-11-25] MEDS: PIPERACILLIN/TAZO 2.25 GM 50 ML IV SCH ×3 (01:59→18:31)
[2019-11-25] MEDS: SOD CHL 0.45%/POT CHL 20MEQ 1,000 ML IV SCH ×3 (02:57→16:17)
[2019-11-25 05:48] LABS: BASOPHILS % 0.2 % (0.0-1.0); EOSINOPHILS # (AUTO) 0.3 (0.0-0.4); EOSINOPHILS % 2.5 % (0.0-6.0); HEMATOCRIT 27.9 % (38.2-49.6); HEMOGLOBIN 8.7 g/dL (14.0-18.0); LYMPHOCYTES # (AUTO) 1.7 (1.0-3.2); LYMPHOCYTES % 13.7 % (18.0-39.1); MEAN CORPUSCULAR HEMOGLOBIN 28.2 pg (28-32); MEAN CORPUSCULAR HGB CONC 31.2 g/dL (31-35); MEAN CORPUSCULAR VOLUME 90.3 fL (81-99); MONOCYTES # (AUTO) 0.6 (0.2-0.8); NEUTROPHILS # (AUTO) 9.7 (2.1-6.9); PLATELET COUNT 199 x10e3/uL (140-360); RED BLOOD COUNT 3.09 x10e6/uL (4.3-5.7)
[2019-11-25 06:19] LABS: ANION GAP 15.6 mmol/L (8-16); CALCIUM 8.5 mg/dL (8.4-10.2); CREATININE, SERUM 2.38 mg/dL (0.72-1.25); POTASSIUM 4.6 mmol/L (3.5-5.1)
--- NOTE | 2019-11-25 07:10 | NUR ---
Received patient ambulated to the bathroom with non-skid socks on and steady gate. Denies pain at this time. Respiration even and unlabored, Assisted to bed with call light in reach.
[2019-11-25] MEDS: DOCUSATE SODIUM 100 MG CAP PO SCH ×2 (08:54→18:32)
[2019-11-25] MEDS: FLUCONAZOLE 100 MG TAB PO SCH (08:54)
[2019-11-25] MEDS: ALLOPURINOL 100 MG TAB PO SCH (08:55)
[2019-11-25] MEDS: TAMSULOSIN HCL 0.4 MG CAP PO SCH (08:55)
[2019-11-25] MEDS: LABETALOL HCL 100 MG TAB PO SCH ×2 (08:55→18:32)
[2019-11-25] MEDS: ACETAMINOPHEN/CODEINE 300MG - 30MG TAB PO PRN (18:33)
--- NOTE | 2019-11-25 19:22 | NUR ---
Report given to overnight stocker. Respiration even and unlabored without SOB. Call llight in reach.
[2019-11-25] MEDS: ATORVASTATIN 20 MG TAB PO SCH (20:12)
--- NOTE | 2019-11-25 22:07 | NUR ---
Patient nieves Allred states he is tired of them and they are tight.
[2019-11-26] VITALS (10 sets, daily range): BP systolic 112–151; BP diastolic 53–66
[2019-11-26] MEDS: PIPERACILLIN/TAZO 2.25 GM 50 ML IV SCH ×3 (01:47→17:50)
[2019-11-26] MEDS: SOD CHL 0.45%/POT CHL 20MEQ 1,000 ML IV SCH ×3 (01:49→20:47)
[2019-11-26 06:02] LABS: BASOPHILS % 0.2 % (0.0-1.0); EOSINOPHILS # (AUTO) 0.4 (0.0-0.4); EOSINOPHILS % 3.3 % (0.0-6.0); HEMATOCRIT 28.7 % (38.2-49.6); HEMOGLOBIN 9.1 g/dL (14.0-18.0); LYMPHOCYTES # (AUTO) 2.6 (1.0-3.2); LYMPHOCYTES % 20.4 % (18.0-39.1); MEAN CORPUSCULAR HEMOGLOBIN 28.1 pg (28-32); MEAN CORPUSCULAR HGB CONC 31.7 g/dL (31-35); MEAN CORPUSCULAR VOLUME 88.6 fL (81-99); MONOCYTES # (AUTO) 0.5 (0.2-0.8); MONOCYTES % 4.1 % (4.4-11.3); NEUTROPHILS # (AUTO) 9.1 (2.1-6.9); NEUTROPHILS % 71.7 % (38.7-80.0); PLATELET COUNT 203 x10e3/uL (140-360); RED BLOOD COUNT 3.24 x10e6/uL (4.3-5.7); RED CELL DISTRIBUTION WIDTH 15.9 % (11.7-14.4)
[2019-11-26 06:27] LABS: ANION GAP 13.6 mmol/L (8-16); CALCIUM 8.9 mg/dL (8.4-10.2); CREATININE, SERUM 2.35 mg/dL (0.72-1.25); POTASSIUM 4.6 mmol/L (3.5-5.1)
--- NOTE | 2019-11-26 07:00 | NUR ---
bedside rounds done. pt is sleeping, no s/s of distress. call light within reach, bed safety implemented.
[2019-11-26] MEDS: FLUCONAZOLE 100 MG TAB PO SCH (08:29)
[2019-11-26] MEDS: DOCUSATE SODIUM 100 MG CAP PO SCH ×2 (08:29→17:00)
[2019-11-26] MEDS: LABETALOL HCL 100 MG TAB PO SCH ×2 (08:30→17:50)
[2019-11-26] MEDS: TAMSULOSIN HCL 0.4 MG CAP PO SCH (08:30)
[2019-11-26] MEDS: ALLOPURINOL 100 MG TAB PO SCH (08:30)
[2019-11-26] MEDS: ACETAMINOPHEN/CODEINE 300MG - 30MG TAB PO PRN ×2 (08:30→20:19)
--- NOTE | 2019-11-26 19:12 | NUR ---
Received bedside report from day nurse. Patient resting in bed, no s/s of distress or c/o pain at this time. All safety measures in place. Will continue to monitor.
--- NOTE | 2019-11-26 19:13 | NUR ---
pt states that he has not had a BM in 2 days and is requesting milk of mag. notified Dr. Ley, who is covering for Dr. Velasquez, and waiting for new orders.
[2019-11-26] MEDS ORDERED: MAGNESIUM HYDROXIDE 30 ML UDC PO PRN (19:30)
[2019-11-26] MEDS: ATORVASTATIN 20 MG TAB PO SCH (20:19)
--- NOTE | 2019-11-26 20:39 | NUR ---
Lang care, meatal care, and simple bladder irrigation performed.
[2019-11-27] MEDS: PIPERACILLIN/TAZO 2.25 GM 50 ML IV SCH ×2 (01:31→08:51)
[2019-11-27 04:25] VITALS: BP 139/64
[2019-11-27 06:32] LABS: BASOPHILS % 0.1 % (0.0-1.0); EOSINOPHILS # (AUTO) 0.4 (0.0-0.4); EOSINOPHILS % 3.9 % (0.0-6.0); HEMATOCRIT 26.4 % (38.2-49.6); HEMOGLOBIN 8.2 g/dL (14.0-18.0); LYMPHOCYTES # (AUTO) 2.3 (1.0-3.2); LYMPHOCYTES % 22.7 % (18.0-39.1); MEAN CORPUSCULAR HEMOGLOBIN 28.1 pg (28-32); MEAN CORPUSCULAR HGB CONC 31.1 g/dL (31-35); MEAN CORPUSCULAR VOLUME 90.4 fL (81-99); MONOCYTES # (AUTO) 0.6 (0.2-0.8); MONOCYTES % 5.6 % (4.4-11.3); NEUTROPHILS # (AUTO) 6.8 (2.1-6.9); NEUTROPHILS % 67.2 % (38.7-80.0); PLATELET COUNT 194 x10e3/uL (140-360); RED BLOOD COUNT 2.92 x10e6/uL (4.3-5.7)
[2019-11-27 06:56] LABS: ANION GAP 13.2 mmol/L (8-16); CALCIUM 8.7 mg/dL (8.4-10.2); CREATININE, SERUM 2.4 mg/dL (0.72-1.25); POTASSIUM 4.2 mmol/L (3.5-5.1)
--- NOTE | 2019-11-27 07:00 | NUR ---
BEDSIDE ROUNDS DONE. PT IS SLEEPING, NO S/S OF DISTRESS. CALL LIGHT WITHIN REACH AND BED SAFETY IMPLEMENTED
--- NOTE | 2019-11-27 07:05 | NUR ---
Report given to day nurse. Patient resting in bed, no s/s of distress or c/o pain at this time. All safety measures in place.
[2019-11-27 08:24] VITALS: BP 135/64
[2019-11-27] MEDS: TAMSULOSIN HCL 0.4 MG CAP PO SCH (08:47)
[2019-11-27] MEDS: FLUCONAZOLE 100 MG TAB PO SCH (08:47)
[2019-11-27] MEDS: DOCUSATE SODIUM 100 MG CAP PO SCH (08:47)
[2019-11-27] MEDS: ALLOPURINOL 100 MG TAB PO SCH (08:48)
[2019-11-27] MEDS: LABETALOL HCL 100 MG TAB PO SCH (08:48)
[2019-11-27 10:31] VITALS: BP 135/64
[2019-11-27] MEDS: ACETAMINOPHEN/CODEINE 300MG - 30MG TAB PO PRN (11:10)
[2019-11-27 12:17] VITALS: BP 128/58
--- NOTE | 2019-11-28 04:05 | Discharge Summary ---
FINAL DISCHARGE DIAGNOSES: 1. Benign prostatic hypertrophy status post TURP performed by Dr. Hussein, Urology. 2. Acute kidney injury on chronic kidney disease, stage 3-4. 3. Urinary tract infection, treated appropriately. CONSULTANTS: Urology and Nephrology. PHYSICAL EXAMINATION: VITAL SIGNS: Temperature 97.7, pulse 71, respiratory rate is 18, blood pressure 120/58, pulse ox 96% on room air. LABORATORY FINDINGS: Show white count is 10, hemoglobin 8.2, hematocrit 26, platelets of 194. Chemistry; sodium 138, potassium 4.2 chloride 105, bicarb 24, anion gap of 13, BUN 24, hematocrit 21, creatinine is 2.4, calcium is 8.7, magnesium 1.6. LFTs within normal range. Albumin was 3.1. Microbiology, urine culture shows Enterobacter cloacae. IMAGING STUDIES: Abdominal x-ray shows no focal pneumonia or pulmonary edema. Shows indwelling right and left internal nephroureteral stents. Chest x-ray again, no focal pneumonia and pulmonary edema. HOSPITAL COURSE: 89-year-old male, comes into the ED with worsening BPH, underwent status post TURP procedure performed by Urology, Dr. Hussein. Postprocedure, the patient was doing well with no complaints. The patient also has underlying chronic kidney disease and developed acute kidney injury while here in the hospital stay. Nephrology was consulted. The patient's creatinine down trended back to his normal baseline. The patient was found to have a urinary tract infection with Enterobacter cloacae and started on IV antibiotics. The patient was discharged on oral Cipro. The patient was cleared for discharge by all consultants including urology and nephrology. On the day of discharge, vital signs were stable, labs reviewed and were stable. The patient was seen, evaluated, and examined thoroughly on the day of discharge. No other complaints. The patient verbalized, understanding, and agrees to plan of care to follow up accordingly as an outpatient with primary care physician in 1 week and the urologist in 1 to 2 weeks and nephrology in 1 to 2 weeks' time. MEDICATIONS: See med reconciliation form. DISPOSITION: Home. CONDITION: Stable. DIET: Heart healthy. In the event of worsening symptoms, the patient was advised to come back to the ED for further evaluation. Discharge summary took greater than 35 minutes. MD AKHIL Chamberlain/ALPHONSE /[id number]
--- NOTE | 2020-01-09 04:38 | Operative Report ---
DATE OF PROCEDURE: 11/23/2019 SURGEON: Nawfa Hussein MD PREOPERATIVE DIAGNOSES: 1. Massive amount of superficial bladder cancer. 2. Bilateral hydronephrosis. 3. Bilateral indwelling ureteral stents. POSTOPERATIVE DIAGNOSES: 1. Massive amount of superficial bladder cancer. 2. Bilateral hydronephrosis. 3. Bilateral indwelling ureteral stents. OPERATION PERFORMED: 1. Cystoscopy with complicated removal of bilateral indwelling ureteral stents (separate procedure performed for the diagnosis of stents). 2. Cystourethroscopy with bilateral ureteral stent placement (separate procedure performed to relieve the hydronephrosis). 3. Interpretation of retrograde ureteropyelography. 4. Supervision of fluoroscopy, no radiologist present. 5. Cystourethroscopy with transurethral resection of very large bladder tumor well over 5 cm in diameters of tumor was excised with numerous tumors remaining. ANESTHESIA: General. COMPLICATIONS: None. CLINICAL SUMMARY: Piotr Castro is an 89-year-old very challenging patient with massive amount of bladder tumor present in his bladder. He has undergone numerous procedures and will need more. The patient has bilateral stents and renal insufficiency. He is brought for the above procedures. He is aware of the risks of bleeding, infection, injury to adjacent structures, need for additional procedures and elected to proceed. OPERATIVE PROCEDURE IN DETAIL: Informed consent was verified. Piotr Castro was properly identified and taken to the operating room, placed on the cystoscopy table in supine position. Anesthesia was uneventfully begun. The patient was then carefully gently repositioned in the dorsal lithotomy position with all pressure points well padded. His genitalia were prepared and draped in usual sterile fashion. The 22.5-Irish cystoscope sheath with visual obturator in place was atraumatically inserted. The patient's urethra was guided unremarkably through the normal sphincteric region, through the prostate bed, which was significant for BPH and into the patient's bladder, where there was a massive amount of bladder tumor present. There were stents emerging from both ureteral orifices. A guidewire was then placed into the right ureter, guided to the level of the patient's kidney. The stent was then grasped completely, removed and discarded. After opacifying the collecting systems with contrast, we utilized cystoscopic fluoroscopic guidance to place a new right-sided indwelling ureteral stent, coiled in the patient's kidney as well as the patient's bladder. The retaining suture was cut short. An identical set of maneuvers were performed on the left hand side. Interpretation of retrograde ureteropyelography contrast was instilled in retrograde fashion bilaterally. There were no stones. There were no suspicious lesions except for a filling defect in the right lower pole. This defect appeared consistent that could potentially be just blood clot. Followup of this area will be required. His stents were in good position, coiled into the patient's kidneys as well as the patient's bladder. The resectoscope was placed. We then proceeded with performing transurethral resection of bladder tumor. We progressively resected tumors. The ureteral orifices and ureteral regions were not involved. We first cleared out tumors that were present in the inferior portion of the posterior wall. We progressively removed approximately 10 cm diameter in the region of bladder tumor and not half of the tumor present remain. Hemostasis was obtained with pinpoint electrocautery. We resected for exactly 1 hour and then we quit to avoid the risk of hyponatremia. We obtained good hemostasis. The resectoscope was withdrawn and Lang catheter was placed. The patient was placed on slow irrigation of clear efflux and he was uneventfully reversed from anesthesia and taken to recovery room in stable condition. There were no complications to the procedure. He tolerated the procedure well. Exclusive postoperative instructions were given to keep the patient as an inpatient for intravenous antibiotics and monitoring. We will await the urine culture results. We will plan on returning the patient to the operating room for additional TURBT. The patient's histopathology so far has always been superficial. Nawaf Hussein MD OH/MODL /[id number]
== END 2019-11-27 15:47 | disposition home health service (06) | DRG 657 ==
LOC: OR 08:13 → PACU V 11:00 → MED/SURG 15:37
PROVIDERS: ADMIT Urology; ATTEND Urology
PROC: 0TBB8ZZ Excision of Bladder, Via Natural or Artificial Opening Endoscopic (ICD-10-PCS; 2019-11-23)
PROC: BT141ZZ Fluoroscopy of Kidneys, Ureters and Bladder using Low Osmolar Contrast (ICD-10-PCS; 2019-11-23)
PROC: 0TPB8DZ Removal of Intraluminal Device from Bladder, Via Natural or Artificial Opening Endoscopic (ICD-10-PCS; principal; 2019-11-23 11:00)
PROC: 0T788DZ Dilation of Bilateral Ureters with Intraluminal Device, Via Natural or Artificial Opening Endoscopic (ICD-10-PCS; 2019-11-23 11:00)
DX: C67.9 Malignant neoplasm of bladder, unspecified (principal); N17.9 Acute kidney failure, unspecified; N18.4 Chronic kidney disease, stage 4 (severe); N39.0 Urinary tract infection, site not specified; I12.9 Hypertensive chronic kidney disease with stage 1 through stage 4 chronic kidney disease, or unspecified chronic kidney disease; Z96.0 Presence of urogenital implants; K21.9 Gastro-esophageal reflux disease without esophagitis; D64.9 Anemia, unspecified; E78.5 Hyperlipidemia, unspecified
CPT/HCPCS: 36415; 51700; 71046; 74018; 74420; 80048; 80053; 83735; 85025; 86850; 86870; 86880; 86900; 86905; 87086; 87186; 88305; 93005; 99001; C1758; C1769; C2617; J2001; J2175; J2543; J3010

== ENCOUNTER 2020-01-18 08:07 | Inpatient (IN) | payer MEDICARE ==
[~2020-01-18] VITALS: Ht 165.1 cm; Wt 57.2 kg
[2020-01-18] MEDS ORDERED: GENTAMICIN 80MG/NS 100 ML 100 ML IV ONE (08:54)
[2020-01-18] MEDS ORDERED: AUGMENTIN 500-1 EACH PO (09:04)
[2020-01-18 09:15] LABS: BASOPHILS % 0.4 % (0.0-1.0); EOSINOPHILS # (AUTO) 0.2 (0.0-0.4); EOSINOPHILS % 2.3 % (0.0-6.0); HEMATOCRIT 28.3 % (38.2-49.6); HEMOGLOBIN 8.9 g/dL (14.0-18.0); LYMPHOCYTES # (AUTO) 1.9 (1.0-3.2); LYMPHOCYTES % 20.6 % (18.0-39.1); MEAN CORPUSCULAR HEMOGLOBIN 29.3 pg (28-32); MEAN CORPUSCULAR HGB CONC 31.4 g/dL (31-35); MEAN CORPUSCULAR VOLUME 93.1 fL (81-99); MONOCYTES # (AUTO) 0.8 (0.2-0.8); MONOCYTES % 8.7 % (4.4-11.3); NEUTROPHILS # (AUTO) 6.2 (2.1-6.9); NEUTROPHILS % 67.5 % (38.7-80.0); PLATELET COUNT 195 x10e3/uL (140-360); RED BLOOD COUNT 3.04 x10e6/uL (4.3-5.7); RED CELL DISTRIBUTION WIDTH 15.3 % (11.7-14.4)
[2020-01-18] MEDS ORDERED: PIPERACILLIN/TAZO 2.25 GM 50 ML IV ONE (09:15)
[2020-01-18 09:36] LABS: ALBUMIN/GLOBULIN RATIO 0.7 (0.8-2.0); ANION GAP 13.4 mmol/L (8-16); CREATININE, SERUM 2.86 mg/dL (0.72-1.25); POTASSIUM 4.4 mmol/L (3.5-5.1)
--- NOTE | 2020-01-18 09:58 | Diagnostic Imaging Report ---
EXAMINATION: ABDOMEN-1VIEW (KUB) INDICATION: Pre-operative COMPARISON: KUB dated 11/22/2019. FINDINGS: LINES/TUBES:Change right and left internal nephroureteral stents in place. LUNGS:No focal consolidation or effusion. ABDOMEN: No radiographically apparent renal calculi. Phlebolith in the left pelvis. No acute osseous injury. Degenerative changes of the visualized spine. Nonobstructive bowel gas pattern. No free air. IMPRESSION: Unremarkable KUB. Unchanged position of right and left internal nephroureteral stents. Signed by: Michi Barber MD on 01/18/2020 9:55 AM
[2020-01-18] MEDS ORDERED: ONDANSETRON HCL INJ 2MG/ML 2ML 2 MG/ML VIAL IV PRN (11:15)
[2020-01-18] MEDS ORDERED: ACETAMINOPHEN/CODEINE 300MG - 30MG TAB PO PRN (11:15)
[2020-01-18] MEDS ORDERED: DIPHENHYDRAMINE HCL 25 MG CAP PO PRN (11:15)
[2020-01-18] MEDS ORDERED: ACETAMINOPHEN 1000 MG/100 ML IV PRN (11:15)
[2020-01-18] MEDS ORDERED: B&O 60MG R/S 60 MG SUPP PR PRN (11:15)
[2020-01-18] MEDS ORDERED: FLUCONAZOLE 200 MG/100 ML 100 ML IV ONE (12:39)
[2020-01-18] MEDS ORDERED: FENTANYL CITRATE/PF 100MCG/2 ML INJ ONE ×2 (13:08→15:18)
[2020-01-18] MEDS ORDERED: ACETAMINOPHEN 1000 MG/100 ML 100 ML IV ONE (13:34)
[2020-01-18 14:02] LABS: BASOPHILS % 0.3 % (0.0-1.0); EOSINOPHILS # (AUTO) 0.2 (0.0-0.4); EOSINOPHILS % 2.5 % (0.0-6.0); HEMATOCRIT 25.5 % (38.2-49.6); HEMOGLOBIN 7.8 g/dL (14.0-18.0); LYMPHOCYTES # (AUTO) 1.8 (1.0-3.2); LYMPHOCYTES % 30.1 % (18.0-39.1); MEAN CORPUSCULAR HEMOGLOBIN 28.9 pg (28-32); MEAN CORPUSCULAR HGB CONC 30.6 g/dL (31-35); MEAN CORPUSCULAR VOLUME 94.4 fL (81-99); MONOCYTES # (AUTO) 0.5 (0.2-0.8); MONOCYTES % 7.6 % (4.4-11.3); NEUTROPHILS # (AUTO) 3.6 (2.1-6.9); NEUTROPHILS % 59.3 % (38.7-80.0); PLATELET COUNT 152 x10e3/uL (140-360); RED CELL DISTRIBUTION WIDTH 15.3 % (11.7-14.4)
[2020-01-18 14:24] LABS: ANION GAP 9.4 mmol/L (8-16); CALCIUM 8.4 mg/dL (8.4-10.2); CREATININE, SERUM 2.48 mg/dL (0.72-1.25); POTASSIUM 4.4 mmol/L (3.5-5.1)
--- NOTE | 2020-01-18 14:26 | NUR ---
RECEIVED PATIENT FROM PACU. PATIENT A/O X3, EVEN RESPIRATIONS ON RA. LUNG SOUNDS CLEAR. LOUIS IN PLACE WITH CBI, URINE STAW COLORED. PATIENT AMBULATES STANDBY ASSIST. RIGHT AC 20 GAUGE IV WITH NS @ 75 CC/HR. PATIENT STATES PAIN 2/10 BLADDER, INFORMED PATIENT OF PAIN MEDICATION AVAILABLE. ORIENTED PATIENT TO ROOM AND CALL LIGHT. BED LOW, WHEELS LOCKED, SIDE RAILS X2. CALL LIGHT IN REACH WILL CONTINUE TO MONITOR PATIENT.
[2020-01-18] MEDS ORDERED: DEXAMETHASONE SOD PHOS INJ 4 MG/ML VIAL ONE (15:10)
[2020-01-18] MEDS ORDERED: PROPOFOL IV EMULSION 10 MG/ML 20 ML VIAL ONE (15:10)
[2020-01-18] MEDS ORDERED: SEVOFLURANE INHAL SOLN 250 ML PEN BTL ONE (15:10)
[2020-01-18] MEDS ORDERED: LIDOCAINE HCL 2% LOCAL INJ 5 ML SDV VIAL INJ ONE (15:10)
[2020-01-18] MEDS ORDERED: EPHEDRINE SULFATE INJ 50 MG/ML VIAL ONE (15:10)
[2020-01-18] MEDS ORDERED: ONDANSETRON HCL INJ 2MG/ML 2ML 2 MG/ML VIAL ONE (15:10)
[2020-01-18] MEDS: SODIUM CHLORIDE 0.9% 1000ML 1,000 ML IV SCH (15:14)
[2020-01-18 15:20] VITALS: BP 145/65
[2020-01-18 15:22] VITALS: BP 145/65
[2020-01-18 15:49] VITALS: BP 145/65
[2020-01-18] MEDS: MEROPENEM 500MG/ NS 50ML 50 ML IV SCH (16:43)
[2020-01-18] MEDS: DOCUSATE SODIUM 100 MG CAP PO SCH (16:43)
[2020-01-18] MEDS: PHENAZOPYRIDINE HCL 100 MG TAB PO SCH (17:30)
[2020-01-18 19:49] VITALS: BP 128/65
--- NOTE | 2020-01-18 20:30 | NUR ---
PATIENT WAS FOUND IN ROOM WITH A BAG OF PILLS BY STAFF SONOGRAPHER WHO NOTIFIED NURSE. NURSE WENT TO FIND OUT WHICH MEDICATIONS PATIENT WAS TAKING AND PATIENT PROVIDED MEDICATIONS. NURSE CALLED DR. ORTIZ AND VERIFIED MEDICATIONS PT SHOULD BE TAKING AND CONT HOME MEDS OF LIPITOR, TAMULOSIN, AND LABETOLOL. PT INSTRUCTED NOT TO TAKE THE AUGMENTIN PRESCRIBED PRIOR TO SURGERY AND TO HOLD THAT MED UNTIL DR. ORTIZ SAYS TAKE IT. DID NOT CONT PT ALLOPURINOL PER DR. ORTIZ AT THIS TIME. STARTED DIFLUCAN IV. WILL CONT TO MONITOR PT.
--- NOTE | 2020-01-18 20:37 | Operative Report ---
DATE OF PROCEDURE: 01/18/2020 SURGEON: Nawaf Hussein MD PREOPERATIVE DIAGNOSIS: Persistent and recurrent large surface area of bladder cancer. POSTOPERATIVE DIAGNOSIS: Persistent and recurrent large surface area of bladder cancer. OPERATION PERFORMED: Complicated, lengthy, challenging, and incomplete cystourethroscopy with transurethral resection of a very large bladder tumor well over 5 cm in diameter, resected and treated. ANESTHESIA: General. COMPLICATIONS: None. CLINICAL SUMMARY: Piotr Castro is a complicated 89-year-old man with a large surface area of bladder cancer. All pathology to date has proven to be TA disease. Nevertheless, the patient now requires bilateral ureteral stenting. He has chronic bilateral hydronephrosis. He has chronic renal insufficiency. He had recurrent urinary tract infections and has been treated with some antibiotics that he is still taking. The patient is brought for resection. The patient is at increased risk due to coronavirus outbreak; however, he has a much larger risk of his bladder cancer growing even more out of control then he already has. We have been unable to keep up with tumor growth and regrowth despite trying to getting this patient back to the operating room as soon as he will allow us. The patient has an extremely busy schedule despite his 89 years of age and even though I have instructed him that I prefer to take him to the operating room at least monthly until we get this cancer under control. We have not been able to do it at that interval. The patient understands the risk of the coronavirus and elected to proceed with surgery as planned. OPERATIVE PROCEDURE IN DETAIL: Informed consent was verified. Piotr Castro was properly identified, taken to the operating room, and placed on the cystoscopy table in supine position. Anesthesia was uneventfully begun. The patient was then carefully and gently repositioned in the dorsal lithotomy position with all pressure points well padded. His genitalia were prepared and draped in usual sterile fashion. The continuous-flow extra long resectoscope sheath with the visual obturator in place was atraumatically inserted in the patient's urethra, it was guided unremarkable urethra through the prostate bed, which was significant for BPH that was not very severe, but did exhibit some visual obstruction. We went to the patient's bladder, where panendoscopy revealed not only recurrent cancer, but also additional new growth of cancer anteriorly and in the direction of the bladder neck. There was thick whitish material that would resect through without the need for any electrocautery. This is consistent with a fungus ball or potentially necrotic disease. We worked for an hour. We resected and vaporized and fulgurated this past as we could. We tried to remove as much tissue as we could. Ureteral orifices were not involved. We cleared the posterior bladder wall shelter up and worked on both lateral mejia, some work was performed on the anterior tumor, but we ran out of time and we did not want it to get into bleeding that would require additional resection and it will take us well over an hour. In this frail elderly man, we are restricting our resection time to under an hour. Hemostasis was excellent. All chips were evacuated and sent for histopathological analysis. A continuous irrigation with a 24-Yi Lang catheter was in place, placed on slow irrigation with completely clear efflux. Catheter was irrigated to and fro to ensure it worked properly. A belladonna and opium suppository were placed revealing a 35 to 40 g prostate, smooth and nonfluctuant without any nodules. The patient was then uneventfully reversed from anesthesia and taken to recovery room in stable condition. There were no complications to the procedure. The patient tolerated the procedure well. Estimated blood loss was minimal. Next, we will proceed with admitting the patient, placing him on intravenous antibiotics. We will await urine culture specimen that was sent upon catheterizing the bladder with the cystoscope. We will of course monitor this fragile elderly man and take all the necessary precautions to avoid his exposure to coronavirus. Nawaf Hussein MD OH/MODL /[id number]
[2020-01-18] MEDS: ATORVASTATIN 20 MG TAB PO SCH (21:09)
[2020-01-18] MEDS: TAMSULOSIN HCL 0.4 MG CAP PO SCH (21:09)
[2020-01-18] MEDS: FLUCONAZOLE 100 MG/NS 50 ML 50 ML IV SCH (21:09)
[2020-01-18 22:21] VITALS: BP 128/65
[2020-01-19] VITALS (8 sets, daily range): BP systolic 114–156; BP diastolic 56–67
--- NOTE | 2020-01-19 | NUR ---
After receiving report from Swapna (previous shift production supervisor nurse), new nurse (Garret) introduced to patient. Pt on continuous bladder irrigation. On IVF (NS at 75ml/hr). Call york within reach.
[2020-01-19] MEDS: MEROPENEM 500MG/ NS 50ML 50 ML IV SCH ×2 (03:53→16:45)
--- NOTE | 2020-01-19 07:00 | NUR ---
RECEIVED PATIENT RESTING IN BED NO S/S OF DISTRESS. BED LOW, WHEELS LOCKED, SIDE RAILS X2. CALL LIGHT IN REACH WILL CONTINUE TO MONITOR PATIENT.
[2020-01-19 08:13] LABS: BASOPHILS % 0.3 % (0.0-1.0); EOSINOPHILS # (AUTO) 0.2 (0.0-0.4); EOSINOPHILS % 2.4 % (0.0-6.0); HEMATOCRIT 27.9 % (38.2-49.6); HEMOGLOBIN 8.8 g/dL (14.0-18.0); LYMPHOCYTES # (AUTO) 1.3 (1.0-3.2); MEAN CORPUSCULAR HGB CONC 31.5 g/dL (31-35); MEAN CORPUSCULAR VOLUME 92.1 fL (81-99); MONOCYTES # (AUTO) 0.4 (0.2-0.8); MONOCYTES % 6.4 % (4.4-11.3); NEUTROPHILS # (AUTO) 4.7 (2.1-6.9); NEUTROPHILS % 70.6 % (38.7-80.0); PLATELET COUNT 160 x10e3/uL (140-360); RED BLOOD COUNT 3.03 x10e6/uL (4.3-5.7); RED CELL DISTRIBUTION WIDTH 15.2 % (11.7-14.4)
[2020-01-19] MEDS: LABETALOL HCL 100 MG TAB PO SCH ×2 (08:40→16:45)
[2020-01-19] MEDS: SODIUM CHLORIDE 0.9% 1000ML 1,000 ML IV SCH ×2 (08:40→21:48)
[2020-01-19] MEDS: DOCUSATE SODIUM 100 MG CAP PO SCH ×2 (08:40→16:45)
[2020-01-19] MEDS: PHENAZOPYRIDINE HCL 100 MG TAB PO SCH ×3 (08:40→17:04)
[2020-01-19 09:04] LABS: ANION GAP 10.3 mmol/L (8-16); CALCIUM 8.1 mg/dL (8.4-10.2); CREATININE, SERUM 2.25 mg/dL (0.72-1.25); POTASSIUM 4.3 mmol/L (3.5-5.1)
--- NOTE | 2020-01-19 09:35 | NUR ---
Pt unavailable at this time. I will follow up as able. [facility] O: [phone]
[2020-01-19] MEDS ORDERED: LABETALOL HCL 100 MG TAB PO SCH (17:00)
[2020-01-19] MEDS ORDERED: AMATIZA PO SCH (17:00)
--- NOTE | 2020-01-19 19:20 | NUR ---
Patient visited in room during nursing rounds. Patient alert and oriented x3. Ambulatory with standby assist prn. Saline locked. Lang catheter in place draining dark orange to pinkish clear urine. Continuous bladder irrigation clamped at this time per MD order. On IVF (NS at 75ml/hr). Call york within reach.
[2020-01-19] MEDS: TAMSULOSIN HCL 0.4 MG CAP PO SCH (20:05)
[2020-01-19] MEDS: ATORVASTATIN 20 MG TAB PO SCH (20:05)
[2020-01-19] MEDS ORDERED: ATORVASTATIN 20 MG TAB PO SCH (21:00)
[2020-01-19] MEDS: FLUCONAZOLE 100 MG/NS 50 ML 50 ML IV SCH (21:49)
[2020-01-20] VITALS: BP 168/71
[2020-01-20 04:00] VITALS: BP 131/64
[2020-01-20] MEDS: MEROPENEM 500MG/ NS 50ML 50 ML IV SCH (04:30)
[2020-01-20 06:41] LABS: BASOPHILS % 0.3 % (0.0-1.0); EOSINOPHILS # (AUTO) 0.3 (0.0-0.4); EOSINOPHILS % 3.6 % (0.0-6.0); HEMATOCRIT 26.3 % (38.2-49.6); LYMPHOCYTES # (AUTO) 1.9 (1.0-3.2); LYMPHOCYTES % 26.6 % (18.0-39.1); MEAN CORPUSCULAR HEMOGLOBIN 28.5 pg (28-32); MEAN CORPUSCULAR HGB CONC 30.4 g/dL (31-35); MEAN CORPUSCULAR VOLUME 93.6 fL (81-99); MONOCYTES # (AUTO) 0.5 (0.2-0.8); NEUTROPHILS # (AUTO) 4.5 (2.1-6.9); NEUTROPHILS % 62.4 % (38.7-80.0); PLATELET COUNT 173 x10e3/uL (140-360); RED BLOOD COUNT 2.81 x10e6/uL (4.3-5.7); RED CELL DISTRIBUTION WIDTH 14.9 % (11.7-14.4)
[2020-01-20 06:57] LABS: ANION GAP 10.4 mmol/L (8-16); CALCIUM 8.2 mg/dL (8.4-10.2); CREATININE, SERUM 2.38 mg/dL (0.72-1.25); POTASSIUM 4.4 mmol/L (3.5-5.1)
[2020-01-20] MEDS: SODIUM CHLORIDE 0.9% 1000ML 1,000 ML IV SCH (07:00)
[2020-01-20] MEDS ORDERED: TAMSULOSIN HCL 0.4 MG CAP PO SCH (09:00)
[2020-01-20] MEDS ORDERED: ALLOPURINOL 100 MG TAB PO SCH (09:00)
--- NOTE | 2020-01-20 09:52 | Discharge Summary ---
COMMERCIAL RETOUCHER: Dr. Nawaf Hussein. The patient was admitted for postoperative TURBT. SUMMARY: An 89-year-old male with urinary bladder cancer with metastasis and hydronephrosis. The patient came in with urinary bladder tumor debulking. The patient is otherwise stable. Postoperatively, the patient continued without Lang catheter with continuous irrigation. The patient is doing well. Otherwise, the patient is stable. Urine cultures are negative so far. The patient will continue with his home medication. He will be discharged home today. Follow up with Dr. Nawaf Hussein for his instructions. The patient is stable and discharged home. MD ABHIJEET Best/MAURIL /[id number]
[2020-01-20 09:55] VITALS: BP 134/63
[2020-01-20] MEDS ORDERED: ONDANSETRON HCL 4 MG ORAL DISINTEGRATING TAB PO PRN (10:30)
[2020-01-20] MEDS: LABETALOL HCL 100 MG TAB PO SCH (10:35)
[2020-01-20] MEDS: PHENAZOPYRIDINE HCL 100 MG TAB PO SCH ×2 (10:35→12:26)
[2020-01-20] MEDS: DOCUSATE SODIUM 100 MG CAP PO SCH (10:35)
[2020-01-20] MEDS ORDERED: DIFLUCAN100 MG PO (11:26)
[2020-01-20 12:00] VITALS: BP 121/60
== END 2020-01-20 12:27 | disposition home or self-care (01) | DRG 669 ==
LOC: OR 08:07 → MED/SURG 11:04
PROVIDERS: ADMIT Urology; ATTEND Urology
PROC: 0TBB8ZZ Excision of Bladder, Via Natural or Artificial Opening Endoscopic (ICD-10-PCS; principal; 2020-01-18 10:00)
DX: C67.5 Malignant neoplasm of bladder neck (principal); N13.30 Unspecified hydronephrosis; B37.49 Other urogenital candidiasis; C79.89 Secondary malignant neoplasm of other specified sites; R33.9 Retention of urine, unspecified; D64.9 Anemia, unspecified; E78.5 Hyperlipidemia, unspecified; K21.9 Gastro-esophageal reflux disease without esophagitis; I12.9 Hypertensive chronic kidney disease with stage 1 through stage 4 chronic kidney disease, or unspecified chronic kidney disease; N18.3 Chronic kidney disease, stage 3 (moderate)
CPT/HCPCS: 36415; 74018; 80048; 80053; 83735; 85025; 87086; 87186; 88305; 88307; J1100; J1450; J1580; J2001; J2405; J2543; J3010; J7030

== ENCOUNTER 2020-02-15 07:49 | Inpatient (IN) | payer MEDICARE ==
[~2020-02-15] VITALS: Ht 165.1 cm; Wt 57.2 kg
[~2020-02-15 07:49] MED LIST changes: +AUGMENTIN 500-1 EACH PO; +DIFLUCAN100 MG PO
--- OUTSIDE RECORDS SUMMARY | 2020-02-15 07:53 | XMS REPORT | Encounter Summary ---
Author Organization Unknown Address [address] [place] [address] Phone [phone] Care Team Providers Care Equipment Engineer Name Role Phone Dr. Jimbo Roman 3 [phone] Jimbo Roman MD 3 [phone] Juvencio Mccullough MD 2 [phone] Herbert Adams MD 111 [phone] Nawaf Hussein MD 115 [phone] Luis Smith 118 [phone] Reason for Visit TELE-hospital follow up - TCM (MARIO) Instructions 1. Benign hypertensive renal disease 2. Chronic kidney disease stage 4 3. Malignant tumor of urinary bladder 4. Mixed hyperlipidemia 5. Moderate protein-calorie malnutrition (weight for age 60-74% of standard) 6. Hyperparathyroidism due to renal insufficiency 7. Senile purpura 8. Anemia in chronic kidney disease 9. Acute urinary tract infection 10. Arteriosclerosis of thoracic aorta 11. Malaise and fatigue Discussion Note Reviewed [facility] emr records. Hold Atorvastatin 20 mg po daily , Finish Fluconazole 100mg x 10 days & then start Atorvastatin. f/u in 1-3 mths Patient educational handouts: No information available. Plan of Care Patient Instructions Thank you for scheduling your post hospital visit. Please let us know if you need help in scheduling follow up tests or specialist visits. Knowing what medicines to keep taking and which to ones to stop after a hospital stay can be confusing. Contact your physicians with your questions about what medications you should be taking. Our [facility] can also help you in this area. Contact them at . [facility] can help you choose the best Home Health agency. We can also help you with social services technician and community resources. Call us we are here to help. If you experience any new or concerning symptoms, call us immediately at . Evening and Thursday clinic hours are now available. If you have problems after hours, you can reach the [facility] doctor workers compensation specialist at [phone] . Please follow up with your doctor in . Reminders Provider Appointments None recorded. Lab None recorded. Referral None recorded. Procedures None recorded. Surgeries None recorded. Imaging None recorded. Medications Name Start Date allopurinol 100 mg tablet Take 2 tablets every day by oral route. Amitiza 24 mcg capsule TAKE 1 CAPSULE BY MOUTH TWICE DAILY amlodipine 10 mg tablet Take 1 tablet every day by oral route. amoxicillin 500 mg-potassium clavulanate 125 mg tablet Take 1 tablet twice a day by oral route for 10 days. atorvastatin 20 mg tablet TAKE 1 TABLET BY MOUTH EVERY DAY fluconazole 100 mg tablet Take 1 tablet every day by oral route for 10 days. labetalol 100 mg tablet Take 1 tablet twice a day by oral route. tamsulosin 0.4 mg capsule Take 1 capsule every day by oral route for 90 days. tramadol 50 mg tablet Take 1 tablet every 4-6 hours by oral route for 7 days. Medications Administered None recorded. Vitals None recorded. Results Lab Results None recorded. Allergies Code Code System Name Reaction Severity Status Onset NKDA Problems Name Status Onset Date Source Hyperlipidemia Active 07/03/2017 Gout Active 07/03/2017 Benign Hypertensive Renal Disease Active 07/03/2017 Gastroesophageal Reflux Disease Active 07/03/2017 Acute Retinal Necrosis Active 11/17/2018 Malignant Tumor of Urinary Bladder Active 12/17/2018 Moderate Protein-calorie Malnutrition (Weight for Age 60-74% of Standard) Active 07/12/2019 Anemia of Chronic Disease Active 07/12/2019 Vitritis Active 07/12/2019 Chronic Kidney Disease Stage 4 Active 07/12/2019 Arteriosclerosis of Thoracic Aorta Active 12/04/2019 Mixed Hyperlipidemia Active 01/25/2020 Anemia in Chronic Kidney Disease Active 01/25/2020 Anemia Active Blood in Urine Active Procedures Date Name Performed by 10/26/2017 Cancer Surgery Information not available Transurethral Prostatectomy Information not available Vaccine List Vaccine Type influenza, high dose seasonal 07/07/20180.5 mL 07/08/20190.5 mL influenza, unspecified formulation 07/02/2017 pneumococcal conjugate PCV 13 03/25/20180.5 mL 0.5 mL pneumococcal polysaccharide PPV23 01/02/2009 Td (adult), adsorbed 03/25/20180.5 mL Social History Tobacco Smoking Status Never Smoker Past Encounters 01/24/2020 Benign Hypertensive Renal Disease; Chronic Kidney Disease Stage 4; Malignant Tumor of Urinary Bladder; Mixed Hyperlipidemia; Moderate Protein-calorie Malnutrition (Weight for Age 60-74% of Standard); Hyperparathyroidism Due to Renal Insufficiency; Senile Purpura; Anemia in Chronic Kidney Disease; Acute Urinary Tract Infection; Arteriosclerosis of Thoracic Aorta; Malaise and Fatigue Jimbo Roman MD: [id number], [address], [place] [address], Ph. History of Present Illness Hospital Follow Up (TCM) Reported By: Patient Notes: [facility] / htn & anemia .Per pt had turp & admitted at [facility] on 01/17 & D/Shai on 01/19. Records from [facility] emr show - d/c diagnosis as TURP , htn ,uti & petersen cath care. Percpt doing well & just a little tired, No chest pain , no shortness of breath, no palpitations ,no dizziness , no diaphoresis , no weakness or numbness in arms or legs , no visual loss . Note:I confirm that I received verbal consent from the patient for the virtual visit.<div>Attempted to use video capabilities to interact with patient, but unable either due to patient lacking an appropriate device or technical difficulties. Interaction was via audio phone only.</div><div>
</div> Review of Systems:ROS as noted in the HPI Review of Systems None recorded. Physical Exam Notes: Alert & energetic a sbefore , talks a lot , in no discomfort .
--- OUTSIDE RECORDS SUMMARY | 2020-02-15 07:53 | XMS REPORT | Encounter Summary ---
Author Organization Unknown Address [address] [place] [address] Phone [phone] Care Team Providers Care Staffing Director Name Role Phone Dr. Jimbo Roman 3 [phone] Jimbo Roman MD 3 [phone] Juvencio Mccullough MD 2 [phone] Herbert Adams MD 111 [phone] Nawaf Hussein MD 115 [phone] Luis Smith 118 [phone] Reason for Visit TELE-hospital follow up - [...] 11. Malaise and fatigue Discussion Note Reviewed [facility] emr records. Hold Atorvastatin 20 mg po [...] what medications you should be taking. Our [facility] can also help you in this area. Contact them at . [facility] can help you choose the best Home Health agency. We can also help you with nephrology social worker and community resources. Call us we are here to help. If you experience any new or concerning symptoms, call us immediately at . Evening and Thursday clinic hours are now available. If you have problems after hours, you can reach the [facility] doctor electronic musical instrument repairer at [phone] . Please follow up with your doctor [...] Aorta; Malaise and Fatigue Jimbo Roman MD: [id number], [address], [place] [address], Ph. History of Present Illness Hospital Follow Up (TCM) Reported By: Patient Notes: Admitted to [facility] for hematuria / htn & anemia .Per pt had turp 7 admitted at [facility] on 12/22 & D/Shai on 01/19. Records from [facility] emr show - d/c diagnosis as TURP , htn ,uti & petersen cath care. Perpt doing well & jusyt a little tired, No chest pain , [...]
[2020-02-15] MEDS ORDERED: FLUCONAZOLE 200 MG/100 ML 100 ML IV ONE (08:31)
[2020-02-15] MEDS ORDERED: SODIUM CHLORIDE 0.9% 1000ML 1,000 ML ONE (08:31)
[2020-02-15] MEDS ORDERED: PIPERACILLIN/TAZO 2.25 GM 50 ML IV SCH (08:45)
[2020-02-15] MEDS ORDERED: FLUCONAZOLE 200 MG/100 ML 100 ML IV NR (09:00)
[2020-02-15 09:29] LABS: BASOPHILS % 0.4 % (0.0-1.0); EOSINOPHILS # (AUTO) 0.4 (0.0-0.4); EOSINOPHILS % 4.4 % (0.0-6.0); HEMATOCRIT 29.3 % (38.2-49.6); HEMOGLOBIN 9.2 g/dL (14.0-18.0); LYMPHOCYTES # (AUTO) 2.2 (1.0-3.2); LYMPHOCYTES % 26.3 % (18.0-39.1); MEAN CORPUSCULAR HEMOGLOBIN 28.7 pg (28-32); MEAN CORPUSCULAR HGB CONC 31.4 g/dL (31-35); MEAN CORPUSCULAR VOLUME 91.3 fL (81-99); MONOCYTES # (AUTO) 0.6 (0.2-0.8); MONOCYTES % 7.3 % (4.4-11.3); NEUTROPHILS % 61.1 % (38.7-80.0); PLATELET COUNT 221 x10e3/uL (140-360); RED BLOOD COUNT 3.21 x10e6/uL (4.3-5.7); RED CELL DISTRIBUTION WIDTH 15.4 % (11.7-14.4)
[2020-02-15 09:50] LABS: ALBUMIN/GLOBULIN RATIO 0.7 (0.8-2.0); CREATININE, SERUM 3.24 mg/dL (0.72-1.25)
[2020-02-15] MEDS ORDERED: B&O 60MG R/S 60 MG SUPP PR ONE (11:13)
[2020-02-15] MEDS ORDERED: IOPAMIDOL 300MG/ML 50ML INFUS..BTL IV ONE (11:13)
[2020-02-15] MEDS ORDERED: B&O 60MG R/S 60 MG SUPP PR PRN (11:30)
[2020-02-15] MEDS ORDERED: DIPHENHYDRAMINE HCL 25 MG CAP PO PRN (11:30)
[2020-02-15] MEDS ORDERED: ONDANSETRON HCL INJ 2MG/ML 2ML 2 MG/ML VIAL IV PRN (11:30)
[2020-02-15] MEDS ORDERED: HYDROMORPHONE 1MG/1ML INJ ONE (13:19)
[2020-02-15] MEDS ORDERED: FENTANYL CITRATE/PF 100MCG/2 ML INJ ONE ×2 (13:30→19:59)
[2020-02-15 14:08] LABS: BASOPHILS % 0.4 % (0.0-1.0); EOSINOPHILS # (AUTO) 0.2 (0.0-0.4); EOSINOPHILS % 3.3 % (0.0-6.0); HEMATOCRIT 27.1 % (38.2-49.6); HEMOGLOBIN 8.6 g/dL (14.0-18.0); LYMPHOCYTES # (AUTO) 1.7 (1.0-3.2); LYMPHOCYTES % 22.8 % (18.0-39.1); MEAN CORPUSCULAR HEMOGLOBIN 29.2 pg (28-32); MEAN CORPUSCULAR HGB CONC 31.7 g/dL (31-35); MEAN CORPUSCULAR VOLUME 91.9 fL (81-99); MONOCYTES # (AUTO) 0.3 (0.2-0.8); MONOCYTES % 3.9 % (4.4-11.3); NEUTROPHILS # (AUTO) 5.1 (2.1-6.9); NEUTROPHILS % 69.5 % (38.7-80.0); PLATELET COUNT 182 x10e3/uL (140-360); RED BLOOD COUNT 2.95 x10e6/uL (4.3-5.7); RED CELL DISTRIBUTION WIDTH 15.5 % (11.7-14.4)
[2020-02-15 14:22] LABS: ANION GAP 11.1 mmol/L (8-16); CALCIUM 8.6 mg/dL (8.4-10.2); CREATININE, SERUM 3.01 mg/dL (0.72-1.25); POTASSIUM 5.1 mmol/L (3.5-5.1)
[2020-02-15] MEDS ORDERED: MELATONIN1 M1 PO (15:42)
[2020-02-15 16:00] VITALS: BP 168/72
[2020-02-15 16:39] VITALS: BP 168/72
[2020-02-15] MEDS: PHENAZOPYRIDINE HCL 100 MG TAB PO SCH ×2 (17:17→18:46)
[2020-02-15] MEDS: D5.45%NS/KCL 20MEQ 1,000 ML IV SCH (17:24)
[2020-02-15] MEDS ORDERED: ACETAMINOPHEN 1000 MG/100 ML IV PRN (18:00)
--- NOTE | 2020-02-15 19:36 | Operative Report ---
DATE OF PROCEDURE: 02/15/2020 SURGEON: Nawaf Hussein MD PREOPERATIVE DIAGNOSES: 1. Persistent recurrent large surface area of bladder cancer. 2. Bilateral hydronephrosis. 3. Bilateral indwelling ureteral stents. POSTOPERATIVE DIAGNOSES: 1. Persistent recurrent large surface area of bladder cancer. 2. Bilateral hydronephrosis. 3. Bilateral indwelling ureteral stents. 4. 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 OPERATIONS PERFORMED: 1. Cystourethroscopy with complicated removal of bilateral indwelling ureteral stents (separate procedure performed for the diagnosis of stents). 2. Cystourethroscopy with insertion of left indwelling ureteral stent (separate procedure performed to relieve the left hydronephrosis). 3. Right ureteroscopy with biopsy of debris and possible tumor on the lower pole calyx (separate procedure performed for the diagnosis of the upper tract tumor). 4. Radiological Services for supervision and interpretation of ureteroscopy, no radiologist present. 5. Cystourethroscopy with insertion of right indwelling ureteral stent (separate procedure performed to relieve the hydronephrosis). 6. Interpretation of retrograde ureteropyelography, no radiologist present. 7. Supervision of fluoroscopy, no radiologist present. 8. Cystourethroscopy with transurethral resection and treatment of the bladder tumor well over 5 cm in diameter. ANESTHESIA: General. COMPLICATIONS: None. 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 He has undergone numerous transurethral resections. The majority of these in the interval between was delayed by the patient's very busy schedule. Ideally, I had instructed the patient that I want to take him to the operating room every month to treat his tumors, but this has been going on every 2 to 3 months due to his busy schedule. The patient also has chronic renal insufficiency, he is dependent on stents. He has recurrent urinary tract infections as well as recurrent and persistent candiduria. The patient is brought to the operating room today for his next step of management. All pathological specimens to date did not reveal any muscle invasion of his cancer. He is aware of the risks of bleeding, infection, injury to adjacent structures, and elected to proceed. I have also repeatedly offered the patient referral to [facility] for cystectomy. He has deferred that option so far. This procedure is urgent due to the fact the patient keeps having cancer that we cannot control and therefore, it needs to be done during the COVID-19 emergency. OPERATIVE PROCEDURE IN DETAIL: Informed consent was verified. Piotr Castro was properly identified, taken to the operating room, and placed on the cystoscopy table in supine position. Anesthesia was uneventfully begun. The patient was then carefully and gently repositioned in dorsal lithotomy position with all pressure points well padded. His genitalia were prepared and draped in usual sterile fashion. A 22.5-Maori cystoscope sheath with a visual obturator in place was atraumatically inserted into the patient's urethra, was guided down the unremarkable urethra through normal sphincteric region through the prostate bed, which was significant for BPH and into the patient's bladder. Panendoscopy revealed persistent tumors throughout the posterior bladder wall with recurrent tumors in the right lateral wall as well as anterior wall. Posterior wall also contained abnormal-appearing mucosa, which may be tumor recurrence or just not fully healed from prior resection. Stents were emerging from both ureteral orifices. A guidewire was then placed in the left ureter and guided to the level of the patient's kidney. The stent was then removed and it was grasped, completely removed, and discarded. An open-ended ureteral catheter was then brought up over the guidewire and guided to the level of the patient's kidney. Contrast was injected. The wire was replaced. With cystoscopic and fluoroscopic guidance, a left-sided indwelling ureteral stent was then placed, coiled in the patient's kidney as well as the patient's bladder. The retaining suture was removed. A guidewire was then placed into the right ureter and guided to the level of the patient's kidney. The stent was then grasped, completely removed, and discarded. An open-ended ureteral catheter was brought up over the guidewire and brought up to the level of the patient's kidney. Contrast was injected. The wire was then replaced. Flexible ureteroscope was then brought up over the guidewire and guided to the level of the patient's kidney. Panendoscopy revealed multiple tumors in the lower pole calyx consistent with transitional cell carcinoma. We utilized a basket to grasp debris which may be fungus balls and maybe necrotic tumor debris. It was all grasped and pulled out of the kidney. With cystoscopic and fluoroscopic guidance, a right-sided indwelling ureteral stent was then placed, it was coiled in the patient's kidney as well as the patient's bladder. The retaining suture was removed. An extra long resectoscope was then inserted atraumatically. We performed a fulguration of the entire trigonal region. We eliminated tumor from the right lateral wall, that is new. We then worked up the posterior wall on some of the new tumors. Most of the treatment was done with fulguration to minimize bleeding. We worked for exactly 1 hour due to the patient's advanced age and the risk of hyponatremia with resection. We also tried to minimize the length of his anesthetics due to his advanced age and frailty. We made sure that all debris and chips were evacuated. The resectoscope was withdrawn. A 24-Maori Lang catheter with a 10 mL balloon was inserted. It was filled with 15 mL of sterile water. It was irrigated to and fro to ensure it worked properly. It was placed in continuous irrigation at a slow pace, and belladonna and opium suppository were placed revealing a 30 g prostate, smooth and nonfluctuant without any nodules. The patient was then uneventfully reversed from anesthesia and taken to recovery room in stable condition. Interpretation of retrograde ureteropyelography contrast was instilled in retrograde fashion bilaterally. There was bilateral hydroureteronephrosis. The stents were in good position at the end of the case. There were multiple filling defects in the right lower pole. There were no complications to the procedure. The patient tolerated the procedure well. Estimated blood loss was minimal. We will have a very km discussion with the patient tomorrow. We will admit the patient for intravenous antibiotics, catheter management, and renal evaluation. Nawaf Hussein MD [place]/MAURIL /[id number]
[2020-02-15] MEDS ORDERED: DEXAMETHASONE SOD PHOS INJ 4 MG/ML VIAL ONE (19:39)
[2020-02-15] MEDS ORDERED: ONDANSETRON HCL INJ 2MG/ML 2ML 2 MG/ML VIAL ONE (19:39)
[2020-02-15] MEDS ORDERED: LIDOCAINE HCL 2% LOCAL INJ 5 ML SDV VIAL INJ ONE (19:39)
[2020-02-15] MEDS ORDERED: SEVOFLURANE INHAL SOLN 250 ML PEN BTL ONE (19:39)
[2020-02-15] MEDS ORDERED: PROPOFOL IV EMULSION 10 MG/ML 20 ML VIAL ONE (19:39)
[2020-02-15 20:00] VITALS: BP 179/80
[2020-02-15] MEDS: (Melatonin 1 MG) PO SCH (21:00)
[2020-02-15] MEDS: ATORVASTATIN 20 MG TAB PO SCH (21:15)
[2020-02-15] MEDS: ACETAMINOPHEN/CODEINE 300MG - 30MG TAB PO PRN (21:15)
[2020-02-15] MEDS: PIPERACILLIN/TAZO 2.25 GM 50 ML IV SCH (21:15)
[2020-02-15 21:30] VITALS: BP 179/80
[2020-02-16] VITALS (8 sets, daily range): BP systolic 118–172; BP diastolic 58–74
[2020-02-16] MEDS: D5.45%NS/KCL 20MEQ 1,000 ML IV SCH (01:46)
[2020-02-16] MEDS: PIPERACILLIN/TAZO 2.25 GM 50 ML IV SCH ×3 (04:55→23:02)
[2020-02-16 06:02] LABS: BASOPHILS % 0.2 % (0.0-1.0); EOSINOPHILS % 0.1 % (0.0-6.0); HEMATOCRIT 25.1 % (38.2-49.6); HEMOGLOBIN 7.9 g/dL (14.0-18.0); LYMPHOCYTES # (AUTO) 1.9 (1.0-3.2); LYMPHOCYTES % 14.9 % (18.0-39.1); MEAN CORPUSCULAR HEMOGLOBIN 28.9 pg (28-32); MEAN CORPUSCULAR HGB CONC 31.5 g/dL (31-35); MEAN CORPUSCULAR VOLUME 91.9 fL (81-99); MONOCYTES # (AUTO) 0.8 (0.2-0.8); MONOCYTES % 6.7 % (4.4-11.3); NEUTROPHILS # (AUTO) 9.8 (2.1-6.9); NEUTROPHILS % 77.6 % (38.7-80.0); PLATELET COUNT 197 x10e3/uL (140-360); RED BLOOD COUNT 2.73 x10e6/uL (4.3-5.7); RED CELL DISTRIBUTION WIDTH 15.3 % (11.7-14.4)
[2020-02-16 06:21] LABS: ANION GAP 9.7 mmol/L (8-16); CALCIUM 8.2 mg/dL (8.4-10.2); CREATININE, SERUM 2.61 mg/dL (0.72-1.25); POTASSIUM 5.7 mmol/L (3.5-5.1)
[2020-02-16] MEDS: PHENAZOPYRIDINE HCL 100 MG TAB PO SCH ×3 (08:55→17:13)
[2020-02-16] MEDS: TAMSULOSIN HCL 0.4 MG CAP PO SCH (08:55)
[2020-02-16] MEDS: LABETALOL HCL 100 MG TAB PO SCH ×2 (08:56→16:10)
[2020-02-16] MEDS ORDERED: HYDRALAZINE HCL 25 MG TAB PO PRN (09:00)
[2020-02-16] MEDS ORDERED: ACETAMINOPHEN 1000 MG/100 ML IV PRN (09:00)
[2020-02-16] MEDS ORDERED: FLUCONAZOLE 100 MG TAB PO SCH (09:00)
[2020-02-16] MEDS ORDERED: ONDANSETRON HCL INJ 2MG/ML 2ML 2 MG/ML VIAL IV PRN (09:00)
[2020-02-16] MEDS ORDERED: FLUCONAZOLE 100 MG PO SCH (09:00)
[2020-02-16] MEDS: FLUCONAZOLE 100 MG/NS 50 ML 50 ML IV SCH (09:05)
[2020-02-16] MEDS ORDERED: FUROSEMIDE INJ 10 MG/ML 2 ML VIAL IV ONE (09:55)
[2020-02-16] MEDS: AMLODIPINE BESYLATE 5 MG TAB PO SCH (10:53)
[2020-02-16] MEDS: DEXTROSE 5%/0.45% SOD CHL 1,000 ML IV SCH ×2 (10:53→23:02)
[2020-02-16] MEDS: ACETAMINOPHEN/CODEINE 300MG - 30MG TAB PO PRN (17:13)
[2020-02-16] MEDS: (Melatonin 1 MG) PO SCH (21:00)
--- NOTE | 2020-02-16 21:01 | Consultation ---
DATE OF CONSULTATION: Initial Nephrology Consultation Report REASON FOR CONSULTATION: Kidney failure, elevated serum creatinine. HISTORY OF PRESENT ILLNESS: Mr. Castro is a pleasant 89-year-old male, who was admitted to the hospital. Yesterday, he underwent a transurethral resection of bladder cancer. He also had changing of the bilateral stents. This is the patient who had elevated serum creatinine for a while. I do not have all of the patient records, but it looks like even in December his serum creatinine was elevated. I am still seeing same creatinine, actually on admission it was 3.24, today it is 2.6. 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 The patient has a history of hyperlipidemia and hypertension. PAST SURGICAL HISTORY: As above. PHYSICAL EXAMINATION: VITAL SIGNS: Blood pressure 118/58, pulse 75. GENERAL: The patient is a thin male. HEENT: No JVD. CARDIOVASCULAR: Regular rate and rhythm. LUNGS: Decreased breath sounds. ABDOMEN: Positive bowel sounds. EXTREMITIES: The patient has JEWEL hose stockings in place. LABORATORY RESULTS: Sodium 135, potassium 5.7, chloride 110, bicarbonate 21, BUN and creatinine 43 and 2.6 respectively. Yesterday, it was 53 and 3.2. IMPRESSION: 1. Acute kidney injury on chronic kidney disease. 2. Obstructive nephropathy. 3. History of bladder cancer. PLAN: The patient was seen by Dr. Nam approximately about a month ago and a followup was planned. However, he never got connected with the followup appointment. The patient's serum creatinine is improving. He was hyperkalemic this morning. The potassium chloride was removed from the IV fluid and I gave him one dose of Lasix. His urine output is good. I feel his potassium will come down tomorrow IV contrast should be avoided. I will follow up with the patient you. Thank you for this consultation. Ather MD HANSA Ortega/ALPHONSE /[id number]
[2020-02-16] MEDS: ATORVASTATIN 20 MG TAB PO SCH (23:02)
[2020-02-17] VITALS: BP 156/70
[2020-02-17 04:00] VITALS: BP 136/63
[2020-02-17] MEDS: PIPERACILLIN/TAZO 2.25 GM 50 ML IV SCH ×2 (05:31→12:21)
[2020-02-17 05:55] LABS: BASOPHILS # (AUTO) 0.1 (0.0-0.1); BASOPHILS % 0.4 % (0.0-1.0); EOSINOPHILS # (AUTO) 0.5 (0.0-0.4); EOSINOPHILS % 4.5 % (0.0-6.0); HEMATOCRIT 26.9 % (38.2-49.6); HEMOGLOBIN 8.5 g/dL (14.0-18.0); LYMPHOCYTES % 26.3 % (18.0-39.1); MEAN CORPUSCULAR HEMOGLOBIN 28.5 pg (28-32); MEAN CORPUSCULAR HGB CONC 31.6 g/dL (31-35); MEAN CORPUSCULAR VOLUME 90.3 fL (81-99); MONOCYTES # (AUTO) 0.8 (0.2-0.8); MONOCYTES % 7.2 % (4.4-11.3); NEUTROPHILS % 61.2 % (38.7-80.0); PLATELET COUNT 192 x10e3/uL (140-360); RED BLOOD COUNT 2.98 x10e6/uL (4.3-5.7); RED CELL DISTRIBUTION WIDTH 15.2 % (11.7-14.4)
[2020-02-17 06:20] LABS: ANION GAP 8.9 mmol/L (8-16); CALCIUM 8.7 mg/dL (8.4-10.2); CREATININE, SERUM 2.87 mg/dL (0.72-1.25); POTASSIUM 4.9 mmol/L (3.5-5.1)
[2020-02-17 08:04] VITALS: BP 140/63
[2020-02-17] MEDS: TAMSULOSIN HCL 0.4 MG CAP PO SCH (08:50)
[2020-02-17] MEDS: LABETALOL HCL 100 MG TAB PO SCH (08:50)
[2020-02-17] MEDS: AMLODIPINE BESYLATE 5 MG TAB PO SCH (08:50)
[2020-02-17] MEDS: PHENAZOPYRIDINE HCL 100 MG TAB PO SCH ×2 (08:50→12:21)
[2020-02-17 08:53] VITALS: BP 140/63
[2020-02-17] MEDS: FLUCONAZOLE 100 MG/NS 50 ML 50 ML IV SCH (09:35)
[2020-02-17] MEDS: DEXTROSE 5%/0.45% SOD CHL 1,000 ML IV SCH (11:55)
[2020-02-17 12:40] VITALS: BP 146/65
[2020-02-17] MEDS ORDERED: TYLENOL WITH C1 EACH PO (16:01)
[2020-02-17] MEDS ORDERED: CIPRO500 MG PO (16:02)
[2020-02-17 16:33] VITALS: BP 95/50
== END 2020-02-17 16:50 | disposition home or self-care (01) | DRG 657 ==
LOC: OR 07:49 → PACU V 11:22 → MED/SURG 15:09
PROVIDERS: ADMIT Urology; ATTEND Urology
PROC: 0TP98DZ Removal of Intraluminal Device from Ureter, Via Natural or Artificial Opening Endoscopic (ICD-10-PCS; 2020-02-15)
PROC: 0TP98DZ Removal of Intraluminal Device from Ureter, Via Natural or Artificial Opening Endoscopic (ICD-10-PCS; 2020-02-15)
PROC: 0TBB8ZZ Excision of Bladder, Via Natural or Artificial Opening Endoscopic (ICD-10-PCS; principal; 2020-02-15 10:00)
PROC: 0T788DZ Dilation of Bilateral Ureters with Intraluminal Device, Via Natural or Artificial Opening Endoscopic (ICD-10-PCS; 2020-02-15 10:00)
DX: C67.4 Malignant neoplasm of posterior wall of bladder (principal); N17.9 Acute kidney failure, unspecified; N13.8 Other obstructive and reflux uropathy; N13.30 Unspecified hydronephrosis; B37.49 Other urogenital candidiasis; E78.5 Hyperlipidemia, unspecified; Z96.0 Presence of urogenital implants; I12.9 Hypertensive chronic kidney disease with stage 1 through stage 4 chronic kidney disease, or unspecified chronic kidney disease; N18.3 Chronic kidney disease, stage 3 (moderate); D64.9 Anemia, unspecified; N32.81 Overactive bladder; Z87.440 Personal history of urinary (tract) infections; N40.0 Benign prostatic hyperplasia without lower urinary tract symptoms; C67.3 Malignant neoplasm of anterior wall of bladder; C67.2 Malignant neoplasm of lateral wall of bladder
CPT/HCPCS: 36415; 74420; 80048; 80053; 83735; 85025; 87070; 87086; 87186; 87205; 88112; 88304; 88305; 88312; 96361; 99251; C1766; C2617; J1100; J1170; J1450; J1940; J2001; J2405; J2543; J3010; J7030